=== PATIENT | female | born 1955 | race Caucasian/White ===

== ENCOUNTER → 2017-04-27 22:57 | Outpatient (CLI) | payer OTHER, SELFPAY | PROVIDERS: Visit Provider Family Medicine | DX: G47.33 Obstructive sleep apnea (adult) (pediatric) (principal) | CPT/HCPCS: 95811 ==

== ENCOUNTER 2017-07-18 05:31 | Emergency (ER) | payer OTHER, SELFPAY ==
[2017-07-18 05:34] VITALS: BP 179/99; PULSE 92; RESP 18; TEMP 36.6; O2SAT 98; BMI 36.3
--- NOTE | 2017-07-18 05:42 | CT_ITS ---
STUDY: CT ABDOMEN AND PELVIS WITHOUT CONTRAST REASON FOR EXAM: Female, 62 years old. Groin pain and back pain RADIATION DOSAGE (If Supplied By Facility): CTDIvol = ( 16.50 ) mGy, DLP = ( 816.86 ) mGycm TECHNIQUE: Transaxial images were obtained from the dome of the diaphragm to the symphysis pubis without oral contrast, and without intravenous contrast. Sagittal and coronal images were reconstructed. Individualized dose optimization techniques were used for this CT. COMPARISON: None. FINDINGS: The visualized lung bases are unremarkable. The visualized portions of the heart are within normal limits. Normal liver. Normal gallbladder and extrahepatic biliary system. Normal spleen. Normal pancreas. Normal bilateral adrenal glands. There is a cyst in the RIGHT kidney measuring up to 4.6 cm in diameter. There are NO kidney stones. There is NO hydronephrosis. Normal visualized stomach. Normal small intestine. There is diverticulosis of the sigmoid and LEFT colon. There is NO diverticulitis, colitis, obstruction or mass. The appendix is visualized and appears normal. Normal abdominal aorta. Normal inferior vena cava. Normal retroperitoneum. Normal urinary bladder. Uterus and ovaries are unremarkable. There is NO ascites or free air, abscess or adenopathy. There is an umbilical hernia containing fat only. Normal osseous structures. CT/Abdomen/Pelvis without Cont IMPRESSION: There is a cyst in the RIGHT kidney measuring up to 4.6 cm in diameter. There are NO kidney stones. There is NO hydronephrosis. There is diverticulosis of the sigmoid and LEFT colon. There is NO diverticulitis, colitis, obstruction or mass. The appendix is visualized and appears normal. Uterus and ovaries are unremarkable. There is NO ascites or free air, abscess or adenopathy. There is an umbilical hernia containing fat only. Electronically Signed: Jesus Miramontes MD at 6:55 EDT , Service support ,
--- NOTE | 2017-07-18 05:45 | ED.DCSUM_ITS ---
- ER Visit Summary Date of Service: 07/18/17 Chief Complaint: Right groin pain History of Present Illness: The patient is a 62 F waxing waning right groin pain since yesterday morning. Pain more intense this morning. Currently 7 8 out of 10. No relief with Advil taken at 4 AM. Nausea secondary to pain. No vomiting. Normal BM this morning. No urinary symptoms. States pain does radiate to her back region. No history of kidney stones. No fevers. No abdominal surgery history. Physical Examination: General: Alert and oriented ?3, mild distress HEENT: Normocephalic, atraumatic. Moist mucosa membranes Neck: supple, nontender. Cardiovascular: Regular rate and rhythm, no murmurs Respiratory: Normal breath sounds, symmetric, no distress Abdomen: Soft, nondistended, mild tenderness right pelvic with no guarding or rebound. No hernia. Back: No CVA tenderness. Extremities: Nontender, no edema, pulses intact ?4 Neuro: no focal neurological deficits. Test Results: Blood cell count 6.1. Hemoglobin 13.9. BMP normal. UA with [address] abdomen pelvis notes a 4.6 cm right renal cyst. Normal appendix. No obstructive uropathy Emergency Department Course and Treatment: Patient right groin pain rating to the back. Renal stone protocol initiated. Labs stable. Urine with small amount of blood. Give morphine Zofran fluids with pain control. CT notes right 4.6 cm renal cyst with no obstructive uropathy. There is a normal appendix, there is no uterine pathology. Discussed with patient is likely the cause of her symptoms with the size of it. Pain currently controlled. To be written for pain and nausea medicines. Increase her fibers. She will follow- up with her PCP reevaluation further treatment as needed for the cyst. Treatment Plan: [] Disposition: Discharge Impression: 1. Abdominal pain 2. 4.6 cm right renal cysts This note was generated with [employer] dictation software. It may contain incorrect words, spelling, and punctuation that were not noted in review of the chart prior to signing ED Disposition - Plan for ED Patient: Disposition: Home or Assisted Living Chief Complaint: Other, Pain/Inj Diagnosis: Renal cyst, right, Abdominal pain Prescriptions: Hydrocodone Bitart/Apap 5-325 [[place] 5MG-325MG] 1 tablet PO Q6H PRN PRN 3 Days # 10 tablet PRN Reason: Pain Ondansetron [Zofran Odt] 8 mg PO Q8H PRN PRN #10 tab PRN Reason: Nausea Referrals: Jose Thayer MD [Primary Care Provider] - 2 Days Additional Instructions: 4.6 cm right renal cyst. No obstructive uropathy. No kidney stones. Follow- up with your doctor for reevaluation.
[2017-07-18] MEDS: Ondansetron 4 MG/2 ML Vial IV (05:53)
[2017-07-18] MEDS: Morphine 4 MG/ML Syringe IV (05:54)
[2017-07-18] MEDS: 0.9% Normal Saline 1,000 ML 250 ML IV (05:54)
[2017-07-18 06:07] LABS: Absolute Lymphocyte Count 1.57 X10^3/ul (0.83-4.51); Absolute Neutrophil Count 3.8 X10^3/uL (2.0-7.7); Basophil# 0.06 X10^3/uL; Eosinophil# 0.14 X10^3/uL; Eosinophils% 2.3 % (0-5); Hematocrit 42.2 % (37-47); Hemoglobin 13.9 g/dl (12.0-15.0); Lymphocyte # 1.57 X10^3/ul (4.0); Lymphocyte % 25.9 % (19-41); Mean Corp Hgb Conc 32.9 g/gl (32-36); Mean Corpuscular Hgb 29.2 pg (27.0-32.0); Mean Corpuscular Volume 88.7 fL (81-99); Mean Platelet Vol. 10.7 fl (6.2-12.0); Monocyte# 0.45 X10^3/uL; Monocyte% 7.4 % (0-10); Neutrophil # 3.81 X10^3/uL (2.7-7.7); Neutrophil % 62.9 % (47-70); Platelet Count 203 K/mm3 (150-450); RBC Distribution Width CV 13.7 % (11.6-14.6); RBC Distribution Width SD 44.5 fl (35.1-43.9); Red Blood Count 4.76 M/mm3 (4.2-5.4); White Blood Count 6.1 K/mm3 (4.4-11.0)
[2017-07-18 06:08] LABS: POSITIVE COUNT NO; POSITIVE DIFFERENTIAL NO; POSITIVE MORPHOLOGY NO
[2017-07-18 06:10] LABS: Anion Gap 7 (5-15); BUN 18 mg/dL (7-18); BUN/Creat Ratio 20.5 RATIO (10-20); Calcium,Total 8.3 mg/dL (8.5-10.1); Chloride 110 mmol/L (98-107); Creatinine, Serum 0.88 mg/dL (0.55-1.02); EST Glomerular Filtration Rate 69 mL/min (>60); Est Glom Filt Rate - Afr Amer 83 mL/min (>60); Estimated Creatinine Clearance 60.46 ml/min; Glucose 91 mg/dL (74-106); Potassium 3.7 mmol/L (3.5-5.1); Sodium Level 143 mmol/L (136-145)
[2017-07-18 06:30] VITALS: BP 164/86; PULSE 77; RESP 16; O2SAT 95
[2017-07-18 06:59] LABS: Bacteria 0 SEEN /hpf (None Seen); White Blood Cells 0 SEEN /hpf (0-5)
[2017-07-18 07:03] LABS: Color, Urine Yellow (Yellow); Glucose, Dipstick Normal (Normal); Ketone-Dipstick Negative (Negative); Leukocyte Esterase-Dipstick Negative /ul (Negative); Nitrite-Dipstick Negative (Negative); Occult Blood-Urine 10 /ul (Negative); Protein-Dipstick 15 mg/dl (Negative); Specific Gravity, Urine 1.015 (1.002-1.030); Urine Bilirubin Dipstick Negative (Negative); Urine Clarity Clear (Clear); Urine Urobilinogen Normal (Normal)
[2017-07-18 07:08] LABS: Mucous, Urine 1+ /hpf (<or=2+); Red Blood Cells-Urine 0-5 SEEN /hpf (0-5); Squamous Epithelial Cells - UA 0-5 SEEN /hpf (5-10)
== END 2017-07-18 07:52 | disposition home or self-care (01) ==
PROVIDERS: Emergency Provider Emergency Medicine
DX: N20.0 Calculus of kidney (principal); R10.31 Right lower quadrant pain
CPT/HCPCS: 74176; 80048; 81001; 85025; 96361; 96374; 96375; 99282; J7030; A4216; J2405

== ENCOUNTER → 2017-07-26 07:18 | Outpatient (CLI) | payer OTHER, SELFPAY ==
--- NOTE | 2017-07-26 07:20 | CT_ITS ---
STUDY: CT ABDOMEN AND PELVIS WITH CONTRAST REASON FOR EXAM: Female, 62 years old. Microhematuria. Right renal cyst. Right groin pain. RADIATION DOSAGE (If Supplied By Facility): CTDIvol = ( 19.65 ) mGy, DLP = ( 1958.03 ) mGycm TECHNIQUE: Transaxial images were obtained from the dome of the diaphragm to the symphysis pubis without oral contrast. 100CC ml of Isovue 300 contrast was administered. Sagittal and coronal images were reconstructed. Individualized dose optimization techniques were used for this CT. COMPARISON: Comparison is made with prior study dated July 18, 2017. FINDINGS: The visualized lung bases are unremarkable. The visualized portions of the heart are within normal limits. There is decreased attenuation of the liver consistent with steatosis. Normal gallbladder and extrahepatic biliary system. Normal spleen. Normal pancreas. Normal bilateral adrenal glands. There is a 4.6 cm x 5.9 cm cyst in the upper posterior medial aspect of the right kidney. Normal left kidney. Normal visualized stomach. Normal small intestine. Diverticulosis of the transverse colon and sigmoid colon. The appendix is visualized and appears normal. Normal abdominal aorta. Normal inferior vena cava. Normal retroperitoneum. Normal urinary bladder. There is a small umbilical hernia containing fat. There are diffuse degenerative changes of the visualized lumbar spine. Straightening of the normal lumbar lordosis. CT/Abdomen/Pelvis WITH Contrast IMPRESSION: 4.6 cm x 5.9 cm cyst in the upper posterior medial aspect of the right kidney. Sigmoid diverticulosis. Diverticulosis of the transverse colon. Electronically Signed: Matthew Iniguez MD at 15:05 EDT Tel [phone], Service support ,
== END ==
PROVIDERS: Visit Provider Nurse Practitioner Adult Health
DX: N28.1 Cyst of kidney, acquired (principal); K57.30 Diverticulosis of large intestine without perforation or abscess without bleeding
CPT/HCPCS: 74177; Q9967

== ENCOUNTER 2018-04-07 10:08 | Emergency (ER) | payer MEDICARE, OTHER, SELFPAY ==
[2018-04-07 10:09] VITALS: BP 158/94; PULSE 112; RESP 20; TEMP 37.7; O2SAT 93; BMI 35.3
--- NOTE | 2018-04-07 10:36 | EKG12_ITS ---
Test Reason : SOB Blood Pressure : / mmHG Vent. Rate : 096 BPM Atrial Rate : 096 BPM P-R Int : 168 ms QRS Dur : 088 ms QT Int : 354 ms P-R-T Axes : 042 -18 050 degrees QTc Int : 447 ms Normal sinus rhythm Normal ECG Confirmed by MARTY BLAND, MARIFER ([id number]), fashion editor CHERIE HADLEY ([id number]) on 04/12/2018 8:23:12 AM Referred By: IVAN Confirmed By:MARIFER FERGUSON MD
--- NOTE | 2018-04-07 10:36 | RAD_ITS ---
STUDY: X-RAY CHEST REASON FOR EXAM: Female, 63 years old. Cough. TECHNIQUE: 2 frontal PA views of the chest. COMPARISON: None. FINDINGS: The lungs are clear and expanded. There is no demonstrated pleural abnormality. Normal size heart. Normal mediastinum and alfredo. Normal visualized pulmonary arteries. Normal visualized aortic arch and descending thoracic aorta. Normal visualized thoracic spine. Normal visualized ribs, clavicles, and shoulders. There is no demonstrated abnormality of the visualized soft tissue structures of the upper abdomen. RAD/Chest PA and Lateral IMPRESSION: Normal x-ray examination of the chest. Electronically Signed: Haja Aldana, at 12:14 EST Tel , Service support ,
--- NOTE | 2018-04-07 10:41 | NURSING ---
NO OLD EKGS
[2018-04-07 10:43] VITALS: O2SAT 89
[2018-04-07] MEDS: Ipratropium/Albuterol Sulfate 3 ML AMPUL.NEB INHALATION (10:45)
[2018-04-07 11:00] VITALS: PULSE 101; RESP 18
[2018-04-07] MEDS: 0.9% Normal Saline 1,000 ML 1000 ML IV (11:04)
[2018-04-07] MEDS: Ketorolac 30 MG/ML Syringe IV (11:05)
[2018-04-07 11:29] LABS: Absolute Lymphocyte Count 1.93 X10^3/ul (0.83-4.51); Absolute Neutrophil Count 8.5 X10^3/uL (2.0-7.7); Basophil# 0.03 X10^3/uL; Basophil% 0.3 % (0-1); Eosinophil# 0.05 X10^3/uL; Eosinophils% 0.4 % (0-5); Hematocrit 38.6 % (37-47); Hemoglobin 12.5 g/dl (12.0-15.0); Lymphocyte # 1.93 X10^3/ul (4.0); Mean Corp Hgb Conc 32.4 g/gl (32-36); Mean Corpuscular Hgb 29.2 pg (27.0-32.0); Mean Corpuscular Volume 90.2 fL (81-99); Mean Platelet Vol. 10.5 fl (6.2-12.0); Monocyte# 0.76 X10^3/uL; Monocyte% 6.7 % (0-10); Neutrophil # 8.51 X10^3/uL (2.7-7.7); POSITIVE COUNT NO; POSITIVE DIFFERENTIAL NO; POSITIVE MORPHOLOGY NO; Platelet Count 184 K/mm3 (150-450); RBC Distribution Width CV 14.1 % (11.6-14.6); RBC Distribution Width SD 46.1 fl (35.1-43.9); Red Blood Count 4.28 M/mm3 (4.2-5.4); White Blood Count 11.4 K/mm3 (4.4-11.0)
[2018-04-07 11:39] LABS: Anion Gap 7 (5-15); BUN 10 mg/dL (7-18); BUN/Creat Ratio 10.6 RATIO (10-20); Calcium,Total 8.6 mg/dL (8.5-10.1); Chloride 106 mmol/L (98-107); Creatinine, Serum 0.94 mg/dL (0.55-1.02); EST Glomerular Filtration Rate 63 mL/min (>60); Est Glom Filt Rate - Afr Amer 77 mL/min (>60); Estimated Creatinine Clearance 55.86 ml/min; Glucose 92 mg/dL (74-106); Potassium 3.7 mmol/L (3.5-5.1); Sodium Level 139 mmol/L (136-145)
[2018-04-07 11:42] VITALS: BP 163/88; PULSE 98; RESP 21; O2SAT 94
--- NOTE | 2018-04-07 12:51 | ED.VISSUMM ---
- ER Visit Summary Date of Service: 04/07/18 Chief Complaint: Cough History of Present Illness: The patient is a 63 F who was initially placed on amoxicillin for strep throat March 22-. She went to her PCP on 2 separate occasions for continued cough and chest congestion. She went back to the [facility] clinic where they diagnosed her with pneumonia on auscultation with no x-ray and gave her a Z-Ken. Patient started this on the . She presents today stating the cough is continuing and she started developing chills last evening. She is bringing up green to yellow colored sputum. Past history significant for reflux disease. She has not a smoker. Physical Examination: Blood pressure is 150/94, temperature 99.9, heart rate 112, respiratory rate 20, pulse ox 93% on room air. Head neck examination reveals slightly dry mucous membranes. Heart is slightly tachycardic and regular. Lungs sounds are with mild rales at the left base. Abdomen is soft nontender. Lower extremity examination was no calf tenderness or edema. Test Results: EKG is sinus at 96 with no sign of ischemia. CBC was a white count 11.4 with 75% neutrophils. Chemistry studies normal. Influenza swab negative. Two-view chest x-ray is unremarkable with no infiltrate. Emergency Department Course and Treatment: Patient was given IV fluids along with a DuoNeb treatment and IV Toradol. She will be given Tessalon Perles to control cough. She has an albuterol inhaler to use at home. Treatment Plan: [] Disposition: Discharge Impression: Bronchitis This note was generated with [employer] dictation software. It may contain incorrect words, spelling, and punctuation that were not noted in review of the chart prior to signing ED Disposition - Plan for ED Patient: Chief Complaint: Shortness of Breath Referrals: Jose Saldivar MD [Primary Care Provider] -
--- NOTE | 2018-04-07 12:54 | ED.DCSUM_ITS ---
- ER Visit Summary Date of Service: 04/07/18 Chief Complaint: Cough History of Present Illness: The patient is a 63 F who was initially placed on amoxicillin for strep throat March 22-. She went to her PCP on 2 separate occasions for continued cough and chest congestion. She went back to the [facility] clinic where they diagnosed her with pneumonia on auscultation with no x- ray and gave her a Z-Ken. Patient started this on the . She presents today stating the cough is continuing and she started developing chills last evening. She is bringing up green to yellow colored sputum. Past history significant for reflux disease. She has not a smoker. Physical Examination: Blood pressure is 150/94, temperature 99.9, heart rate 112, respiratory rate 20, pulse ox 93% on room air. Head neck examination reveals slightly dry mucous membranes. Heart is slightly tachycardic and regular. Lungs sounds are with mild rales at the left base. Abdomen is soft nontender. Lower extremity examination was no calf tenderness or edema. Test Results: EKG is sinus at 96 with no sign of ischemia. CBC was a white count 11.4 with 75% neutrophils. Chemistry studies normal. Influenza swab negative. Two-view chest x-ray is unremarkable with no infiltrate. Emergency Department Course and Treatment: Patient was given IV fluids along with a DuoNeb treatment and IV Toradol. She will be given Tessalon Perles to control cough. She has an albuterol inhaler to use at home. Treatment Plan: [] Disposition: Discharge Impression: Bronchitis This note was generated with [employer] dictation software. It may contain incorrect words, spelling, and punctuation that were not noted in review of the chart prior to signing ED Disposition - Plan for ED Patient: Chief Complaint: Shortness of Breath Referrals: Jose Saldivar MD [Primary Care Provider] -
--- NOTE | 2018-04-07 12:54 | ED.DEP ---
ED Disposition - Plan for ED Patient: Disposition: Home or Assisted Living Chief Complaint: Shortness of Breath Instructions: ED Upper Resp Infec No Abx Tx Prescriptions: Benzonatate [Tessalon Perle] 200 mg PO TID PRN PRN #20 capsule PRN Reason: Cough Referrals: Jose Saldivar MD [Primary Care Provider] - 1 Week
[2018-04-07 12:55] VITALS: BP 144/77; PULSE 89; RESP 18; O2SAT 90
[2018-04-07 13:07] VITALS: BP 133/84; BP 134/88; PULSE 81; PULSE 88; RESP 17; RESP 20; TEMP 37.7; O2SAT 93
== END 2018-04-07 13:11 | disposition home or self-care (01) ==
PROVIDERS: Emergency Provider Emergency Medicine; Family Provider Family Medicine; PCP Family Medicine
DX: J40 Bronchitis, not specified as acute or chronic (principal); K21.9 Gastro-esophageal reflux disease without esophagitis; Z79.82 Long term (current) use of aspirin
CPT/HCPCS: 71046; 80048; 85025; 87040; 87804; 93005; 94640; 96361; 96374; 99284; J7030; A4216

== ENCOUNTER → 2019-04-23 14:50 | Outpatient (CLI) | payer MEDICARE, BC, SELFPAY ==
--- NOTE | 2019-04-23 14:59 | CT_ITS ---
STUDY: CT ABDOMEN AND PELVIS WITH CONTRAST REASON FOR EXAM: Female, 64 years old. GROSS HEMATURIA, KNOWN CYST ON RT KIDNEY RADIATION DOSAGE (If Supplied By Facility): CTDIvol = ( 15.57 ) mGy, DLP = ( 1018.25 ) mGycm TECHNIQUE: Transaxial images were obtained from the dome of the diaphragm to the symphysis pubis without oral contrast. IV 100mL Isovue-300 was administered. Sagittal and coronal images were reconstructed. Individualized dose optimization techniques were used for this CT. COMPARISON: Comparison is made with prior study dated July 26, 2017. FINDINGS: The visualized lung bases are unremarkable. The visualized portions of the heart are within normal limits. There is decreased attenuation of the liver consistent with steatosis. Normal gallbladder and extrahepatic biliary system. Normal spleen. Normal pancreas. Normal bilateral adrenal glands. Stable 4.4 cm x 6.6 cm cyst in the upper posterior medial aspect of the right kidney Normal left kidney. There is a small hiatal hernia. Normal small intestine. There are multiple colonic diverticula consistent with diverticulosis. The appendix is visualized and appears normal. Normal abdominal aorta. Normal inferior vena cava. Normal retroperitoneum. Normal urinary bladder. There is a small umbilical hernia containing fat. There are degenerative changes of the visualized lumbar spine. CT/Abdomen/Pelvis W IV Cont ONLY IMPRESSION: Fatty infiltration of the liver. Stable right renal cyst. Diverticulosis of the colon. Electronically Signed: Matthew Iniguez, at 15:49 EST , Service support ,
== END ==
PROVIDERS: PCP Family Medicine; Referring Provider Urology; Visit Provider Urology
DX: R31.0 Gross hematuria (principal)
CPT/HCPCS: 74177; Q9967

== ENCOUNTER → 2019-04-29 | Outpatient (CLI) | payer MEDICARE, BC, SELFPAY ==
--- NOTE | 2019-04-29 | CYSPIN_PTH ---
PATIENT: DEVANG BOWENS LOC: [facility] U#:[id number] AGE/SX: 64/F ROOM: RE04/29/[address]: Dr. Juan Hahn MD : [id number] BED: DIS: 04/29/2019 SPEC #: [id number] RECD: 04/29/19 17:37 STATUS: EMIR REKarlene #: [id number] ADELINE: 04/29/19 00:[address]: Juan Hahn DEPT: CYTOLOGY RECD BY: Tony Valerio ENTERED: 04/30/19 11:03 SP TYPE: CYSPIN FL OTHR DR: Dr. Jose Saldivar MD Tissues: Urine Procedures: Pap Stain (control) Special Stain Group II Cytospin Fluid HEADER OPERATION: Not noted PRE-OP DIAGNOSIS: Gross hematuria TISSUE SUBMITTED: Urine for cytology DIAGNOSIS CYTOLOGY Urine for cytology (cytospin): Negative for malignant cells. See comment. AM:bere 05/01/19 COMMENT The specimen primarily contains squamous epithelial cells. Clinical correlation is suggested. CYTOLOGY STUDY Slides are reviewed. CYTOLOGY GROSS Received is 5 ml of cloudy yellow fluid labeled with the patient's name and and designated per the requisition as urine. Submitted for cytology preparation. / bere 04/30/19 TC:5 CPT: 92145
[2019-04-29 17:38] LABS: Cytology, Body Fluid / CSF SEE PATHOLOGY REPORT
== END | disposition home or self-care (01) ==
LOC: LABSPEC 16:59
PROVIDERS: PCP Family Medicine; Referring Provider Urology; Visit Provider Urology
DX: R31.0 Gross hematuria (principal)
CPT/HCPCS: 88108; 88313

== ENCOUNTER 2020-10-10 21:37 | Emergency (ER) | payer MEDICARE, BC, SELFPAY ==
[2020-10-10 21:38] VITALS: BP 139/92; PULSE 79; RESP 15; TEMP 36.8; O2SAT 100; BMI 34.6
--- NOTE | 2020-10-10 22:11 | EX.ED.DYSGE1 ---
HPI History of Present Illness Chief Complaint: General Illness Informant: patient Onset/Context/Timing Onset: Weeks (1) Context: Gradual Onset Timing: Continuous Quality: Pressure Location: Head Worsened by: Nothing Relieved by: Nothing Narrative Narrative: Patient presents with Covid exposure that occurred 1 week ago. States her granddaughter tested positive for COVID-19 recently. Patient states they were visiting her 1 week ago. Patient states her started having a cough and sore throat today. Patient currently denies any symptoms. Patient denies any loss of taste or smell. Patient states that she and her were both vaccinated for COVID-19. Patient does admit to a mild headache that is generalized. Patient states she thinks this is from stress. PFSH PFS Medical History Degenerative disk disease GERD (gastroesophageal reflux disease) Non-smoker Home Medications cholecalciferol (vitamin D3) [Vitamin D3] 2,000 unit PO DAILY 04/07/18 [History Last Taken Unknown] multivitamin [One Daily Multivitamin] 1 ea PO DAILY 04/07/18 [History Last Taken Unknown] omeprazole magnesium [Prilosec Otc] 20 mg PO PRN PRN 04/07/18 [History Last Taken Unknown] Allergy/AdvReac Type Severity Reaction Status Date / Time naproxen [From Naprosyn] AdvReac Rash Verified 10/10/20 21:44 no surgical history Social History Smoking Status: Never smoker ROS ROS ED Constitutional Constitutional ED: Denies chills or fever(s) Eyes Eyes: Denies blurry vision or change in vision ENT ENT ED: Denies rhinorrhea or sore throat Cardiovascular Cardiovascular: Denies chest pain or palpitations Respiratory/Chest Respiratory/Chest: Denies cough or dyspnea Gastrointestinal Gastrointestinal: Denies nausea or vomiting Genitourinary Genitourinary ED: Denies dysuria or hematuria Musculoskeletal Musculoskeletal: Denies back pain or neck pain Integumentary Denies abscess or rash Neurologic Neurologic: Reports headache(s); Denies weakness Allergic/Immunologic Allergic/Immunologic ED: Denies mouth swelling or urticaria EXAM Physical Exam Const Vital Signs: 10/10/20 21:38 10/10/20 22:23 Temperature 98.2 F Temperature Source Temporal Pulse Rate 79 Respiratory Rate 15 Respiratory Effort Normal Respiratory Depth Normal Respiratory Pattern Normal Blood Pressure 139/92 H Blood Pressure Mean 107 Pulse Ox 100 Oxygen Delivery Method Room Air Room Air Positive well nourished and well developed General Appearance ED: well developed HEENT Reports moist mucous membranes Neck supple and no JVD Resp normal respiratory effort and clear to auscultation bilaterally Cardio regular rate, regular rhythm and no murmurs GI normal to inspection, nondistended, normoactive bowel sounds and non-tender Palpation: soft Extremity normal to inspection Neuro oriented x3, CN's II-XII intact bilaterally and no sensory deficits noted Sensorium / Orientation: alert Motor Exam: strength 5/5 throughout Psych mental status grossly normal MDM MDM MDM Narrative Medical decision making narrative: COVID-19 rapid antigen was obtained and was negative. Patient was advised of her findings. Patient was instructed to follow-up with her primary care physician in 5 to 7 days. Patient understood and was agreeable with the plan. All questions were answered. Discharge Plan Triage Chief Complaint: General Illness ED Provider: Ancelmo Knox Dx/Rx/DC Orders Clinical Impression: Exposure to confirmed case of COVID-19 Instructions: Coronavirus Disease 2019 (COVID-19): Overview Prescriptions: No Action multivitamin [One Daily Multivitamin] 1 EACH tablet 1 ea PO DAILY RF: 0 omeprazole magnesium [Prilosec OTC] 20 MG tablet,delayed release (DR/EC) 20 mg PO PRN PRN (Reason: GERD) RF: 0 cholecalciferol (vitamin D3) [Vitamin D3] 2,000 UNIT capsule 2,000 unit PO DAILY RF: 0 Primary Care Provider: Jose Saldivar Referrals: Jose Saldivar MD [Primary Care Provider] - 5-7 Days Disposition Disposition: Home, Self Care
== END 2020-10-10 23:29 | disposition home or self-care (01) ==
PROVIDERS: Emergency Provider Emergency Medicine; PCP Family Medicine
DX: Z20.822 Contact with and (suspected) exposure to COVID-19 (principal); K21.9 Gastro-esophageal reflux disease without esophagitis; Z79.899 Other long term (current) drug therapy
CPT/HCPCS: 87426; 99282

== ENCOUNTER → 2021-12-27 | Outpatient (CLI) | payer MEDICARE, BC, SELFPAY ==
--- NOTE | 2021-12-27 07:19 | CT_ITS ---
ACR Level 3 findings have been noted. An addendum which confirms receipt of the report will follow. EXAM: CT MAXILLOFACIAL SINUSES WITHOUT INTRAVENOUS CONTRAST CLINICAL INDICATION: SINUSITIS TECHNIQUE: Helically acquired images were obtained of the maxillofacial sinuses without intravenous contrast. This CT exam was performed using one or more of the following dose reduction techniques: automated exposure control, adjustment of the mA and/or kV according to patient size, and/or use of iterative reconstruction technique. This report was created using [employer] report generation technology. RADIATION DOSE: CTDIvol = 33.06 mGy, DLP = 755.34 mGy-cm. COMPARISON: None. FINDINGS: MAXILLARY SINUSES: Slight mucosal thickening in the sinuses. Tiny mucous retention cyst in the right maxillary sinus. No intrasinus fluid. Large lucency encasing the right maxillary second central incisor tooth root, measuring roughly 1.4 cm x 1.2 cm, with a thin intact margin of bone between this and the superior bone and hard palate but large cortical bone defect along the anterior right maxillary alveolar ridge, bone defect of at least 1 cm best seen on sagittal images. Also periapical lucency around the adjacent right lateral maxillary tooth root. Ostiomeatal complexes are normally formed. SPHENOID SINUSES: Clear. FRONTAL SINUSES: Clear. ETHMOID AIR CELLS: Clear. NASAL CAVITY/SEPTUM: Nasal septum is midline. Nasal turbinates are unremarkable. BONES/JOINTS: See above. ORBITS: Unremarkable. DENTAL: See above. CT/Sinus/Facial Bone IMPRESSION: 1. 2 adjacent periapical dental lucencies involving teeth #12 and 13 in the right maxilla. Including a very large defect with large defect in the anterior cortical bone involving the second incisor tooth root, tooth #12. Probably adjacent soft tissue swelling and soft tissue developing abscess. There is a bulging contour of the low attenuation in the large dentigerous defect, bulging into the adjacent soft tissue, extending roughly 6 mm distal to the expected cortical margin on sagittal images. Probably early soft tissue extension of an abscess. 3. No evidence of sinusitis. Electronically Signed: Naomy Sutherland MD at 8:14 EDT ,
== END | disposition home or self-care (01) ==
LOC: CT 07:17
PROVIDERS: PCP Family Medicine; Referring Provider Otolaryngology Otolaryngology/Facial Plastic Surgery; Visit Provider Otolaryngology Otolaryngology/Facial Plastic Surgery
DX: J32.9 Chronic sinusitis, unspecified (principal)
CPT/HCPCS: 70486

== ENCOUNTER 2023-06-30 23:07 | Emergency (ER) | payer MEDICARE, BC, SELFPAY ==
[2023-06-30 23:09] VITALS: BP 181/94; PULSE 84; RESP 16; TEMP 36.2; O2SAT 100; BMI 35.2
[2023-06-30 23:11] VITALS: BP 165/82; PULSE 99; RESP 16; TEMP 36.7; O2SAT 96
--- NOTE | 2023-06-30 23:20 | EX.ED.DYSGE1 ---
HPI History of Present Illness Chief Complaint: Nausea/Vomiting Informant: patient and spouse/S.O. Narrative Narrative: Presents by private vehicle here with significant other. Chills myalgias 24 hours ago. Last Motrin 5 PM this evening. Denies urinary symptoms. Denies cough. Her sister had similar symptoms she exposed to 2 days ago she is unsure if she is tested for anything. Her sister feels better. Patient [address] Denies any nausea currently. History of hyperlipidemia and GERD. PFSH PFSH Medical History Degenerative disk disease GERD (gastroesophageal reflux disease) Non-smoker Home Medications cholecalciferol (vitamin D3) 50 mcg (2,000 unit) capsule (Vitamin D3) 2,000 unit PO DAILY 04/07/18 [History Last Taken Unknown] multivitamin (One Daily Multivitamin tablet) 1 ea PO DAILY 04/07/18 [History Last Taken Unknown] omeprazole magnesium 20 mg tablet,delayed release (Prilosec OTC) 20 mg PO PRN PRN GERD 04/07/18 [History Last Taken Unknown] cefdinir 300 mg capsule 300 mg PO Q12H #14 caps 07/01/23 [Rx Last Taken Unknown] ondansetron 4 mg disintegrating tablet 4 mg PO Q8H PRN PRN Nausea #10 tabs 07/01/23 [Rx Last Taken Unknown] Allergy/AdvReac Type Severity Reaction Status Date / Time naproxen [From Naprosyn] AdvReac Rash Verified 06/30/23 23:11 Social History Smoking Status: Never smoker EXAM Physical Exam Const Vital Signs: 06/30/23 23:09 06/30/23 23:11 06/30/23 23:38 Temperature 97.2 F L 98.1 F 102.3 F H Temperature Source Temporal Temporal Oral Pulse Rate 84 99 Respiratory Rate 16 16 Blood Pressure 181/94 H 165/82 H Blood Pressure Mean 123 109 Pulse Ox 100 96 Oxygen Delivery Method Room Air Room Air 07/01/23 00:11 07/01/23 00:40 07/01/23 01:00 Temperature 102.3 F H 100.9 F H 100.8 F H Temperature Source Oral Oral Oral Pulse Rate 88 98 Respiratory Rate 16 16 Blood Pressure 139/64 H 146/71 H Blood Pressure Mean 89 96 Pulse Ox 98 98 Oxygen Delivery Method Room Air Room Air 07/01/23 01:59 07/01/23 00:16 07/01/23 00:30 Temperature 99.3 F H Temperature Source Pulse Rate 99 Respiratory Rate 18 Blood Pressure 147/71 H 151/70 H Blood Pressure Mean 96 92 Pulse Ox 98 95 94 Oxygen Delivery Method 07/01/23 00:45 07/01/23 01:00 Temperature Temperature Source Pulse Rate Respiratory Rate Blood Pressure 140/68 H 146/71 H Blood Pressure Mean 88 92 Pulse Ox 94 93 Oxygen Delivery Method Positive well nourished and well developed General Appearance ED: well developed and NAD HEENT HEENT Narrative: Mild dry mucosal membranes. normocephalic and atraumatic Eyes PERRL, EOMs intact bilaterally and conjunctivae normal General Eye ED: Yes normal appearance of both eyes Neck no lymphadenopathy and supple General: Negative for tenderness Chest Wall Chest: Negative for tenderness Resp normal respiratory effort and normal air movement Effort and Inspection: symmetric chest movement; Negative for respiratory distress Cardio regular rate, regular rhythm and no murmurs Peripheral Pulses: pulses 2+ throughout GI normal to inspection, nondistended, normoactive bowel sounds and non-tender Palpation: Negative for guarding or rebound tenderness present Back/Spine no CVA tenderness and no thoracic nor lumbar tenderness Extremity normal to inspection General Extremety ED: Negative for edema or tenderness General Extremity: Negative for edema Neuro oriented x3 and no sensory deficits noted Sensorium / Orientation: awake and alert Skin no rashes or lesions noted and no wounds MDM MDM MDM Narrative Medical decision making narrative: Interventions / MDM: Differential diagnosis: Complicated UTI, fever, viral syndrome Diagnosis considered but do not suspect: No clinical pneumonia My EKG interpretation: N/A Imaging independently reviewed and interpreted by myself: N/A External documents reviewed: N/A Test considered but not ordered:N/A ED course: Patient presenting chills and myalgia. Denies cough or urinary symptoms. Nontoxic. Elevated blood pressure on arrival. No headache or chest pain. Basic labs ordered fluids for slight dry mucosal membranes. Will check COVID flu and RSV. 2350: Developed temp of 102.3 in the ED. Swabs are pending. Tylenol ordered. White count returned normal at 9.6. Will add urinalysis. 0055: COVID, influenza, RSV negative. Urine resulted returned positive for infection with nitrites leukocytes and greater than 100 WBCs. Urine culture sent. She is given IV Rocephin in the ED. Normal creatinine potassium 3.4 oral replacement. She is nontoxic. This time with fevers treated for complicated UTI. Clinically is not septic. 0200: Antibiotics then, clinically feels better. Discussed complicated UTI with her fever. No flank pain. Blood pressure improved without intervention. She will continue Motrin and Tylenol as needed. Discussed take and finish antibiotic. Zofran also sent with her to use as needed. Discussed return precautions. All questions were answered. Re-evaluation: stable Disposition discussed with patient/family/significant other: Patient and significant other Case discussed with consulting clinician: N/A This note was generated with [employer] dictation software. It may contain incorrect words, spelling, and punctuation that were not noted in checking the note before signing. Lab Data Attestation: I reviewed the patient's lab results. Labs: Laboratory Results - last 24 hr 06/30/23 07/01/23 23:35 00:30 WBC 9.6 RBC 4.48 Hgb 12.8 Hct 40.0 MCV 89.3 MCH 28.6 MCHC 32.0 RDW Std Deviation 43.9 RDW Coeff of Con 13.4 Plt Count 164 MPV 11.2 Immature Gran % (Auto) 0.700 Neut % (Auto) 86.4 H Lymph % (Auto) 9.3 L Bledsoe % (Auto) 2.4 Eos % (Auto) 0.7 Baso % (Auto) 0.5 Absolute Neuts (auto) 8.3 H Absolute Lymphs (auto) 0.89 Nucleated RBC % 0 Sodium 140 Potassium 3.4 L Chloride 106 Carbon Dioxide 27.0 Anion Gap 7 BUN 16 Creatinine 0.96 Estim Creat Clear Calc 62.55 Est GFR (MDRD) Af Amer 74 Est GFR (MDRD) Non-Af 61 BUN/Creatinine Ratio 16.7 Glucose 94 Calcium 8.7 Urine Color Yellow Urine Clarity Cloudy Urine pH 6.0 Ur Specific Bud 1.015 Urine Protein 30 H Urine Glucose (UA) Normal Urine Ketones Negative Urine Occult Blood 150 H Urine Nitrite Positive H Urine Bilirubin Negative Urine Urobilinogen Normal Ur Leukocyte Esterase 500 H Urine RBC 0 SEEN Urine WBC >100 SEEN Ur Squamous Epith Cells 0 SEEN Urine Bacteria 3+ Urine Mucus 0 SEEN Discharge Plan Triage Chief Complaint: Nausea/Vomiting ED Provider: Daren Mcknight Dx/Rx/DC Orders Clinical Impression: Fever, Complicated urinary tract infection, Nausea & vomiting, Hypokalemia Instructions: Urinary Tract Infections in Women, ED FUO Adult Prescriptions: New ondansetron [ondansetron] 4 mg tablet,disintegrating 4 mg PO Q8H PRN PRN (Reason: Nausea) Qty: 10 0RF cefdinir 300 mg capsule 300 mg PO Q12H Qty: 14 0RF No Action multivitamin [One Daily Multivitamin] 1 EACH tablet 1 ea PO DAILY omeprazole magnesium [Prilosec OTC] 20 MG tablet,delayed release (DR/EC) 20 mg PO PRN PRN (Reason: GERD) cholecalciferol (vitamin D3) [Vitamin D3] 2,000 UNIT capsule 2,000 unit PO DAILY Primary Care Provider: Jose Saldivar Referrals: Jose Saldivar MD [Primary Care Provider] - 1 Week Activity Restrictions/Additional Instructions: COVID, flu, RSV negative. Urine with infection. Normal white count. Normal kidney function. Potassium 3.4. Urine culture pending. Status post IV Rocephin in the ED. Take antibiotic as prescribed. Follow-up with your doctor. Continue Motrin or Tylenol as needed fever and muscle aches. If your symptoms worsen, return to the ED for reevaluation. Disposition Disposition: Home, Self Care Discharge Date/Time: 07/01/23 02:15
[2023-06-30] MEDS: 0.9% Normal Saline (1000mL) 1,000 ML 1000 ML IV (23:34)
[2023-06-30 23:38] VITALS: TEMP 39.1
[2023-06-30 23:44] LABS: Absolute Lymphocyte Count 0.89 X10^3/uL (0.83-4.51); Absolute Neutrophil Count 8.3 X10^3/uL (2.0-7.7); Basophil# 0.05 X10^3/uL; Basophil% 0.5 % (0-1); Eosinophil# 0.07 X10^3/uL; Eosinophils% 0.7 % (0-5); Hemoglobin 12.8 g/dL (12.0-15.0); Lymphocyte # 0.89 X10^3/ul (0.83-4.51); Lymphocyte % 9.3 % (19-41); Mean Corpuscular Hgb 28.6 pg (27.0-32.0); Mean Corpuscular Volume 89.3 fL (81-99); Mean Platelet Vol. 11.2 fl (6.2-12.0); Monocyte# 0.23 X10^3/uL; Monocyte% 2.4 % (0-10); NRBC Flagged by Analyzer 0 % (0-5); Neutrophil # 8.31 X10^3/uL (2.7-7.7); Neutrophil % 86.4 % (47-70); Platelet Count 164 K/mm3 (150-450); RBC Distribution Width CV 13.4 % (11.6-14.6); RBC Distribution Width SD 43.9 fl (35.1-43.9); Red Blood Count 4.48 M/mm3 (4.2-5.4); White Blood Count 9.6 K/mm3 (4.4-11.0)
[2023-06-30 23:58] LABS: Anion Gap 7 (5-15); BUN 16 mg/dL (7-18); BUN/Creat Ratio 16.7 RATIO (10-20); Calcium,Total 8.7 mg/dL (8.5-10.1); Chloride 106 mmol/L (98-107); Creatinine, Serum 0.96 mg/dL (0.55-1.02); EST Glomerular Filtration Rate 61 mL/min (>60); Est Glom Filt Rate - Afr Amer 74 mL/min (>60); Estimated Creatinine Clearance 62.55 ml/min; Glucose 94 mg/dL (74-106); Potassium 3.4 mmol/L (3.5-5.1); Sodium Level 140 mmol/L (136-145)
[2023-07-01] VITALS (7 sets, daily range): BP systolic 139–151; BP diastolic 64–71; PULSE 88–99; RESP 16–18; TEMP 37.4–39.1; O2SAT 93–98
[2023-07-01] MEDS: Acetaminophen 500 MG Tablet 1000 MG PO (00:01)
[2023-07-01 00:34] LABS: Color, Urine Yellow (Yellow); Glucose, Dipstick Normal (Normal); Ketone-Dipstick Negative (Negative); Leukocyte Esterase-Dipstick 500 /ul (Negative); Mucous, Urine 0 SEEN /hpf (<or=2+); Nitrite-Dipstick Positive (Negative); Occult Blood-Urine 150 /ul (Negative); Protein-Dipstick 30 mg/dl (Negative); Red Blood Cells-Urine 0 SEEN /hpf (0-5); Specific Gravity, Urine 1.015 (1.002-1.030); Squamous Epithelial Cells - UA 0 SEEN /hpf (5-10); Urine Bilirubin Dipstick Negative (Negative); Urine Clarity Cloudy (Clear); Urine Urobilinogen Normal (Normal)
[2023-07-01 00:44] LABS: Bacteria 3+ /hpf (None Seen); White Blood Cells >100 SEEN /hpf (0-5)
[2023-07-01] MEDS: Ceftriaxone 1 GM/50 ML BAG IV (01:38)
[2023-07-01] MEDS: Potassium Chloride Oral Tablet 20 MEQ PO (01:42)
== END 2023-07-01 02:15 | disposition home or self-care (01) ==
PROVIDERS: Emergency Provider Emergency Medicine; PCP Family Medicine; Visit Provider Emergency Medicine
DX: R50.9 Fever, unspecified (principal); N39.0 Urinary tract infection, site not specified; R11.2 Nausea with vomiting, unspecified; E87.6 Hypokalemia
CPT/HCPCS: 80048; 81001; 85025; 87086; 87088; 87186; 87631; 96365; 99284; J7030; A4216

== ENCOUNTER 2024-05-27 12:00 | Outpatient (RCR) | payer MEDICARE, BC, SELFPAY ==
--- NOTE | 2024-04-11 12:00 | HP.PTEVAL_ITS ---
Patient's Visit Information Visit Information Visit Information: DEVANG BOWENS is a 69 year old F referred to Physical Therapy by Dr. Rober Collins MD with a diagnosis of R TKA 04/09/24. Date of Evaluation: 04/11/24 Physical Therapist: Ancelmo Rascon, DPT, OCS, CSCS Visit Plan Frequency: 3x /Week Duration: 4-6 Weeks Plan: 3x/week for 4-6 weeks for IE: chair scoot knee flexion, HS, QS x10 3x/day, attempt SLR, AP throughout day. reviewed gait with walker, use ice and management of condition. Treat with patellar mobs, knee flexion ext ROM, HS stretch quad stretch to HEP, progression of knee and hip strength to HEP, gait training and stairs progression, ice as needed. Subjective Subjective: R TKA 04/09/24. Pain is up t0 6/10 at times but 4/10 and medication is doing its job. Sleep was OK once she gts in bed but climbing in is challenging. Uss CPAP and has compression garments and ice machine. 8 hours last night. picks up leg. Walker to geet around allt he time. Hands to get out of chair, recliner but scoot is challenging. Nupur with riki, one story, one step is no problem. Dresing is OK but need shelp with R foot in pants, help with stockings. Bathroom I with lift. Not eemployed. 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 Monthly meal at [employer]. No regular ex lately. Pain R knee: Pain Intensity (Out of 10): 1 Pain Intensity Range: 0 and 6 Objective Objective: R knee wrapped adn dressed properly. Incision is mostly dry and helaed well, no signs of exceessive redness heat or swelling. Patella R stiff vs L and moderate swelling expected. R kne eAROM -2-70, PROM to 73 limited by pain. L knee 0-110. strength R knee ext 5# and flexion 10# girth 22 inch at patella and 25 6 inch sp. TUG 28 seconds SLR not able today. Walking with walkr I needing cues for heel to toe adn knee flexion but does so when cued. Chair trasnfers I with UE. bed trasnfer Min A helping with L leg even after trained in towel and opposite leg help. Balance/Special Test Scores WOMAC Total Score: 46 WOMAC Percentatge: 52.0900 Goals Goal 1:: ST: sleep without waking 8 hours Goal Time Frame: 2-4 Weeks Goal 2:: I appropriate HEP to limit future problems Goal Time Frame: 2-4 Weeks Goal 3:: AROM R knee 0-115 R knee to help with funciton Goal Time Frame: 4-6 Weeks Goal 4:: Bed trasnfer I Goal Time Frame: 2-4 Weeks Goal 5:: Dress I without assist Goal Time Frame: 2-4 Weeks Goal 6:: walk without AD community without gait deviations and one step with R I. Goal Time Frame: 4-6 Weeks Rehabilitation Potential Physical Therapy Diagnosis: R knee stiffness adn pain limiting funciton after surgery. Rehabilitation Potential: Good Anticipated Interventions Patient/Client Instruction: Educate patient on: Condition and Risk Factors For the Purpose of:: To decrease pain, To increase ROM, To improve nutrient delivery to tissue, To improve muscle performance and motor function, To increase tolerance to activity/condition/position and To improve gait and locomotor functions Therapeutic Exercise to Include: Strength training, Postural training, Flexibilty training, Gait and locomotor training, Passive ROM and Active ROM For the Purpose of:: To decrease pain, To increase ROM, To improve nutrient delivery to tissue, To improve muscle performance and motor function, To increase tolerance to activity/condition/position and To improve gait and locomotor functions Manual Therapy Techniques to Include: Scar massage, Mobilization, Passive ROM and Soft tissue mobilization For the Purpose of:: To decrease pain, To increase ROM, To improve nutrient delivery to tissue, To improve muscle performance and motor function, To increase tolerance to activity/condition/position, To improve ability of physical actions for home/community/work/leisure and To improve gait and locomotor functions Cryotherapy (ice pack, ice massage): Yes For the Purpose of:: To decrease pain and To decrease swelling/inflammation Text: Thank you for the opportunity to evaluate your patient. For Medicare and Medicare HMO plans, please review the plan of care and approve it. It will need to be FAXED BACK to us at [phone] for Medicare purposes. For Medicare only, by signing this I certify the plan of care. Please let me know if there are questions or concerns regarding this plan of care. Physician Signature: Date:
--- NOTE | 2024-07-18 15:31 | HP.PT.NRP ---
Patient Information Patient Information: DEVANG BOWENS was seen in my office for initial evaluation on 04/11/24. The following Plan of Care was established for this patient: POC Established Initial Frequency: 3x /Week Initial Duration: 4-6 Weeks Anticipated Interventions Patient/Client Instruction: Educate patient on: Condition and Risk Factors For the Purpose of:: To decrease pain, To increase ROM, To improve nutrient delivery to tissue, To improve muscle performance and motor function, To increase tolerance to activity/condition/position and To improve gait and locomotor functions Therapeutic Exercise to Include: Strength training, Postural training, Flexibilty training, Gait and locomotor training, Passive ROM and Active ROM For the Purpose of:: To decrease pain, To increase ROM, To improve nutrient delivery to tissue, To improve muscle performance and motor function, To increase tolerance to activity/condition/position and To improve gait and locomotor functions Manual Therapy Techniques to Include: Scar massage, Mobilization, Passive ROM and Soft tissue mobilization For the Purpose of:: To decrease pain, To increase ROM, To improve nutrient delivery to tissue, To improve muscle performance and motor function, To increase tolerance to activity/condition/position, To improve ability of physical actions for home/community/work/leisure and To improve gait and locomotor functions Cryotherapy (ice pack, ice massage): Yes For the Purpose of:: To decrease pain and To decrease swelling/inflammation Last Seen Last Seen: This patient was last seen in our office 05/27/24. Pertinent comments regarding their Physical therapy will appear below: Pt seen 16 visits of POC and was progressing. Took a few weeks off to see doctor but never scheduled or returned to finish therapy. At this point, it has been over 6 weeks and I will discontinue from my care. At this point I will be discontinuing this patient from physical therapy. I would be happy to see this patient again in the future if found appropriate by the physician. Thank you! Ancelmo Rascon, DPT, OCS, CSCS Balance/Gait/Functional tests Balance/Special Test Scores WOMAC Total Score: 31 WOMAC Percentage: 67.7100
== END 2024-05-27 19:00 | disposition home or self-care (01) ==
LOC: PT 12:00
PROVIDERS: PCP Family Medicine; Referring Provider Orthopaedic Surgery; Visit Provider Orthopaedic Surgery
DX: Z96.651 Presence of right artificial knee joint (principal)
CPT/HCPCS: 97016; 97110; 97161; 97530

== ENCOUNTER 2024-06-21 15:35 | Emergency (ER) | payer MEDICARE, BC, SELFPAY ==
[2024-06-21 15:36] VITALS: BP 169/87; PULSE 93; RESP 16; TEMP 36.7; O2SAT 99; BMI 36.7
--- NOTE | 2024-06-21 15:58 | CT_ITS ---
PROCEDURE: CTA CHEST W/WO CONTRAST 06/21/2024 REASON FOR EXAM: LLQ DISCOMFORT WITH BREATHING, ELEVATED D-DIMER, S TECHNIQUE: CTA axial imaging of the chest with intravenous contrast. Coronal and Sagittal reconstruction series were provided. 3D, 3D post processing, 3D reconstructions, Maximum intensity projection (MIPs) Volume rendering and Shaded surface rendering was provided. PATIENT PREPARATION: Per protocol CONTRAST: Omnipaque 350 VOLUME: 100 mL Gauge IV One or more dose reduction techniques were used (e.g., Automated exposure control, adjustment of the mA and/or kV according to patient size, use of iterative reconstruction technique). COMPARISON: None FINDINGS: Hardware: None Lymph nodes: No suspicious adenopathy. Heart: Mild biatrial enlargement. No pericardial effusion. No significant coronary artery calcifications. Thoracic Aorta: No thoracic aortic aneurysm or dissection. Pulmonary Vessels: No large central pulmonary emboli are identified. Contrast timing is suboptimal for evaluation of more distal branches. Lungs and Airways: Central airways are patent without endobronchial lesions. Upper lobe predominant mosaic attenuation, likely secondary to </small-vessel disease. No suspicious pulmonary nodules. No focal consolidation. No pleural effusion. Upper Abdomen: Right renal cysts. Bones: Degenerative changes of the thoracic spine. 9 mm left thyroid lobe nodule. CT/CTA Chest W/WO Contrast IMPRESSION: No evidence of acute pulmonary embolism. Mosaic attenuation, likely secondary to small vessel/small airways disease. [facility]
--- NOTE | 2024-06-21 16:30 | EDS_ITS ---
HPI History of Present Illness Chief Complaint: Abn Labs Detail of Chief Complaint: Sent for elevated D-dimer. Informant: patient and spouse/S.O. Onset/Context/Timing Onset: - (Not applicable) Context: - (Fullness/discomfort left upper quadrant) Timing: Intermittent Quality: Mild shortness of breath Location: Left upper quadrant/left lower lung field Current Severity: Mild Maximum Severity: Moderate Worsened by: Nothing Relieved by: Nothing Associated Symptoms Associated Symptoms: No history of VTE. No leg pain or discoloration. Right lower extremity sw Narrative Narrative: Patient is a 69-year-old woman. She had knee surgery end of March. She had hernia repair by Dr. Rea 1 week ago. She was seen by nurse practitioner at [facility]. She had a D-dimer that was elevated even after correction for age. Level was 1316. Upper end of normal is 710. She complains of some discomfort in the left lower lung field/left upper quadrant. This started after the hernia surgery. She has had chronic swelling of her right lower extremity since the knee surgery end of March. She denies fever, chills night sweats. She denies chest pressure, tightness or heaviness. She denies skin rash or lesions. She denies trauma. Prior similar symptoms: No Recent Illness/Hospitalization: Yes [facility] Medical History Degenerative disk disease Non-smoker GERD (gastroesophageal reflux disease) Home Medications ?Medication ?Instructions ?Recorded ?Last Taken ?Type cholecalciferol (vitamin D3) 50 2,000 unit PO DAILY Unknown History mcg (2,000 unit) capsule (Vitamin D3) multivitamin (One Daily 1 ea PO DAILY 04/07/18 Unkno wn History Multivitamin tablet) omeprazole magnesium 20 mg 20 mg PO PRN PRN GERD 04/07 Unknown History tablet,delayed release (Prilosec OTC) atorvastatin 20 mg tablet 20 mg PO QDAY 02/22/24 Unkno wn History Allergy/AdvReac Type Severity Reaction Status Date / Time No Known Allergies Allergy Verified 06/21/24 15:37 Family History Father Heart disease Surgical History Status post left partial knee replacement Social History household members: spouse housing: house current occupational status: retired current occupation: Retired bookeeper pets and animals: No Smoking Status: Never smoker alcohol intake: current alcohol intake frequency: holidays/special occasions only substance use type: does not use what type of physical activity do you participate in: none seatbelt use: always do you feel safe at home: Yes ROS ROS ED Constitutional Constitutional ED: Denies chills, fever(s), subjective or sweats Eyes Eyes: Denies blurry vision or change in vision ENT ENT ED: Denies ear pain, rhinorrhea or sore throat Cardiovascular Cardiovascular: Denies chest pain, orthopnea, palpitations, paroxysmal nocturnal dyspnea or racing heartbeat Respiratory/Chest Respiratory/Chest: Reports dyspnea and dyspnea on exertion; Denies cough, orthopnea or paroxysmal nocturnal dyspnea Gastrointestinal Gastrointestinal: Reports abdominal pain; Denies constipation, diarrhea, melena, nausea or vomiting Genitourinary Genitourinary ED: Denies dysuria, hematuria or urinary frequency Musculoskeletal Musculoskeletal: Denies arthralgias or myalgias Integumentary Denies rash Neurologic Neurologic: Denies paresthesias or weakness Hematologic/Lymphatic Hematologic/Lymphatic: Reports systems reviewed and no addt'l complaints, except as documented EXAM Physical Exam Const Vital Signs: 06/21/24 15:36 06/21/24 15:36 06/21/24 16:24 Temperature 98.1 F Temperature Source Oral Pulse Rate 93 Respiratory Rate 16 Respiratory Effort Normal Non-Labored Normal Non-Labored Respiratory Depth Normal Respiratory Pattern Normal Normal Blood Pressure 169/87 H Blood Pressure Mean 114 Pulse Ox 99 Oxygen Delivery Method Room Air Room Air 06/21/24 16:36 06/21/24 17:00 Temperature Temperature Source Pulse Rate 88 88 Respiratory Rate 14 19 H Respiratory Effort Respiratory Depth Respiratory Pattern Blood Pressure 149/78 H 143/77 H Blood Pressure Mean 101 99 Pulse Ox 98 97 Oxygen Delivery Method Room Air Room Air Positive well nourished and well developed Constitutional Narrative: BMI is 36.8. Vital signs noted. Blood pressure slightly elevated. She is not tachycardic, tachypneic or hypoxic. General Appearance ED: well developed and NAD; Negative for cyanotic or diaphoretic HEENT Reports moist mucous membranes HEENT Narrative: Head is atraumatic normocephalic. Ears normal. Nares patent. Eyes PERRL and EOMs intact bilaterally General Eye ED: Negative for pale conjunctiva or scleral icterus Neck no lymphadenopathy, supple and no JVD Chest Wall inspection of chest normal and palpation of chest normal Resp normal respiratory effort and clear to auscultation bilaterally Cardio regular rate, regular rhythm, S1 normal heart sound, S2 normal heart sound and no murmurs GI non-tender, non-distended and no masses; Negative for hepatosplenomegaly GI Narrative: Incision superior to the umbilicus is healing without evidence infection. Auscultation: normoactive bowel sounds Palpation: soft Back/Spine no CVA tenderness Extremity Extremity Narrative: The right lower extremity is swollen compared to the left. There is no discoloration or leg vein distention. There is no painalong the distribution deep venous system nor are there any palpable cords. Neuro CN's II-XII intact bilaterally Sensorium / Orientation: alert Psych mental status grossly normal Skin Skin Narrative: Umbilical incision is healing without evidence infection. MDM MDM MDM Narrative Medical decision making narrative: Patient is at risk for VTE and has an elevated D-dimer and spite of correction for age. Will obtain CTA of the chest after obtaining BMP since she has not had recent blood work to assess her renal function. Her blood pressure is elevated. This could be elevated for multiple reasons. History & Record Review Additional record(s) reviewed:: Prior outpatient record (Note authored by nurse practitioner Aleida at [facility] was reviewed through the patient's [facility] MyChart portal.) and Prior labs Lab Data Labs: Laboratory Results - last 24 hr 06/21/24 16:15 Sodium 141 Potassium 3.7 Chloride 107 Carbon Dioxide 21.4 Anion Gap 13 BUN 17 Creatinine 0.90 Estim Creat Clear Calc 67.23 Est GFR (MDRD) Non-Af 68 BUN/Creatinine Ratio 18.8 Glucose 104 H Calcium 9.0 Radiography Diagnostic Testing: Clinical Impression(s) from Imaging Studies Chest CTA 06/21/24 15:58 IMPRESSION: No evidence of acute pulmonary embolism. Mosaic attenuation, likely secondary to small vessel/small airways disease. Reading [facility] was reviewed by me. There is no obvious pulm embolus. Patient is known to have a mosaic attenuation likely due to small vessel small airway disease. She has no infectious symptoms. The radiology report was reviewed. She was informed. Treatment and Re-Evaluation :: Patient and were informed of the CAT scan results. She was told she does not have a blood clot. Does not have evidence of pneumonia. Discharge Plan Triage Chief Complaint: Abn Labs Other Complaint: Shortness of Breath ED Provider: Blu Baeza Dx/Rx/DC Orders Clinical Impression: Dyspnea, Obstructive sleep apnea, Elevated d-dimer, Elevated blood-pressure reading without diagnosis of hypertension, Adult BMI 36.0-36.9 kg/sq m Instructions: ED Dyspnea, ED Hypertension, To Be Confirmed Prescriptions: No Action atorvastatin 20 mg tablet 20 mg PO QDAY multivitamin [One Daily Multivitamin] 1 EACH tablet 1 ea PO DAILY omeprazole magnesium [Prilosec OTC] 20 MG tablet,delayed release (DR/EC) 20 mg PO PRN PRN (Reason: GERD) cholecalciferol (vitamin D3) [Vitamin D3] 2,000 UNIT capsule 2,000 unit PO DAILY Primary Care Provider: Jose Saldivar Referrals: Jose Saldivar MD [Primary Care Provider] - Keep Louis appointment Print Language: Welsh Disposition Disposition: Home, Self Care
[2024-06-21 16:36] VITALS: BP 149/78; PULSE 88; RESP 14; O2SAT 98
[2024-06-21 17:00] VITALS: BP 143/77; PULSE 88; RESP 19; O2SAT 97
[2024-06-21 17:08] LABS: Anion Gap 13 (5-15); BUN 17 mg/dL (4-19); BUN/Creat Ratio 18.8 RATIO (10-20); Carbon Dioxide 21.4 mmol/L (21.0-32.0); Chloride 107 mmol/L (98-108); EST Glomerular Filtration Rate 68 (>60); Estimated Creatinine Clearance 67.23 ml/min (50-250); Glucose 104 mg/dL (70-99); Potassium 3.7 mmol/L (3.3-5.1); Sodium Level 141 mmol/L (133-145)
[2024-06-21 17:59] VITALS: BP 143/77; PULSE 88; RESP 19; TEMP 36.7; O2SAT 97
[2024-06-21 18:00] VITALS: BP 140/89; PULSE 77; RESP 16; O2SAT 99
[2024-06-21 18:06] VITALS: BP 140/89; PULSE 77; RESP 16; TEMP 35.9; O2SAT 99
== END 2024-06-21 17:59 | disposition home or self-care (01) ==
PROVIDERS: Emergency Provider Emergency Medicine; PCP Family Medicine; Visit Provider Emergency Medicine
DX: R06.00 Dyspnea, unspecified (principal); G47.33 Obstructive sleep apnea (adult) (pediatric); R03.0 Elevated blood-pressure reading, without diagnosis of hypertension; R79.89 Other specified abnormal findings of blood chemistry
CPT/HCPCS: 71275; 80048; 99285; Q9967; A4216

== ENCOUNTER → 2024-09-03 | Outpatient (CLI) | payer MEDICARE, BC, SELFPAY ==
--- OUTSIDE RECORDS SUMMARY | 2024-09-03 06:37 | XMS RPT_ITS | CCD ---
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 Name Role Phone Mili Saldivar MD Primary Care Provider Mili Saldivar MD Primary Care Provider Podlogar [employer] DEPARTMENT MANAGER.Yudith UGARTE Unavailable Henry King PA-C Unavailable Unavailable Henry King PA-C Unavailable Unavailable Dennis Magaña MD, Rober Unavailable Unavailab dipika [facility], Provider Attending Unavailable Mlii Saldivar Referring Unavailab Mili Cleary Primary Care Unavailab Fabiana Nolasco Attending Unavailable Dennis Magaña Rober V Referring UnavailMili Best Primary Care Unavailab Henry Reynolds PA-C Unavailable Unavailable Dennis Magaña Rober V Attending UnavailMili Best Referring Unavailab Mili Cleary Primary Care Unavailab dipika Collins Jr Rober V Attending Unavaildanny Collins Jr Rober V Referring UnavailMili Best Primary Care Unavailab Jamil Castañeda Attending Unavailable Dennis Magaña Rober V Referring UnavailMili Best Primary Care Unavailab dipika Collins Jr, MD, Rober Unavailable Unavailab dipika Collins Jr, MD, Rober Unavailable Unavailab dipika Collins Jr, MD, Rober Unavailable Unavailab dipika Collins Jr, MD, Rober Unavailable Unavailab dipika Collins Jr, MD, Rober Unavailable Unavailab dipika Collins Jr, MD, Rober Unavailable Unavailab dipika Collins Jr, MD, Rober Unavailable Unavailab dipika Collins Jr, MD, Rober Unavailable Unavailab dipika Collins Jr, MD, Rboer Unavailable Unavailab dipika Collins Jr, MD, Rober Unavailable Unavailab dipika Collins Jr, MD, Rober Unavailable Unavailab dipika Collins Jr, MD, Rober Unavailable Unavailab dipika Collins Jr, MD, Rober Unavailable Unavailab dipika Collins Jr, MD, Rober Unavailable Unavailab Henry Reynolds Attending Unavailable Dennis Jr, Rober V Referring UnavailMili Best Primary Care Unavailab le Dennis Jr, Rober V Attending Unavailabl mary Collins Jr, Rober V Referring Unavailabl Mili Meyers Primary Care Unavailab le Dennis Jr, Rober V Attending Unavaildanny e Dennis Magaña, Rober V Referring UnavailMili Best Primary Care Unavailab le Dennis Jr, Rober V Attending UnavailMili Best Primary Care Unavailab Henry Reynolds Attending Unavailable Mili Saldivar Primary Care Unavailab le Dennis Jr, Rober V Attending Unavailabl mary Collins Jr, Rober V Referring UnavailMili Best Primary Care Unavailab le Dennis Jr, Rober V Attending Unavaildanny Collins Jr, Rober V Referring UnavailMili Best Primary Care Unavailab Aaron Smith Attending Unavailabl e Dennis Magaña, Rober V Attending UnavailMili Best Referring Unavailab Mili Cleary Primary Care Unavailab Henry Reynolds Attending Unavailable Mili Saldivar Referring Unavailab Mili Cleary Primary Care Unavailab le Dennis Jr, Rober V Attending UnavailMili Best Referring Unavailab Mili Cleary Primary Care Unavailab le Dennis Jr, Rober V Attending UnavailMili Best Referring Unavailab Mili Cleary Primary Care Unavailab dipika Abbott [employer] DEPARTMENT MANAGER.Ruth UGARTE Unavailable HAJA DHALIWAL Attending Unavailable HAJA DHALIWAL Admitting Unavailable MILI SALDIVAR Primary Care Unavailab dipika Abbott [employer] DEPARTMENT MANAGER.Ruth UGARTE Unavailable Yariel BLAND, Dr. Garcia Primary Care Provider Yariel BLAND, Dr. Garcia Referring Provider Kiera Leon Attending Provider Dennis BLAND, Dr. Richter Attending Provider Dennis BLAND, Dr. Richter Referring Provider [phone] Aryan BLAND, Dr. Hurt Emergency Provider [phone] MILI SALDIVAR Primary Care Unavailab le MADHURIHAJA Attending Unavailable MILI SALDIVAR Primary Care Unavailab ALISON Lozano Attending Unavailable MILI SALDIVAR Primary Care Unavailab le MILI SALDIVAR Referring Unavailab le MILI SALDIVAR Primary Care Unavailab le YARIEL, MILI Lopez Primary Care Unavailab le HAJA DHALIWAL Referring Unavailable MARICHUY DELUNA Attending Unavailable MILI SALDIVAR Primary Care Unavailab MARICHUY Bundy Referring Unavailable MILI SALDIVAR Primary Care Unavailab le MILI SALDIVAR Primary Care Unavailab le MILI SALDIVAR Attending Unavailab NAVI Block Attending Unavailable MILI SALDIVAR Primary Care Unavailab le MILI SALDIVAR Referring Unavailab le YARIEL, MILI Lopez Primary Care Unavailab le YARIEL, MILI B Referring Unavailab le YARIEL, MILI B Primary Care Unavailab le MILI SALDIVAR Attending Unavailab le MILI SALDIVAR Primary Care Unavailab le MILI SALDIVAR B Referring Unavailab le SARAHLEY, EDINER B Primary Care Unavailab YUDITH Britt Attending Unavailable MILI SALDIVAR Primary Care Unavailab le MILI SALDIVAR Attending Unavailab le MILI SALDIVAR Primary Care Unavailab le MILI SALDIVAR Referring Unavailab le YARIEL, MILI oLpez Primary Care Unavailab le JULIANA ZELAYA Attending Unavailable SELF Referring Unavailable Yariel BLAND, Dr. Garcia Primary Care Provider Aryan BLAND, Dr. Hurt Attending Provider [phone] Scar DANIEL.Ruth UGARTE Unavailable Dr. Jose Saldivar MD Referring Provider Jemima Ledesma Attending Provider Rober Collins Referring Unavailable Rober Collins Attending Unavailable Jose Saldivar Primary Care Unavailable Baeza, Blu Attending Unavailable Jose Saldivar Primary Care Unavailable Jose Saldivar Primary Care Unavailable Jemima Aguiar Referring Unavailable Jemima Aguiar Attending Unavailable Kiera Quiroz Attending Unavailable Jose Saldivar Referring Unavailable Jose Saldivar Primary Care Unavailable Jose Saldivar Primary Care Unavailable Jemima Aguiar Attending Unavailable Jose aSldivar Referring Unavailable Allergies Allergy Classification Reported Allergen(s) Allergy Type Date of Onset Reaction(s) Facility (20 sources) Indomethacin; Translations: [INDOMETHACIN SODIUM] Drug Allergy 5 [facility] (20 sources) Naproxen; Translations: [NAPROXEN] Drug Allergy 6 [facility] Work Phone: (16 sources) Naproxen; Translations: [NAPROXEN SODIUM] Drug Allergy 5 [facility] Nap[facility]en Drug Allergy 4 [facility] Repository Medications Current Medications Medication Drug Class(es) Dates Sig (Normalized) Sig (Original) acetaminophen 500 mg oral tablet (20 sources) Start: 04-07-2024 take 1 tablet by mouth every eight hours as needed acetaminophen (TYLENOL) 500 mg tablet Take 500 mg by mouth every 8 hours as needed. 04/07/2024 Active Start: 04-07-2024 Acetaminophen Extra Strength 500 mg tablet 2 tablets q 8 hrs orally for 7 days - Active Take as needed after 7 days Comment on above: Take as needed after 7 days amoxicillin 875 mg / clavulanate 125 mg oral tablet (2 sources) Penicillin-class Antibacterial Start: 5 End: 5 take 1 tablet by mouth twice daily amoxicillin-clavul anate potassium (AUGMENTIN) 875-125 mg per tablet Take 1 tablet by mouth two times a day for 7 days. 14 tablet 03/14/2024 03/21/2024 Active Start: 03-03-2022 End: 03-10-2022 take 1 tablet by mouth twice daily amoxicillin-clavulanic acid (AUGMENTIN) 875-125 mg per tablet Indications: Sinus pressure Take 1 tablet by mouth twice daily for 7 days. 14 tablet 0 03/03/2022 03/10/2022 Active Comment on above: Take 1 tablet by jocelyn twice daily for 7 days. atorvastatin 20 mg oral tablet (20 sources) HMG-CoA Reductase Inhibitor Start: End: take 1 tablet by mouth once daily Atorvastatin 20 mg tablet Active 20 mg PO daily February 22, 2024 1:00am Start: 12-29-2022 End: 03-29-2023 take 1 tablet by mouth once daily at bedtime for hyperlipidemia atorvastatin (LIPITOR) 20 mg tablet Indications: Other hyperlipidemia Take 1 tablet by mouth daily at bedtime. For cholesterol. 30 tablet 2 12/29/2022 03/29/2023 Active Comment on above: Take 1 tablet by jocelyn daily at bedtime. For cholesterol. betamethasone 0.5 mg/ml / clotrimazole 10 mg/ml topical cream (1 source) Azole Antifungal, Corticosteroid Start: 05-07-19 End: 05-15-19 clotrimazole-betam ethasone (LOTRISONE) cream Apply 1 application to affected area two times a day for 7 days. 15 g 05/07/2024 05/14/2024 Active cephalexin 500 mg oral capsule (16 sources) Cephalosporin Antibacterial Start: 04-07-19 take 1 capsule by mouth every eight hours cephalexin 500 mg capsule Take one capsule by mouth every eight hours - Active Take 1 every 8 hours for 3 doses Comment on above: Take 1 every 8 hours for 3 doses cholecalciferol 0.05 mg oral capsule (20 sources) Vitamin D Start: 04-03-19 take 1 tablet by mouth once daily in the morning Vitamin D3 50 mcg (2,000 unit) capsule TAKE ONE TABLET BY MOUTH EVERYDAY IN THE AM - Active Start: 08-04-2020 End: 12-20-2021 take 1 tablet by mouth once daily cholecalciferol (VITAMIN D3) 50 mcg (2,000 unit) tablet Indications: Vitamin D insufficiency Take 1 tablet by mouth once daily. 30 tablet 5 12/20/2021 Active Start: 04-07-2018 take 1 capsule by [facility] once daily Cholecalciferol (Vitamin D3) (Vitamin D3) 2,000 UNIT capsule Active 2000 U PO DAILY April 07, 2018 1:00am Comment on above: Take 1 tablet by [facility] once daily. ciprofloxacin 500 mg oral tablet (2 sources) Quinolone Antimicrobial Start: End: take 1 tablet by mouth twice daily ciprofloxacin HCl (CIPRO) 500 mg tablet Take 1 tablet by mouth two times a day for 7 days. 14 tablet 0 07/11/2023 07/18/2023 Active Flonase Allergy Relief (UD) BUCCAL (16 sources) Start: Flonase Allergy Relief (UD) BUCCAL as needed - Active fluticasone propionate 0.05 mg/actuat metered dose nasal spray (20 sources) Corticosteroid Start: End: take 2 spray(s) by mouth once daily fluticasone (FLONASE) 50 mcg/actuation nasal spray Use 2 Sprays in each nostril once daily. Rinse mouth after use. 1 Each 5 12/25/2023 Active Comment on above: Use 2 Sprays in each nostril once daily. Rinse mouth after use. hydrocortisone 25 mg/ml topical cream (5 sources) Corticosteroid Start: End: hydrocortisone 2.5 % cream Indications: Lump on neck Apply 1 application to affected area two times a day for 14 days. Location: left anterior neck 28 g 12/25/2023 01/08/2024 Active meloxicam 15 mg oral tablet (4 sources) Nonsteroidal Anti-inflammatory Drug Start: End: take 1 tablet by mouth once daily at mealtime meloxicam (MOBIC) 15 mg tablet Indications: Chronic neck pain , Strain of neck muscle, initial encounter Take 1 tablet by mouth once daily. With food. 30 tablet 02/09/2024 03/10/2024 Active Multivitamin (One Daily Multivitamin) 1 EACH tablet (4 sources) Start: 019 take 1 tablet by mouth once daily Multivitamin (One Daily Multivitamin) 1 EACH tablet Active 1 NMA PO DAILY April 07, 2018 1:00am Start: 04-07-2018 [facility] Multivitamin (One Daily Multivitamin) 1 EACH tablet Active 1 EACH PO DAILY April 07, 2018 1:00am MULTIVITAMIN ORAL (20 sources) MULTIVITAMIN ORA L Take by mouth once daily. Active MULTIVITAMIN ORA L Take by mouth. Active MULTIVITAMIN ORA L Take by mouth. 0 Active Comment on above: Take by mouth. Multivitamin preparation (16 sources) Start: 04-03-19 take 1 tablet by mouth once daily in the morning MULTIVITAMIN (UD) BUCCAL TAKE ONE TABLET BY MOUTH EVERYDAY IN THE AM - Active omeprazole 20 mg delayed release oral capsule (20 sources) Proton Pump Inhibitor Start: 06-05-19 End: 12-20-19 take 1 capsule by mouth once daily omeprazole (PRILOSEC) 20 mg capsule Indications: Gastroesophageal reflux disease, unspecified whether esophagitis present Take 1 capsule by mouth once daily. 90 capsule 1 06/23/2023 Active Start: 12-30-2020 End: 06-04-2021 take 1 capsule by mouth once daily omeprazole (PRILOSEC) 40 mg capsule Take 1 capsule by mouth once daily. 30 capsule 2 12/30/2020 06/04/2021 Discontinued Start: 04-07-2018 Omeprazole Mag nesium (Prilosec Otc) 20 MG tablet,delayed release (DR/EC) Active 20 mg PO NEEDED as needed for GERD April 07, 2018 1:00am Comment on above: Take 1 capsule by mo [facility] once daily. ondansetron 4 mg oral tablet (20 sources) Serotonin-3 Receptor Antagonist Start: 04-07-2024 ondansetron HCl 4 mg tablet 1T every 8 hours prn for nausea/vomiting - Active Start: 07-01-2023 End: 02-22-2024 take 1 tablet by mouth every eight hours as needed for nausea Ondansetron 4 mg tablet,disintegrating Discontinued 4 mg PO EVERY 8 HOURS NEEDED as needed for Nausea July 01, 2023 12:00am February 22, 2024 2:39pm predniSONE 20 mg oral tablet (1 source) Start: 03-03-2022 End: 03-08-2022 take 2 tablets by mouth once daily predniSONE (DELTASONE) 20 mg tablet Take 2 tablets by mouth once daily for 5 days. 10 tablet 0 03/03/2022 03/08/2022 Active Comment on above: Take 2 tablets by mo [facility] once daily for 5 days. Completed/Discontinued Medications Medication Drug Class(es) Dates Sig (Normalized) Sig (Original) aspirin 81 mg delayed release oral tablet (19 sources) Platelet Aggregation Inhibitor, Nonsteroidal Anti-inflammatory Drug Start: 03-31-2016 End: 05-30-2024 take 1 tablet by mouth twice daily aspirin, enteric coated (ASPIRIN, ENTERIC COATED) 81 mg EC tablet Take 81 mg by mouth two times a day. 03/31/2016 05/30/2024 Discontinued Start: 03-31-2016 End: 06-04-2021 take 1 tablet by mouth once daily aspirin, enteric coated (ASPIRIN, ENTERIC COATED) 81 mg EC tablet Take 1 tablet by mouth once daily. 0 03/31/2016 06/04/2021 Discontinued Comment on above: Take 1 tablet by [facility] once daily. Start day after surg navid for DVT cefdinir 300 mg oral capsule (5 sources) Cephalosporin Antibacterial Start: End: take 1 capsule by mouth every twelve hours Cefdinir 300 mg capsule Discontinued 300 mg PO Q12H July 01, 2023 12:00am February 22, 2024 2:39pm End: 07-08-2023 take 1 capsule by mouth twice daily cefdinir (OMNICEF) 300 mg capsule Take 300 mg by mouth two times a day. 0 07/08/2023 celecoxib 200 mg oral capsule (20 sources) Nonsteroidal Anti-inflammatory Drug Start: 04-07-2024 End: 06-21-2024 take 1 capsule by mouth once daily celecoxib (CELEBREX) 200 mg capsule Take 200 mg by mouth once daily. 04/07/2024 06/21/2024 Discontinued (Course of therapy completed) Comment on above: If Prior Auth required do not fill CPAP (20 sources) Start: 01-04-2024 End: 12-25-2023 CPAP Indications: RUDY (obstructive sleep apnea) Change bilevel setting to 16/12 cmH2O. Please fit with dreamwear under the nose FFM (current masks with significant leaks). Please provide us with download after 4 weeks of use at this pressure setting. Lifetime supply. 1 Each 01/04/2024 12/25/2023 Discontinued Start: 12-25-2023 CPAP Indicatio ns: RUDY (obstructive sleep apnea) Change bilevel setting to 16/12 cmH2O. Please fit with dreamwear under the nose FFM (current masks with significant leaks). Please provide us with download after 4 weeks of use at this pressure setting. Lifetime supply. 1 Each 12/25/2023 Active Start: 12-25-2023 End: 12-25-2023 CPAP Indications: RUDY (obstr uctive sleep apnea) Change bilevel setting to 16/12 cmH2O. Please fit with dreamwear under the nose FFM (current masks with significant leaks). Please provide us with download after 4 weeks of use at this pressure setting. Lifetime supply. 1 Each 12/25/2023 12/25/2023 Discontinued Start: 02-17-2020 End: 12-25-2023 CPAP Indications: RUDY (obstr uctive sleep apnea) Change bilevel setting to 16/12 cmH2O. Please fit with dreamwear under the nose FFM (current masks with significant leaks). Please provide us with download after 4 weeks of use at this pressure setting. Lifetime supply. 1 Device 02/17/2020 12/25/2023 Discontinued Start: 02-17-2020 CPAP Indicatio ns: RUDY (obstructive sleep apnea) Change bilevel setting to 16/12 cmH2O. Please fit with dreamwear under the nose FFM (current masks with significant leaks). Please provide us with download after 4 weeks of use at this pressure setting. Lifetime supply. 1 Device 02/17/2020 Active Comment on above: Change bilevel setti ng to 16/12 cmH2O. Please fit with dreamwear under the nose FFM (current masks with significant leaks). Please provide us with download after 4 weeks of use at this pressure setting. Lifetime supply. cyclobenzaprine hydrochloride 10 mg oral tablet (8 sources) Muscle Relaxant Start: 02-09-20 End: 05-31-19 25 take 1 tablet by mouth twice daily as needed for pain cyclobenzaprine (FLEXERIL) 10 mg tablet Indications: Chronic neck pain , Strain of neck muscle, initial encounter Take 1 tablet by mouth two times a day as needed for muscle spasm or pain. 60 tablet 02/09/2024 05/30/2024 Discontinued EPINEPHrine 0.01 mg/ml / lidocaine hydrochloride 10 mg/ml injectable solution (2 sources) Antiarrhythmic, alpha-Adrenergic Agonist, beta-Adrenergic Agonist, Catecholamine, Amide Local Anesthetic Start: 01-02-20 End: 01-02-20 lidocaine 1%-EPINEPHrine 1:100,000 3 mL injection Start: 01-02-2024 End: 01-02-2024 3 mL, AMB PROCEDURES ONLY, O NCE, 1 dose, On Mon01/02/24 at 1430, Inject into affected area(s) for biopsy or surgical site anesthesia, up to 3 mL. oxyCODONE hydrochloride 5 mg oral tablet (18 sources) Opioid Agonist Start: 04-07-2024 End: 05-30-2024 oxyCODONE IR (ROXICODONE) 5 mg immediate release tablet Take by mouth every 6 hours as needed. 04/07/2024 05/30/2024 Discontinued Comment on above: 7 Day Supply - Pt re fuses Narcan traMADol hydrochloride 50 mg oral tablet (18 sources) Opioid Agonist Start: 04-07-2024 End: 05-30-2024 take 1 tablet by mouth every six hours as needed traMADol (ULTRAM) 50 mg tablet Take 50 mg by mouth every 6 hours as needed. 04/07/2024 05/30/2024 Discontinued Comment on above: 7 Day Supply - Pt re fuses Narcan Problems Active Problems Problem Classification Problem Date Documented Date Episodic/Chronic Abdominal hernia (3 sources) Umbilical hernia; Translations: [Umbilical hernia without obstruction or gangrene] Onset: 05-27-2024 05-27-2024 Episodic Abdominal pain (4 sources) Abdominal pain; Translations: [Unspecified abdominal pain] 07-19-2017 Episodic Disorders of lipid metabolism (20 sources) Hyperlipidemia; Translations: [Other hyperlipidemia] Onset: 09-08-2009 Chronic Esophageal disorders (20 sources) Gastroesophageal reflux disease; Translations: [Gastro-esophageal reflux disease without esophagitis] Onset: 03-01-2017 Chronic Fever of unknown origin (4 sources) Fever; Translations: [Fever, unspecified] 07-01-2023 Episodic Fluid and electrolyte disorders (5 sources) Hypokalemia; Translations: [Hypokalemia] 07-01-2023 Episodic Genitourinary symptoms and ill-defined conditions (20 sources) Urinary incontinence; Translations: [Unspecified urinary incontinence] Onset: 03-31-2016 03-31-2016 Chronic Immunizations and screening for infectious disease (8 sources) Needs influenza immunization; Translations: [Encounter for immunization] Onset: 12-25-2023 Episodic Nausea and vomiting (4 sources) Nausea and vomiting; Translations: [Nausea with vomiting, unspecified] 07-01-2023 Episodic Neoplasms of unspecified nature or uncertain behavior (1 source) Neoplastic disease; Translations: [Neoplasm of unspecified behavior of bone, soft tissue, and skin] 01-02-2024 Episodic Nonspecific chest pain (1 source) Chest pain; Translations: [Chest pain, unspecified] 06-24-2024 Episodic Nutritional deficiencies (20 sources) Vitamin D deficiency; Translations: [Vitamin D deficiency, unspecified] Onset: 04-22-2010 Resolved: 03-01-2017 Chronic Other circulatory disease (3 sources) Elevated blood-pressure reading without diagnosis of hypertension; Translations: [Elevated blood-pressure reading, without diagnosis of hypertension] 06-21-2024 Episodic Other connective tissue disease (20 sources) Presence of right artificial knee joint Onset: 04-05-2024 Chronic Other connective tissue disease (10 sources) History of right total knee replacement; Translations: [Presence of right artificial knee joint] Onset: 06-04-2024 06-04-2024 Chronic Other connective tissue disease (10 sources) History of arthroplasty of left knee; Translations: [Presence of left artificial knee joint] Onset: 06-04-2024 06-04-2024 Chronic Other connective tissue disease (4 sources) Swelling of right lower limb; Translations: [Other specified soft tissue disorders] 06-24-2024 Episodic Other connective tissue disease (1 source) Other specified soft tissue disorders; Translations: [Right leg swelling] Onset: 06-24-2024 Episodic Other diseases of kidney and ureters (4 sources) Cyst of kidney; Translations: [Cyst of kidney, acquired] 07-19-2017 Episodic Other lower respiratory disease (1 source) Chest pain on breathing; Translations: [Chest pain on breathing] 06-21-2024 Episodic Other lower respiratory disease (3 sources) Dyspnea; Translations: [Dyspnea, unspecified] 06-21-2024 Episodic Other lower respiratory disease (1 source) Chest pain on breathing; Translations: [Chest pain on respiration] Onset: 06-21-2024 Episodic Other lower respiratory disease (2 sources) Cough; Translations: [Cough] 08-28-2024 Episodic Other nervous system disorders (1 source) Other chronic pain; Translations: [Chronic neck pain] Onset: 02-26-2024 Chronic Other non-epithelial cancer of skin (10 sources) Basal cell carcinoma of skin; Translations: [Basal cell carcinoma of skin, unspecified] Onset: 06-04-2024 06-04-2024 Episodic Other nutritional; endocrine; and metabolic disorders (20 sources) Obesity; Translations: [Obesity, unspecified] Onset: 02-17-2020 Chronic Other nutritional; endocrine; and metabolic disorders (2 sources) Obese class II; Translations: [Obesity, unspecified] Chronic Other nutritional; endocrine; and metabolic disorders (20 sources) Obesity, unspecified Chronic Other nutritional; endocrine; and metabolic disorders (3 sources) Body mass index 30+ - obesity; Translations: [Body mass index (BMI) 36.0-36.9, adult] 06-21-2024 Chronic Other nutritional; endocrine; and metabolic disorders (1 source) Body mass index (BMI) 37.0-37.9, adult; Translations: [Class 2 obesity with body mass index (BMI) of 37.0 to 37.9 in adult, unspecified obesity type, unspecified whether serious comorbidity present] Onset: 12-25-2023 Chronic Other screening for suspected conditions (not mental disorders or infectious disease) (19 sources) Patient encounter status; Translations: [Encounter for screening mammogram for malignant neoplasm of breast] Onset: 02-05-2024 Episodic Other skin disorders (1 source) Mass of neck; Translations: [Localized swelling, mass and lump, neck] 12-26-2023 Episodic Other upper respiratory disease (20 sources) Allergic rhinitis; Translations: [Allergic rhinitis, unspecified] Onset: 03-31-2016 03-31-2016 Chronic Other upper respiratory disease (1 source) Seasonal allergic rhinitis; Translations: [Other seasonal allergic rhinitis] 06-23-2023 Chronic Other upper respiratory disease (1 source) Nasal sinus problem; Translations: [Other specified disorders of nose and nasal sinuses] Episodic Other upper respiratory infections (1 source) Chronic sinusitis, unspecified; Translations: [Unspecified sinusitis (chronic)] 03-14-2024 Chronic Other upper respiratory infections (1 source) Viral upper respiratory tract infection; Translations: [Acute upper respiratory infection, unspecified] 01-29-2023 Episodic Otitis media and related conditions (2 sources) Dysfunction of left eustachian tube; Translations: [Other specified disorders of Eustachian tube, left ear] Episodic Residual codes; unclassified (20 sources) Obstructive sleep apnea syndrome; Translations: [Obstructive sleep apnea (adult) (pediatric)] Chronic Comment on above: AHI of 55.8 Residual codes; unclassified (20 sources) Obstructive sleep apnea (adult) (pediatric); Translations: [RUDY (obstructive sleep apnea)] Onset: 08-16-2017 Chronic Spondylosis; intervertebral disc disorders; other back problems (20 sources) Degeneration of lumbar intervertebral disc; Translations: [Other intervertebral disc degeneration, lumbar region] Onset: 12-26-2019 12-26-2019 Chronic Unclassified (1 source) Patient encounter status 05-07-2024 Unclassified (1 source) Class 2 obesity with body mass index (BMI) of 37.0 to 37.9 in adult, unspecified obesity type, unspecified whether serious comorbidity present; Translations: [Class 2 obesity with body mass index (BMI) of 37.0 to 37.9 in adult, unspecified obesity type, unspecified whether serious comorbidity present] Onset: 12-25-2023 Unclassified (2 sources) Cough, unspecified; Translations: [Cough, unspecified] Onset: 08-28-2024 Urinary tract infections (5 sources) Urinary tract infectious disease; Translations: [Urinary tract infection, site not specified] 07-01-2023 Episodic Past or Other Problems Problem Classification Problem Date Documented Da te Episodic/Chronic Conditions associated with dizziness or vertigo (20 sources) Benign paroxysmal positional vertigo; Translations: [Benign paroxysmal vertigo, unspecified ear] Onset: 10-28-2005 Resolved: 11-21-2008 11-21-2008 Episodic Lymphadenitis (20 sources) Anterior cervical lymphadenopathy; Translations: [Localized enlarged lymph nodes] Onset: 09-08-2009 Resolved: 08-28-2013 08-28-2013 Episodic Osteoarthritis (20 sources) Localized, primary osteoarthritis; Translations: [Unilateral primary osteoarthritis, unspecified knee] Onset: 04-28-2009 Resolved: 03-31-2016 03-31-2016 Chronic Other bone disease and musculoskeletal deformities (20 sources) Osteopenia; Translations: [Other specified disorders of bone density and structure, unspecified site] Onset: 03-31-2016 03-31-2016 Episodic Other connective tissue disease (20 sources) Plantar fasciitis; Translations: [Plantar fascial fibromatosis] Onset: 12-03-2012 Resolved: 08-28-2013 08-28-2013 Episodic Other skin disorders (20 sources) Epidermoid cyst of skin of face; Translations: [Epidermal cyst] Onset: 12-03-2012 Resolved: 03-31-2016 03-31-2016 Episodic Other skin disorders (1 source) Localized swelling, mass and lump, neck; Translations: [Lump on neck] Onset: 12-25-2023 Episodic Residual codes; unclassified (20 sources) Other specified health status; Translations: [Other specified conditions influencing health status] Onset: 02-17-2020 Resolved: 05-07-2024 Episodic Residual codes; unclassified (20 sources) FH: premature coronary heart disease; Translations: [Family history of ischemic heart disease and other diseases of the circulatory system] Onset: 12-03-2012 12-03-2012 Episodic Residual codes; unclassified (20 sources) Edema; Translations: [Edema, unspecified] Onset: 12-03-2012 Resolved: 03-24-2015 03-24-2015 Episodic Spondylosis; intervertebral disc disorders; other back problems (19 sources) Chronic neck pain; Translations: [Cervicalgia] Onset: 02-26-2024 02-09-2024 Episodic Sprains and strains (18 sources) Strain of neck muscle; Translations: [Strain of muscle, fascia and tendon at neck level, initial encounter] Onset: 02-26-2024 02-09-2024 Episodic Results Test Name Value Interpretation Reference Range Facility Pulmonary Visit Reporton Pulmonary Visit Report [facility] [place] [address] [place] [address] OFFICE VISIT Date of Service: 08/28/24 MR#: [id number] Acct: [id number] Name: JAIMEE COOPER Rep #: [id number] : 1955 Provider: Jemima Aguiar NP Age/Sex: 69/F [place] [facility] [place] Status: Signed Assessment and Plan Assessment and Plan (1) Obstructive sleep apnea: Status: Chronic Comment: AHI of 55.8 Plan: Although her obstructive sleep apnea with use of BiPAP at 16/ 12 cm is controlling her apnea, the patient is struggling with exhaling against the pressure. I have recommended decreasing her BiPAP to 16/10cm. Repeat compliance download on follow up to ensure apnea continues to be controlled despite decrease in EPAP. (2) Cough: Status: Acute Qualifiers: Cough type: chronic Qualified Code(s): R05.3 - Chronic cough Plan: NIOX is not elevated today which suggests that cough is likely not related to asthma but the patient does have a family history of asthma. The CTA showed mosaic pattern which could suggest small airway disease. She has never undergone a PFT to evaluate her lung functioning so this is recommended at this time. She may need to consider increasing her regimen for control of acid reflux as this may be contributing to cough as well. Further recommendations a forthcoming, pending PFT. (3) Obesity: Status: Chronic Qualifiers: Body mass index: BMI 37.0-37.9 Obesity classification: adult class 2 (BMI 35 - 39.9) Obesity type: due to excess calories Serious obesity comorbidity presence: with serious comorbidity Qualified Code(s): E66.812 - Obesity, class 2; E66.01 - Morbid (severe) obesity due to excess calories; Z68.37 - Body mass index [BMI] 37.0-37.9, adult Plan: Prudent diet and daily exercise is warranted for weight loss. Orders: Orders NIOX Today R05.9 - Cough, unspecified PFT Complete - DLCO, Spirometry b/a bronchodilators, lung volumes 09/03/24 R05.9 - Cough, unspecified Plan Thyroid nodule needs follow up with PCP. Please fax CTA report to PCP. Plan Details Follow Up: 6 Weeks (LMR) HPI HPI Comments Details: This patient presents to the office to follow-up for obstructive sleep apnea. She is ambulatory and currently on room air. She has not recently been seen in the ED or urgent care for any respiratory illness. She has not required any antibiotics or prednisone for any breathing problems. The patient is using BiPAP without significant air leak, oral dryness, snore. She finds it hard to exhale against the pressure. Sleep is refreshing. The patient is reporting good compliance. She has not required a nap. Nocturia seldom occurs. Daytime hypersomnia is improved. She felt less awakenings since using pap device. She uses a nasal style mask. She has adjusted her humidity. She is currently retired. 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 Daughter with asthma. She is a lifetime non-smoker. The patient under went CTA in June due to concerns for PE. No PE was identified at that time but a mosaic pattern was seen on imaging. Incidental finding on imaging showed a thyroid nodule measuring 9mm. She denies any difficulty with shortness of breath. She denies sputum production or hemoptysis. She also denies any wheezing, chest tightness, chest pain or palpitations. She has not had any fever, chills or body aches. She does report dry coughing. She was not taking her prilosec daily but is taking it now which has helped with her cough but the cough is still present. She is using fluticasone nasal spray at bedtime. She does have postnasal drainage and throat clear. She has been on a temporary inhaler for bronchitis the winter of 2018. The inhaler was helpful at that time. She has a history of COVID. She has no environmental triggers for her cough. She is not on medications that can produce cough for side effect. The cough has been present for many months. Polysomnogram from March 30, 2017 shows an AHI of 55.8 events per hour, elevated to 74.3 events per hour in the REM stage of sleep and highest in the supine position at 112.9 events per hour. Titration study completed on April 27, 2017 indicates that the patient is best treated with BiPAP 20/14 cm of water. (BMI 36.8) Documentation reviewed with patient today includes: Compliance download from August 26, 2024 which shows BiPAP at 16 over 12 cm, 97% compliant with therapy, using the device 7 hours and 51 minutes nightly average. Minimal air leak is identified. AHI is 0.5. Intake Vital Signs 02/22/24 08:01 08/28/24 07:38 Height 5 ft 5 in 5 ft 5 in Weight: 222 lb BMI 36.9 BP 141/81 H Blood Pressure Location Rt brachial Position Sitting Respiration 16 Pulse 78 Pulse Source NIBP Temp 97.4 F L Temperature Source Temporal Artery Puls (more content not included)... Normal [facility] CNOVon 07-23-2024 CNOV Office Visit (FAMPWS ) JAIMEE COOPER ([id number]) 1955 F Date Time Provider Department 07/23/24 9:00 AM YUDITH BARRAZA During your visit today, we recorded the following information about you: Pulse Respiration Blood pressure Weight 69/minute 18/minute 142/78 102.8 kg Yudith Barraza APRN.PATTERN REPAIR PERSON 07/23/2024 9:28 AM Signed 07/22/2024 Patient presents with: Follow Up SUBJECTIVE: This is a 69 year old that is here today for Above Complaints. RUDY: using CPAP nightly. Follows with sleep medicine at [facility]. Sleeps well and find it to be beneficial Heartburn: taking Omeprazole as prescribed without side effects. Works well to control symptoms HYPERLIPIDEMIA: Patient is taking medications: Yes. Patient is watching diet: sometimes . Patient denies myalgias: Yes. Patient denies gi upset: Yes PAST MEDICAL HISTORY Diagnosis Date Arthritis Diverticulosis of colon (without mention of hemorrhage) Dysplasia of cervix, unspecified GERD (gastroesophageal reflux disease) Kidney cysts 2018 fluid filled Obesity (BMI 35.0-39.9 without comorbidity) RUDY (obstructive sleep apnea) severe Osteoarthritis of lumbar spine Osteoarthritis, knee s/p partial knee replacement on left Seasonal allergies spring and fall Vitamin D insufficiency ALLERGIES Patient has no known allergies. MEDICATIONS Current Outpatient Medications Medication Sig acetaminophen (TYLENOL) 500 mg tablet Take 500 mg by mouth every 8 hours as needed. CPAP Change bilevel setting to 16/12 cmH2O. Please fit with dreamwear under the nose FFM (current masks with significant leaks). Please provide us with download after 4 weeks of use at this pressure setting. Lifetime supply. fluticasone (FLONASE) 50 mcg/actuation nasal spray Use 2 Sprays in each nostril once daily. Rinse mouth after use. atorvastatin (LIPITOR) 20 mg tablet Take 1 tablet by mouth daily at bedtime. For cholesterol. omeprazole (PRILOSEC) 20 mg capsule Take 1 capsule by mouth once daily. cholecalciferol (VITAMIN D3) 50 mcg (2,000 unit) tablet Take 1 tablet by mouth once daily. MULTIVITAMIN ORAL Take by mouth once daily. No current facility-administered medications for this visit. Medications and allergies reviewed by this provider. SOCIAL HISTORY Social History Tobacco Use Smoking status: Never Smokeless tobacco: Never Vaping Use Vaping status: Never Used Substance Use Topics Alcohol use: Yes Comment: occasional- monthly Drug use: No REVIEW OF SYSTEMS All other reviewed and negative other than HPI. OBJECTIVE: BP 142/78 Pulse 69 Resp 18 Wt 102.8 kg (226 lb 9.6 oz) SpO2 98% BMI 37.71 kg/m? . Vital signs reviewed by this provider. APPEARANCE Well appearing, alert, in no acute distress, well-hydrated, well nourished. EYES conjunctiva and sclera normal. HEART RRR with normal S1 and S2, no murmurs, no gallops, no JVD appreciated LUNG clear to auscultation. No wheezes, rhonchi or rales EXTREMITIES Extremities normal, No deformities, No skin discoloration, and No edema SKIN Skin color, texture, turgor normal, no suspicious rashes or lesions to exposed skin Latest Ref [facility] 12/25/2023 WBC 3.70 - 11.00 k/uL 7.59 RBC 3.90 - 5.20 m/uL 4.85 Hemoglobin 11.5 - 15.5 g/dL 14.2 Hematocrit 36.0 - 46.0 % 44.8 MCV 80.0 - 100.0 fL 92.4 MCH 26.0 - 34.0 pg 29.3 MCHC 30.5 - 36.0 g/dL 31.7 RDW-CV 11.5 - 15.0 % 14.3 Platelet Count 150 - 400 k/uL 206 MPV 9.0 - 12.7 fL 11.9 Neut% % 59.9 Abs Neut (ANC) 1.45 - 7.50 k/uL 4.55 Lymph% % 26.4 Abs Lymph 1.00 - 4.00 k/uL 2.00 Cooke% % 8.6 Abs Cooke <0.87 k/uL 0.65 Eosin% % 3.0 Abs Eosin <0.46 k/uL 0.23 Baso% % 1.2 Abs Baso <0.11 k/uL 0.09 Immature Gran % % 0.9 IMMATURE GRANS (ABS) <0.10 k/uL 0.07 NRBC /100 WBC 0.0 Absolute nRBC <0.01 k/uL <0.01 DTYPE Auto Protein, Total 6.3 - 8.0 g/dL 8.1 (H) Albumin 3.9 - 4.9 g/dL 4.3 Calcium 8.5 - 10.2 mg/dL 9.6 Bilirubin, Total 0.2 - 1.3 mg/dL 0.5 Alkaline Phosphatase 34 - 123 U/L 104 AST 13 - 35 U/L 20 ALT 7 - 38 U/L 20 Glucose 74 - 99 mg/dL 88 BUN 7 - 21 mg/dL 16 Creatinine 0.58 - 0.96 mg/dL 0.81 Sodium 136 - 144 mmol/L 141 Potassium 3.7 - 5.1 mmol/L 4.2 Chloride 98 - 107 mmol/L 104 CO2 22 - 30 mmol/L 24 Anion Gap 8 - 15 mmol/L 13 eGFR >=60 mL/min/1.73m? 78 Total Cholesterol, Nonfasting <200 mg/dL 166 Triglycerides, Nonfasting <150 mg/dL 115 HDL Cholesterol, Nonfasting >39 mg/dL 62 LDL Cholesterol Calculated, Nonfasting <100 mg/dL 81 Non HDL Cholesterol, Nonfasting <130 mg/dL 104 VLDL Cholesterol, Nonfasting <30 mg/dL 23 Total Chol/HDL Ratio, Nonfasting <5.10 mg/dL 2.68 LDL/HDL Ratio, Nonfasting <2.54 mg/dL 1.31 RSV Vaccine(1 - Risk 60-74 years 1-dose series) Never done DTaP,Tdap,Td Vaccine(2 - Td or Tdap) due on 11/21/2018 Advance Directive Discussion due on 03/13/2024 Depression Screening due on 06/11 (more content not included)... Normal [facility] CNOVon 06-24-2024 CNOV Office Visit (FAMPWS ) JAIMEE COOPER ([id number]) 1955 F Date Time Provider Department 06/24/24 9:40 AM MILI SALDIVAR During your visit today, we recorded the following information about you: Pulse Respiration Blood pressure Weight 78/minute 16/minute 120/76 100.6 kg Mili Saldivar MD 06/24/2024 12:23 PM Signed Chief Complaint Patient presents with: Follow Up: 6 month- hasn't been taking atorvastatin due to surgeries ER F/U: Was sent to ER 06/21/24 by surgeon MIHIR Jaimee Cooper is a 69 year old female who presents here today for Above Complaints. Patient sent to ER 3 days ago for elevated D dimer by general surgery. Had umbilical hernia repair on 06/12 and had knee surgery back in March. C/o pain in left lower lung in the ER. Workup with CTA chest negative for PE. Noted mosaic attenuation 2/2 small vessel/airway disease. Discharged home without change in regimen. Today, she states that the pain in her left lower chest/upper abdomen has resolved. She does have swelling around her right knee and upper calf which has been stable since she had surgery in March. Denies pain in her right calf, erythema, chest pain, SOB, palpitations, hemoptysis. Past medical history, appointments, medications, allergies reviewed. Previous Medical History PAST MEDICAL HISTORY Diagnosis Date Arthritis Diverticulosis of colon (without mention of hemorrhage) Dysplasia of cervix, unspecified GERD (gastroesophageal reflux disease) Kidney cysts 2018 fluid filled Obesity (BMI 35.0-39.9 without comorbidity) RUDY (obstructive sleep apnea) severe Osteoarthritis of lumbar spine Osteoarthritis, knee s/p partial knee replacement on left Seasonal allergies spring and fall Vitamin D insufficiency Previous Surgical History PAST SURGICAL HISTORY Procedure Laterality Date CAUTERY CERVIX CRYOCAUTERY INITIAL/REPEAT 06/16/1994 COLONOSCOPY FLX DX W/COLLJ SPEC WHEN PFRMD 05/31/2010 Colonoscopy COLONOSCOPY FLX DX W/COLLJ SPEC WHEN PFRMD 12/22/2020 ESOPHAGOGASTRODUODENO SCOPY TRANSORAL DIAGNOSTIC 12/22/2020 REPAIR EPIGASTRIC HERNIA,REDUC 06/12/2024 SKIN BIOPSY HX TONSILLECTOMY HX TONSILLECTOMY PRIMARY/SECONDARY TOTAL KNEE REPLACEMENT Left partial left done last Apr 2014 TOTAL KNEE REPLACEMENT Right 03/2024 Family History FAMILY HISTORY Problem Relation Age of Onset Osteoporosis Mother Arthritis, HTN, Macular Degeneration other (hip fracture) Mother X 2 Heart Father ASHD, [place] No Known Problems Sister Lung Cancer Brother No Known Problems Brother Breast Cancer Maternal Grandmother Malig Hyperthermia No Family History Patient Allergies ALLERGIES No Known Allergies Current Medications Current Outpatient Medications on File Prior to Visit Medication Sig CPAP Change bilevel setting to 16/12 cmH2O. Please fit with dreamwear under the nose FFM (current masks with significant leaks). Please provide us with download after 4 weeks of use at this pressure setting. Lifetime supply. fluticasone (FLONASE) 50 mcg/actuation nasal spray Use 2 Sprays in each nostril once daily. Rinse mouth after use. cholecalciferol (VITAMIN D3) 50 mcg (2,000 unit) tablet Take 1 tablet by mouth once daily. MULTIVITAMIN ORAL Take by mouth once daily. acetaminophen (TYLENOL) 500 mg tablet Take 500 mg by mouth every 8 hours as needed. atorvastatin (LIPITOR) 20 mg tablet Take 1 tablet by mouth daily at bedtime. For cholesterol. omeprazole (PRILOSEC) 20 mg capsule Take 1 capsule by mouth once daily. No current facility-administered medications on file prior to visit. Social History Social History Tobacco Use Smoking status: Never Smokeless tobacco: Never Vaping Use Vaping status: Never Used Substance Use Topics Alcohol use: Yes Comment: occasional- monthly Drug use: No Review of Symptoms REVIEW OF SYSTEMS GENERAL: No weight loss, malaise or fevers RESPIRATORY: Negative for cough, hemoptysis, wheezing, COPD, dyspnea or shortness of breath CARDIOVASCULAR: See HPI GI: No nausea, vomiting, or diarrhea SKIN: Negative for lesions, rash, and itching EXAM: BP 120/76 Pulse 78 Resp 16 Wt 100.6 kg (221 lb 12.8 oz) SpO2 96% BMI 36.91 kg/m? General Appearance: Well appearing, alert, in no acute distress, well-hydrated, well nourished.. Skin: Skin color, texture, turgor normal, no suspicious rashes or lesions. Lungs: Lungs clear to auscultation. No wheezing, rhonchi, rales.. Heart: RRR without murmur, gallop, or rubs. No ectopy. Abdomen: Normal abdominal exam, Abdomen soft, non-tender. Bowel sounds normal. No masses, organomegaly. Extremities: right leg 2 cm compared to left. No edema. Negative hohmans. No erythema. . Health Maintenance List RSV Vaccine(1 - Risk 60-74 years 1-dose series) Never done DTaP,Tdap,Td Vaccine(2 - Td or Tdap) du (more content not included)... Normal [facility] DVT LOWER RTon 06-24-2024 US DVT LOWER RT * * *Final Report* * * DATE OF EXAM: Jun 24 2024 11:40AM [facility] 1007 - US DVT LOWER RT / PROCEDURE REASON: multiple diagnoses * * * * Physician Interpretation * * * * EXAMINATION: RIGHT LOWER EXTREMITY DEEP VENOUS ULTRASOUND WITH DOPPLER IMAGING CLINICAL HISTORY: Positive d-dimer TECHNIQUE: Grayscale with compression maneuvers, color Doppler and spectral Doppler imaging of the right proximal deep veins was performed. Grayscale with compression maneuvers of the peroneal and posterior tibial veins was performed. The right great and small saphenous veins were evaluated at their insertion to the deep system. The contralateral common femoral vein was imaged for comparison. Images were obtained and stored in a permanent archive. MQ: [email or web address]_1 COMPARISON: None RESULT: RIGHT LOWER EXTREMITY PROXIMAL DEEP VEINS Distal External Iliac, Common Femoral and proximal Profunda Veins: Compression: Normal Doppler: Normal, spontaneous respirophasic flow. Normal response to augmentation. Femoral vein: Compression: Normal Doppler: Normal, spontaneous flow. Normal response to augmentation. Popliteal vein: Compression: Normal Doppler: Normal, spontaneous flow. Normal response to augmentation. CALF DEEP VEINS Peroneal veins: Normal compression. Posterior tibial veins: Normal compression. Gastrocnemius and Soleal veins: Not imaged. SUPERFICIAL VEINS Great saphenous: Patent and compressible at insertion into common femoral vein; not otherwise assessed. Small Saphenous: Patent and compressible in the proximal calf, not otherwise assessed. LEFT LOWER EXTREMITY (FOR COMPARISON) Common Femoral Vein: Compression: Normal Doppler: Normal, spontaneous respirophasic flow. Normal response to augmentation. IMPRESSION: Negative study for proximal DVT in the right lower extremity. Negative study for calf DVT in the right lower extremity. Negative study for superficial thrombophlebitis in the imaged segments of the right lower extremity. Ar Manager: [facility] Transcribe Date/Time: Jun 24 2024 11:45A Dictated by : SARKIS MONTENEGRO MD This examination was interpreted and the report reviewed and electronically signed by: SARKIS MONTENEGRO MD on Jun 24 2024 11:49AM EST [id number] Normal [facility] IMPRESSION: Negative study for proximal DVT in the right lower extremity. Negative study for calf DVT in the right lower extremity. Negative study for superficial thrombophlebitis in the imaged segments of the right lower extremity. Ar Manager: [facility] Transcribe Date/Time: Jun 24 2024 11:45A Dictated by : SARKIS MONTENEGRO MD This examination was interpreted and the report reviewed and electronically signed by: SARKIS MONTENEGRO MD on Jun 24 2024 11:49AM EST DIVISION OF RADIOLOGY * * *Final Report* * * DATE OF EXAM: Jun 24 2024 11:40AM [facility] 1007 - US DVT LOWER RT / PROCEDURE REASON: multiple diagnoses * * * * Physician Interpretation * * * * EXAMINATION: RIGHT LOWER EXTREMITY DEEP VENOUS ULTRASOUND WITH DOPPLER IMAGING CLINICAL HISTORY: Positive d-dimer TECHNIQUE: Grayscale with compression maneuvers, color Doppler and spectral Doppler imaging of the right proximal deep veins was performed. Grayscale with compression maneuvers of the peroneal and posterior tibial veins was performed. The right great and small saphenous veins were evaluated at their insertion to the deep system. The contralateral common femoral vein was imaged for comparison. Images were obtained and stored in a permanent archive. MQ: [email or web address]_1 COMPARISON: None RESULT: RIGHT LOWER EXTREMITY PROXIMAL DEEP VEINS Distal External Iliac, Common Femoral and proximal Profunda Veins: Compression: Normal Doppler: Normal, spontaneous respirophasic flow. Normal response to augmentation. Femoral vein: Compression: Normal Doppler: Normal, spontaneous flow. Normal response to augmentation. Popliteal vein: Compression: Normal Doppler: Normal, spontaneous flow. Normal response to augmentation. CALF DEEP VEINS Peroneal veins: Normal compression. Posterior tibial veins: Normal compression. Gastrocnemius and Soleal veins: Not imaged. SUPERFICIAL VEINS Great saphenous: Patent and compressible at insertion into common femoral vein; not otherwise assessed. Small Saphenous: Patent and compressible in the proximal calf, not otherwise assessed. LEFT LOWER EXTREMITY (FOR COMPARISON) Common Femoral Vein: Compression: Normal Doppler: Normal, spontaneous respirophasic flow. Normal response to augmentation. DIVISION OF RADIOLOGY Provider, Ailyn Vila - 06/24/2024 * * *Final Report* * * DATE OF EXAM: Jun 24 2024 11:40AM [facility] 1007 - US DVT LOWER RT / PROCEDURE REASON: multiple diagnoses * * * * Physician Interpretation * * * * EXAMINATION: RIGHT LOWER EXTREMITY DEEP VENOUS ULTRASOUND WITH DOPPLER IMAGING CLINICAL HISTORY: Positive d-dimer TECHNIQUE: Grayscale with compression maneuvers, color Doppler and spectral Doppler imaging of the right proximal deep veins was performed. Grayscale with compression maneuvers of the peroneal and posterior tibial veins was performed. The right great and small saphenous veins were evaluated at their insertion to the deep system. The contralateral common femoral vein was imaged for comparison. Images were obtained and stored in a permanent archive. MQ: USLER_1 COMPARISON: None RESULT: RIGHT LOWER EXTREMITY PROXIMAL DEEP VEINS Distal External Iliac, Common Femoral and proximal Profunda Veins: Compression: Normal Doppler: Normal, spontaneous respirophasic flow. Normal response to augmentation. Femoral vein: Compression: Normal Doppler: Normal, spontaneous flow. Normal response to augmentation. Popliteal vein: Compression: Normal Doppler: Normal, spontaneous flow. Normal response to augmentation. CALF DEEP VEINS Peroneal veins: Normal compression. Posterior tibial veins: Normal compression. Gastrocnemius and Soleal veins: Not imaged. SUPERFICIAL VEINS Great saphenous: Patent and compressible at insertion into common femoral vein; not otherwise assessed. Small Saphenous: Patent and compressible in the proximal calf, not otherwise assessed. LEFT LOWER EXTREMITY (FOR COMPARISON) Common Femoral Vein: Compression: Normal Doppler: Normal, spontaneous respirophasic flow. Normal response to augmentation. IMPRESSION IMPRESSION: Negative study for proximal DVT in the right lower extremity. Negative study for calf DVT in the right lower extremity. Negative study for superficial thrombophlebitis in the imaged segments of the right lower extremity. Ar Manager: [facility] Transcribe Date/Time: Jun 24 2024 11:45A Dictated by : SARKIS MONTENEGRO MD This examination was interpreted and the report reviewed and electronically signed by: SARKIS MONTENEGRO MD on Jun 24 2024 11:49AM EST [facility] Radiology Study observation (narrative) Carolin ferrell [facility] US Lower extremity vein - ri ghtOrdered By: [facility] Provider on 06-24-2024 [facility] Anion gap in Serum or Plasma Ordered By: Blu Baeza on 06-21-2024 Anion gap [Moles/Vol] 13 mmol/L - [facility] BUN/creatinine ratioOrdered By: Blu Baeza on 06-21-2024 Urea nitrogen/Creatinine [Mass ratio] 18.8 mg/mg - [facility] Basic Metabolic Profile (BMP )on 06-21-2024 BUN/CRE 18.8 RATIO Normal - [facility] Comment on above: Performed By: #### L 500.2500 #### [facility] Laboratory [address] [place], [address] Calcium [Mass/Vol] 9.0 mg/dL Normal 7.6-11.0 [facility] Comment on above: Performed By: #### L 500.2500 #### [facility] Laboratory [address] [place], [address] Chloride [Moles/Vol] 107 mmol/L Normal 98-108 [facility] Comment on above: Performed By: #### L 500.2500 #### [facility] Laboratory [address] [place], [address] CO2 [Moles/Vol] 21.4 mmol/L Normal 21.0-32.0 [facility] Comment on above: Performed By: #### L 500.2500 #### [facility] Laboratory [address] [place], [address] Creatinine [Mass/Vol] 0.90 mg/dL Normal 0.70-1.20 [facility] Comment on above: Performed By: #### L 500.2500 #### [facility] Laboratory [address] [place], [address] ECRCL 67.23 ml/min Normal 50-250 [facility] Comment on above: Performed By: #### L 500.2500 #### [facility] Laboratory [address] [place], [address] GAP 13 Normal 5-15 [facility] Comment on above: Performed By: #### L 500.2500 #### [facility] Laboratory [address] [place], [address] GFR/1.73 sq M.predicted among non-blacks MDRD (S/P/Bld) [Vol rate/Area] 68 mL/min/{1.73_m2} Normal >60 [facility] Comment on above: Result Comment: mL/m in/1.73m2 CKD-EPI Creatinine Equation (2020) Performed By: #### L 500.2500 #### [facility] Laboratory [address] [place], [address] Glucose [Mass/Vol] 104 mg/dL High 70-99 [facility] Comment on above: Performed By: #### L 500.2500 #### [facility] Laboratory [address] [place], [address] Potassium [Moles/Vol] 3.7 mmol/L Normal 3.3-5.1 [facility] Comment on above: Performed By: #### L 500.2500 #### [facility] Laboratory [address] [place], [address] Sodium [Moles/Vol] 141 mmol/L Normal 133-145 [facility] Comment on above: Performed By: #### L 500.2500 #### [facility] Laboratory [address] [place], [address] Urea nitrogen [Mass/Vol] 17 mg/dL Normal 4-19 [facility] Comment on above: Performed By: #### L 500.2500 #### [facility] Laboratory [address] [place], [address] CNOVon 04-11-2025 CNOV Office Visit (GENSWS ) JAIMEE COOPER ([id number]) 1955 F Date Time Provider Department 06/21/24 8:30 AM MARICHUY DELUNA GENSWS During your visit today, we recorded the following information about you: Temperature 98.1 degrees Marichuy Deluna APRN.PATTERN REPAIR PERSON 06/21/2024 9:30 AM Signed SUBJECTIVE: Jaimee Cooper presents for follow up of her umbilical hernia repair WITH mesh. On 06/12/2024 she underwent a hernia repair, tolerated the procedure well and was discharged home. Patient complaints: pain -midline above umbilicus and slightly to the left lower rib cage only with inspiration -had left knee replacement 9 weeks ago: denies any lower leg pain, redness, swelling or edema -she denies SOB, CP, dizziness, fever, chills, syncope or extreme fatigue She denies drainage, redness around wound, difficulty voiding, and constipation. OBJECTIVE: Temp 36.7 ?C (98.1 ?F) (Temporal) General Appearance: Well developed, No acute distress Respiratory: Lungs clear bilaterally. Respirations equal and unlabored Abdomen: Abdomen soft, non-distended. Incision: no drainage, no erythema, no swelling, mild ecchymosis, and no tenderness Extremities: no redness, increased swelling or edema of bilateral lower extremities Participation of a fellow, resident, medical student, or advanced practice provider student in performing the sensitive examination was discussed with the patient or authorized corporate sales representative. The patient or authorized corporate sales representative has agreed to proceed with the sensitive examination. IMPRESSION: Post op course: Normal PLAN: Post-op patient instructions were reviewed with the patient. I have explained to Ms. Cooper that she may return to normal activity with the following restrictions: No heavy lifting, pushing, or pulling greater than 20 lbs for 6 weeks post-operatively. I have encouraged her to contact me at any time with any questions or concerns that may arise. Since Jaimee had two surgeries within 9 weeks and she is complaining of pain near the left rib cage with inspiration I ordered a D.Dimer to r/o blood clot. If lab is positive with order a CTA. Pt aware and agreeable. Follow up: JONNY Deluna APRN.PATTERN REPAIR PERSON Allergies As of Date: 06/21/2024 (No Known Allergies) Date Reviewed: 06/21/2024 Reviewed by: Verónica Jones LPN - Fully Assessed Reason for Visit: Follow Up [171] Primary Visit Diagnosis:Chest pain on respiration [R07.1] Order(s):D-DIMER [SQDDMER] Order #: [id number] FUTURE Prescriptions as of 06/21/2024 - acetaminophen (TYLENOL) 500 mg tablet Take 500 mg by mouth every 8 hours as needed. - CPAP Change bilevel setting to 16/12 cmH2O. Please fit with dreamwear under the nose FFM (current masks with significant leaks). Please provide us with download after 4 weeks of use at this pressure setting. Lifetime supply. - fluticasone (FLONASE) 50 mcg/actuation nasal spray Use 2 Sprays in each nostril once daily. Rinse mouth after use. - atorvastatin (LIPITOR) 20 mg tablet Take 1 tablet by mouth daily at bedtime. For cholesterol. - omeprazole (PRILOSEC) 20 mg capsule Take 1 capsule by mouth once daily. - cholecalciferol (VITAMIN D3) 50 mcg (2,000 unit) tablet Take 1 tablet by mouth once daily. - MULTIVITAMIN ORAL Take by mouth once daily. Problem List As Of Date 06/21/2024 Noted Resolved Benign Paroxysmal Positional Vertigo [H81.10] 10/28/2005 11/21/2008 Primary localized osteoarthrosis, lower leg [M1*04/28/2009 03/31/2016 Hyperlipidemia [E78.5] 09/08/2009 Anterior cervical lymphadenopathy [R59.0] 09/08/2009 08/28/2013 Vitamin D deficiency [E55.9] 04/22/2010 03/01/2017 OA (osteoarthritis) of knee [M17.9] 05/03/2010 03/31/2016 Family history of early CAD [Z82.49] 12/03/2012 Plantar fasciitis [M72.2] 12/03/2012 08/28/2013 Epidermal cyst of face [L72.0] 12/03/2012 03/31/2016 Edema [R60.9] 12/03/2012 03/24/2015 Incontinence of urine in female [R32] 03/31/2016 Osteopenia [M85.80] 03/31/2016 Allergic rhinitis [J30.9] 03/31/2016 GERD (gastroesophageal reflux disease) [K21.9] Vitamin D insufficiency [E55.9] 03/01/2017 RUDY (obstructive sleep apnea) [G47.33] Lumbar degenerative disc disease [M51.369] 12/26/2019 Class 2 obesity with body mass index (BMI) of 3*02/17/2020 Difficulty with CPAP use [Z78.9] 02/17/2020 05/07/2024 Chronic neck pain [M54.2, G89.29] 02/26/2024 Cervical strain [S16.1XXA] 02/26/2024 History of total knee arthroplasty, right [Z96.*06/04/2024 History of arthroplasty of left knee [Z96.652] 06/04/2024 BCC (basal cell carcinoma of skin) [C44.91] 06/04/2024 Medications Discontinued During This Encounter Prescriptions - celecoxib (CELEBREX) 200 mg capsule (Discontinued) Take 200 mg by mouth once daily. Encounter Status:Closed by MARICHUY DELUNA on 06/21/24 [facility] CTA Chest W/WO Contraston CTA Chest W/WO Contrast [facility] Imaging Services [address] [place] [id number] CTA Chest W/WO Contrast MR#: [id number] Acct: [id number] Name: JAIMEE COOPER LOVELY Rep #: [id number] : 1955 F 69 From: William jurado MD PCP: Dr. Jose Saldivar MD Status: [facility] ER Study: CTA Chest W/WO Contrast Date of Exam: 06/21/24 Exam# [id number] Ordering Dr: Blu Baeza MD PROCEDURE: CTA CHEST W/WO CONTRAST 06/21/2024 REASON FOR EXAM: LLQ DISCOMFORT WITH BREATHING, ELEVATED D-DIMER, S TECHNIQUE: CTA axial imaging of the chest with intravenous contrast. Coronal and Sagittal reconstruction series were provided. 3D, 3D post processing, 3D reconstructions, Maximum intensity projection (MIPs) Volume rendering and Shaded surface rendering was provided. PATIENT PREPARATION: Per protocol CONTRAST: Omnipaque 350 VOLUME: 100 mL Gauge IV One or more dose reduction techniques were used (e.g., Automated exposure control, adjustment of the mA and/or kV according to patient size, use of iterative reconstruction technique). COMPARISON: None FINDINGS: Hardware: None Lymph nodes: No suspicious adenopathy. Heart: Mild biatrial enlargement. No pericardial effusion. No significant coronary artery calcifications. Thoracic Aorta: No thoracic aortic aneurysm or dissection. Pulmonary Vessels: No large central pulmonary emboli are identified. Contrast timing is suboptimal for evaluation of more distal branches. Lungs and Airways: Central airways are patent without endobronchial lesions. Upper lobe predominant mosaic attenuation, likely secondary to pleural effusion. Upper Abdomen: Right renal cysts. Bones: Degenerative changes of the thoracic spine. 9 mm left thyroid lobe nodule. CT/CTA Chest W/WO Contrast IMPRESSION: No evidence of acute pulmonary embolism. Mosaic attenuation, likely secondary to small vessel/small airways disease. Reading Location: [facility] CC: Dr. Jose Saldivar MD; Dr. lBu Baeza MD Ar Manager: Signed Normal [facility] Carbon dioxide, total [Moles /volume] in Central venous bloodOrdered By: Blu Baeza on 06-21-2024 CO2 [Moles/Vol] 21.4 mmol/L 21.0-32.0 [facility] Chloride assayOrdered By: Ana Baeza on 06-21-2024 Chloride [Moles/Vol] 107 mmol/L 98-108 [facility] D dimer FEU PPP-mCncon 06-21 Fibrin D-dimer FEU (PPP) [Mass/Vol] 1370 ng/mL FEU High <500 [facility] Comment on above: Order Comment: Speci men Type: BLOOD SPECIMENOrdering Facility: [facility] Address: [address] [place] [address] [place] [address] Result Comment: [place] en Plasma Aliquot Performed By: #### 4 8065-7 ####[facility] LABCLIA [id number] [address] [id number] [address] Emergency Department Summary on 06-21-2024 Emergency Department Summary [facility] Medical Records Department [address] [place] [address] Emergency Department Summary 06/21/24 MR#: [id number] Acct: [id number] Name: JAIMEE COOPER Rep #: [id number] : 1955 69 From: Blu Baeza MD PCP: Dr. Jose Saldivar MD Status:REG ER Location: ED HPI History of Present Illness Chief Complaint: Abn Labs Detail of Chief Complaint: Sent for elevated D-dimer. Informant: patient and spouse/S.O. Onset/Context/Timing Onset: - (Not applicable) Context: - (Fullness/discomfort left upper quadrant) Timing: Intermittent Quality: Mild shortness of breath Location: Left upper quadrant/left lower lung field Current Severity: Mild Maximum Severity: Moderate Worsened by: Nothing Relieved by: Nothing Associated Symptoms Associated Symptoms: No history of VTE. No leg pain or discoloration. Right lower extremity sw Narrative Narrative: Patient is a 69-year-old woman. She had knee surgery end of March. She had hernia repair by Dr. Dhaliwal 1 week ago. She was seen by nurse practitioner at [facility]. She had a D-dimer that was elevated even after correction for age. Level was 1316. Upper end of normal is 710. She complains of some discomfort in the left lower lung field/left upper quadrant. This started after the hernia surgery. She has had chronic swelling of her right lower extremity since the knee surgery end of March. She denies fever, chills night sweats. She denies chest pressure, tightness or heaviness. She denies skin rash or lesions. She denies trauma. Prior similar symptoms: No Recent Illness/Hospitalizati on: Yes PFSH PFS Medical History Degenerative disk disease Non-smoker GERD (gastroesophageal reflux disease) Home Medications ???Medication ???Instructions ???Recorded ???Last Taken ???Type cholecalciferol (vitamin D3) 50 2,000 unit PO DAILY 04/07/18 Unkno wn History mcg (2,000 unit) capsule (Vitamin D3) multivitamin (One Daily 1 ea PO DAILY 04/07/18 Unknown His tory Multivitamin tablet) omeprazole magnesium 20 mg 20 mg PO PRN PRN GERD 04/07/18 Unk nown History tablet,delayed release (Prilosec OTC) atorvastatin 20 mg tablet 20 mg PO QDAY 02/22/24 Unknown His tory Allergy/AdvReac Type Severity Reaction Status Date / Time No Known Allergies Allergy Verified 06/21/24 15:37 Family History Father Heart disease Surgical History Status post left partial knee replacement Social History household members: spouse housing: house current occupational status: retired current occupation: Retired bookeeper pets and animals: No Smoking Status: Never smoker alcohol intake: current alcohol intake frequency: holidays/special occasions only substance use type: does not use what type of physical activity do you participate in: none seatbelt use: always do you feel safe at home: Yes ROS ROS ED Constitutional Constitutional ED: Denies chills, fever(s), subjective or sweats Eyes Eyes: Denies blurry vision or change in vision ENT ENT ED: Denies ear pain, rhinorrhea or sore throat Cardiovascular Cardiovascular: Denies chest pain, orthopnea, palpitations, paroxysmal nocturnal dyspnea or racing heartbeat Respiratory/Chest Respiratory/Chest: Reports dyspnea and dyspnea on exertion; Denies cough, orthopnea or paroxysmal nocturnal dyspnea Gastrointestinal Gastrointestinal: Reports abdominal pain; Denies constipation, diarrhea, melena, nausea or vomiting Genitourinary Genitourinary ED: Denies dysuria, hematuria or urinary frequency Musculoskeletal Musculoskeletal: Denies arthralgias or myalgias Integumentary Denies rash Neurologic Neurologic: Denies paresthesias or weakness Hematologic/Lymphatic Hematologic/Lymphatic : Reports systems reviewed and no addt'l complaints, except as documented EXAM Physical Exam Const Vital Signs: 06/21/24 15:36 06/21/24 15:36 06/21/24 16:24 Temperature 98.1 F Temperature Source Oral Pulse Rate 93 Respiratory Rate 16 Respiratory Effort Normal Non-Labored Normal Non-Labored Respiratory Depth Normal Respiratory Pattern Normal Normal Blood Pressure 169/87 H Blood Pressure Mean 114 Pulse Ox 99 Oxygen Delivery Method Room Air Room Air 06/21/24 16:36 06/21/24 17:00 Temperature Temperature Source Pulse Rate 88 88 Respiratory Rate 14 19 H Respiratory Effort Respiratory Depth Respiratory Pattern Blood Pressure 149/78 H 143/77 H Blood Pressure Mean 101 99 Pulse Ox 98 97 Oxygen Delivery Method Room Air Room Air Positive well nourishe (more content not included)... Normal [facility] Estimation of creatinine chapis aranceOrdered By: Blu Baeza on 06-21-2024 Estimated Creatinine Clearance Calc 67.23 ml/min 50-250 [facility] Fibrin D-dimer FEU (PPP) [Ma ss/Vol]on 06-21-2024 D DIMER AGE-RELATED CUTOFF 710 ng/mL FEU Normal [facility] Comment on above: Order Comment: Speci men Type: BLOOD SPECIMENOrdering Facility: [facility] Address: [address] [place] [address] Performed By: #### 4 8065-7 ####[facility] LABCLIA [id number] [place] [address] [place] [facility] [id number] [place] [address] [place] GFR/1.73 sq M.predicted everardo g non-blacks MDRD (S/P/Bld) [Vol rate/Area]Ordered By: Blu Baeza on 06-21-2024 Estimated GFR (MDRD) Non-Af Amer 68 >60 [facility] Comment on above: mL/min/1.73m2 CKD-EP I Creatinine Equation (2020) Glomerular filtration rate ( GFR) estimation/1.73 sq m using serum, plasma, or whole bOrdered By: Blu Grosso on 06-21-2024 GFR/1.73 sq M.predicted among non-blacks MDRD (S/P/Bld) [Vol rate/Area] 68 mL/min/{1.73_m2} >60 [facility] Comment on above: mL/min/1.73m2 CKD-EP I Creatinine Equation (2020) Potassium (Unsp spec) [Mass/ Vol]Ordered By: [facility] on 06-21-2024 Potassium [Moles/Vol] 3.7 mmol/L 3.3-5.1 [facility] Potassium measurement (mass/ volume)Ordered By: [facility] on 06-21-2024 Potassium (Unsp spec) [Mass/Vol] 3.7 mmol/L 3.3-5.1 [facility] Serum creatinine measurement (mass/volume)Ordered By: [facility] on 06-21-2024 Creatinine [Mass/Vol] 0.90 mg/dL 0.70-1.20 [facility] Serum glucose measurement (m ass/volume)Ordered By: [facility] on 06-21-2024 Glucose [Mass/Vol] 104 mg/dL High 70-99 [facility] Serum or plasma calcium valerio urement (mass/volume)Ordered By: [facility] on 06-21-2024 Calcium [Mass/Vol] 9.0 mg/dL 7.6-11.0 [facility] Serum or plasma urea nitroge n measurement (mass/volume)Ordered By: [facility] on 06-21-2024 Urea nitrogen [Mass/Vol] 17 mg/dL 4-19 [facility] S[facility]Or[facility] Sodium [Moles/Vol] 141 mmol/L 133-145 [facility] ANES POSTPROC EVALon 025 ANES POSTPROC EVAL HNO ID: [id number] Author: VJ CARDENAS MD Service: ? Author Type: Anesthesiologist Type: Anesthesia Postprocedure Evaluation Filed: 06/12/2024 11:48 Note Text: POST ANESTHESIA EVALUATION NOTE : 1955 Procedure Summary Date: 06/12/24 Room / Location: [facility] OR / [facility] OR Anesthesia Start: 733 Anesthesia Stop: 840 Procedure: REPAIR HERNIA UMBILICAL REDUCIBLE LESS THAN 3cm (Abdomen) Diagnosis: Umbilical hernia without obstruction and without gangrene (Umbilical hernia without obstruction and without gangrene [K42.9]) Surgeons: Haja Dhaliwal MD Responsible Provider: Vj Cardenas MD Anesthesia Type: general ASA Status: 3 Anesthesia Type: general Airway Type: ETT Last Vitals Vitals Value Taken Time BP 152/75 06/12/24927 Temp 36.4 ?C (97.5 ?F) 06/12/24842 Pulse 70 06/12/24927 Resp 18 06/12/24927 SpO2 94 % 06/12/24927 Post Anesthesia Patient Status Patient Evaluation: bedside. Anticipated Disposition: phase 2 then home. Neurological Status: aware and responsive. Pulmonary Status: breathing comfortably on room air Airway Control: returned to baseline unsupported. Cardiovascular Status: stable. Pain Management: clinically adequate Postoperative Hydration: acceptable. Intraoperative Events: no significant anesthesia events Post Operative Nausea/Vomiting Status: no significant post operative nausea or vomiting Recommendation: continue current plan of care. Anesthesia Observations No Documentation SIGNATURE: Vj Cardenas MD PATIENT NAME: Jaimee Cooper DATE: June 12, 2024 TIME: 11:47 AM CSN: [id number] [facility] ANES PRE-OPon 06-12-2024 ANES PRE-OP HNO ID: [id number] Author: VJ CARDENAS MD Service: ? Author Type: Anesthesiologist Type: Anesthesia Preprocedure Evaluation Filed: 06/12/2024 07:20 Note Text: ANESTHESIOLOGY DAY OF SURGERY NOTE : 1955 Procedure Information Date/Time: 06/12/24729 Procedure: REPAIR HERNIA UMBILICAL REDUCIBLE LESS THAN 3cm (Abdomen) Location: [facility] OR / [facility] OR Surgeons: Haja Dhaliwal MD Estimated body mass index is 36.94 kg/m? as calculated from the following: Height as of this encounter: 165.1 cm (5' 5). Weight as of this encounter: 100.7 kg (222 lb). Most recent hematocrit and potassium results: Hematocrit 44.8 12/25/2023 Potassium 4.2 12/25/2023 Relevant Problems ANESTHESIA (+) RUDY (obstructive sleep apnea) GI (+) GERD (gastroesophageal reflux disease) PULMONARY (+) RUDY (obstructive sleep apnea) I - PHYSICAL EVALUATION AIRWAY Patient intubated: No. Tracheostomy tube not present Mallampati: II. TM distance: >3 FB. Neck ROM: full ROM without neurological symptoms. Mouth opening: adequate. Short neck: no. Thick neck: no DENTAL Dental findings: teeth intact. II - ANESTHESIA PLAN ASA Score: 3 The patient is not a current smoker. NPO Status: adequate Beta Leticia Monitoring Plan Monitoring plan: standard ASA. Post Procedure Analgesic Plan Postoperative analgesic plan: multimodal analgesia. Informed Consent Anesthetic risks, benefits, alternatives, personnel and consent discussed: yes. Patient / Responsible Alliance Party agrees to proceed: yes Patient / Surrogate agrees to blood products: Yes DNR status not reviewed with patient and/or family prior to surgery. Significant changes in the patient condition since the History and Physical, not otherwise documented in primary service progress note: no. Potential Anesthesia issues that may suggest increased risk of complications or contraindication to planned procedure: none. Vitals Value Taken Time BP 192/86 06/12/24628 Pulse 73 06/12/24628 Resp 15 06/12/24628 Temp 36.2 ?C (97.2 ?F) 06/12/24628 SpO2 98 % 06/12/24628 Facility-Administered Medications as of 06/12/2024 Medication Dose Route Frequency lidocaine (PF) 10 mg/mL (1 %) 1-2 mg injection (XYLOCAINE) 0.1-0.2 mL INTRADERMAL PRN lactated ringers iv infusion 5-30 mL/hr INTRAVENOUS CONTINUOUS NaCl 0.9% iv flush bag 20 mL INTRAVENOUS PRN ceFAZolin iv piggyback 2 g in D5W (iso-osmotic) 100 mL (ANCEF) 2 g INTRAVENOUS Pre-Op Once [COMPLETED] acetaminophen 1,000 mg tab(s) (TYLENOL) 1,000 mg ORAL Pre-Op Once [COMPLETED] promethazine 12.5 mg tab(s) (PHENERGAN) 12.5 mg ORAL Pre-Op Once lactated ringers iv infusion 30 mL/hr INTRAVENOUS CONTINUOUS [COMPLETED] famotidine 20 mg injection (PEPCID) 20 mg INTRAVENOUS ONCE [COMPLETED] metoclopramide HCl 10 mg injection (REGLAN) 10 mg INTRAVENOUS ONCE Outpatient Medications as of 06/12/2024 Medication Sig CPAP Change bilevel setting to 16/12 cmH2O. Please fit with dreamwear under the nose FFM (current masks with significant leaks). Please provide us with download after 4 weeks of use at this pressure setting. Lifetime supply. celecoxib (CELEBREX) 200 mg capsule Take 200 mg by mouth once daily. acetaminophen (TYLENOL) 500 mg tablet Take 500 mg by mouth every 8 hours as needed. fluticasone (FLONASE) 50 mcg/actuation nasal spray Use 2 Sprays in each nostril once daily. Rinse mouth after use. omeprazole (PRILOSEC) 20 mg capsule Take 1 capsule by mouth once daily. cholecalciferol (VITAMIN D3) 50 mcg (2,000 unit) tablet Take 1 tablet by mouth once daily. MULTIVITAMIN ORAL Take by mouth. I have interviewed and examined the patient. I have reviewed the medical record and/or the pre-anesthesia evaluation, pertinent labs, and test results. This contains updated information obtained within 48 hours of Surgery/Procedure. SIGNATURE: Vj Cardenas MD PATIENT NAME: Jaimee Cooper DATE: June 12, 2024 TIME: 7:19 AM CSN: [id number] Normal [facility] HISTORY PHYSICALon HISTORY PHYSICAL HNO ID: [id number] Author: HAJA DHALIWAL MD Service: General Surgery Author Type: Physician Type: H&P Filed: 06/12/2024 07:03 Note Text: HISTORY AND PHYSICAL Jaimee Cooper 1955 REFERRING PHYSICIAN: Mili Saldivar MD CHIEF COMPLAINT: Consult (hERNIA) HPI: Jaimee is a 69 year old female with a complaint of a bulge and discomfort in her umbilical region. The patient notes discomfort in this area with lifting. The symptoms have increased, over the past few months. The patient notes no symptoms of bowel obstruction and denies nausea or vomiting. The patient was seen by her primary care physician who felt the patient has a hernia. Jaimee was referred for evaluation and treatment. The patient is being seen by me today at the request of Dr. Mili Saldivar MD for my opinion and advice regarding Umbilical hernia without obstruction and without gangrene (primary encounter diagnosis). PAST MEDICAL HISTORY PAST MEDICAL HISTORY Diagnosis Date Arthritis Diverticulosis of colon (without mention of hemorrhage) Dysplasia of cervix, unspecified GERD (gastroesophageal reflux disease) Kidney cysts 2017 fluid filled Obesity (BMI 35.0-39.9 without comorbidity) RUDY (obstructive sleep apnea) severe Osteoarthritis of lumbar spine Osteoarthritis, knee s/p partial knee replacement on left Seasonal allergies spring and fall Vitamin D insufficiency PAST SURGICAL HISTORY PAST SURGICAL HISTORY Procedure Laterality Date CAUTERY CERVIX CRYOCAUTERY INITIAL/REPEAT 06/16/1994 COLONOSCOPY FLX DX W/COLLJ SPEC WHEN PFRMD 05/31/2010 Colonoscopy COLONOSCOPY FLX DX W/COLLJ SPEC WHEN PFRMD 12/22/2020 ESOPHAGOGASTRODUODENO SCOPY TRANSORAL DIAGNOSTIC 12/22/2020 SKIN BIOPSY HX TONSILLECTOMY HX TONSILLECTOMY PRIMARY/SECONDARY TOTAL KNEE REPLACEMENT Left partial left done last Apr 2014 TOTAL KNEE REPLACEMENT Right 03/2024 CURRENT MEDICATIONS No current facility-administered medications for this visit. No current outpatient medications on file. Facility-Administered Medications Ordered in Other Visits Medication Dose Route Frequency lidocaine (PF) 10 mg/mL (1 %) 1-2 mg injection (XYLOCAINE) 0.1-0.2 mL INTRADERMAL PRN lactated ringers iv infusion 5-30 mL/hr INTRAVENOUS CONTINUOUS NaCl 0.9% iv flush bag 20 mL INTRAVENOUS PRN ceFAZolin iv piggyback 2 g in D5W (iso-osmotic) 100 mL (ANCEF) 2 g INTRAVENOUS Pre-Op Once lactated ringers iv infusion 30 mL/hr INTRAVENOUS CONTINUOUS ALLERGIES: Patient has no known allergies. PERSONAL HISTORY: SOCIAL HISTORY Social History Tobacco Use Smoking status: Never Smokeless tobacco: Never Vaping Use Vaping status: Never Used Substance Use Topics Alcohol use: Yes Comment: occasional- monthly Drug use: No FAMILY HISTORY: FAMILY HISTORY FAMILY HISTORY Problem Relation Age of Onset Osteoporosis Mother Arthritis, HTN, Macular Degeneration other (hip fracture) Mother X 2 Heart Father ASHD, [place] No Known Problems Sister Lung Cancer Brother No Known Problems Brother Breast Cancer Maternal Grandmother Malig Hyperthermia No Family History REVIEW OF SYMPTOMS: The review of systems data was entered by the nurse and reviewed by me There are no exam notes on file for this visit. PHYSICAL EXAMINATION: General: The patient is 69 year old female, well nourished, well hydrated in no acute distress. The patient is oriented to time, place, and person. VITALS: Blood pressure 139/84, pulse 98, temperature 37.2 ?C (98.9 ?F), temperature source Temporal, weight 101.6 kg (224 lb). Body mass index is 37.28 kg/m?. HEENT: Normal cephalic, ataumatic, pupils are equally round, sclera are anicteric, mucous membranes are moist, oropharynx is clear. Neck has no masses, asymmetry or lymphadenopathy. Thyroid is unremarkable. Respiratory: Clear to auscultation and percussion. Normal respiratory excursion and pattern. Cardiac: Examination is regular rate and rhythm. Abdominal exam: Soft, nontender, with no palpable masses. No hepatosplenomegaly. A moderate reducible umbilical hernia, no right or left inguinal hernias are noted Rectal exam: exam deferred Extremities: no clubbing, cyanosis or edema. No adenopathy. Other: LABORATORY VALUES: As Noted RADIOLOGIC STUDIES: As Noted Assessment IMPRESSION: umbilical hernia PLAN: My plan is to perform a umbilical hernia repair with mesh. The planned surgical procedure was discussed extensively with the patient. The risks, benefits, anticipated outcomes and possible complications were mentioned. Jaimee aldrichands that all hernia repair surgery has a chance of recurrence and/or chronic post operative pain. My staff has also explained the procedure in understandable terms and the patient was given the option to take printed material concerning the planned procedure. The patient had the opportunity to ask questions concerning the planned procedure. The p (more content not included)... [facility] OPERATIVE NOon 06-12-2024 OPERATIVE NO HNO ID: [id number] Author: HAJA DHALIWAL MD Service: General Surgery Author Type: Physician Type: Operative Report Filed: 06/12/2024 08:37 Note Text: OPERATIVE/PROCEDURE REPORT LOG ID: [id number] SURGERY/PROCEDURE DATE: 06/12/2024 INCISION/PROCEDURE START TIME: 7:53 AM INCISION CLOSE/PROCEDURE END TIME: 8:27 AM SURGEON(S)/PROCEDURAL IST(S) AND ACLS NURSE(S): Surgeons and Role: * Haja Dhaliwal MD - Primary Physician Electronics Installer: Wendy Camarena PA-C SURGERY/PROCEDURE(S): Umbilical hernia repair with mesh (3 cm to 10 cm) ANESTHESIA: General SURGERY/PROCEDURE DETAILS: Patient was brought the operating room. Placed in supine position. Under excellent general anesthetic abdomen was sterilely prepped and draped in the usual fashion. Local was injected supraumbilically curvilinear incision was made dissection was carried down hernia was taken off of the umbilicus placed back into its preperitoneal space. I dissected at the fascia and then created a preperitoneal window. I had excellent hemostasis I injected local into the fascia. I fashioned an 8.6 cm Paratex mesh into the wound it laid completely flat. It was circumferentially tacked to the fascia with 0 Nurolon's. About the umbilicus back down to the fascia. Subcu was brought together with 3-0 Vicryl. Deep dermals with 3-0 Vicryl then a running 4-0 Monocryl. Dermabond was applied sterile dressings were applied and the patient tolerated the procedure well. Wendy Camarena PA-C was my food and beverage assistant. She assisted with retraction, visualization and performed skin closure. No additional surgeons or qualified residents were available. PRE-OP/PRE-PROCEDURE DIAGNOSIS: Umbilical hernia 3 cm to 10 cm POST-OP/POST-PROCEDUR E DIAGNOSIS: Same as Preop ESTIMATED BLOOD LOSS: < 20 mls SPECIMENS: None IMPLANTABLE DEVICES: Implant Name Type Inv. Item Serial No. Hand Meat Salter Lot No. LRB No. Used Action MESH PARIETEX 8.6CM SMALL COLLAGEN SURGICAL PATCH SELF CENTER COMPOSITE - [id number] Mesh MESH PARIETEX 8.6CM SMALL COLLAGEN SURGICAL PATCH SELF CENTER COMPOSITE [employer] [id number] N/A 1 Implanted DRAINS: None COMPLICATIONS: None CLOSURE TECHNIQUE: Primary PARTICIPATION IN SURGERY/PROCEDURE: I/primary surgeon/proceduralist performed the procedure with assistance. SIGNATURE: Haja Dhaliwal III, MD PATIENT NAME: Jaimee Cooper DATE: June 12, 2024 TIME: 8:34 AM [facility] HISTORY PHYSICALon HISTORY PHYSICAL HNO ID: [id number] Author: DG FAJARDO APRN.SHANEL Service: ? 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 History of total knee arthroplasty, right Assessment: hx History of arthroplasty of left knee Assessment: hx partial BCC (basal cell carcinoma of skin) Assessment: s/p excision ANESTHESIA FINDINGS: Intubation History: No history of difficult intubation Significant Anesthesia Considerations: none Airway History: No history of difficult airway Ward Activity Status Index: METS: Climb a flight of stairs or walk up a hill (5.50 METs) DASI Score: 5.5 Patient denies any chest pain or undue shortness of breath with the above physical activity. Clinical Frailty Scale: 3. Well, with treated comorbid disease STOP-Bang Score: Snores loudly Has been observed to stop breathing or choking/gasping during sleep BMI greater than 35 kg/m2 Patient over 50 years old Has a large neck Denies feeling tired, fatigued, or sleepy during the daytime Denies having high blood pressure Non-male patient STOP-Bang Score: 5 [id number] Score: Age: 65-74 Sex: female CHF history: No Hypertension history: No Stroke/TIA/thromboemb olism history: No Vascular disease history: No Diabetes history: No [id number] Score: 2 ARISCAT Score: Age: 51-80 Preoperative SpO2: >=96% Respiratory infection in the last month: No Preoperative anemia: No Surgical incision: upper abdominal Duration of surgery: <2 hrs Emergency procedure: No ARISCAT Score: 18 I - PHYSICAL EVALUATION AIRWAY Patient intubated: No. Tracheostomy tube not present Mallampati: III. TM distance: >3 FB. Neck ROM: full ROM without neurological symptoms. Mouth opening: adequate. Short neck: no. Thick neck: yes Fajardo present: no Lip Bite Test: I Microretrognathia/González ronagthia/Recessed Chin: No DENTAL Dental findings: teeth intact. Additional comments: +crowns/back. II - ANESTHESIA PLAN Anesthetic Plan: other Beta Leticia Monitoring Plan Post Procedure Analgesic Plan Prepared for Surgery: optimally prepared for surgery. CONSULTS: Patient does not require consults for optimization at this time Planned Anesthetic: other anesthesia choice The Following Tests/Procedures Have Been Initiated: No orders of the defined types were placed in this encounter. REASON FOR VISIT: Jaimee Cooper is a 69 year old female who is scheduled for Procedure(s): REPAIR HERNIA UMBILICAL REDUCIBLE LESS THAN 3cm (N/A) at the request of Dr. Haja Dhaliwal for consultation. My final recommendation will be communicated back to the requesting physician by way of shared medical record or letter. Subjective The patient has the following: COVID-19 Immunization Status Upcoming Covid-19 Vaccine () Postponed until 12/24/2024 12/25/2023 Postponed until 12/24/2024 by Mili Saldivar MD (Declined at this time) 12/22/2022 Postponed until 12/23/2023 by Mili Saldivar MD (Declined at this time) 12/20/2021 Postponed until 12/20/2022 by Mili Saldivar MD (Declined at this time) Only the first 3 history entries have been loaded, but more history exists. CHIEF COMPLAINT: Pre-op exam HPI: Jaimee Cooper is a 69 year old seen for PAC due to scheduled above surgery because of an umbilical hernia. REVIEW OF SYSTEMS: General: No weight loss, malaise or fevers. Neurological: No history of TIA's, stroke, HALFTONE OPERATOR tumor, impaired sensorium, hemiplegia, paraplegia or quadraplegia. No neurological symptoms or problems. Respiratory: Positive for: obstructive sleep apnea and CPAP/BiPAP compliant. Negative for: asthma, COPD, current cough, dyspnea, pneumonia within 6 weeks, tobacco use and URI < 2 weeks. Cardiovascular: Positive for: hyperlipidemia Negative for: abdominal aortic aneurysm, AICD/PPM, angina, anticoagulation therapy, arrhythmia, atrial fibrillation, CAD, chest pain, CHF, congenital heart defect, DVT/PE, hypertension, recent [place], murmur/valvular heart disease, PTCA, PVD, open heart surgery and valve surgery. GI: See HPI. Positiv (more content not included)... Normal [facility] CNOVon 05-27-2024 CNOV Office Visit (GENSWS ) JAIMEE COOPER ([id number]) 1955 F Date Time Provider Department 05/27/24 2:30 PM HAJA DHALIWAL During your visit today, we recorded the following information about you: Temperature Pulse Blood pressure Weight 98.9 degrees 98/minute 139/84 101.6 kg Haja Dhaliwal MD 06/12/2024 7:02 AM Signed HISTORY AND PHYSICAL Jaimee Bardales Gogo 1955 REFERRING PHYSICIAN: Mili Saldivar MD CHIEF COMPLAINT: Consult (hERNIA) HPI: Jaimee is a 69 year old female with a complaint of a bulge and discomfort in her umbilical region. The patient notes discomfort in this area with lifting. The symptoms have increased, over the past few months. The patient notes no symptoms of bowel obstruction and denies nausea or vomiting. The patient was seen by her primary care physician who felt the patient has a hernia. Jaimee was referred for evaluation and treatment. The patient is being seen by me today at the request of Dr. Mili Saldivar MD for my opinion and advice regarding Umbilical hernia without obstruction and without gangrene (primary encounter diagnosis). PAST MEDICAL HISTORY Diagnosis Date Arthritis Diverticulosis of colon (without mention of hemorrhage) Dysplasia of cervix, unspecified GERD (gastroesophageal reflux disease) Kidney cysts 2018 fluid filled Obesity (BMI 35.0-39.9 without comorbidity) RUDY (obstructive sleep apnea) severe Osteoarthritis of lumbar spine Osteoarthritis, knee s/p partial knee replacement on left Seasonal allergies spring and fall Vitamin D insufficiency PAST SURGICAL HISTORY Procedure Laterality Date CAUTERY CERVIX CRYOCAUTERY INITIAL/REPEAT 06/16/1994 COLONOSCOPY FLX DX W/COLLJ SPEC WHEN PFRMD 05/31/2010 Colonoscopy COLONOSCOPY FLX DX W/COLLJ SPEC WHEN PFRMD 12/22/2020 ESOPHAGOGASTRODUODENO SCOPY TRANSORAL DIAGNOSTIC 12/22/2020 SKIN BIOPSY HX TONSILLECTOMY HX TONSILLECTOMY PRIMARY/SECONDARY TOTAL KNEE REPLACEMENT Left partial left done last Apr 2014 TOTAL KNEE REPLACEMENT Right 03/2024 No current facility-administered medications for this visit. No current outpatient medications on file. Facility-Administered Medications Ordered in Other Visits Medication Dose Route Frequency lidocaine (PF) 10 mg/mL (1 %) 1-2 mg injection (XYLOCAINE) 0.1-0.2 mL INTRADERMAL PRN lactated ringers iv infusion 5-30 mL/hr INTRAVENOUS CONTINUOUS NaCl 0.9% iv flush bag 20 mL INTRAVENOUS PRN ceFAZolin iv piggyback 2 g in D5W (iso-osmotic) 100 mL (ANCEF) 2 g INTRAVENOUS Pre-Op Once lactated ringers iv infusion 30 mL/hr INTRAVENOUS CONTINUOUS ALLERGIES: Patient has no known allergies. PERSONAL HISTORY: Social History Tobacco Use Smoking status: Never Smokeless tobacco: Never Vaping Use Vaping status: Never Used Substance Use Topics Alcohol use: Yes Comment: occasional- monthly Drug use: No FAMILY HISTORY: FAMILY HISTORY Problem Relation Age of Onset Osteoporosis Mother Arthritis, HTN, Macular Degeneration other (hip fracture) Mother X 2 Heart Father RIDOTTJorge Luis, [place] No Known Problems Sister Lung Cancer Brother No Known Problems Brother Breast Cancer Maternal Grandmother Malig Hyperthermia No Family History REVIEW OF SYMPTOMS: The review of systems data was entered by the nurse and reviewed by me There are no exam notes on file for this visit. PHYSICAL EXAMINATION: General: The patient is 69 year old female, well nourished, well hydrated in no acute distress. The patient is oriented to time, place, and person. VITALS: Blood pressure 139/84, pulse 98, temperature 37.2 ?C (98.9 ?F), temperature source Temporal, weight 101.6 kg (224 lb). Body mass index is 37.28 kg/m?. HEENT: Normal cephalic, ataumatic, pupils are equally round, sclera are anicteric, mucous membranes are moist, oropharynx is clear. Neck has no masses, asymmetry or lymphadenopathy. Thyroid is unremarkable. Respiratory: Clear to auscultation and percussion. Normal respiratory excursion and pattern. Cardiac: Examination is regular rate and rhythm. Abdominal exam: Soft, nontender, with no palpable masses. No hepatosplenomegaly. A moderate reducible umbilical hernia, no right or left inguinal hernias are noted Rectal exam: exam deferred Extremities: no clubbing, cyanosis or edema. No adenopathy. Other: LABORATORY VALUES: As Noted RADIOLOGIC STUDIES: As Noted Assessment IMPRESSION: umbilical hernia PLAN: My plan is to perform a umbilical hernia repair with mesh. The planned surgical procedure was discussed extensively with the patient. The risks, benefits, anticipated outcomes and possible complications were mentioned. Jaimee aldrichands that all hernia repair surgery has a chance of recurrence and/or chronic post operative pain. My staff has also explained the procedure in understandable terms and the maykel (more content not included)... Normal [facility] CNPNon 05-27-2024 CNPN Telephone ([place]) JAIMEE COOPER ([id number]) 1955 F Date Time Provider Department 05/27/24 HAJA DHALIWAL BeamingS During your visit today, we recorded the following information about you: Didier Hadley 05/27/2024 4:45 PM Signed 06-11-2024 Hernia Patel Allergies As of Date: 05/27/2024 (No Known Allergies) Date Reviewed: 05/27/2024 Reviewed by: Iesha Rosenbaum RN - Fully Assessed Reason for Visit: 06-11-2024 Hernia Patel [Other] Prescriptions as of 06/28/2024 - acetaminophen (TYLENOL) 500 mg tablet Take 500 mg by mouth every 8 hours as needed. - CPAP Change bilevel setting to 16/12 cmH2O. Please fit with dreamwear under the nose FFM (current masks with significant leaks). Please provide us with download after 4 weeks of use at this pressure setting. Lifetime supply. - fluticasone (FLONASE) 50 mcg/actuation nasal spray Use 2 Sprays in each nostril once daily. Rinse mouth after use. - atorvastatin (LIPITOR) 20 mg tablet Take 1 tablet by mouth daily at bedtime. For cholesterol. - omeprazole (PRILOSEC) 20 mg capsule Take 1 capsule by mouth once daily. - cholecalciferol (VITAMIN D3) 50 mcg (2,000 unit) tablet Take 1 tablet by mouth once daily. - MULTIVITAMIN ORAL Take by mouth once daily. Problem List As Of Date 05/27/2024 Noted Resolved Benign Paroxysmal Positional Vertigo [H81.10] 10/28/2005 11/21/2008 Primary localized osteoarthrosis, lower leg [M1*04/28/2009 03/31/2016 Hyperlipidemia [E78.5] 09/08/2009 Anterior cervical lymphadenopathy [R59.0] 09/08/2009 08/28/2013 Vitamin D deficiency [E55.9] 04/22/2010 03/01/2017 OA (osteoarthritis) of knee [M17.9] 05/03/2010 03/31/2016 Family history of early CAD [Z82.49] 12/03/2012 Plantar fasciitis [M72.2] 12/03/2012 08/28/2013 Epidermal cyst of face [L72.0] 12/03/2012 03/31/2016 Edema [R60.9] 12/03/2012 03/24/2015 Incontinence of urine in female [R32] 03/31/2016 Osteopenia [M85.80] 03/31/2016 Allergic rhinitis [J30.9] 03/31/2016 GERD (gastroesophageal reflux disease) [K21.9] Vitamin D insufficiency [E55.9] 03/01/2017 RUDY (obstructive sleep apnea) [G47.33] Lumbar degenerative disc disease [M51.369] 12/26/2019 Class 2 obesity with body mass index (BMI) of 3*02/17/2020 Difficulty with CPAP use [Z78.9] 02/17/2020 05/07/2024 Chronic neck pain [M54.2, G89.29] 02/26/2024 Cervical strain [S16.1XXA] 02/26/2024 Encounter Status:Closed by DIDIER HADLEY on 06/28/24 [facility] Asha 05-07-2024 CNOV Office Visit (OBGYWM ) JAIMEE COOPER ([id number]) 1955 F Date Time Provider Department 05/07/24 7:30 AM JULIANA ZELAYA OBGYWM During your visit today, we recorded the following information about you: Blood pressure Weight Height 126/78 100.2 kg 1.651 m Juliana Zelaya APRN.PATTERN REPAIR PERSON 05/07/2024 8:03 AM Signed Jaimee is a 69 year old who presents for an annual gynecologic exam with complaints, vulvar irritation. Postmenopausal: Yes since age early 50s HRT use: No. Sexually active: sometimes HPV vaccine: No Last pap smear: 09/2020 normal HPV: negative History of abnormal pap: Yes Colposcopy: Yes: 2011 Leep: No. Cone biopsy: Yes: cryo 2011 Last mammogram: 2023 normal History of abnormal mammogram: Yes OB History Gravida2 Para2 Term0 Preterm0 AB0 Living2 SAB0 IAB0 Ectopic0 Multiple0 Live Births0 Induction Coordination Power Engineer History LMP: Postmenopausal Age at Menarche: Age at First : Age at Menopause: Induction Coordination Power Engineer History Comments: Sexual Activity: Yes; Male Contraception: No contraception data on record PAST MEDICAL HISTORY Diagnosis Date Arthritis Diverticulosis of colon (without mention of hemorrhage) Dysplasia of cervix, unspecified GERD (gastroesophageal reflux disease) Kidney cysts 2017 fluid filled Obesity (BMI 35.0-39.9 without comorbidity) RUDY (obstructive sleep apnea) severe Osteoarthritis of lumbar spine Osteoarthritis, knee s/p partial knee replacement on left Seasonal allergies spring and fall Vitamin D insufficiency PAST SURGICAL HISTORY Procedure Laterality Date CAUTERY CERVIX CRYOCAUTERY INITIAL/REPEAT 06/16/1994 COLONOSCOPY FLX DX W/COLLJ SPEC WHEN PFRMD 05/31/2010 Colonoscopy COLONOSCOPY FLX DX W/COLLJ SPEC WHEN PFRMD 12/22/2020 ESOPHAGOGASTRODUODENO SCOPY TRANSORAL DIAGNOSTIC 12/22/2020 JOINT REPLACEMENT HX SKIN BIOPSY HX TONSILLECTOMY HX TONSILLECTOMY PRIMARY/SECONDARY TOTAL KNEE REPLACEMENT Left partial left done last Apr 2014 TOTAL KNEE REPLACEMENT Right 03/2024 FAMILY HISTORY Problem Relation Age of Onset Osteoporosis Mother Arthritis, HTN, Macular Degeneration other (hip fracture) Mother X 2 Heart Father ASHD, [place] No Known Problems Sister Lung Cancer Brother No Known Problems Brother Breast Cancer Maternal Grandmother SOCIAL HISTORY Social History Tobacco Use Smoking status: Never Smokeless tobacco: Never Vaping Use Vaping status: Never Used Substance Use Topics Alcohol use: Yes Comment: occasional- monthly Drug use: No REVIEW OF SYSTEMS Abdomen: No abdominal pain, nausea, vomiting, diarrhea, or constipation. No bloating, early satiety, indigestion, or increased flatulence. Bladder: No dysuria, gross hematuria, urinary frequency, urinary urgency, + incontinence Breast: No breast lumps, nipple d/c, overlying skin changes, redness or skin retraction Allergies and current medication updated:Yes SENSITIVE EXAM: The sensitive examination was discussed with the Patient or Patient's Authorized Well Service Pump Equipment Operator. As applicable, any other physician, advance practice provider, medical student, or other health professional student that will be observing or involved in the sensitive examination for educational or training purposes was discussed with the Patient or Authorized Well Service Pump Equipment Operator. The Patient or Authorized Well Service Pump Equipment Operator has agreed to proceed with the sensitive examination. (Sensitive examination includes inspection and/or palpation of the breasts, pelvis, prostate and anorectal regions). EXAM: BP 126/78 Ht 5' 5 (1.65m) Wt 221 lb (100.2kg) BMI 36.78 kg/(m2). GENERAL: pleasant, female in no apparent distress HEENT: Normocephalic, atraumatic, mucus membranes moist, and no lesions DERMATOLOGY: Normal, without lesions, non-icteric, and non-hirsute BREAST: soft, non-tender, symmetric, no dominant mass, normal nipple-areolar complex, no lymphadenopathy, and no nipple discharge CHEST: Normal inspiratory effort ABDOMEN: soft, non-tender, and no masses PELVIC: external genitalia normal, normal Bartholin's glands, urethra, [place]'s glands, no vulvar lesions, no cervical lesions, physiologic discharge present, normal appearing perineal body and perianal region BIMANUAL: uterus normal size, shape and consistency, no adnexal masses, and non-tender RECTOVAGINAL: deferred. NEURO: alert and oriented x3,exam grossly non-focal EXTREMITIES: normal ASSESSMENT/PLAN: 1) Health maintenance: Pap/HPV up to date. Mammogram ordered Mammogram up to date Nutrition, exercise and routine health maintenance exams reviewed. Calcium/Vitamin D supplementation information provided. Colon cancer screening: up to date with screening 2) Follow up one year or sooner as needed Juliana Zelaya APRN.PATTERN REPAIR PERSON Referring Provider: SELF [[id number]] Allergies As of Date: 05/07/2024 Noted Allergy Reaction INDOCIN (INDOMETHAC (more content not included)... Normal [facility] Inital Evaluation (1) - PTon 04-11-2024 Inital Evaluation (1) - PT [facility] [address] [place] [address] / REHABILITATION SERVICES INITIAL EVALUATION MR#: [id number] Acct: [id number] Name: JAIMEE COOPER Rep #: [id number] : 1955 69 From: Ancelmo Rascon DPT, OCS, CSCS Referring Dr.: Dr. Rober Collins MD Status: REG RCR Insurance: MEDICARE PART A B ANTH Patient's Visit Information Visit Information Visit Information: JAIMEE COOPER is a 69 year old F referred to Physical Therapy by Dr. Rober Collins MD with a diagnosis of R TKA 04/09/24. Date of Evaluation: 04/11/24 Physical Therapist: Ancelmo Rascon DPT, OCS, CSCS Visit Plan Frequency: 3x /Week Duration: 4-6 Weeks Plan: 3x/week for 4-6 weeks for IE: chair scoot knee flexion, HS, QS x10 3x/day, attempt SLR, AP throughout day. reviewed gait with walker, use ice and management of condition. Treat with patellar mobs, knee flexion ext ROM, HS stretch quad stretch to HEP, progression of knee and hip strength to HEP, gait training and stairs progression, ice as needed. Subjective Subjective: R TKA 04/09/24. Pain is up t0 6/10 at times but 4/10 and medication is doing its job. Sleep was OK once she gts in bed but climbing in is challenging. Uss CPAP and has compression garments and ice machine. 8 hours last night. picks up leg. Walker to geet around allt he time. Hands to get out of chair, recliner but scoot is challenging. Nupur with riki, one story, one step is no problem. Dresing is OK but need shelp with R foot in pants, help with stockings. Bathroom I with lift. Not eemployed. 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 Monthly meal at [employer]. No regular ex lately. Pain R knee: Pain Intensity (Out of 10): 1 Pain Intensity Range: 0 and 6 Objective Objective: R knee wrapped adn dressed properly. Incision is mostly dry and helaed well, no signs of exceessive redness heat or swelling. Patella R stiff vs L and moderate swelling expected. R kne eAROM -2-70, PROM to 73 limited by pain. L knee 0-110. strength R knee ext 5# and flexion 10# girth 22 inch at patella and 25 6 inch sp. TUG 28 seconds SLR not able today. Walking with walkr I needing cues for heel to toe adn knee flexion but does so when cued. Chair trasnfers I with UE. bed trasnfer Min A helping with L leg even after trained in towel and opposite leg help. Balance/Special Test Scores WOMAC Total Score: 46 WOMAC Percentatge: 52.0900 Goals Goal 1:: ST: sleep without waking 8 hours Goal Time Frame: 2-4 Weeks Goal 2:: I appropriate HEP to limit future problems Goal Time Frame: 2-4 Weeks Goal 3:: AROM R knee 0-115 R knee to help with funciton Goal Time Frame: 4-6 Weeks Goal 4:: Bed trasnfer I Goal Time Frame: 2-4 Weeks Goal 5:: Dress I without assist Goal Time Frame: 2-4 Weeks Goal 6:: walk without AD community without gait deviations and one step with R I. Goal Time Frame: 4-6 Weeks Rehabilitation Potential Physical Therapy Diagnosis: R knee stiffness adn pain limiting funciton after surgery. Rehabilitation Potential: Good Anticipated Interventions Patient/Client Instruction: Educate patient on: Condition and Risk Factors For the Purpose of:: To decrease pain, To increase ROM, To improve nutrient delivery to tissue, To improve muscle performance and motor function, To increase tolerance to activity/condition/po sition and To improve gait and locomotor functions Therapeutic Exercise to Include: Strength training, Postural training, Flexibilty training, Gait and locomotor training, Passive ROM and Active ROM For the Purpose of:: To decrease pain, To increase ROM, To improve nutrient delivery to tissue, To improve muscle performance and motor function, To increase tolerance to activity/condition/po sition and To improve gait and locomotor functions Manual Therapy Techniques to Include: Scar massage, Mobilization, Passive ROM and Soft tissue mobilization For the Purpose of:: To decrease pain, To increase ROM, To improve nutrient delivery to tissue, To improve muscle performance and motor function, To increase tolerance to activity/condition/po sition, To improve ability of physical actions for home/community/work/l eisure and To improve gait and locomotor functions Cryotherapy (ice pack, ice massage): Yes For the Purpose of:: To decrease pain and To decrease swelling/inflammation Text: Thank you for the opportunity to evaluate your patient. For Medicare and Medicare HMO plans, please review the plan of care and approve it. It will need to be FAXED BACK to us at [phone] for Medicare purposes. For Medicare only, by signing this I certify the plan of care. Please let me know if there are questions or concerns regarding this plan of care. Physician Signature: (more content not included)... Normal [facility] Basic metabolic 2000 panelOr dered By: Fabiana Hayes on 04-04-2024 Anion gap [Moles/Vol] 9 mmol/L 6-18 [facility] Comment on above: Performed By: #### 2 4321-2 #### [facility] [address] [place] [address] Calcium [Mass/Vol] 9.0 mg/dL 8.9-10.3 [facility] Comment on above: Performed By: #### 2 4321-2 #### [facility] [address] [place] [address] Chloride [Moles/Vol] 106 mmol/L 98-107 [facility] Comment on above: Performed By: #### 2 4321-2 #### [facility] [address] [place] [address] CO2 [Moles/Vol] 27 mmol/L 22-32 [facility] Comment on above: Performed By: #### 2 4321-2 #### [facility] [address] [place] [address] Creatinine [Mass/Vol] 0.78 mg/dL 0.60-1.30 [facility] Comment on above: Performed By: #### 2 4321-2 #### [facility] [address] [place] [address] GFR/1.73 sq M.predicted among non-blacks MDRD (S/P/Bld) [Vol rate/Area] 81 mL/min/{1.73_m2} >=60 [facility] Comment on above: Result Comment: Calc ulation based on the?Chronic Kidney Disease Epidemiology Collaboration (CKD-EPI) equation refit?without adjustment for race. Performed By: #### 2 4321-2 #### [facility] [address] [place] [address] Calculation based on the?Chronic Kidney Disease Epidemiology Collaboration (CKD-EPI) equation refit?without adjustment for race. Glucose [Mass/Vol] 84 mg/dL 70-99 [facility] Comment on above: Performed By: #### 2 4321-2 #### [facility] [address] [place] [address] Potassium [Moles/Vol] 4.7 mmol/L 3.6-5.1 [facility] Comment on above: Performed By: #### 2 4321-2 #### [facility] [address] [place] [address] Sodium [Moles/Vol] 142 mmol/L 136-145 [facility] Comment on above: Performed By: #### 2 4321-2 #### [facility] [address] [place] [address] Urea nitrogen [Mass/Vol] 16 mg/dL 8-20 [facility] Comment on above: Performed By: #### 2 4321-2 #### [facility] [address] [place] [address] Urea nitrogen/Creatinine [Mass ratio] 20.5 mg/mg High 12.0-20.0 [facility] Comment on above: Performed By: #### 2 4321-2 #### [facility] [address] [place] [address]279 CBC W Differential panel, me thod unspecified (Bld)Ordered By: Fabiana Hayes on 04-04-2024 Basophils (Bld) [#/Vol] 0.07 10*3/uL 0.00-0.20 [facility] Comment on above: Performed By: #### 6 9742-5 #### [facility] [address] [place] [address] Basophils/100 WBC (Bld) 1.1 % 0.0-2.0 [facility] [place] Comment on above: Performed By: #### 6 9742-5 #### [facility] [address] [place] [address] Eosinophils/100 WBC (Bld) 2.4 % 0.0-7.0 [facility] Comment on above: Performed By: #### 6 9742-5 #### [facility] [address] [place] [address] Erythrocyte distribution width (RBC) [Ratio] 13.9 % 11.0-14.8 [facility] Comment on above: Performed By: #### 6 9742-5 #### [facility] [address] [place] [address] Hematocrit (Bld) [Volume fraction] 40.7 % 34.3-47.9 [facility] Comment on above: Performed By: #### 6 9742-5 #### [facility] [address] [place] [address] Hemoglobin (Bld) [Mass/Vol] 13.4 g/dL 12.0-16.0 [facility] Comment on above: Performed By: #### 6 9742-5 #### [facility] [address] [place] [address] Immature granulocytes (Bld) [#/Vol] 0.05 10*3/uL 0.00-0.10 [facility] Comment on above: Performed By: #### 6 9742-5 #### [facility] [address] [place] [address] Immature granulocytes/100 WBC (Bld) 0.8 % 0.0-1.2 [facility] Comment on above: Performed By: #### 6 9742-5 #### [facility] [address] [place] [address] Lymphocytes/100 WBC (Bld) 22.6 % 17.9-49.6 [facility] Comment on above: Performed By: #### 6 9742-5 #### [facility] [address] [place] [address]9785 MCHC (RBC) [Mass/Vol] 32.9 g/dL 30.8-35.3 [facility] [place] Comment on above: Performed By: #### 6 9742-5 #### [facility] [address] [place] [address] MCV (RBC) [Entitic vol] 89.1 fL 80.0-97.0 [facility] [place] Comment on above: Performed By: #### 6 9742-5 #### [facility] [address] [place] [address]85 Monocytes/100 WBC (Bld) 9.5 % 0.0-12.0 [facility] Comment on above: Performed By: #### 6 9742-5 #### [facility] [address] [place] [address] 92780 Neutrophils/100 WBC (Bld) 63.6 % 38.1-75.5 [facility] Comment on above: Performed By: #### 6 9742-5 #### [facility] [address] [place] [address]92 Platelet mean volume (Bld) [Entitic vol] 12.4 fL High 6.2-12.1 [facility] [place] Comment on above: Performed By: #### 6 9742-5 #### [facility] [address] [place] [address] Platelets (Bld) [#/Vol] 201 10*3/uL 142-424 [facility] Comment on above: Performed By: #### 6 9742-5 #### [facility] [address] [place] [address]606 RBC (Bld) [#/Vol] 4.57 10*6/uL 3.74-5.34 [facility] Comment on above: Performed By: #### 6 9742-5 #### [facility] [address] [place] [address]2421 WBC (Bld) [#/Vol] 6.6 10*3/uL 4.6-10.2 [facility] [place] Comment on above: Performed By: #### 6 9742-5 #### [facility] [address] [place] [address] 40400 CBC W Diff pnl,unspecified Bld 29.3 pcg 27.0-34.0 [facility] [place] CBC W Diff pnl,unspecified Bld 4.22 K/mcL 1.80-7.70 [facility] [place] CBC W Diff pnl,unspecified Bld 1.50 K/mcL 1.00-4.80 [facility] [place] CBC W Diff pnl,unspecified Bld 0.63 K/mcL 0.00-0.90 [facility] [place] CBC W Diff pnl,unspecified Bld 0.16 K/mcL 0.00-0.70 [facility] [place] CBC W Differential panel, me thod unspecified (Bld)on 04-04-2024 Eosinophils (Bld) [#/Vol] 0.16 10*3/uL Normal 0.00-0.70 [facility] Comment on above: Performed By: #### 6 9742-5 #### [facility] [address] [place] [address] Lymphocytes (Bld) [#/Vol] 1.50 10*3/uL Normal 1.00-4.80 [facility] Comment on above: Performed By: #### 6 9742-5 #### [facility] [address] [place] [address]907 MCH 29.3 pcg Normal 27.0-34.0 [facility] Comment on above: Performed By: #### 6 9742-5 #### [facility] [address] [place] [address] 91024 Monocytes (Bld) [#/Vol] 0.63 10*3/uL Normal 0.00-0.90 [facility] Comment on above: Performed By: #### 6 9742-5 #### [facility] [address] [place] [address] 45228 Neutrophils Absolute 4.22 K/mcL Normal 1.80-7.70 [facility] Comment on above: Performed By: #### 6 9742-5 #### [facility] [address] [place] [address] CNOVon 03-14-2024 CNOV Office Visit (UCWSTR ) JAIMEE COOPER ([id number]) 1955 F Date Time Provider Department 03/14/24 4:15 PM [facility] During your visit today, we recorded the following information about you: Temperature Pulse Respiration Blood pressure 99.1 degrees 88/minute 21/minute 130/90 Weight 103.9 kg Alia Urbina APRN.PATTERN REPAIR PERSON 03/14/2024 4:23 PM Signed This note was created using NoteWriter. Subjective Jaimee Cooper is a 68 year old female. 68 year old female with PMH hyperlipidemia, RUDY, GERD presents for illness Acute onset 4 days ago +head congestion +sinus pressure +sinus pain +nasal congestion +dental pain +ear pain + cough +chest congestion +chills Denies N/V/D Denies CP Denies dyspnea Has been using Nyquil and Dayquil Advil Cold and Sinus The history is provided by the patient. No advanced clinical specialist was used. URI She complains of chest tightness, cough and wheezing. There is no difficulty breathing, frequent throat clearing, hemoptysis, hoarse voice, shortness of breath or sputum production. This is a new problem. The current episode started in the past 7 days. The problem occurs constantly. The problem has been gradually worsening. The cough is non-productive. Associated symptoms include appetite change, ear congestion, ear pain, headaches, malaise/fatigue, myalgias, nasal congestion, rhinorrhea and sneezing. Pertinent negatives include no chest pain, dyspnea on exertion, fever, heartburn, orthopnea, PND, sore throat, sweats, trouble swallowing or weight loss. Her symptoms are aggravated by nothing. Her symptoms are alleviated by nothing. She reports no improvement on treatment. There are no known risk factors for lung disease. There is no history of asthma, bronchiectasis, bronchitis, COPD, emphysema or pneumonia. PAST MEDICAL HISTORY Diagnosis Date Arthritis Diverticulosis of colon (without mention of hemorrhage) Dysplasia of cervix, unspecified GERD (gastroesophageal reflux disease) Kidney cysts 2017 fluid filled Obesity (BMI 35.0-39.9 without comorbidity) RUDY (obstructive sleep apnea) severe Osteoarthritis of lumbar spine Osteoarthritis, knee s/p partial knee replacement on left Seasonal allergies spring and fall Vitamin D insufficiency PAST SURGICAL HISTORY Procedure Laterality Date CAUTERY CERVIX CRYOCAUTERY INITIAL/REPEAT 06/16/1994 COLONOSCOPY FLX DX W/COLLJ SPEC WHEN PFRMD 05/31/2010 Colonoscopy COLONOSCOPY FLX DX W/COLLJ SPEC WHEN PFRMD 12/22/2020 ESOPHAGOGASTRODUODENO SCOPY TRANSORAL DIAGNOSTIC 12/22/2020 JOINT REPLACEMENT HX SKIN BIOPSY HX TONSILLECTOMY HX TONSILLECTOMY PRIMARY/SECONDARY TOTAL KNEE REPLACEMENT partial left done last Apr 2014 ALLERGIES Indocin [Indomethacin Sodium] and Naproxen MEDICATIONS cyclobenzaprine (FLEXERIL) 10 mg tablet Take 1 tablet by mouth two times a day as needed for muscle spasm or pain. CPAP Change bilevel setting to 16/12 cmH2O. Please fit with dreamwear under the nose FFM (current masks with significant leaks). Please provide us with download after 4 weeks of use at this pressure setting. Lifetime supply. fluticasone (FLONASE) 50 mcg/actuation nasal spray Use 2 Sprays in each nostril once daily. Rinse mouth after use. atorvastatin (LIPITOR) 20 mg tablet Take 1 tablet by mouth daily at bedtime. For cholesterol. omeprazole (PRILOSEC) 20 mg capsule Take 1 capsule by mouth once daily. cholecalciferol (VITAMIN D3) 50 mcg (2,000 unit) tablet Take 1 tablet by mouth once daily. MULTIVITAMIN ORAL Take by mouth. amoxicillin-clavulana te potassium (AUGMENTIN) 875-125 mg per tablet Take 1 tablet by mouth two times a day for 7 days. FAMILY HISTORY Problem Relation Age of Onset Osteoporosis Mother Arthritis, HTN, Macular Degeneration other (hip fracture) Mother X 2 Heart Father ASHD, [place] Lung Cancer Brother Breast Cancer Maternal Grandmother Social History Tobacco Use Smoking status: Never Smokeless tobacco: Never Vaping Use Vaping status: Never Used Substance Use Topics Alcohol use: Yes Comment: occasional- monthly Drug use: No Review of Systems Constitutional: Positive for appetite change and malaise/fatigue. Negative for fever and weight loss. HENT: Positive for congestion, ear pain, rhinorrhea and sneezing. Negative for hoarse voice, sore throat and trouble swallowing. Respiratory: Positive for cough and wheezing. Negative for hemoptysis, sputum production and shortness of breath. Cardiovascular: Negative for chest pain, dyspnea on exertion and PND. Gastrointestinal: Negative for abdominal pain, diarrhea, heartburn, nausea and vomiting. Musculoskeletal: Positive for myalgias. Skin: Negative for color change, pallor, rash and wound. Allergic/Immunologic: Negative for environmental allergies, food allergies and immunocompromised state. (more content not included)... Normal [facility] [id number] 02-26-2024 [id number] HNO ID: [id number] Author: NAVI KRISHNA PT Service: ? Author Type: Physical Therapist Type: [id number] Filed: 02/26/2024 13:57 Note Text: [facility] Physical Therapy Plan of Care Certification Patient Name: Jaimee Cooper : 1955 [facility] #: [id number] Date: 02/26/2024 To: Mili Saldivar,* From Therapist: Navi Krishna PT RE: Patient Certification/ Recertification Your review, approval and electronic signature are required in order to comply with Payor: MEDICARE / Plan: MEDICARE A AND B / Product Type: Medicare / Moven. The identified Physical Therapy PLAN OF CARE for the patient is as follows: M54.2, G89.29 Chronic neck pain (primary encounter diagnosis) S16.1XXA Strain of neck muscle, initial encounter PLAN OF CARE: Assessment: Jaimee Cooper presents with chief complaint of neck pain that interferes with bending, heavy exertion, physical activities, working, sleeping . The patient presents with impairments in ADL's, overall function, posture, range of motion, strength, and symptom management. PROMIS? (Patient-Reported Outcomes Measurement Information System) scores were reviewed and identified as a rehabilitation concern. Prognosis for therapy is Excellent due to: current objective clinical presentation, good overall health status, positive past response to therapy, within-session changes, good support system/ coping skills . The patient will benefit from skilled therapy services to meet the goals established for this plan of care as noted below. Goals for Episode of Care: established 02/26/24 Independent in a Home Exercise Program. Patient will decrease pain rating by 2 points to meet minimal clinical important difference for numeric pain rating scale. Restore pain free cervical ROM to WNL to allow for decreased pain. Maintain proper sitting posture throughout the session to allow for decreased pain. Time Frame for Goals and Treatment : 04/08/24 Planned Interventions, Frequency, and Duration: Current Frequency: 1 visit Duration: 1 visit Total Number of Visits Planned: 1 Planned Treatment Interventions: Therapeutic exercise (31837), Neuromuscular re-education (82523), Manual therapy (30987), Therapeutic activities (34401), Self-shelter management (80891), Patient/Family/Caregi enriqueta Education, Body Mechanics Training PLAN FOR NEXT VISIT: OR vs DC Patient demonstrates good understanding of plan of care and treatment. The above goals and plan of care were discussed and agreed upon by patient/family. For further details regarding this patient refer to the Physical Therapy electronically documented visit dated 02/26/2024. Provider Attestation I have reviewed the treatment plan for Jaimee Cooper, CC# [id number] for the period of 02/26/24 -- 04/08/24, established on 02/26/2024. Signature certifies the need for therapy services. Normal [facility] CNTHERAPYon 02-26-2024 CNTHERAPY OT/PT/Speech Visit (PTWS) JAIMEE COOPER ([id number]) 1955 F Date Time Provider Department 02/26/24 9:00 AM NAVI KRISHNA PTZACARIAS Date Time Provider Department Center 02/26/2024 9:00 AM [id number], SEAN PTWS Mariluz Howard Reason for Visit: PT Eval [747] Primary Visit Diagnosis:Chronic neck pain [M54.2, G89.29] Other Visit Diagnosis:Strain of neck muscle, initial encounter [S16.1XXA] Allergies As of Date: 02/26/2024 Noted Allergy Reaction INDOCIN (INDOMETHACIN SODIUM) 02/16/2005 2 - Rash NAPROXEN 06/03/2005 2 - Rash Date Reviewed: 02/09/2024 Reviewed by: Kristina Wade LPN - Fully Assessed Prescriptions as of 02/26/2024 - meloxicam (MOBIC) 15 mg tablet Take 1 tablet by mouth once daily. With food. - cyclobenzaprine (FLEXERIL) 10 mg tablet Take 1 tablet by mouth two times a day as needed for muscle spasm or pain. - CPAP Change bilevel setting to 16/12 cmH2O. Please fit with dreamwear under the nose FFM (current masks with significant leaks). Please provide us with download after 4 weeks of use at this pressure setting. Lifetime supply. - fluticasone (FLONASE) 50 mcg/actuation nasal spray Use 2 Sprays in each nostril once daily. Rinse mouth after use. - atorvastatin (LIPITOR) 20 mg tablet Take 1 tablet by mouth daily at bedtime. For cholesterol. - omeprazole (PRILOSEC) 20 mg capsule Take 1 capsule by mouth once daily. - cholecalciferol (VITAMIN D3) 50 mcg (2,000 unit) tablet Take 1 tablet by mouth once daily. - MULTIVITAMIN ORAL Take by mouth. Supervisor Riveting: Therapy (PT/OT/Speech/Resp) ID: [id number] 02/26/2024 9:32 AM Author: NAVI KRISHNA Signed by NAVI KRISHNA PT on 02/26/2024 at 9:32 AM Document text: Program_ID:[id number] Access Code: [email or web address] URL: [email or web address] Date: 02-26-2024 Prepared By: Navi Krishna Program Notes Exercises - Seated Neck Sidebending Stretch - 3 x daily - 7 x weekly - 1 sets - 3 reps - Gentle Levator Scapulae Stretch - 3 x daily - 7 x weekly - 1 sets - 3 reps - Standing Scapular Retraction with External Rotation - 1 x daily - 7 x weekly - 3 sets - 10 reps - Seated Chin Tuck with Neck Elongation - 3 x daily - 7 x weekly - 1 sets - 10 reps ----- Normal [facility] THERAPY NTon 02-26-2024 THERAPY NT HNO ID: [id number] Author: NAVI KRISHNA PT Service: ? Author Type: Physical Therapist Type: Therapy (PT/OT/Speech/Resp) Filed: 02/26/2024 09:32 Note Text: Program_ID:[id number] Access Code: [email or web address] URL: [email or web address] Date: 02-26-2024 Prepared By: Navi Krishna Program Notes Exercises - Seated Neck Sidebending Stretch - 3 x daily - 7 x weekly - 1 sets - 3 reps - Gentle Levator Scapulae Stretch - 3 x daily - 7 x weekly - 1 sets - 3 reps - Standing Scapular Retraction with External Rotation - 1 x daily - 7 x weekly - 3 sets - 10 reps - Seated Chin Tuck with Neck Elongation - 3 x daily - 7 x weekly - 1 sets - 10 reps Normal [facility] Pulmonary Visit Reporton Pulmonary Visit Report [facility] of [address] [place] [address] OFFICE VISIT Date of Service: 02/22/24 MR#: [id number] Acct: [id number] Name: JAIMEE COOPER Rep #: [id number] : 1955 Provider: DAVID Quiroz Age/Sex: 68/F [place] [facility] [place] Status: Signed Assessment and Plan Assessment and Plan (1) Obstructive sleep apnea: Status: Chronic Comment: AHI of 55.8 Plan: The patient has been on PAP therapy since 2018, she was not educated on the disease process. Lengthy discussion about the pathophysiology of obstructive sleep apnea. We discussed the risks of untreated sleep apnea as well as the benefits. She is using and benefiting from Pap therapy. Follow-up the office in 6 months. If she is stable at 6 months we will likely follow annually. No indication for titration study at this time. (2) Obesity: Status: Chronic Qualifiers: Obesity type: due to excess calories Obesity classification: adult class 2 (BMI 35 - 39.9) Serious obesity comorbidity presence: with serious comorbidity Body mass index: BMI 37.0-37.9 Qualified Code(s): E66.812 - Obesity, class 2; E66.01 - Morbid (severe) obesity due to excess calories; Z68.37 - Body mass index [BMI] 37.0-37.9, adult Plan: We discussed relationship which would obesity and obstructive sleep apnea. Encourage weight loss. Medications: Discontinued ondansetron Discontinued Reason: Order Completed 4 mg PO Q8H PRN PRN 10 tabs 0RF Nausea cefdinir Discontinued Reason: Pt no longer taking 300 mg PO Q12H 14 caps 0RF HPI HPI Comments Details: This patient presents to the office today to establish care for her previously diagnosed obstructive sleep apnea. She is ambulatory and currently on room air. She has not recently been seen in the ED or urgent care for any respiratory illness. She has not required any antibiotics or prednisone for any breathing problems. The patient cannot recall who initially ordered her sleep test. She does admit that the sleep test was awful as she had to share a bathroom with an old man and he was up several times that night. She does not recall the test results, does not remember having any education on obstructive sleep apnea and her particular test results. She has been compliant with PAP therapy ever since 2018. She wears her machine nightly. She does not believe she snores through the device. She wakes up feeling rested refreshed. She is not requiring naps and does not nod off to sleep unintentionally. She is not having nocturia, however she does admit that prior to being set up with PAP therapy it was a problem. She is not having difficulty with morning headaches. She does occasionally experience dry mouth. The patient reports that she was recently set up with a new machine due to the age of her old machine and this is what prompted her to seek a professional to follow-up with on her sleep apnea. She is currently retired. 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 She has never seen a merchandising manager. She has never been a smoker. She has never been prescribed an inhaler. As medical family history significant for: Mother lived to the age of 93, did have osteoporosis and was on some type of heart medication. Father did have heart disease. She has an older brother and twin sister. That brother of lung cancer in the past 2 years. That sister has good health. She has a younger brother who has had recent back surgery, both knees done and bilateral shoulder repair. The patient has a son who has good health and a daughter who has asthma and reflux. She denies any difficulty with shortness of breath. She denies any cough, sputum production or hemoptysis. She also denies any wheezing, chest tightness, chest pain or palpitations. She has not had any fever, chills or body aches. Current sleep symptoms? some snoring, feels rested, no napping, no nodding off. no nocturia. some dry mouth. no headaches Compliance report for the past 30 days shows 97% compliance and average use of 7 hours and 5 minutes per night. Current setting is BiPAP 16/12 cmH2O with residual AHI of 2.6 events per hour. Leaks do not appear to be problematic. Test results personally reviewed with the patient: Polysomnogram from March 30, 2017 shows an AHI of 55.8 events per hour, elevated to 74.3 events per hour in the REM stage of sleep and highest in the supine position at 112.9 events per hour. Titration study completed on April 27, 2017 indicates that the patient is best treated with BiPAP 20/14 cm of water. (BMI 36.8) Intake Vital Signs 06/30/23 23:09 02/22/24 08:01 Height 5 ft 5 in 5 ft 5 in Weight: 228 lb BMI 37.9 BP 137/88 H Blood Pressure Location Lt brachial Position Sitting Respiration 16 Puls (more content not included)... [facility] (FAMPWS) JAIMEE COOPER ([id number]) 1955 F Date Time Provider Department 02/12/24 MILI SALDIVAR During your visit today, we recorded the following information about you: Nubia Chandler LPN 02/12/2024 1:22 PM Signed ----- Message from Mili Saldivar MD sent at 02/12/2024 12:55 PM EST ----- Neck xray shows moderate arthritis without fracture or dislocation. Continue treatment as discussed in office. Nubia Chandler LPN 02/12/2024 1:24 PM Signed Phoned patient went over results, notes from Dr Saldivar with understanding. Allergies As of Date: 02/12/2024 Noted Allergy Reaction INDOCIN (INDOMETHACIN SODIUM) 02/16/2005 2 - Rash NAPROXEN 06/03/2005 2 - Rash Date Reviewed: 02/09/2024 Reviewed by: Kristina Wade LPN - Fully Assessed Reason for Visit: Results [95] Prescriptions as of 02/12/2024 - meloxicam (MOBIC) 15 mg tablet Take 1 tablet by mouth once daily. With food. - cyclobenzaprine (FLEXERIL) 10 mg tablet Take 1 tablet by mouth two times a day as needed for muscle spasm or pain. - CPAP Change bilevel setting to 16/12 cmH2O. Please fit with dreamwear under the nose FFM (current masks with significant leaks). Please provide us with download after 4 weeks of use at this pressure setting. Lifetime supply. - fluticasone (FLONASE) 50 mcg/actuation nasal spray Use 2 Sprays in each nostril once daily. Rinse mouth after use. - atorvastatin (LIPITOR) 20 mg tablet Take 1 tablet by mouth daily at bedtime. For cholesterol. - omeprazole (PRILOSEC) 20 mg capsule Take 1 capsule by mouth once daily. - cholecalciferol (VITAMIN D3) 50 mcg (2,000 unit) tablet Take 1 tablet by mouth once daily. - MULTIVITAMIN ORAL Take by mouth. Problem List As Of Date 02/12/2024 Noted Resolved Benign Paroxysmal Positional Vertigo [H81.10] 10/28/2005 11/21/2008 Primary localized osteoarthrosis, lower leg [M1*04/28/2009 03/31/2016 Hyperlipidemia [E78.5] 09/08/2009 Anterior cervical lymphadenopathy [R59.0] 09/08/2009 08/28/2013 Vitamin D deficiency [E55.9] 04/22/2010 03/01/2017 OA (osteoarthritis) of knee [M17.9] 05/03/2010 03/31/2016 Family history of early CAD [Z82.49] 12/03/2012 Plantar fasciitis [M72.2] 12/03/2012 08/28/2013 Epidermal cyst of face [L72.0] 12/03/2012 03/31/2016 Edema [R60.9] 12/03/2012 03/24/2015 Incontinence of urine in female [R32] 03/31/2016 Osteopenia [M85.80] 03/31/2016 Allergic rhinitis [J30.9] 03/31/2016 GERD (gastroesophageal reflux disease) [K21.9] Vitamin D insufficiency [E55.9] 03/01/2017 RUDY (obstructive sleep apnea) [G47.33] Lumbar degenerative disc disease [M51.369] 12/26/2019 Class 2 obesity with body mass index (BMI) of 3*02/17/2020 Difficulty with CPAP use [Z78.9] 02/17/2020 Encounter Status:Closed by NUBIA CHANDLER on 02/12/24 Normal [facility] XR Cervical spine AP and Lat eral and obliqueon 02-12-2024 IMPRESSION: DEGENERATIVE CHANGES DESCRIBED Ar Manager: LUIZ Transcribe Date/Time: Feb 12 2024 12:41P Dictated by : APOLNIAR LUZ MD This examination was interpreted and the report reviewed and electronically signed by: APOLINAR LUZ MD on Feb 12 2024 12:42PM [facility] DIVISION OF RADIOLOGY * * *Final Report* * * DATE OF EXAM: Feb 09 2024 10:21AM WOX [id number] - XR CERVICAL 4V AP/LAT/OBL / PROCEDURE REASON: multiple diagnoses * * * * Physician Interpretation * * * * Examination: XR CERVICAL 4V AP/LAT/OBL History: Chronic neck pain Chronic neck pain Strain of neck muscle, initial encounter Technique: XR CERVICAL 4V AP/LAT/OBL Comparison: None RESULT: Straightening of the normal lordosis. Normal alignment. Moderate disc space narrowing and anterior osteophytosis from C3 to C7. No fracture or prevertebral swelling. Multilevel moderate foraminal encroachment from osteophytosis. DIVISION OF RADIOLOGY Provider, Ailyn Vila - 02/12/2024 * * *Final Report* * * DATE OF EXAM: Feb 09 2024 10:21AM WOX [id number] - XR CERVICAL 4V AP/LAT/OBL / PROCEDURE REASON: multiple diagnoses * * * * Physician Interpretation * * * * Examination: XR CERVICAL 4V AP/LAT/OBL History: Chronic neck pain Chronic neck pain Strain of neck muscle, initial encounter Technique: XR CERVICAL 4V AP/LAT/OBL Comparison: None RESULT: Straightening of the normal lordosis. Normal alignment. Moderate disc space narrowing and anterior osteophytosis from C3 to C7. No fracture or prevertebral swelling. Multilevel moderate foraminal encroachment from osteophytosis. IMPRESSION IMPRESSION: DEGENERATIVE CHANGES DESCRIBED Ar Manager: LUIZ Transcribe Date/Time: Feb 12 2024 12:41P Dictated by : APOLINAR LUZ MD This examination was interpreted and the report reviewed and electronically signed by: APOLINAR LUZ MD on Feb 12 2024 12:42PM [facility] XR Cervical spine AP and Lat eral and obliqueOrdered By: [facility] Provider on 02-12-2024 [facility] CNOVon 02-09-2024 CNOV Office Visit (FAMPWS ) JAIMEE COOPER ([id number]) 1955 F Date Time Provider Department 02/09/24 9:40 AM MILI SALDIVAR FAMPWS During your visit today, we recorded the following information about you: Pulse Respiration Blood pressure 76/minute 16/minute 132/76 Mili Saldivar MD 02/14/2024 2:53 PM Signed Chief Complaint Patient presents with: neck pain: X 6 weeks HPI Jaimee Cooper is a 68 year old female who presents here today for Above Complaints. Patient complaining of left sided neck pain starting about 2 months ago without fall or injury. Pain described as constant aching/sharp, currently 7/10, without radiation. Exacerbated with turning her head. Treating with Advil and tylenol along with ice/heat with some relief. Has had 2 massages without relief. Admits to possible swelling. Denies fever/chills, erythema, bruising, nausea, vomiting, severe headache. Past medical history, appointments, medications, allergies reviewed. Previous Medical History PAST MEDICAL HISTORY Diagnosis Date Arthritis Diverticulosis of colon (without mention of hemorrhage) Dysplasia of cervix, unspecified GERD (gastroesophageal reflux disease) Kidney cysts 2017 fluid filled Obesity (BMI 35.0-39.9 without comorbidity) RUDY (obstructive sleep apnea) severe Osteoarthritis of lumbar spine Osteoarthritis, knee s/p partial knee replacement on left Seasonal allergies spring and fall Vitamin D insufficiency Previous Surgical History PAST SURGICAL HISTORY Procedure Laterality Date CAUTERY CERVIX CRYOCAUTERY INITIAL/REPEAT 06/16/1994 COLONOSCOPY FLX DX W/COLLJ SPEC WHEN PFRMD 05/31/2010 Colonoscopy COLONOSCOPY FLX DX W/COLLJ SPEC WHEN PFRMD 12/22/2020 ESOPHAGOGASTRODUODENO SCOPY TRANSORAL DIAGNOSTIC 12/22/2020 JOINT REPLACEMENT HX SKIN BIOPSY HX TONSILLECTOMY HX TONSILLECTOMY PRIMARY/SECONDARY TOTAL KNEE REPLACEMENT partial left done last Apr 2014 Family History FAMILY HISTORY Problem Relation Age of Onset Osteoporosis Mother Arthritis, HTN, Macular Degeneration other (hip fracture) Mother X 2 Heart Father [place] Lung Cancer Brother Breast Cancer Maternal Grandmother Patient Allergies ALLERGIES Allergen Reactions Indocin [Indomethac* Rash Naproxen Rash Current Medications Current Outpatient Medications on File Prior to Visit Medication Sig CPAP Change bilevel setting to 16/12 cmH2O. Please fit with dreamwear under the nose FFM (current masks with significant leaks). Please provide us with download after 4 weeks of use at this pressure setting. Lifetime supply. fluticasone (FLONASE) 50 mcg/actuation nasal spray Use 2 Sprays in each nostril once daily. Rinse mouth after use. atorvastatin (LIPITOR) 20 mg tablet Take 1 tablet by mouth daily at bedtime. For cholesterol. cholecalciferol (VITAMIN D3) 50 mcg (2,000 unit) tablet Take 1 tablet by mouth once daily. MULTIVITAMIN ORAL Take by mouth. omeprazole (PRILOSEC) 20 mg capsule Take 1 capsule by mouth once daily. No current facility-administered medications on file prior to visit. Social History Social History Tobacco Use Smoking status: Never Smokeless tobacco: Never Vaping Use Vaping status: Never Used Substance Use Topics Alcohol use: Yes Comment: occasional- monthly Drug use: No Review of Symptoms REVIEW OF SYSTEMS See HPI EXAM: BP 132/76 Pulse 76 Resp 16 SpO2 99% General Appearance: Well appearing, alert, in no acute distress, well-hydrated, well nourished.. Skin: Skin color, texture, turgor normal, no suspicious rashes or lesions. Musculoskeletal: TTP over left cervical paraspinal muscles out spinous process TTP. Normal ROM with pain on rotation. Neurologic: Negative findings: speech normal, mental status intact, cranial nerves 2-12 intact, muscle tone normal, muscle strength normal, sensation to light touch and pinprick normal, reflexes normal and symmetric. Health Maintenance List DTaP,Tdap,Td Vaccine(2 - Td or Tdap) due on 06/22/2024 Shingrix Vaccine(1 of 2) due on 12/24/2024 Covid-19 Vaccine(2023- season) due on 12/24/2024 Depression Screening due on 06/22/2024 Anxiety Screening due on 06/22/2024 Mammogram Screening due on 02/04/2025 Diabetes Screening due on 12/24/2026 RSV Vaccine(1 - 1-dose 75+ series) due on 2028 Lipid Screening due on 12/24/2028 Colorectal Cancer Screening due on 12/22/2030 Bone Density Screening Completed Influenza Vaccine Completed Advance Directive Discussion Completed Hepatitis C Screening Completed Pneumococcal Vaccine: 65+ Completed ASSESSMENT/PLAN: 1. Chronic neck pain - ICD9: 723.1, 338.29, ICD10: M54.2, G89.29 (primary diagnosis) Suspect cervical strain with muscle spasm. Will treat with rest, ice/heat, home exercises, NSAID and flexeril. If not improving, f/u in 2-3 weeks with P (more content not included)... Normal [facility] XR CERVICAL 4V AP/LAT/OBLon 02-09-2024 XR CERVICAL 4V AP/LAT/OBL * * *Final Report* * * DATE OF EXAM: Feb 09 2024 10:21AM WOX [id number] - XR CERVICAL 4V AP/LAT/OBL / PROCEDURE REASON: multiple diagnoses * * * * Physician Interpretation * * * * Examination: XR CERVICAL 4V AP/LAT/OBL History: Chronic neck pain Chronic neck pain Strain of neck muscle, initial encounter Technique: XR CERVICAL 4V AP/LAT/OBL Comparison: None RESULT: Straightening of the normal lordosis. Normal alignment. Moderate disc space narrowing and anterior osteophytosis from C3 to C7. No fracture or prevertebral swelling. Multilevel moderate foraminal encroachment from osteophytosis. IMPRESSION: DEGENERATIVE CHANGES DESCRIBED Ar Manager: LUIZ Transcribe Date/Time: Feb 12 2024 12:41P Dictated by : APOLINAR LUZ MD This examination was interpreted and the report reviewed and electronically signed by: APOLINAR LUZ MD on Feb 12 2024 12:42PM EST [id number] Normal [facility] XR Cervical spine AP and Lat eral and obliqueon 02-09-2024 Radiology Study observation (narrative) [facility] 02-07-2024 CNPN Telephone (FAMPWS) JAIMEE COOPER ([id number]) 1955 F Date Time Provider Department 02/07/24 MILI SALDIVAR During your visit today, we recorded the following information about you: Kristina Wade LPN 02/07/2024 7:34 AM Signed ----- Message from Mili Saldivar MD sent at 02/07/2024 7:07 AM EST ----- Screening mammogram is negative. Recommend recheck in 1 year. Kristina Wade LPN 02/07/2024 1:28 PM Signed Attempted contacting patient phone rang several times and then the line went silent. Attempt later call back. Kristina Wade LPN Allergies As of Date: 02/07/2024 Noted Allergy Reaction INDOCIN (INDOMETHACIN SODIUM) 02/16/2005 2 - Rash NAPROXEN 06/03/2005 2 - Rash Date Reviewed: 01/02/2024 Reviewed by: Alysha Chase LPN - Fully Assessed Reason for Visit: Results [95] Prescriptions as of 04/02/2024 - cyclobenzaprine (FLEXERIL) 10 mg tablet Take 1 tablet by mouth two times a day as needed for muscle spasm or pain. - CPAP Change bilevel setting to 16/12 cmH2O. Please fit with dreamwear under the nose FFM (current masks with significant leaks). Please provide us with download after 4 weeks of use at this pressure setting. Lifetime supply. - fluticasone (FLONASE) 50 mcg/actuation nasal spray Use 2 Sprays in each nostril once daily. Rinse mouth after use. - atorvastatin (LIPITOR) 20 mg tablet Take 1 tablet by mouth daily at bedtime. For cholesterol. - omeprazole (PRILOSEC) 20 mg capsule Take 1 capsule by mouth once daily. - cholecalciferol (VITAMIN D3) 50 mcg (2,000 unit) tablet Take 1 tablet by mouth once daily. - MULTIVITAMIN ORAL Take by mouth. Problem List As Of Date 02/07/2024 Noted Resolved Benign Paroxysmal Positional Vertigo [H81.10] 10/28/2005 11/21/2008 Primary localized osteoarthrosis, lower leg [M1*04/28/2009 03/31/2016 Hyperlipidemia [E78.5] 09/08/2009 Anterior cervical lymphadenopathy [R59.0] 09/08/2009 08/28/2013 Vitamin D deficiency [E55.9] 04/22/2010 03/01/2017 OA (osteoarthritis) of knee [M17.9] 05/03/2010 03/31/2016 Family history of early CAD [Z82.49] 12/03/2012 Plantar fasciitis [M72.2] 12/03/2012 08/28/2013 Epidermal cyst of face [L72.0] 12/03/2012 03/31/2016 Edema [R60.9] 12/03/2012 03/24/2015 Incontinence of urine in female [R32] 03/31/2016 Osteopenia [M85.80] 03/31/2016 Allergic rhinitis [J30.9] 03/31/2016 GERD (gastroesophageal reflux disease) [K21.9] Vitamin D insufficiency [E55.9] 03/01/2017 RUDY (obstructive sleep apnea) [G47.33] Lumbar degenerative disc disease [M51.369] 12/26/2019 Class 2 obesity with body mass index (BMI) of 3*02/17/2020 Difficulty with CPAP use [Z78.9] 02/17/2020 Encounter Status:Closed by KRISTINA WADE on 04/02/24 Normal [facility] SCREENINGon 02-05-2024 [facility] SCREENING * * *Final Report* * * DATE OF EXAM: Feb 05 2024 10:16AM EMILI [id number] - [facility] SCREENING / PROCEDURE REASON: Encounter for screening mammogram for breast cancer * * * * Physician Interpretation * * * * RESULT: [place] [address] #[id number] - [facility] SCREENING HISTORY: Patient is 68 years old and is seen for screening and is asymptomatic in both breasts. Patient states no personal history of breast cancer. Patient states no personal history of other cancers. COMPARISON STUDIES: The present examination has been compared to prior imaging studies dated 12/28/2020 (mammogram), 01/13/2022 (mammogram), 02/07/2022 (ultrasound), 02/07/2022 (mammogram) and 01/16/2023 (mammogram). MAMMOGRAM TECHNIQUE: The study was acquired using full field digital technology and interpreted from soft copy. Computer-aided detection was utilized by the radiologist in the interpretation of this examination. MAMMOGRAM FINDINGS: There are scattered areas of fibroglandular density. No suspicious masses, calcifications or other abnormalities are seen in either breast. There are no significant changes from the prior study. IMPRESSION: There are no suspicious mammographic findings in either breast. Routine screening mammogram is recommended. Annual mammogram will be due in 1 year. BI-RADS Category 1: Negative RISK: Based on the Tyrer-Cuzick (TC) risk assessment model, this patient has a 6.2% lifetime risk of developing breast cancer, meaning they are at average risk for developing breast cancer. However, this is only an estimate based on available history provided on the patient's questionnaire. We encourage all patients to talk with their providers about these results, further recommendations for managing breast health, and appropriate supplemental screening options if the patient has dense breast tissue. Interpreting Radiologist: Aracely Mckeon M.D. Electronically signed on: 02/06/2024 Ar Manager: SOLIS Transcribe Date/Time: Feb 05 2024 10:06A Dictated by: ARACELY MCKEON MD This examination was interpreted and the report reviewed and electronically signed by: ARACELY MCKEON MD on Feb 06 2024 4:22PM EST [id number] N Normal [facility] 01-08-2024 CNPN Telephone (DERMTW) JAIMEE COOPER ([id number]) 1955 F Date Time Provider Department 01/08/24 ALISON ROSARIO DERMTW During your visit today, we recorded the following information about you: Alison Rosario MD 01/08/2024 8:47 AM Signed FINAL DIAGNOSIS A. Skin, left neck, shave biopsy: - Reactive lymphoid hyperplasia, see comment. JOHNATHON/CAROLE/bs 01/03/2024 Diagnosis Comment A. Histologic sections shows a vascular stratum corneum overlying an essentially unremarkable epidermis. Within the dermis, there is a dense perivascular, periadnexal, and interstitial lymphohistiocytic infiltrate. In order to further characterize the infiltrate, immunohistochemical stains were performed at the [facility] on block A1 with appropriate controls. CD3 and CD20 stains show balanced numbers of T cells and B cells. CD5 and BCL2 expression is restricted to T cells. CD10 and CD21 staining show no germinal centers. Cyclin D1 staining is not significantly elevated. A BCL6 stain is largely negative. A PU.1 stain shows numerous histiocytes. A Ki67 stain shows a normal proliferative index. Overall, these features are those of reactive lymphoid hyperplasia. Clinical correlation is recommended. Her immune system created this reaction though it is unclear to what (could have been a bug bite or other exposure). No additional treatment is needed and it should clear with removal. If she gets more she should let us know. MD Keily Sage Elizabeth, LPN 01/08/2024 5:32 PM Signed Gave PT results. Allergies As of Date: 01/08/2024 Noted Allergy Reaction INDOCIN (INDOMETHACIN SODIUM) 02/16/2005 2 - Rash NAPROXEN 06/03/2005 2 - Rash Date Reviewed: 01/02/2024 Reviewed by: Alysha Chase LPN - Fully Assessed Reason for Visit: Results [95] Prescriptions as of 01/08/2024 - CPAP Change bilevel setting to 16/12 cmH2O. Please fit with dreamwear under the nose FFM (current masks with significant leaks). Please provide us with download after 4 weeks of use at this pressure setting. Lifetime supply. - fluticasone (FLONASE) 50 mcg/actuation nasal spray Use 2 Sprays in each nostril once daily. Rinse mouth after use. - hydrocortisone 2.5 % cream Apply 1 application to affected area two times a day for 14 days. Location: left anterior neck - atorvastatin (LIPITOR) 20 mg tablet Take 1 tablet by mouth daily at bedtime. For cholesterol. - omeprazole (PRILOSEC) 20 mg capsule Take 1 capsule by mouth once daily. - cholecalciferol (VITAMIN D3) 50 mcg (2,000 unit) tablet Take 1 tablet by mouth once daily. - MULTIVITAMIN ORAL Take by mouth. Problem List As Of Date 01/08/2024 Noted Resolved Benign Paroxysmal Positional Vertigo [H81.10] 10/28/2005 11/21/2008 Primary localized osteoarthrosis, lower leg [M1*04/28/2009 03/31/2016 Hyperlipidemia [E78.5] 09/08/2009 Anterior cervical lymphadenopathy [R59.0] 09/08/2009 08/28/2013 Vitamin D deficiency [E55.9] 04/22/2010 03/01/2017 OA (osteoarthritis) of knee [M17.9] 05/03/2010 03/31/2016 Family history of early CAD [Z82.49] 12/03/2012 Plantar fasciitis [M72.2] 12/03/2012 08/28/2013 Epidermal cyst of face [L72.0] 12/03/2012 03/31/2016 Edema [R60.9] 12/03/2012 03/24/2015 Incontinence of urine in female [R32] 03/31/2016 Osteopenia [M85.80] 03/31/2016 Allergic rhinitis [J30.9] 03/31/2016 GERD (gastroesophageal reflux disease) [K21.9] Vitamin D insufficiency [E55.9] 03/01/2017 RUDY (obstructive sleep apnea) [G47.33] Lumbar degenerative disc disease [M51.369] 12/26/2019 Class 2 obesity with body mass index (BMI) of 3*02/17/2020 Difficulty with CPAP use [Z78.9] 02/17/2020 Encounter Status:Closed by ALYSHA CHASE on 01/08/24 [facility] ([id number]) 1955 F Date Time Provider Department 01/03/24 [facility] During your visit today, we recorded the following information about you: Jacob Tinoco, PATRICIA 01/03/2024 11:57 AM Signed Patient reports Marjorie Daniels never received the CPAP order. Asking pcp office to fax CPAP order to [facility] . Kristina Wade LPN 01/03/2024 3:39 PM Signed Contacted [facility] as all information they requested was forwarded 12/26/23 after order was sent on 12/25/23. Spoke with Ruth who advised patient has the unit with ordered setting and set from script that was sent. Inquired if patient was requesting something else? She reviewed and found patient is c/o unit starts making a loud whining noise after running for about 5 minutes and needs new unit. [facility] needs 12/25/23 OV note addended to reflect the loud whining of unit and that the unit is 5 years old. The order needs to list same settings and order new Bi-Pap with order needs to still be dated 12/25/23. Contacted patient and updated her on above. REJI Gonzales Christopher B, MD 01/04/2024 12:11 PM Signed Note addended. New order printed. Please fax. Kristina Wade LPN 01/04/2024 3:34 PM Signed Forwarded addended OV note and revised order to Jessenia. Kristina Wade LPN Allergies As of Date: 01/03/2024 Noted Allergy Reaction INDOCIN (INDOMETHACIN SODIUM) 02/16/2005 2 - Rash NAPROXEN 06/03/2005 2 - Rash Date Reviewed: 01/02/2024 Reviewed by: Alysha Chase LPN - Fully Assessed Reason for Visit: CPAP DME [Other] Visit Diagnosis:RUDY (obstructive sleep apnea) [G47.33] Order(s):CPAPChange bilevel setting to 16/12 cmH2O. Please fit with dreamwear under the nose FFM (current masks with significant leaks). Please provide us with download after 4 weeks of use at this pressure setting. Lifetime supply.Disp: 1 EachRfl: 0 Prescriptions as of 01/04/2024 - CPAP Change bilevel setting to 16/12 cmH2O. Please fit with dreamwear under the nose FFM (current masks with significant leaks). Please provide us with download after 4 weeks of use at this pressure setting. Lifetime supply. - fluticasone (FLONASE) 50 mcg/actuation nasal spray Use 2 Sprays in each nostril once daily. Rinse mouth after use. - hydrocortisone 2.5 % cream Apply 1 application to affected area two times a day for 14 days. Location: left anterior neck - atorvastatin (LIPITOR) 20 mg tablet Take 1 tablet by mouth daily at bedtime. For cholesterol. - omeprazole (PRILOSEC) 20 mg capsule Take 1 capsule by mouth once daily. - cholecalciferol (VITAMIN D3) 50 mcg (2,000 unit) tablet Take 1 tablet by mouth once daily. - MULTIVITAMIN ORAL Take by mouth. Problem List As Of Date 01/03/2024 Noted Resolved Benign Paroxysmal Positional Vertigo [H81.10] 10/28/2005 11/21/2008 Primary localized osteoarthrosis, lower leg [M1*04/28/2009 03/31/2016 Hyperlipidemia [E78.5] 09/08/2009 Anterior cervical lymphadenopathy [R59.0] 09/08/2009 08/28/2013 Vitamin D deficiency [E55.9] 04/22/2010 03/01/2017 OA (osteoarthritis) of knee [M17.9] 05/03/2010 03/31/2016 Family history of early CAD [Z82.49] 12/03/2012 Plantar fasciitis [M72.2] 12/03/2012 08/28/2013 Epidermal cyst of face [L72.0] 12/03/2012 03/31/2016 Edema [R60.9] 12/03/2012 03/24/2015 Incontinence of urine in female [R32] 03/31/2016 Osteopenia [M85.80] 03/31/2016 Allergic rhinitis [J30.9] 03/31/2016 GERD (gastroesophageal reflux disease) [K21.9] Vitamin D insufficiency [E55.9] 03/01/2017 RUDY (obstructive sleep apnea) [G47.33] Lumbar degenerative disc disease [M51.369] 12/26/2019 Class 2 obesity with body mass index (BMI) of 3*02/17/2020 Difficulty with CPAP use [Z78.9] 02/17/2020 Prescriptions ordered this encounter Disp Refills Start End CPAP 1 Ea* 0 01/04/2024 12/25/2023 Class: Print RX Sig: Change bilevel setting to 16/12 cmH2O. Please fit with dreamwear under the nose FFM (current masks with significant leaks). Please provide us with download after 4 weeks of use at this pressure setting. Lifetime supply. CPAP 1 Ea* 0 12/25/2023 Class: Print RX Sig: Change bilevel setting to 16/12 cmH2O. Please fit with dreamwear under the nose FFM (current masks with significant leaks). Please provide us with download after 4 weeks of use at this pressure setting. Lifetime supply. Medications Discontinued During This Encounter Prescriptions - CPAP (Discontinued) Change bilevel setting to 16/12 cmH2O. Please fit with dreamwear under the nose FFM (current masks with significant leaks). Please provide us with download after 4 weeks of use at this pressure setting. Lifetime supply. - CPAP (Discontinued) Change bilevel setting to 16/12 cmH2O. Please fit with dreamwear under the nose FFM (current masks with significant leaks). Please provi (more content not included)... Normal [facility] CNOVon 01-02-2024 CNOV Office Visit (DERMTW ) GOGOJAIMEE A ([id number]) 1955 F Date Time Provider Department 01/02/24 2:20 PM ALISON ROSARIO DERMTW During your visit today, we recorded the following information about you: Alison Rosario MD 01/02/2024 5:09 PM Signed NEW PATIENT PUNEET in Dermatology: Visit date not found Jaimee Bardales Cooper is a 68 year old female who presents today for Patient presents with: LESION, SKIN Current Treatment: Hydrocortisone 2.5% Past Treatment: As above History of nonmelanoma skin cancer: AK's History of Melanoma: no History of ATN: no Family history of skin cancer: Mom, sister and daughter Dermatology History: Specialty Problems None Allergies: Indocin [Indomethacin Sodium] and Naproxen Past Medical History: PAST MEDICAL HISTORY Diagnosis Date Arthritis Diverticulosis of colon (without mention of hemorrhage) Dysplasia of cervix, unspecified GERD (gastroesophageal reflux disease) Kidney cysts 2018 fluid filled Obesity (BMI 35.0-39.9 without comorbidity) RUDY (obstructive sleep apnea) severe Osteoarthritis of lumbar spine Osteoarthritis, knee s/p partial knee replacement on left Seasonal allergies spring and fall Vitamin D insufficiency MEDS: Current Outpatient Medications on File Prior to Visit Medication Sig fluticasone (FLONASE) 50 mcg/actuation nasal spray Use 2 Sprays in each nostril once daily. Rinse mouth after use. hydrocortisone 2.5 % cream Apply 1 application to affected area two times a day for 14 days. Location: left anterior neck CPAP Change bilevel setting to 16/12 cmH2O. Please fit with dreamwear under the nose FFM (current masks with significant leaks). Please provide us with download after 4 weeks of use at this pressure setting. Lifetime supply. atorvastatin (LIPITOR) 20 mg tablet Take 1 tablet by mouth daily at bedtime. For cholesterol. omeprazole (PRILOSEC) 20 mg capsule Take 1 capsule by mouth once daily. cholecalciferol (VITAMIN D3) 50 mcg (2,000 unit) tablet Take 1 tablet by mouth once daily. MULTIVITAMIN ORAL Take by mouth. No current facility-administered medications on file prior to visit. Review of systems Has trouble healing No Bleeds excessively No Has tendency to form hypertropic scars and keloids No Develops contact dermatitis to bandages and tapes No Develops contact dermatitis to antibiotic ointments No Enlarged lymph nodes No Is immunosuppressed No Has difficulty with systemic antibiotics No Has prosthetic joint replacement Yes: partial left knee replacement Has pacemaker / defibrillator No Takes aspirin / anticoagulant daily No Has valve disorders No Other problems elsewhere on skin No Alysha Chase LPN The above was entered by the nursing staff. I have reviewed the documentation and I concur. Alison Rosario MD HPI: Chief Complaint Bump to neck Location Neck Duration 6 weeks Timing constant Severity moderate Quality Raised are to neck, not draining. Itchy at times Modifying Factors: PT states her PCP gave her hydrocortisone cream but it was not effective at reliving the itching. No history of trauma or insect bite Physical Exam - Area(s) Examined: No images are attached to the encounter. The pt is alert and oriented, in NAD. Skin examination of Neck was significant for: Items identified on Diagram above 1 cm oval firm dome shaped erythematous pruritic papule left submental area Assessment / Plan: (D49.2) Neoplasm of unspecified behavior of bone, soft tissue, and skin (primary encounter diagnosis) Comment: urticated with anesthesia - may be mastocytoma, less likely lymphoma. Options, risks and benefits reviewed. Plan: SURGICAL PATHOLOGY Shave of lesion to establish and confirm diagnosis: Photo taken: Yes Risks, benefits, alternatives and personnel required for shave biopsy reviewed with patient. Patient and provider agree as to site(s) to be biopsied. Patient verbalizes understanding and wishes to proceed. Site(s) prepped with alcohol and anesthetized with 1% lidocaine with epinephrine. Shave of lesion(s) performed to the level of the dermis. 1 specimen(s) from see below sent for pathology to r/o see below. Hyfrecator used and bandaging applied. Written and verbal wound care instructions provided to patient, understanding verbalized. OK to call with results. EBL: scant SURGICAL PATHOLOGY Ordered at: 01/02/24 1433 Source of specimen(s): Skin, Shave Biopsy Left neck Clinical History: R/O Inflammatory nodule UNIVERSAL PROTOCOL / SAFETY CHECKLIST Procedure to be Performed: Shave biopsy Sign In: A Moment of CARE was completed. Personnel directly involved with the procedure wore the appropriate PPE (Personal Protective Equipment). Patient/Surrogate Stated/Verified: PATIENT VERIFIED(optional for EMERGENT procedures): Patient name, Date of Bi (more content not included)... Normal [facility] SURGICAL PATHOLOGYon 024 CASE REPORT Normal [facility] Comment on above: Order Comment: Speci men Type: TISSUE SPECIMEN Ordering Facility: [facility] Address: [address] [place] [address] Result Comment: Surg [facility] Pathology Report Case: [id number] Authorizing Provider: Alison Rosario MD Collected: 01/02/2024 02:33 PM Ordering Location: Dermatology Received: 01/02/2024 05:07 PM Pathologist: Cliff Victor MD Specimen: Skin, Shave Biopsy, Left neck Performed By: #### S #### [facility] CLIA [id number] [address] [place] [address] [place] CLINICAL HISTORY R/O Inflammatory nodule Normal [facility] Comment on above: Order Comment: Speci men Type: TISSUE SPECIMEN Ordering Facility: [facility] Address: [address] [place] [address] Performed By: #### S #### [facility] CLIA [id number] [address] [place] [address] DIAGNOSIS COMMENT Normal [facility] Comment on above: Order Comment: Speci men Type: TISSUE SPECIMEN Ordering Facility: [facility] Address: [address] [place] [address] Result Comment: A. H istologic sections shows a vascular stratum corneum overlying an essentially unremarkable epidermis. Within the dermis, there is a dense perivascular, periadnexal, and interstitial lymphohistiocytic infiltrate. In order to further characterize the infiltrate, immunohistochemical stains were performed at the [facility] on block A1 with appropriate controls. CD3 and CD20 stains show balanced numbers of T cells and B cells. CD5 and BCL2 expression is restricted to T cells. CD10 and CD21 staining show no germinal centers. Cyclin D1 staining is not significantly elevated. A BCL6 stain is largely negative. A PU.1 stain shows numerous histiocytes. A Ki67 stain shows a normal proliferative index. Overall, these features are those of reactive lymphoid hyperplasia. Clinical correlation is recommended. Laboratory Developed Test (LDT) Disclaimer: Performance characteristics of immunohistochemical, immunofluorescent and chromogenic in-situ hybridization tests have been determined by the performing laboratory within [facility]???[facility] Laboratory Medicine Department ([facility], [facility], [facility], [facility], [facility], [facility], or [facility]) in a manner consistent with CLIA requirements. One or more of these tests have not been cleared or approved by the FDA. [facility] is regulated under CLIA as qualified to perform high-complexity testing. These tests are used for clinical purposes. They should not be regarded as investigational or for research. Positive and negative controls stain appropriately. Performed By: #### S #### [facility] CLIA [id number] [address] [place] [address] FINAL DIAGNOSIS Normal [facility] Comment on above: Order Comment: Loli griffith Type: TISSUE SPECIMEN Ordering Facility: [facility] Address: [address] [place] [address] Result Comment: A. S kin, left neck, shave biopsy: - Reactive lymphoid hyperplasia, see comment. JOHNATHON/CAROLE/bs 01/03/2024 Performed By: #### S #### [facility] CLIA [id number] [address] [place] [address] [place] FINAL PERFORMING LAB Normal [facility] Comment on above: Order Comment: Speci men Type: TISSUE SPECIMEN Ordering Facility: [facility] Address: [address] [place] [address] Result Comment: Diag nostic interpretation performed at [facility], [address] [place] [address] CLIA# [id number] Wire Wheeler: Mendez Alan M.D. Performed By: #### S #### [facility] CLIA [id number] [address] [place] [address] [place] GROSS DESCRIPTION Normal [facility] Comment on above: Order Comment: Speci men Type: TISSUE SPECIMEN Ordering Facility: [facility] Address: [address] [place] [address] Result Comment: A. S kin, Shave Biopsy Received in formalin is a 1.1 x 0.9 x 0.3 cm shave of skin. On the skin surface there is a 1.0 cm obrien, elevated area. The specimen is bisected. Totally submitted in one cassette. DB January 02, 2024 11:57 PM [place] [address] Performed By: #### S #### [facility] CLIA [id number] [address] [place] [address] [place] CNPKristyn 12-26-2023 SHANELN Telephone (FAMPWS) JAIMEE COOPER ([id number]) 1955 F Date Time Provider Department 12/26/23 MILI SALDIVAR During your visit today, we recorded the following information about you: Kristina Wade LPN 12/26/2023 1:03 PM Signed ----- Message from Mili Saldivar MD sent at 12/26/2023 7:05 AM EDT ----- Normal labs. No change to regimen. Kristina Wade LPN 12/26/2023 1:04 PM Signed Phoned patient and updated her with results. She voiced understanding. Kristina Wade LPN Allergies As of Date: 12/26/2023 Noted Allergy Reaction INDOCIN (INDOMETHACIN SODIUM) 02/16/2005 2 - Rash NAPROXEN 06/03/2005 2 - Rash Date Reviewed: 12/25/2023 Reviewed by: Kristina Wade LPN - Fully Assessed Reason for Visit: Results [95] Prescriptions as of 12/26/2023 - fluticasone (FLONASE) 50 mcg/actuation nasal spray Use 2 Sprays in each nostril once daily. Rinse mouth after use. - hydrocortisone 2.5 % cream Apply 1 application to affected area two times a day for 14 days. Location: left anterior neck - CPAP Change bilevel setting to 16/12 cmH2O. Please fit with dreamwear under the nose FFM (current masks with significant leaks). Please provide us with download after 4 weeks of use at this pressure setting. Lifetime supply. - atorvastatin (LIPITOR) 20 mg tablet Take 1 tablet by mouth daily at bedtime. For cholesterol. - omeprazole (PRILOSEC) 20 mg capsule Take 1 capsule by mouth once daily. - cholecalciferol (VITAMIN D3) 50 mcg (2,000 unit) tablet Take 1 tablet by mouth once daily. - MULTIVITAMIN ORAL Take by mouth. Problem List As Of Date 12/26/2023 Noted Resolved Benign Paroxysmal Positional Vertigo [H81.10] 10/28/2005 11/21/2008 Primary localized osteoarthrosis, lower leg [M1*04/28/2009 03/31/2016 Hyperlipidemia [E78.5] 09/08/2009 Anterior cervical lymphadenopathy [R59.0] 09/08/2009 08/28/2013 Vitamin D deficiency [E55.9] 04/22/2010 03/01/2017 OA (osteoarthritis) of knee [M17.9] 05/03/2010 03/31/2016 Family history of early CAD [Z82.49] 12/03/2012 Plantar fasciitis [M72.2] 12/03/2012 08/28/2013 Epidermal cyst of face [L72.0] 12/03/2012 03/31/2016 Edema [R60.9] 12/03/2012 03/24/2015 Incontinence of urine in female [R32] 03/31/2016 Osteopenia [M85.80] 03/31/2016 Allergic rhinitis [J30.9] 03/31/2016 GERD (gastroesophageal reflux disease) [K21.9] Vitamin D insufficiency [E55.9] 03/01/2017 RUDY (obstructive sleep apnea) [G47.33] Lumbar degenerative disc disease [M51.369] 12/26/2019 Class 2 obesity with body mass index (BMI) of 3*02/17/2020 Difficulty with CPAP use [Z78.9] 02/17/2020 Encounter Status:Closed by KRISTINA WADE on 12/26/23 Normal [facility] CBC W Auto Differential pane l (Bld)on 12-25-2023 Basophils (Bld) [#/Vol] 0.09 10*3/uL [facility] Basophils/100 WBC (Bld) 1.2 % C [facility] Differential cell count method Nom (Bld) Auto [facility] Eosinophils (Bld) [#/Vol] 0.23 10*3/uL [facility] Eosinophils/100 WBC (Bld) 3.0 % [facility] Erythrocyte distribution width (RBC) [Ratio] 14.3 % 11.5 - 15.0 % [facility] Hematocrit (d) [Volume fraction] 44.8 % 36.0 - 46.0 % [facility] Hemoglobin (Bld) [Mass/Vol] 14.2 g/dL 11.5 - 15.5 g/dL [facility] Immature granulocytes (Bld) [#/Vol] 0.07 10*3/uL [facility] Immature granulocytes/100 WBC (Bld) 0.9 % [facility] Lymphocytes (Bld) [#/Vol] 2.00 10*3/uL [facility] Lymphocytes/100 WBC (Bld) 26.4 % [facility] MCH (RBC) [Entitic mass] 29.3 pg 26.0 - 34.0 pg [facility] MCHC (RBC) [Mass/Vol] 31.7 g/dL 30.5 - 36.0 g/dL [facility] MCV (RBC) [Entitic vol] 92.4 fL 80.0 - 100.0 fL [facility] Monocytes (Bld) [#/Vol] 0.65 10*3/uL [facility] Monocytes/100 WBC (Bld) 8.6 % C [facility] Neutrophils (Bld) [#/Vol] 4.55 10*3/uL [facility] Neutrophils/100 WBC (Bld) 59.9 % [facility] Nucleated RBC (Bld) [#/Vol] [facility] Nucleated RBC/100 WBC (Bld) [Ratio] 0.0 % /100 WBC [facility] Platelet mean volume (Bld) [Entitic vol] 11.9 fL 9.0 - 12.7 fL [facility] Platelets (Bld) [#/Vol] 206 10*3/uL [facility] RBC (Bld) [#/Vol] 4.85 10*6/uL 3.90 - 5.2 0 m/uL [facility] WBC (Bld) [#/Vol] 7.59 10*3/uL [facility] Basophils (Bld) [#/Vol] 0.09 10*3/uL Normal <0.11 [facility] Comment on above: Order Comment: Speci men Type: BLOOD SPECIMEN Ordering Facility: [facility] Address: [address] [place] [address] Performed By: #### 5 7021-8 #### [facility] CLIA [id number] [address] [place] [address] [place] Basophils/100 WBC (Bld) 1.2 % Normal [facility] Comment on above: Order Comment: Speci men Type: BLOOD SPECIMEN Ordering Facility: [facility] Address: [address] [place] [address] Performed By: #### 5 7021-8 #### [facility] CLIA [id number] [address] [place] [address] [place] Differential cell count method Nom (Bld) Auto Normal [facility] Comment on above: Order Comment: Speci men Type: BLOOD SPECIMEN Ordering Facility: [facility] Address: [address] [place] [address] Performed By: #### 5 7021-8 #### [facility] CLIA [id number] [address] [place] [address] [place] Eosinophils (Bld) [#/Vol] 0.23 10*3/uL Normal <0.46 [facility] Comment on above: Order Comment: Speci men Type: BLOOD SPECIMEN Ordering Facility: [facility] Address: [address] [place] [address] Performed By: #### 5 7021-8 #### [facility] CLIA [id number] [address] [place] [address] [place] Eosinophils/100 WBC (Bld) 3.0 % Normal [facility] Comment on above: Order Comment: Speci men Type: BLOOD SPECIMEN Ordering Facility: [facility] Address: [address] [place] [address] Performed By: #### 5 7021-8 #### [facility] CLIA [id number] [address] [place] [address] [place] Erythrocyte distribution width (RBC) [Ratio] 14.3 % Normal 11.5-15.0 [facility] Comment on above: Order Comment: Speci men Type: BLOOD SPECIMEN Ordering Facility: [facility] Address: [address] [place] [address] Performed By: #### 5 7021-8 #### [facility] CLIA [id number] [address] [place] [address] [place] Hematocrit (Bld) [Volume fraction] 44.8 % Normal 36.0-46.0 [facility] Comment on above: Order Comment: Speci men Type: BLOOD SPECIMEN Ordering Facility: [facility] Address: [address] [place] [address] Performed By: #### 5 7021-8 #### [facility] CLIA [id number] [address] [place] [address] [place] Hemoglobin (Bld) [Mass/Vol] 14.2 g/dL Normal 11.5-15.5 [facility] Comment on above: Order Comment: Speci men Type: BLOOD SPECIMEN Ordering Facility: [facility] Address: [address] [place] [address] Performed By: #### 5 7021-8 #### [facility] CLIA [id number] [address] [place] [address] [place] Immature granulocytes (Bld) [#/Vol] 0.07 10*3/uL Normal <0.10 [facility] Comment on above: Order Comment: Speci men Type: BLOOD SPECIMEN Ordering Facility: [facility] Address: [address] [place] [address] Performed By: #### 5 7021-8 #### [facility] CLIA [id number] [address] [place] [address] [place] Immature granulocytes/100 WBC (Bld) 0.9 % Normal [facility] Comment on above: Order Comment: Speci men Type: BLOOD SPECIMEN Ordering Facility: [facility] Address: [address] [place] [address] Performed By: #### 5 7021-8 #### [facility] CLIA [id number] [address] [place] [address] [place] Lymphocytes (Bld) [#/Vol] 2.00 10*3/uL Normal 1.00-4.00 [facility] Comment on above: Order Comment: Speci men Type: BLOOD SPECIMEN Ordering Facility: [facility] Address: [address] [place] [address] Performed By: #### 5 7021-8 #### [facility] CLIA [id number] [address] [place] [address] [place] Lymphocytes/100 WBC (Bld) 26.4 % Normal [facility] Comment on above: Order Comment: Speci men Type: BLOOD SPECIMEN Ordering Facility: [facility] Address: [address] [place] [address] Performed By: #### 5 7021-8 #### [facility] CLIA [id number] [address] [place] [address] [place] MCH (RBC) [Entitic mass] 29.3 pg Normal 26.0-34.0 [facility] Comment on above: Order Comment: Speci men Type: BLOOD SPECIMEN Ordering Facility: [facility] Address: [address] [place] [address] Performed By: #### 5 7021-8 #### [facility] CLIA [id number] [address] [place] [address] [place] MCHC (RBC) [Mass/Vol] 31.7 g/dL Normal 30.5-36.0 [facility] Comment on above: Order Comment: Speci men Type: BLOOD SPECIMEN Ordering Facility: [facility] Address: [address] [place] [address] Performed By: #### 5 7021-8 #### [facility] CLIA [id number] [address] [place] [address] [place] MCV (RBC) [Entitic vol] 92.4 fL Normal 80.0-100.0 [facility] Comment on above: Order Comment: Speci men Type: BLOOD SPECIMEN Ordering Facility: [facility] Address: [address] [place] [address] Performed By: #### 5 7021-8 #### [facility] CLIA [id number] [address] [id number] [address] [place] Monocytes (Bld) [#/Vol] 0.65 10*3/uL Normal <0.87 [facility] Comment on above: Order Comment: Speci men Type: BLOOD SPECIMEN Ordering Facility: [facility] Address: [address] [place] [address] Performed By: #### 5 7021-8 #### [facility] CLIA [id number] [address] [place] [address] [place] Monocytes/100 WBC (Bld) 8.6 % Normal [facility] Comment on above: Order Comment: Speci men Type: BLOOD SPECIMEN [facility] [facility] Address: [address] [place] [address] Performed By: #### 5 7021-8 #### [facility] CLIA [id number] [address] [place] [address] [place] Neutrophils (Bld) [#/Vol] 4.55 10*3/uL Normal 1.45-7.50 [facility] Comment on above: Order Comment: Speci men Type: BLOOD SPECIMEN [facility] Address: [address] [place] [address] Performed By: #### 5 7021-8 #### [facility] CLIA [id number] [address] [place] [address] [place] Neutrophils/100 WBC (Bld) 59.9 % Normal [facility] Comment on above: Order Comment: Speci men Type: BLOOD SPECIMEN [facility]ing Facility: [facility] Address: [address] [place] [address] Performed By: #### 5 7021-8 #### [facility] CLIA [id number] [address] [place] [address] [place] Nucleated RBC (Bld) [#/Vol] 10*3/uL Normal <0.01 [facility] Comment on above: Order Comment: Speci men Type: BLOOD SPECIMEN [facility]ing Facility: [facility] Address: [address] [place] [address] Performed By: #### 5 7021-8 #### [facility] CLIA [id number] [address] [place] [address] [place] Nucleated RBC/100 WBC (Bld) [Ratio] 0.0 /100 WBC Normal [facility] Comment on above: Order Comment: Speci men Type: BLOOD SPECIMEN [facility]ing [facility]: [facility] Address: [address] [place] [address] Performed By: #### 5 7021-8 #### [facility] CLIA [id number] [address] [place] [address] [place] Platelet mean volume (Bld) [Entitic vol] 11.9 fL Normal 9.0-12.7 [facility] Comment on above: Order Comment: Speci men Type: BLOOD SPECIMEN [facility] Address: [address] [place] [address] Performed By: #### 5 7021-8 #### [facility] CLIA [id number] [address] [place] [address] [place] Platelets (Bld) [#/Vol] 206 10*3/uL Normal 150-400 [facility] Comment on above: Order Comment: Speci men Type: BLOOD SPECIMEN [facility] Address: [address] [place] [address] Performed By: #### 5 7021-8 #### [facility] CLIA [id number] [address] [place] [address] [place] RBC (Bld) [#/Vol] 4.85 10*6/uL Normal 3.90-5.20 [facility] Comment on above: Order Comment: Speci men Type: BLOOD SPECIMEN [facility] Address: [address] [place] [address] Performed By: #### 5 7021-8 #### [facility] CLIA [id number] [address] [place], [place] [address] [place] [address] [place] WBC (Bld) [#/Vol] 7.59 10*3/uL Normal 3.70-11.00 [facility] Comment on above: Order Comment: Speci men Type: BLOOD SPECIMEN [facility] Address: [address] [place] [address] Performed By: #### 5 7021-8 #### [facility] CLIA [id number] [address] [place], [place] [id number] [place] CNOVon 12-25-2023 CNOV Office Visit (FAMPWS ) COOPERJAIMEE ARAUJO ([id number]) 1955 F Date Time Provider Department 12/25/23 10:20 AM MILI SLADIVAR During your visit today, we recorded the following information about you: Pulse Respiration Blood pressure Weight 72/minute 16/minute 122/70 101.1 kg Mili Saldivar MD 01/04/2024 12:10 PM Addendum Chief Complaint Patient presents with: Follow Up: 6 month- Order for CPAP to DME [facility] Derm Problem: Area under chin HPI Jaimee Cooper is a 68 year old female who presents here today for Above Complaints. Patient would like lump on left anterior neck checked today. Started about 4 weeks ago. Admits to itching without pain or burning. No change in size. Not treating with anything regularly OTC. Denies fever/chills, drainage, similar lesions on other parts of her body. RUDY: Patient states that she has been compliant with her CPAP/Bipap in the last 5-6 months since she got her new mask and switched to [facility]. Using nasal pillows. Using for 7-8 hours per night. States that she does feel more rested with use. Does not snore with use. Machine is 5 years old and makes whining noise at night. GERD: Heartburn well controlled on PPI. If she skips 3 days, symptoms return. Compliant with statin on a daily basis without side effects. Needs refill on flonase for environmental allergies. Worse with mowing and dust. Past medical history, appointments, medications, allergies reviewed. Previous Medical History PAST MEDICAL HISTORY Diagnosis Date Arthritis Diverticulosis of colon (without mention of hemorrhage) Dysplasia of cervix, unspecified GERD (gastroesophageal reflux disease) Kidney cysts 2017 fluid filled Obesity (BMI 35.0-39.9 without comorbidity) RDUY (obstructive sleep apnea) severe Osteoarthritis of lumbar spine Osteoarthritis, knee s/p partial knee replacement on left Seasonal allergies spring and fall Vitamin D insufficiency Previous Surgical History PAST SURGICAL HISTORY Procedure Laterality Date CAUTERY CERVIX CRYOCAUTERY INITIAL/REPEAT 06/16/1994 COLONOSCOPY FLX DX W/COLLJ SPEC WHEN PFRMD 05/31/2010 Colonoscopy COLONOSCOPY FLX DX W/COLLJ SPEC WHEN PFRMD 12/22/2020 ESOPHAGOGASTRODUODENO SCOPY TRANSORAL DIAGNOSTIC 12/22/2020 JOINT REPLACEMENT HX SKIN BIOPSY HX TONSILLECTOMY HX TONSILLECTOMY PRIMARY/SECONDARY TOTAL KNEE REPLACEMENT partial left done last Apr 2014 Family History FAMILY HISTORY Problem Relation Age of Onset Osteoporosis Mother Arthritis, HTN, Macular Degeneration other (hip fracture) Mother X 2 Heart Father ASHD, [place] Lung Cancer Brother Breast Cancer Maternal Grandmother Patient Allergies ALLERGIES Allergen Reactions Indocin [Indomethac* Rash Naproxen Rash Current Medications Current Outpatient Medications on File Prior to Visit Medication Sig atorvastatin (LIPITOR) 20 mg tablet Take 1 tablet by mouth daily at bedtime. For cholesterol. fluticasone (FLONASE) 50 mcg/actuation nasal spray Use 2 Sprays in each nostril once daily. Rinse mouth after use. cholecalciferol (VITAMIN D3) 50 mcg (2,000 unit) tablet Take 1 tablet by mouth once daily. CPAP Change bilevel setting to 16/12 cmH2O. Please fit with dreamwear under the nose FFM (current masks with significant leaks). Please provide us with download after 4 weeks of use at this pressure setting. Lifetime supply. MULTIVITAMIN ORAL Take by mouth. omeprazole (PRILOSEC) 20 mg capsule Take 1 capsule by mouth once daily. No current facility-administered medications on file prior to visit. Social History Social History Tobacco Use Smoking status: Never Smokeless tobacco: Never Vaping Use Vaping status: Never Used Substance Use Topics Alcohol use: Yes Comment: occasional- monthly Drug use: No Review of Symptoms REVIEW OF SYSTEMS GENERAL: No weight loss, malaise or fevers RESPIRATORY: Negative for cough, hemoptysis, wheezing, COPD, dyspnea or shortness of breath CARDIOVASCULAR: Negative for chest pain, leg swelling, hypertension, CHF or palpitations GI: No nausea, vomiting, or diarrhea SKIN: See HPI EXAM: BP 122/70 Pulse 72 Resp 16 Wt 101.1 kg (222 lb 12.8 oz) SpO2 99% BMI 37.08 kg/m? General Appearance: Well appearing, alert, in no acute distress, well-hydrated, well nourished.. Skin: 0.9 x 0.7 cm raised red lump on left anterior neck. Superficial without abscess or cellulitis. Non tender. No fluctuance or . Lungs: Lungs clear to auscultation. No wheezing, rhonchi, rales.. Heart: RRR without murmur, gallop, or rubs. No ectopy. Abdomen: Normal abdominal exam, Abdomen soft, non-tender. Bowel sounds normal. No masses, organomegaly. Extremities: No deformities, edema, skin discoloration, clubbing or cyanosis. Good capillary refill. . Health Maintenance List Shingrix Vaccine( (more content not included)... Normal [facility] Comprehensive metabolic 2000 panelon 12-25-2023 Albumin [Mass/Vol] 4.3 g/dL 3.9 - 4.9 g/dL [facility] ALP [Catalytic activity/Vol] 104 U/L 34 - 123 U/L [facility] ALT [Catalytic activity/Vol] 20 U/L 7 - 38 U/L [facility] Anion gap [Moles/Vol] 13 mmol/L 8 - 15 mmol/L [facility] AST [Catalytic activity/Vol] 20 U/L 13 - 35 U/L [facility] Bilirubin [Mass/Vol] 0.5 mg/dL 0.2 - 1 .3 mg/dL [facility] Calcium [Mass/Vol] 9.6 mg/dL 8.5 - 10. 2 mg/dL [facility] Chloride [Moles/Vol] 104 mmol/L 98 - 10 7 mmol/L [facility] CO2 [Moles/Vol] 24 mmol/L 22 - 30 mmol/L [facility] Creatinine [Mass/Vol] 0.81 mg/dL 0.58 - 0.96 mg/dL [facility] GFR/1.73 sq M.predicted among non-blacks MDRD (S/P/Bld) [Vol rate/Area] 78 mL/min/{1.73_m2} - PINF [facility] Comment on above: Estimated Glomerular Filtration Rate (eGFR) is calculated using the 2020 CKD-EPI creatinine equation. This equation utilizes serum creatinine, sex, and age as parameters. The creatinine assay has traceable calibration to isotope dilution-mass spectrometry. Refer to KDIGO guidelines for clinical interpretation. In patients with unstable renal function, e.g. those with acute kidney injury, the eGFR may not accurately reflect actual GFR. Glucose [Mass/Vol] 88 mg/dL 74 - 99 mg/dL [facility] Comment on above: The [place] Diabete s Association (ADA) provides guidance for cutoff values for fasting glucose and random glucose. The ADA defines fasting as no caloric intake for at least 8 hours. Fasting plasma glucose results between 100 to 125 mg/dL indicate increased risk for diabetes (prediabetes). Fasting plasma glucose results greater than or equal to 126 mg/dL meet the criteria for diagnosis of diabetes. In the absence of unequivocal hyperglycemia, results should be confirmed by repeat testing. In a patient with classic symptoms of hyperglycemia or hyperglycemic crisis, random plasma glucose results greater than or equal to 200 mg/dL meet the criteria for diagnosis of diabetes. Reference: Standards of Medical Care in Diabetes 2016, [place] Diabetes Association. Diabetes Care. 2016.39(Suppl 1). Interpretation and review of laboratory results Abnormal [facility] Potassium [Moles/Vol] 4.2 mmol/L 3.7 - 5.1 mmol/L [facility] Protein [Mass/Vol] 8.1 g/dL High 6.3 - 8.0 g/dL [facility] Sodium [Moles/Vol] 141 mmol/L 136 - 144 mmol/L [facility] Urea nitrogen [Mass/Vol] 16 mg/dL 7 - 21 mg/dL [facility] Albumin [Mass/Vol] 4.3 g/dL Normal 3.9-4.9 [facility] Comment on above: Order Comment: Speci men Type: BLOOD SPECIMENOrdering Facility: [facility] Address: [address] [place], [place] [id number] Performed By: #### 2 4323-8, LIPNF ####[facility] [id number] [place] [address] [place] ALP [Catalytic activity/Vol] 104 U/L Normal 34-123 [facility] Comment on above: Order Comment: Speci men Type: BLOOD SPECIMENOrdering Facility: [facility] Address: [address] [place] [address] Performed By: #### 2 4323-8, LIPNF ####[facility] [id number] [place] [address] [place] ALT [Catalytic activity/Vol] 20 U/L Normal 7-38 [facility] Comment on above: Order Comment: Speci men Type: BLOOD SPECIMENOrdering Facility: [facility] Address: [address] [place] [address] Performed By: #### 2 4323-8, LIPNF ####[facility] [id number] [place] [address] [place] Anion gap [Moles/Vol] 13 mmol/L Normal 8-15 [facility] Comment on above: Order Comment: Speci men Type: BLOOD SPECIMENOrdering Facility: [facility] Address: [address] [place] [address] Performed By: #### 2 4323-8, LIPNF ####[facility] [id number] [place] [id number] [place] AST [Catalytic activity/Vol] 20 U/L Normal 13-35 [facility] Comment on above: Order Comment: Speci men Type: BLOOD SPECIMENOrdering Facility: [facility] Address: [address] [place] [address] Performed By: #### 2 4323-8, LIPNF ####[facility] [id number] [place] [address] [place] Bilirubin [Mass/Vol] 0.5 mg/dL Normal 0.2-1.3 [facility] Comment on above: Order Comment: Speci men Type: BLOOD SPECIMENOrdering Facility: [facility] Address: [address] [place] [address] Performed By: #### 2 4323-8, LIPNF ####[facility] [id number] [place] [address] [place] Calcium [Mass/Vol] 9.6 mg/dL Normal 8.5-10.2 [facility] Comment on above: Order Comment: Speci men Type: BLOOD SPECIMENOrdering Facility: [facility] Address: [address] [place] [address] Performed By: #### 2 4323-8, LIPNF ####[facility] [id number] [place] [address] [place] Chloride [Moles/Vol] 104 mmol/L Normal 98-107 [facility] Comment on above: Order Comment: Speci men Type: BLOOD SPECIMENOrdering Facility: [facility] Address: [address] [place] [address] Performed By: #### 2 4323-8, LIPNF ####[facility] [id number] [place] [address] [place] CO2 [Moles/Vol] 24 mmol/L Normal 22-30 [facility] Comment on above: Order Comment: Speci men Type: BLOOD SPECIMENOrdering Facility: [facility] Address: [address] [place] [address] Performed By: #### 2 4323-8, LIPNF ####[facility] [id number] [place] [address] [place] Creatinine [Mass/Vol] 0.81 mg/dL Normal 0.58-0.96 [facility] Comment on above: Order Comment: Speci men Type: BLOOD SPECIMENOrdering Facility: [facility] Address: [address] [place] [address] Performed By: #### 2 4323-8, LIPNF ####[facility] [id number] [place] [address] [place] Creatinine and Glomerular filtration rate.predicted panel (S/P/Bld) 78 mL/min/1.73m??? Normal >=60 [facility] Comment on above: Order Comment: Loli griffith Type: BLOOD SPECIMENOrdering Facility: [facility] Address: [address] [place] [address] Result Comment: Jo mated Glomerular Filtration Rate (eGFR) is calculated using the 2020 CKD-EPI creatinine equation. This equation utilizes serum creatinine, sex, and age as parameters. The creatinine assay has traceable calibration to isotope dilution-mass spectrometry. Refer to KDIGO guidelines for clinical interpretation. In patients with unstable renal function, e.g. those with acute kidney injury, the eGFR may not accurately reflect actual GFR. Performed By: #### 2 4323-8, LIPNF ####[facility] [id number] [place] [address] [place] Glucose [Mass/Vol] 88 mg/dL Normal 74-99 [facility] Comment on above: Order Comment: Loli griffith Type: BLOOD SPECIMENOrdering Facility: [facility] Address: [address] [place] [address] Result Comment: The [place] Diabetes Association (ADA) provides guidance for cutoff values for fasting glucose and random glucose. The ADA defines fasting as no caloric intake for at least 8 hours. Fasting plasma glucose results between 100 to 125 mg/dL indicate increased risk for diabetes (prediabetes). Fasting plasma glucose results greater than or equal to 126 mg/dL meet the criteria for diagnosis of diabetes. In the absence of unequivocal hyperglycemia, results should be confirmed by repeat testing. In a patient with classic symptoms of hyperglycemia or hyperglycemic crisis, random plasma glucose results greater than or equal to 200 mg/dL meet the criteria for diagnosis of diabetes. Reference: Standards of Medical Care in Diabetes 2016, [place] Diabetes Association. Diabetes Care. 2016.39(Suppl 1). Performed By: #### 2 4323-8, LIPNF ####[facility] [id number] [place] [address] [place] Potassium [Moles/Vol] 4.2 mmol/L Normal 3.7-5.1 [facility] Comment on above: Order Comment: Speci men Type: BLOOD SPECIMENOrdering Facility: [facility] Address: [address] [place] [address] Performed By: #### 2 4323-8, LIPNF ####[facility] [id number] [place] [address] [place] Protein [Mass/Vol] 8.1 g/dL High 6.3-8.0 [facility] Comment on above: Order Comment: Speci men Type: BLOOD SPECIMENOrdering Facility: [facility] Address: [address] [place] [address] Performed By: #### 2 4323-8, LIPNF ####[facility] [id number] [place] [address] [place] Sodium [Moles/Vol] 141 mmol/L Normal 136-144 [facility] Comment on above: Order Comment: Speci men Type: BLOOD SPECIMENOrdering Facility: [facility] Address: [address] [place] [address] Performed By: #### 2 4323-8, LIPNF ####[facility] [id number] [place] [address] [place] Urea nitrogen [Mass/Vol] 16 mg/dL Normal 7-21 [facility] Comment on above: Order Comment: Speci men Type: BLOOD SPECIMENOrdering Facility: [facility] Address: [address] [place] [address] Performed By: #### 2 4323-8, LIPNF ####[facility] [id number] [address] [address] [place] LIPID PANEL, NONFASTINGon Cholesterol [Mass/Vol] 166 mg/dL NINF - 200 mg/dL [facility] Comment on above: <200 mg/dL, Desirabl e 200-239 mg/dL, Borderline high >239 mg/dL, High HDL Cholesterol, Nonfasting 62 mg/dL 39 - PINF mg/dL [facility] Comment on above: 40-59 mg/dL, Accepta ble >59 mg/dL, High: Negative risk factor for coronary heart disease <40 mg/dL, Low: Positive risk factor for coronary heart disease Interpretation and review of laboratory results Normal [facility] LDL Cholesterol, Nonfasting 81 mg/dL NINF - 100 mg/dL [facility] Comment on above: <100 mg/dL, Optimal 100-129 mg/dL, Near optimal/above optimal 130-159 mg/dL, Borderline high 160-189 mg/dL, High >189 mg/dL, Very high Secondary prevention optimal LDL Cholesterol levels are recommended to be < 70 mg/dL LDL/HDL Ratio, Nonfasting 1.31 mg/dL NINF - 2.54 mg/dL [facility] Comment on above: Reference: 1. National Cholesterol Education Program ATP III Guideline At-A-Glance Quick Desk Reference: National Heart, Lung, and Blood [place]. National Institutes of Health. 2001: NIH Publication No. 01-3305. 2. An International Atherosclerosis Society position paper: global recommendations for the management of dyslipidemia: executive summary, Atherosclerosis. 2014: 232(2):410-413. Non HDL Cholesterol, Nonfasting 104 mg/dL NINF - 130 mg/dL [facility] Comment on above: <130 mg/dL, Optimal 130-159 mg/dL, Near optimal/above optimal 160-189 mg/dL, Borderline high 190-219 mg/dL, High >219 mg/dL, Very high Secondary prevention optimal non HDL Cholesterol levels are recommended to be <100 mg/dL Total Chol/HDL Ratio, Nonfasting 2.68 mg/dL NINF - 5.10 mg/dL [facility] Triglycerides, Nonfasting 115 mg/dL NINF - 150 mg/dL [facility] Comment on above: <150 mg/dL, Normal 150-199 mg/dL, Borderline high 200-499 mg/dL, High >499 mg/dL, Very high VLDL Cholesterol, Nonfasting 23 mg/dL NINF - 30 mg/dL [facility] Cholesterol [Mass/Vol] 166 mg/dL Normal <200 [facility] Comment on above: Order Comment: Speci men Type: BLOOD SPECIMENOrdering Facility: [facility] Address: [address] [place] [address] Result Comment: <200 mg/dL, Desirable 200-239 mg/dL, Borderline high >239 mg/dL, High Performed By: #### 2 4323-8, LIPNF ####[facility] [id number] [place] [address] [place] HDL CHOLESTEROL, NF 62 mg/dL Normal >39 [facility] Comment on above: Order Comment: Speci men Type: BLOOD SPECIMENOrdering Facility: [facility] Address: [address] [place] [address] Result Comment: 40-5 9 mg/dL, Acceptable >59 mg/dL, High: Negative risk factor for coronary heart disease <40 mg/dL, Low: Positive risk factor for coronary heart disease Performed By: #### 2 4323-8, LIPNF ####[facility] [id number] [place] [address] [place] LDL CHOLESTEROL, NF 81 mg/dL Normal <100 [facility] Comment on above: Order Comment: Speci men Type: BLOOD SPECIMENOrdering Facility: [facility] Address: [address] [place] [address] Result Comment: <100 mg/dL, Optimal 100-129 mg/dL, Near optimal/above optimal 130-159 mg/dL, Borderline high 160-189 mg/dL, High >189 mg/dL, Very high Secondary prevention optimal LDL Cholesterol levels are recommended to be < 70 mg/dL Performed By: #### 2 4323-8, LIPNF ####[facility] [id number] [place] [address] [place] LDL/HDL RATIO, NF 1.31 mg/dL Normal <2.[address] [facility] Comment on above: Order Comment: Speci men Type: BLOOD SPECIMENOrdering Facility: [facility] Address: [address] [place] [address] Result Comment: Susy moore: 1. National Cholesterol Education Program ATP III Guideline At-A-Glance Quick Desk Reference: National Heart, Lung, and Blood [place]. National Institutes of Health. 2001: NIH Publication No. 01-3305. 2. An International Atherosclerosis Society position paper: global recommendations for the management of dyslipidemia: executive summary, Atherosclerosis. 2014: 232(2):410-413. Performed By: #### 2 4323-8, LIPNF ####[facility] [id number] [place] [address] [place] NON HDL CHOL, NF 104 mg/dL Normal <130 [facility] Comment on above: Order Comment: Speci men Type: BLOOD SPECIMENOrdering Facility: [facility] Address: [address] [place] [address] Result Comment: <130 mg/dL, Optimal 130-159 mg/dL, Near optimal/above optimal 160-189 mg/dL, Borderline high 190-219 mg/dL, High >219 mg/dL, Very high Secondary prevention optimal non HDL Cholesterol levels are recommended to be <100 mg/dL Performed By: #### 2 4323-8, LIPNF ####[facility] [id number] [place] [address] [place] T CHOL/HDL RATIO NF 2.68 mg/dL Normal <5.10 [facility] Comment on above: Order Comment: Speci men Type: BLOOD SPECIMENOrdering Facility: [facility] Address: [address] [place] [address] Performed By: #### 2 4323-8, LIPNF ####[facility] [id number] [place] [address] [place] TRIGLYCERIDES, NF 115 mg/dL Normal <[address] [facility] Comment on above: Order Comment: Speci men Type: BLOOD SPECIMENOrdering Facility: [facility] Address: [address] [place] [address] Result Comment: <150 mg/dL, Normal 150-199 mg/dL, Borderline high 200-499 mg/dL, High >499 mg/dL, Very high Performed By: #### 2 4323-8, LIPNF ####[facility] [id number] [place] [address] [place] VLDL CHOLESTEROL, NF 23 mg/dL Normal <30 [facility] Comment on above: Order Comment: Speci men Type: BLOOD SPECIMENOrdering Facility: [facility] Address: [address] [place] [address] Performed By: #### 2 4323-8, LIPNF ####[facility] [facility] LABCLIA [id number] [address] [place] No Panel Informationon 12-24 [facility] JAIMEE COOPER ([id number]) 1955 F Date Time Provider Department 11/02/23 MILI SALDIVAR [facility] During your visit today, we recorded the following information about you: Alize Jordan RN 11/02/2023 8:44 AM Signed Patient states current CPAP is not working correctly and she has been in contact with [facility]. They have given her a loaner CPAP machine but need script to provide new machine to her. Current script on file and demographic page faxed to [facility] and pt aware. Patient requesting Pulmonary referral to see provider Kiera Quiroz at [facility]. Please call patient with update on this request, . PATRICIA Dangelo Christopher B, MD 11/02/2023 10:56 AM Signed Referral placed as requested. Let me know if she needs anything else. Alize Jordan RN 11/02/2023 3:27 PM Signed Patient notified that Pulmonary referral was faxed as requested. PATRICIA Dangelo Lori, LPN 11/14/2023 12:49 PM Signed [facility] requesting ouep-zx-swhz OV note regarding patient's equipment is over 5 years old and broken and needs to continue therapy. Contacted patient and advised she needed appointment for this. She stated she has appointment with Pulmonary in January and will try to see if they will handle this for her vs scheduling with PCP. [facility] Kristina Wade LPN Allergies As of Date: 11/02/2023 Noted Allergy Reaction INDOCIN (INDOMETHACIN SODIUM) 02/16/2005 2 - Rash NAPROXEN 06/03/2005 2 - Rash Date Reviewed: 07/07/2023 Reviewed by: Kristian Wade LPN - Fully Assessed Reason for Visit: Referral Request [Other] Fax Request [Other] Appointment [[id number]] Cmt: [facility] requesting hort-jq-esol OV note regarding patient's equipment is over 5 years old and broken and needs to continue therapy. Contacted patient and advised she needed appointment for this. She stated she has appointment with Pulmonary in January and will try to see if they will handle this for her vs scheduling with PCP. Primary Visit Diagnosis:RUDY (obstructive sleep apnea) [G47.33] Order(s):CONSULT TO PULM/CRITICAL CARE [[id number]] Order #: [id number]: 1 FUTURE Prescriptions as of 11/14/2023 - atorvastatin (LIPITOR) 20 mg tablet Take 1 tablet by mouth daily at bedtime. For cholesterol. - omeprazole (PRILOSEC) 20 mg capsule Take 1 capsule by mouth once daily. - fluticasone (FLONASE) 50 mcg/actuation nasal spray Use 2 Sprays in each nostril once daily. Rinse mouth after use. - cholecalciferol (VITAMIN D3) 50 mcg (2,000 unit) tablet Take 1 tablet by mouth once daily. - CPAP Change bilevel setting to 16/12 cmH2O. Please fit with dreamwear under the nose FFM (current masks with significant leaks). Please provide us with download after 4 weeks of use at this pressure setting. Lifetime supply. - MULTIVITAMIN ORAL Take by mouth. Problem List As Of Date 11/02/2023 Noted Resolved Benign Paroxysmal Positional Vertigo [H81.10] 10/28/2005 11/21/2008 Primary localized osteoarthrosis, lower leg [M1*04/28/2009 03/31/2016 Hyperlipidemia [E78.5] 09/08/2009 Anterior cervical lymphadenopathy [R59.0] 09/08/2009 08/28/2013 Vitamin D deficiency [E55.9] 04/22/2010 03/01/2017 OA (osteoarthritis) of knee [M17.9] 05/03/2010 03/31/2016 Family history of early CAD [Z82.49] 12/03/2012 Plantar fasciitis [M72.2] 12/03/2012 08/28/2013 Epidermal cyst of face [L72.0] 12/03/2012 03/31/2016 Edema [R60.9] 12/03/2012 03/24/2015 Incontinence of urine in female [R32] 03/31/2016 Osteopenia [M85.80] 03/31/2016 Allergic rhinitis [J30.9] 03/31/2016 GERD (gastroesophageal reflux disease) [K21.9] Vitamin D insufficiency [E55.9] 03/01/2017 RUDY (obstructive sleep apnea) [G47.33] Lumbar degenerative disc disease [M51.36] 12/26/2019 Class 2 obesity with body mass index (BMI) of 3*02/17/2020 Difficulty with CPAP use [Z78.9] 02/17/2020 Encounter Status:Closed by ALIZE JORDAN on 11/02/23 Normal [place] metabolic 2000 panelon 07-11-2023 Albumin [Mass/Vol] 3.8 g/dL Low 3.9 - 4.9 g/dL [facility] ALP [Catalytic activity/Vol] 104 U/L 34 - 123 U/L [facility] ALT [Catalytic activity/Vol] 31 U/L 7 - 38 U/L [facility] Anion gap [Moles/Vol] 10 mmol/L 9 - 18 mmol/L [facility] AST [Catalytic activity/Vol] 22 U/L 13 - 35 U/L [facility] Bilirubin [Mass/Vol] 0.3 mg/dL 0.2 - 1 .3 mg/dL [facility] Calcium [Mass/Vol] 9.6 mg/dL 8.5 - 10. 2 mg/dL [facility] Chloride [Moles/Vol] 104 mmol/L 97 - 10 5 mmol/L [facility] CO2 [Moles/Vol] 27 mmol/L 22 - 30 mmol/L [facility] Creatinine [Mass/Vol] 0.95 mg/dL 0.58 - 0.96 mg/dL [facility] GFR/1.73 sq M.predicted among non-blacks MDRD (S/P/Bld) [Vol rate/Area] 65 mL/min/{1.73_m2} - PINF [facility] Comment on above: Estimated Glomerular Filtration Rate (eGFR) is calculated using the 2020 CKD-EPI creatinine equation. This equation utilizes serum creatinine, sex, and age as parameters. The creatinine assay has traceable calibration to isotope dilution-mass spectrometry. Refer to KDIGO guidelines for clinical interpretation. In patients with unstable renal function, e.g. those with acute kidney injury, the eGFR may not accurately reflect actual GFR. Glucose [Mass/Vol] 86 mg/dL 74 - 99 mg/dL [facility] Comment on above: The [place] Diabete s Association (ADA) provides guidance for cutoff values for fasting glucose and random glucose. The ADA defines fasting as no caloric intake for at least 8 hours. Fasting plasma glucose results between 100 to 125 mg/dL indicate increased risk for diabetes (prediabetes). Fasting plasma glucose results greater than or equal to 126 mg/dL meet the criteria for diagnosis of diabetes. In the absence of unequivocal hyperglycemia, results should be confirmed by repeat testing. In a patient with classic symptoms of hyperglycemia or hyperglycemic crisis, random plasma glucose results greater than or equal to 200 mg/dL meet the criteria for diagnosis of diabetes. Reference: Standards of Medical Care in Diabetes 2016, [place] Diabetes Association. Diabetes Care. 2016.39(Suppl 1). Interpretation and review of laboratory results Abnormal [facility] Potassium [Moles/Vol] 4.2 mmol/L 3.7 - 5.1 mmol/L [facility] Protein [Mass/Vol] 7.5 g/dL 6.3 - 8.0 g/dL [facility] Sodium [Moles/Vol] 141 mmol/L 136 - 144 mmol/L [facility] Urea nitrogen [Mass/Vol] 17 mg/dL 7 - 21 mg/dL [facility] Urinalysis complete panel (U )on 07-11-2023 Bacteria uL 1173.6 uL High Negative [facility] Bilirubin Ql (U) Negative Negative [facility] Clarity (Unsp spec) Cloudy Abnormal Clear [facility] Color (U) Yellow Yellow [facility] Epithelial cells LM.HPF (Urine sed) [#/Area] None Seen /HPF [facility] Glucose Test strip (U) [Mass/Vol] Negative Negative [facility] Hemoglobin Ql (U) 2+ Abnormal Negative [facility] Hyaline casts (Urine sed) [#/Area] 0 /[LPF] 0 /LPF [facility] Interpretation and review of laboratory results Abnormal [facility] Ketones Ql (U) Negative Negative [facility] Leukocyte esterase Test strip Ql (U) 2+ Abnormal Negative [facility] Nitrite Ql (U) Positive Abnormal Negative [facility] pH (U) 7.0 [pH] NINF - 8.5 [facility] Protein (U) [Mass/Vol] 3+ Abnormal Negative [facility] RBC LM.HPF (Urine sed) [#/Area] 11-20 /HPF Abnormal 0-2 /HPF [facility] Specific gravity (U) [Rel density] 1.015 1.005 - 1.030 [facility] Urobilinogen Ql (U) 0.2 EU/dL 0.2-1.0 EU/dL [facility] WBC LM.HPF (Urine sed) [#/Area] /[HPF] Abnormal 0-5 /HPF [facility] This test was developed and its performance characteristics determined by [facility]'s [facility] Pathology and Laboratory Medicine [place] ([facility]). It has not been cleared or approved by the FDA. [facility] is regulated under CLIA as qualified to perform high-complexity testing. This test is used for clinical purposes. It should not be regarded as investigational or for research. [facility] CBC W Auto Differential pane l (Bld)on 07-10-2023 Basophils (Bld) [#/Vol] 0.10 10*3/uL NINF [facility] Basophils/100 WBC (Bld) 0.8 % [facility] Differential cell count method Nom (Bld) Auto [facility] Eosinophils (Bld) [#/Vol] 0.15 10*3/uL [facility] Eosinophils/100 WBC (Bld) 1.2 % [facility] Erythrocyte distribution width (RBC) [Ratio] 13.4 % 11.5 - 15.0 % [facility] Hematocrit (Bld) [Volume fraction] 39.6 % 36.0 - 46.0 % [facility] Hemoglobin (Bld) [Mass/Vol] 12.9 g/dL 11.5 - 15.5 g/dL [facility] Immature granulocytes (Bld) [#/Vol] 0.15 10*3/uL High [facility] Immature granulocytes/100 WBC (Bld) 1.2 % [facility] Interpretation and review of laboratory results Abnormal [facility] Lymphocytes (Bld) [#/Vol] 2.01 10*3/uL [facility] Lymphocytes/100 WBC (Bld) 16.4 % [facility] MCH (RBC) [Entitic mass] 29.2 pg 26.0 - 34.0 pg [facility] MCHC (RBC) [Mass/Vol] 32.6 g/dL 30.5 - 36.0 g/dL [facility] MCV (RBC) [Entitic vol] 89.6 fL 80.0 - 100.0 fL [facility] Monocytes (Bld) [#/Vol] 0.85 10*3/uL [facility] Monocytes/100 WBC (Bld) 6.9 % C [facility] Neutrophils (Bld) [#/Vol] 9.02 10*3/uL High [facility] Neutrophils/100 WBC (Bld) 73.5 % [facility] Nucleated RBC (Bld) [#/Vol] [facility] Nucleated RBC/100 WBC (Bld) [Ratio] 0.0 % /100 WBC [facility] Platelet mean volume (Bld) [Entitic vol] 11.2 fL 9.0 - 12.7 fL [facility] Platelets (Bld) [#/Vol] 269 10*3/uL [facility] RBC (Bld) [#/Vol] 4.42 10*6/uL 3.90 - 5.2 0 m/uL [facility] WBC (Bld) [#/Vol] 12.28 10*3/uL High [facility] Basophil percentageOrdered B y: Daren Mcknight on 07-01-2023 Basophil percentage >100 SEEN /hpf 0-5 [facility] Bilirubin Test strip Ql (U)O rdered By: Daren Mcknight on 07-01-2023 Bilirubin Ql (U) Negative Negative [facility] Ketones Test strip Ql (U)Ord ered By: Daren Mcknight on 07-01-2023 Ketones Ql (U) Negative Negative [facility] Mucus LM Ql (Urine sed)Order ed By: Daren Mcknight on 07-01-2023 Mucus Ql (Urine sed) 0 SEEN /hpf [facility] Nitrite Test strip Ql (U)Ord ered By: Daren Mcknight on 07-01-2023 Nitrite Ql (U) Positive Negative [facility] No Panel InformationOrdered By: Daren Mcknight on 07-01-2023 Urine RBC 0 SEEN /hpf 0-5 [facility] Protein Test strip Ql (U)Ord ered By: Daren Mcknight on 07-01-2023 Protein Ql (U) 30 mg/dl Negative [facility] Squamous epithelial cells de tection in urine sediment by light microscopyOrdered By: Daren Mcknight on 07-01-2023 Epithelial cells.squamous LM Ql (Urine sed) 0 SEEN /hpf 5-10 [facility] Urine blood detectionOrdered By: Daren Mcknight on 07-01-2023 RBC Ql (U) 150 /ul Negative [facility] Urine clarityOrdered By: Thierno Mcknight on 07-01-2023 Clarity (U) Cloudy Clear [facility] Urine color determinationOrd ered By: Daren Mcknight on 07-01-2023 Color (U) Yellow Yellow [facility] Urine glucose detectionOrder ed By: Daren Mcknight on 07-01-2023 Glucose Ql (U) Normal mg/dl Normal [facility] Urine leukocyte esterase det ection by dipstickOrdered By: Daren Mcknight on 07-01-2023 Leukocyte esterase Test strip Ql (U) 500 /ul Negative [facility] Urine pHOrdered By: Daren Mcknight on 07-01-2023 pH (U) 6.0 [pH] 5.0 - 8.0 [facility] Urine sediment bacteria coun t by microscopy (number/high power field)Ordered By: Daren Mcknight on 07-01-2023 Bacteria LM.HPF (Urine sed) [#/Area] 3 /[HPF] None Seen [facility] Urine specific gravity measu rementOrdered By: Daren Mcknight on 07-01-2023 Specific gravity (U) [Rel density] 1.015 1.002-1.030 [facility] Urine urobilinogen measureme ntOrdered By: Daren Mcknight on 07-01-2023 Urobilinogen Ql (U) Normal mg/dl Normal [facility] Absolute lymphocyte countOrd ered By: Daren Mcknight on 06-30-2023 Lymphocytes Auto (Unsp spec) [#/Vol] 0.89 10*3/uL 0.83-4.51 [facility] Automated lymphocyte count a s percentage of total leukocytesOrdered By: Daren Mcknight on 06-30-2023 Lymphocytes/100 WBC Auto (Unsp spec) 9.3 % 19-41 [facility] Basophil percentageOrdered B y: Daren Mcknight on 06-30-2023 Basophils/100 WBC (Bld) 0.5 % 0-1 [facility] Chloride [Moles/Vol] 106 mmol/L 98-107 [facility] Eosinophils/100 WBC (Bld) 0.7 % 0-5 [facility] Glucose [Mass/Vol] 94 mg/dL 74-106 [facility] Hemoglobin (Bld) [Mass/Vol] 12.8 g/dL 12.0-15.0 [facility] Monocytes/100 WBC (Bld) 2.4 % 0-10 [facility] Neutrophils (Bld) [#/Vol] 8.3 10*3/uL 2.0-7.7 [facility] Neutrophils/100 WBC (Bld) 86.4 % 47-70 [facility] Potassium [Moles/Vol] 3.4 mmol/L 3.5-5.1 [facility] Sodium [Moles/Vol] 140 mmol/L 136-145 [facility] WBC (Bld) [#/Vol] 9.6 10*3/uL 4.4-11.0 [facility] Determination of erythrocyte mean corpuscular volume (MCV)Ordered By: Daren Mcknight on 06-30-2023 MCV (RBC) [Entitic vol] 89.3 fL 81-99 [facility] Erythrocyte distribution wid th ratioOrdered By: Daren Mcknight on 06-30-2023 Erythrocyte distribution width (RBC) [Ratio] 13.4 % 11.6-14.6 [facility] Erythrocyte distribution wid th standard deviationOrdered By: Daren Mcknight on 06-30-2023 Erythrocyte distribution width (RBC) [Entitic vol] 43.9 fL 35.1-43.9 [facility] Hematocrit Auto (Bld) [Volum e fraction]Ordered By: Daren Mcknight on 06-30-2023 Hematocrit (Bld) [Volume fraction] 40.0 % 37-47 [facility] Immature granulocytes/100 WB C Auto (Bld)Ordered By: Daren Mcknight on 06-30-2023 Immature granulocytes/100 WBC (Bld) 0.700 % 0.0-0.9 [facility] Comment on above: IG% - Immature Granu locytes (promyelocytes, myelocytes and metamyelocytes) > 1% indicates that a LEFT SHIFT is Present. Laboratory - Chemistry and C hemistry - challengeOrdered By: Daren Mcknight on 06-30-2023 CO2 [Moles/Vol] 27.0 mmol/L 21.0-32.0 [facility] Urea nitrogen/Creatinine [Mass ratio] 16.7 mg/mg 10-20 [facility] Laboratory - Hematology and Cell countsOrdered By: Daren Mcknight on 06-30-2023 MCH (RBC) [Entitic mass] 28.6 pg 27.0-32.0 [facility] MCHC (RBC) [Mass/Vol] 32.0 g/dL 32-36 [facility] Nucleated RBC/100 WBC (Bld) [Ratio] 0 % 0-5 [facility] Platelet mean volume (Bld) [Entitic vol] 11.2 fL 6.2-12.0 [facility] Platelets (Bld) [#/Vol] 164 10*3/uL 150-450 [facility] Laboratory - Microbiology an d Antimicrobial susceptibilityOrdered By: Daren Mcknight on 06-30-2023 SARS-CoV-2 (COVID-19) RNA NICOLAS+probe Ql (Unsp spec) [facility] No Panel InformationOrdered By: Daren Mcknight on 06-30-2023 Estimated Creatinine Clearance Calc 62.55 ml/min [facility] Estimated GFR (MDRD) Amer 74 mL/min >60 [facility] Comment on above: GFR Calc Estimated GFR (MDRD) Non-Af Amer 61 mL/min >60 [facility] Comment on above: Non- GFR Calc RBC Auto (Bld) [#/Vol]Ordere d By: Daren Mcknight on 06-30-2023 RBC (Bld) [#/Vol] 4.48 10*6/uL 4.2-5.4 [facility] Serum or plasma calcium valerio urement (mass/volume)Ordered By: Daren Mcknight on 06-30-2023 Calcium [Mass/Vol] 8.7 mg/dL 8.5-10.1 [facility] Serum or plasma creatinine m easurement (mass/volume)Ordered By: Daren Mcknight on 06-30-2023 Creatinine [Mass/Vol] 0.96 mg/dL 0.55-1.02 [facility] Comment on above: The validity of the calculated GFR & GFRAA in patients over 70 years has not been determined. Clinical correlation is essential. Serum or plasma urea nitroge n measurement (mass/volume)Ordered By: Daren Mcknight on 06-30-2023 Urea nitrogen [Mass/Vol] 16 mg/dL 7-18 [facility] Thin prep Papanicolaou smear with manual screeningOrdered By: Daren Mcknight on 06-30-2023 Thin prep Papanicolaou smear with manual screening 7 5-15 [facility] KEVIN SCREENINGon 01-16-2023 [facility] KEVIN DIAG W LYDIA LTon 022 [facility] US BREAST LTD LTon 2 [facility] KEVIN SCREENINGon 01-13-2022 [facility] Provider Note - ED v2on 12-2 Provider Note - ED v2 Provider Note - ED v2: Chart Review: ED NOTES ED NOTES: This note was generated with voice recognition software and may contain errors including spelling, grammar, syntax, and misrecognization of what was dictated Chief Complaint Sinus pressure and fatigue History of Present Illness Patient presents with complaints of acute onset facial pressure/pain accompanied by cloudy and discolored nasal mucus, sore throat, and cough for 10 days. Patient points to their maxillary sinuses as the source of their constant 6 out of 10 pressure. Only time has made their symptoms worse while nothing makes them better. Patient denies the use of any plhd-ehq-[id number] medications or home remedies prior to arrival for symptom management. Review of Systems 10 systems reviewed negative with exception of history of present illness listed above Physical Examination General: Alert and oriented, No acute distress. Eye: Pupils are equal, round and reactive to light. HENT: Normocephalic, maxillary sinus pressure with palpation Neck: Supple, Non-tender, No lymphadenopathy. Respiratory: Lungs are clear to auscultation, Respirations are non-labored, Breath sounds are equal, Symmetrical chest wall expansion. Cardiovascular: Normal rate, Regular rhythm. Integumentary: [place], warm, dry, and Intact. Neurologic: Alert, Oriented, Normal sensory, Normal motor function. Cognition and Speech: Oriented, Speech clear and coherent. Psychiatric: Cooperative, Appropriate mood & affect. Impression and Plan Course: Worsening Plan: Patient will be discharged home with oral antibiotics, instructed to use appropriate over the counter medications for symptom management, and is instructed to follow-up with their primary care provider in 3-5 days for any increase in severity of symptoms or any additional concerns. Patient agrees with plan of care, questions were encouraged and answered. Patient Instructions: Sinusitis HISTORY OF PRESENTING ILLNESS JAIMEE is a 63 year old Female and was seen by me at 07-Mar-2019 14:51. Triage Information: Most recent Vital Sign Value Date PAST MEDICAL HISTORY ATTESTATION: I have reviewed and confirmed nurse's/medic's notes for patient's medications, allergies, medical history, and surgical history ALLERGIES/INTOLERANCE S: No Known Allergies HEALTH HISTORY: No documented data. OUTPATIENT MEDICATIONS: Home Medications Review Status for Reconciliation: Complete Med Status: Patient Currently Takes Medications Drug Name: PriLOSEC 20 mg oral delayed release capsule Instructions: 1 cap(s) orally once a day Drug Name: Vitamin D2 50,000 intl units (1.25 mg) oral capsule Instructions: 1 cap(s) orally once a week Drug Name: Low Dose ASA 81 mg oral tablet Instructions: 1 tab(s) orally once a day Drug Name: amoxicillin 875 mg oral tablet Instructions: 1 tab(s) orally 2 times a day SIGNIFICANT EVENTS: No documented data. RESULTS/VITAL SIGNS VITAL SIGNS: T PRBP SpO2O2(LPM) %FiO2 Method 07-Mar-2019 14:59:[id number]/ 84 97 CLINICAL IMPRESSION Diagnosis/Annotation: ED Dx Name:Acute maxillary sinusitis Code:J01.00 Dispostion: discharged Type: home ATTESTATION CRITICAL CARE TIME Is this a critically ill patient: no Electronic Signatures: Saleem Cabrera ([employer] MANAGER-PATTERN REPAIR PERSON) (Signed 07-Mar-2019 15:23) Authored: Provider Note - ED v2 Last Updated: 07-Mar-2019 15:23 by Saleem Cabrera ([employer] MANAGER-PATTERN REPAIR PERSON) [facility] Vital Signs Date Time Vital Sign Value Performing Clinician Facility 08-28-2024 07:38-0400 Body mass index (BMI) [Ratio] 36.9 kg/m2 Dr. Jose Saldivar MD Work Phone: [phone] [place] [address] 08-28-2024 07:38-0400 Body temperature 97.4 [degF] Dr. Jose Saldivar MD Work Phone: [phone] [place] [address] 08-28-2024 07:38-0400 Body weight 100.[address] Jose Saldivar MD Work Phone: [phone] [place] [address] 08-28-2024 07:38-0400 Diastolic blood pressure 81 mm[Hg] Dr. Jose Saldivar MD Work Phone: [phone] [place] [address] 08-28-2024 07:38-0400 Heart rate 78 /min Dr. Jose Saldivar MD Work Phone: [phone] [place] [address] 08-28-2024 07:38-0400 Respiratory rate 16 /min Dr. Jose Saldivar MD Work Phone: [phone] [place] [address] 08-28-2024 07:38-0400 SaO2% (BldA) [Mass fraction] 97 % Dr. Jose Saldivar MD Work Phone: 1([phone] [place] [address] 08-28-2024 07:38-0400 Systolic blood pressure 141 mm[Hg] Dr. Jose Saldivar MD Work Phone: 9(278)[phone] [place] [address] 07-23-2024 09:00-0400 Body mass index (BMI) [Ratio] 37.71 kg/m2 Yudith Podlogar [employer]PART[employer] MANAGER.PATTERN REPAIR PERSON Work Phone: [facility] 07-23-2024 09:00-0400 Body weight 102.78 kg Yudith Podlogar [employer] DEPARTMENT MANAGER.PATTERN REPAIR PERSON Work Phone: [facility] 07-23-2024 09:00-0400 Diastolic blood pressure 78 mm[Hg] Yudith Podlogar [employer] DEPARTMENT MANAGER.PATTERN REPAIR PERSON Work Phone: [facility] 07-23-2024 09:00-0400 Heart rate 69 /min Yudith Podlogar [employer] DEPARTMENT MANAGER.PATTERN REPAIR PERSON Work Phone: [facility] 07-23-2024 09:00-0400 Respiratory rate 18 /min Yudith Podlogar [employer] DEPARTMENT MANAGER.PATTERN REPAIR PERSON Work Phone: [facility] 07-23-2024 09:00-0400 SaO2% (BldA) [Mass fraction] 98 % Yudith Podlogar [employer] DEPARTMENT MANAGER.PATTERN REPAIR PERSON Work Phone: [facility] 07-23-2024 09:00-0400 Systolic blood pressure 142 mm[Hg] Yudith Podlogar [employer] DEPARTMENT MANAGER.PATTERN REPAIR PERSON Work Phone: [facility] 06-24-2024 09:32-0400 Body mass index (BMI) [Ratio] 36.91 kg/m2 Mili Saldivar MD Work Phone: [facility] 06-24-2024 09:32-0400 Body weight 100.61 kg Mili Saldivar MD Work Phone: [facility] 06-24-2024 09:32-0400 Diastolic blood pressure 76 mm[Hg] Mili Saldivar MD Work Phone: [facility] 06-24-2024 09:32-0400 Heart rate 78 /min Mili Saldivar MD Work Phone: [facility] 06-24-2024 09:32-0400 Respiratory rate 16 /min Mili Saldivar MD Work Phone: [facility] 06-24-2024 09:32-0400 SaO2% (BldA) [Mass fraction] 96 % Mili Saldivar MD Work Phone: [facility] 06-24-2024 09:32-0400 Systolic blood pressure 120 mm[Hg] Mili Saldivar MD Work Phone: 6([phone] [place] [address] 06-21-2024 18:06-0400 Body temperature 96.7 [degF] Dr. Jose Saldivar MD Work Phone: 0(571)[phone] [place] [address] 06-21-2024 18:06-0400 Diastolic blood pressure 89 mm[Hg] Dr. Jose Saldivar MD Work Phone: 6(838)[phone] [place] [address] 06-21-2024 18:06-0400 Heart rate 77 /min Dr. Jose Saldivar MD Work Phone: 6(994)[phone] [place] [address] 06-21-2024 18:06-0400 Respiratory rate 16 /min Dr. Jose Saldivar MD Work Phone: 7(111)[phone] [place] [address] 06-21-2024 18:06-0400 SaO2% (BldA) [Mass fraction] 99 % Dr. Jose Saldivar MD Work Phone: 2(219)[phone] [place] [address] 06-21-2024 18:06-0400 Systolic blood pressure 140 mm[Hg] Dr. Jose Saldivar MD Work Phone: 2(521)[phone] [place] [address] 06-21-2024 17:59-0400 Body temperature 98.1 [degF] Dr. Jose Saldivar MD Work Phone: 3(444)[phone] [place] [address] 06-21-2024 17:59-0400 Diastolic blood pressure 77 mm[Hg] Dr. Jose Saldivar MD Work Phone: 3(647)[phone] [place] [address] 06-21-2024 17:59-0400 Heart rate 88 /min Dr. Jose Saldivar MD Work Phone: 1(822)[phone] [place] [address] 06-21-2024 17:59-0400 Respiratory rate 19 /min Dr. Jose Saldivar MD Work Phone: [facility] 06-21-2024 17:59-0400 SaO2% (BldA) [Mass fraction] 97 % Dr. Jose Saldivar MD Work Phone: [facility] 06-21-2024 17:59-0400 Systolic blood pressure 143 mm[Hg] Dr. Jose Saldivar MD Work Phone: [facility] 06-21-2024 15:36-0400 Body height 165.[address] Jose Saldivar MD Work Phone: [facility] 06-21-2024 15:36-0400 Body mass index (BMI) [Ratio] 36.7 kg/m2 Dr. Jose Saldivar MD Work Phone: [facility] 06-21-2024 15:36-0400 Body weight 100.[address] Jose Sadlivar MD Work Phone: [facility] 06-21-2024 08:27-0400 Body temperature 98.1 [degF] Marichuy Deluna APRN.CNP Work Phone: [facility] 05-30-2024 14:08-0400 Body height 165.1 cm Pac 1 Work Phone: [facility] 05-30-2024 14:08-0400 Body mass index (BMI) [Ratio] 36.94 kg/m2 Pac 1 Work Phone: [facility] 05-30-2024 14:08-0400 Body temperature 98.4 [degF] Pac 1 Work Phone: [facility] 05-30-2024 14:08-0400 Body weight 100.7 kg Pac 1 Work Phone: [facility] 05-30-2024 14:08-0400 Diastolic blood pressure 89 mm[Hg] Pac 1 Work Phone: [facility] 05-30-2024 14:08-0400 Heart rate 84 /min Pacc 1 Work Phone: [facility] 05-30-2024 14:08-0400 Respiratory rate 14 /min Pacc 1 Work Phone: [facility] 05-30-2024 14:08-0400 SaO2% (BldA) [Mass fraction] 99 % Pacc 1 Work Phone: [facility] 05-30-2024 14:08-0400 Systolic blood pressure 157 mm[Hg] Pacc 1 Work Phone: [facility] 05-27-2024 14:28-0400 Body mass index (BMI) [Ratio] 37.28 kg/m2 Haja Dhaliwal MD Work Phone: [facility] 05-27-2024 14:28-0400 Body temperature 98.91 [degF] Haja Dhailwal MD Work Phone: [facility] 05-27-2024 14:28-0400 Body weight 101.61 kg Haja Dhaliwal MD Work Phone: [facility] 05-27-2024 14:28-0400 Diastolic blood pressure 84 mm[Hg] Haja Dhaliwal MD Work Phone: [facility] 05-27-2024 14:28-0400 Heart rate 98 /min Haja Dhaliwal MD Work Phone: [facility] 05-27-2024 14:28-0400 Systolic blood pressure 139 mm[Hg] Haja Dhaliwal MD Work Phone: [facility] 05-07-2024 07:22-0500 Body height 165.1 cm Juliana Ye [employer] DEPARTMENT MANAGER.PATTERN REPAIR PERSON Work Phone: [facility] 05-07-2024 07:22-0500 Body mass index (BMI) [Ratio] 36.78 kg/m2 Juliana [place] [employer] DEPARTMENT MANAGER.PATTERN REPAIR PERSON Work Phone: [facility] 05-07-2024 07:22-0500 Body weight 100.25 kg Juliana [place] [employer] DEPARTMENT MANAGER.PATTERN REPAIR PERSON Work Phone: [facility] 05-07-2024 07:22-0500 Diastolic blood pressure 78 mm[Hg] Juliana [place] [employer] DEPARTMENT MANAGER.PATTERN REPAIR PERSON Work Phone: [facility] 05-07-2024 07:22-0500 Systolic blood pressure 126 mm[Hg] Juliana Ye [employer] DEPARTMENT MANAGER.PATTERN REPAIR PERSON Work Phone: [facility] 04-04-2024 09:14-0500 Body height 165.1 cm Rober Collins Jr, MD [facility] 04-04-2024 09:14-0500 Body mass index (BMI) [Ratio] 37.77 kg/m2 Rober Collins Jr, MD [facility] 04-04-2024 09:14-0500 Body temperature 98.1 [degF] Rober Collins Jr, MD [facility] 04-04-2024 09:14-0500 Body weight 102.97 kg Rober Collins Jr, MD [facility] 04-04-2024 09:14-0500 Diastolic blood pressure 84 mm[Hg] Rober Collins Jr, MD [facility] 04-04-2024 09:14-0500 Heart rate 77 /min Rober Collins Jr, MD [facility] 04-04-2024 09:14-0500 SaO2% (BldA) [Mass fraction] 97 % Rober Collins Jr, MD [facility] 04-04-2024 09:14-0500 Systolic blood pressure 118 mm[Hg] Rober Collins Jr, MD [facility] 03-14-2024 16:04-0500 Body mass index (BMI) [Ratio] 38.12 kg/m2 Alia Urbina [employer] DEPARTMENT MANAGER.PATTERN REPAIR PERSON Work Phone: [facility] 03-14-2024 16:04-0500 Body temperature 99.1 [degF] Alia Urbina [employer] DEPARTMENT MANAGER.PATTERN REPAIR PERSON Work Phone: [facility] 03-14-2024 16:04-0500 Body weight 103.9 kg Alia Urbina [employer] DEPARTMENT MANAGER.PATTERN REPAIR PERSON Work Phone: [facility] 03-14-2024 16:04-0500 Diastolic blood pressure 90 mm[Hg] Alia Urbina [employer] DEPARTMENT MANAGER.PATTERN REPAIR PERSON Work Phone: [facility] 03-14-2024 16:04-0500 Heart rate 88 /min Alia Urbina [employer] DEPARTMENT MANAGER.PATTERN REPAIR PERSON Work Phone: [facility] 03-14-2024 16:04-0500 Respiratory rate 21 /min Alia Urbina [employer] DEPARTMENT MANAGER.PATTERN REPAIR PERSON Work Phone: [facility] 03-14-2024 16:04-0500 SaO2% (BldA) [Mass fraction] 97 % Alia Urbina [employer] DEPARTMENT MANAGER.PATTERN REPAIR PERSON Work Phone: [facility] 03-14-2024 16:04-0500 Systolic blood pressure 130 mm[Hg] Alia Urbina [employer] DEPARTMENT MANAGER.PATTERN REPAIR PERSON Work Phone: [facility] 02-22-2024 08:01-0500 Body mass index (BMI) [Ratio] 37.9 kg/m2 Dr. Jose Saldivar MD Work Phone: [facility] 02-22-2024 08:01-0500 Body temperature 97.9 [degF] Dr. Jose Saldivar MD Work Phone: [facility] 02-22-2024 08:01-0500 Body weight 103.[address] Jose Saldivar MD Work Phone: [facility] 02-22-2024 08:01-0500 Diastolic blood pressure 88 mm[Hg] Dr. Jose Saldivar MD Work Phone: [facility] 02-22-2024 08:01-0500 Heart rate 87 /min Dr. Jose Saldivar MD Work Phone: [facility] 02-22-2024 08:01-0500 Respiratory rate 16 /min Dr. Jose Saldivar MD Work Phone: [facility] 02-22-2024 08:01-0500 SaO2% (BldA) [Mass fraction] 97 % Dr. Jose Saldivar MD Work Phone: [facility] 02-22-2024 08:01-0500 Systolic blood pressure 137 mm[Hg] Dr. Jose Saldivar MD Work Phone: [facility] 02-09-2024 09:37-0500 Diastolic blood pressure 76 mm[Hg] Mili Saldivar MD Work Phone: [facility] 02-09-2024 09:37-0500 Heart rate 76 /min Mili Saldivar MD Work Phone: [facility] 02-09-2024 09:37-0500 Respiratory rate 16 /min Mili Saldivar MD Work Phone: [facility] 02-09-2024 09:37-0500 SaO2% (BldA) [Mass fraction] 99 % Mili Saldivar MD Work Phone: [facility] 02-09-2024 09:37-0500 Systolic blood pressure 132 mm[Hg] Mili Saldivar MD Work Phone: [facility] 12-25-2023 10:17-0400 Body mass index (BMI) [Ratio] 37.08 kg/m2 Mili Saldivar MD Work Phone: [facility] 12-25-2023 10:17-0400 Body weight 101.06 kg Mili Saldivar MD Work Phone: [facility] 12-25-2023 10:17-0400 Diastolic blood pressure 70 mm[Hg] Mili Saldivar MD Work Phone: [facility] 12-25-2023 10:17-0400 Heart rate 72 /min Mili Saldivar MD Work Phone: [facility] 12-25-2023 10:17-0400 Respiratory rate 16 /min Mili Saldivar MD Work Phone: [facility] 12-25-2023 10:17-0400 SaO2% (BldA) [Mass fraction] 99 % Mili Saldivar MD Work Phone: [facility] 12-25-2023 10:17-0400 Systolic blood pressure 122 mm[Hg] Mili Saldivar MD Work Phone: [facility] 07-07-2023 08:31-0400 Body mass index (BMI) [Ratio] 35.45 kg/m2 Mili Saldivar MD Work Phone: [facility] 07-07-2023 08:31-0400 Body temperature 98.1 [degF] Mili Saldivar MD Work Phone: [facility] 07-07-2023 08:31-0400 Body weight 96.62 kg Mili Saldivar MD Work Phone: [facility] 07-07-2023 08:31-0400 Diastolic blood pressure 66 mm[Hg] Mili Saldivar MD Work Phone: [facility] 07-07-2023 08:31-0400 Heart rate 74 /min Mili Saldivar MD Work Phone: [facility] 07-07-2023 08:31-0400 Respiratory rate 16 /min Mili Saldivar MD Work Phone: [facility] 07-07-2023 08:31-0400 SaO2% (BldA) [Mass fraction] 97 % Mili Saldivar MD Work Phone: [facility] 07-07-2023 08:31-0400 Systolic blood pressure 120 mm[Hg] Mili Saldivar MD Work Phone: [facility] 07-01-2023 01:59-0400 Body temperature 99.3 [degF] [facility] 07-01-2023 01:59-0400 Diastolic blood pressure 71 mm[Hg] [facility] 07-01-2023 01:59-0400 Heart rate 99 /min [facility] 07-01-2023 01:59-0400 Respiratory rate 18 /min [facility] 07-01-2023 01:59-0400 SaO2% (BldA) [Mass fraction] 98 % [facility] 07-01-2023 01:59-0400 Systolic blood pressure 147 mm[Hg] [facility] 06-30-2023 23:09-0400 Body height 165.1 cm [facility] 06-30-2023 23:09-0400 Body mass index (BMI) [Ratio] 35.2 kg/m2 [facility] 06-30-2023 23:09-0400 Body weight 96.16 kg [facility] 06-23-2023 11:13-0400 Diastolic blood pressure 78 mm[Hg] Mili Saldivar MD Work Phone: [facility] 06-23-2023 11:13-0400 Systolic blood pressure 128 mm[Hg] Mili Saldivar MD Work Phone: [facility] 06-23-2023 10:27-0400 Body weight 96.71 kg Mili Saldivar MD Work Phone: [facility] 06-23-2023 10:27-0400 Heart rate 70 /min Mili Saldivar MD Work Phone: [facility] 06-23-2023 10:27-0400 Respiratory rate 16 /min Mili Saldivar MD Work Phone: [facility] 06-23-2023 10:27-0400 SaO2% (BldA) [Mass fraction] 97 % Mili Saldivar MD Work Phone: [facility] 04-12-2023 12:01-0500 Body height 165.1 cm Rober Collins Jr, MD [facility] 04-12-2023 12:01-0500 Body mass index (BMI) [Ratio] 35.77 kg/m2 Rober Collins Jr, MD [facility] 04-12-2023 12:01-0500 Body weight 97.52 kg Rober Collins Jr, MD [facility] 01-29-2023 13:45-0500 Body temperature 98.71 [degF] Ruth Abbott APRN.PATTERN REPAIR PERSON Work Phone: [facility] 01-29-2023 13:45-0500 Body weight 101.15 kg Ruth Abbott APRN.PATTERN REPAIR PERSON Work Phone: [facility] 01-29-2023 13:45-0500 Diastolic blood pressure 78 mm[Hg] Ruth Scar [employer] DEPARTMENT MANAGER.PATTERN REPAIR PERSON Work Phone: [facility] 01-29-2023 13:45-0500 Heart rate 79 /min Ruth Scar [employer] DEPARTMENT MANAGER.PATTERN REPAIR PERSON Work Phone: [facility] 01-29-2023 13:45-0500 Respiratory rate 16 /min Ruth Scar [employer] DEPARTMENT MANAGER.PATTERN REPAIR PERSON Work Phone: [facility] 01-29-2023 13:45-0500 SaO2% (BldA) [Mass fraction] 98 % Ruth Abbott [employer] DEPARTMENT MANAGER.PATTERN REPAIR PERSON Work Phone: [facility] 01-29-2023 13:45-0500 Systolic blood pressure 138 mm[Hg] Ruth Scar [employer] DEPARTMENT MANAGER.PATTERN REPAIR PERSON Work Phone: [facility] 12-22-2022 14:07-0400 Body weight 101.52 kg Mili Saldivar MD Work Phone: [facility] 12-22-2022 14:07-0400 Diastolic blood pressure 84 mm[Hg] Mili Saldivar MD Work Phone: [facility] 12-22-2022 14:07-0400 Heart rate 82 /min Mili Saldivar MD Work Phone: [facility] 12-22-2022 14:07-0400 Respiratory rate 16 /min Mili Saldivar MD Work Phone: [facility] 12-22-2022 14:07-0400 SaO2% (BldA) [Mass fraction] 95 % Mili Saldivar MD Work Phone: [facility] 12-22-2022 14:07-0400 Systolic blood pressure 134 mm[Hg] Mili Saldivar MD Work Phone: [facility] 06-21-2022 11:34-0400 Body weight 101.61 kg Mili Saldivar MD Work Phone: [facility] 06-21-2022 11:34-0400 Diastolic blood pressure 78 mm[Hg] Mili Saldivar MD Work Phone: [facility] 06-21-2022 11:34-0400 Heart rate 75 /min Mili Saldivar MD Work Phone: [facility] 06-21-2022 11:34-0400 Respiratory rate 16 /min Mili Saldivar MD Work Phone: [facility] 06-21-2022 11:34-0400 SaO2% (BldA) [Mass fraction] 96 % Mili Saldivar MD Work Phone: [facility] 06-21-2022 11:34-0400 Systolic blood pressure 116 mm[Hg] Mili Saldivar MD Work Phone: [facility] 03-03-2022 09:22-0500 Body temperature 98.1 [degF] Delon Ronald [employer] DEPARTMENT MANAGER.PATTERN REPAIR PERSON Work Phone: [facility] 03-03-2022 09:22-0500 Body weight 101.42 kg Delon Ronald [employer] DEPARTMENT MANAGER.PATTERN REPAIR PERSON Work Phone: [facility] 03-03-2022 09:22-0500 Diastolic blood pressure 82 mm[Hg] Delon Ronald [employer] DEPARTMENT MANAGER.PATTERN REPAIR PERSON Work Phone: [facility] 03-03-2022 09:22-0500 Heart rate 85 /min Delon Ronald [employer] DEPARTMENT MANAGER.PATTERN REPAIR PERSON Work Phone: [facility] 03-03-2022 09:22-0500 Respiratory rate 18 /min Delon Ronald [employer] DEPARTMENT MANAGER.PATTERN REPAIR PERSON Work Phone: [facility] 03-03-2022 09:22-0500 SaO2% (BldA) [Mass fraction] 97 % Delon Ronald [employer] DEPARTMENT MANAGER.PATTERN REPAIR PERSON Work Phone: [facility] 03-03-2022 09:22-0500 Systolic blood pressure 122 mm[Hg] Delon Ronald [employer] DEPARTMENT MANAGER.PATTERN REPAIR PERSON Work Phone: [facility] 12-20-2021 15:48-0400 Diastolic blood pressure 70 mm[Hg] Mili Saldivar MD Work Phone: [facility] 12-20-2021 15:48-0400 Systolic blood pressure 126 mm[Hg] Mili Saldivar MD Work Phone: [facility] 12-20-2021 15:04-0400 Body weight 101.7 kg Mili Saldivar MD Work Phone: [facility] 12-20-2021 15:04-0400 Heart rate 78 /min Mili Saldivar MD Work Phone: [facility] 12-20-2021 15:04-0400 Respiratory rate 16 /min Mili Saldivar MD Work Phone: [facility] 12-20-2021 15:04-0400 SaO2% (BldA) [Mass fraction] 99 % Mili Saldivar MD Work Phone: [facility] 06-04-2021 09:07-0400 Body weight 100.06 kg Mili Saldivar MD Work Phone: [facility] 06-04-2021 09:07-0400 Diastolic blood pressure 70 mm[Hg] Mili Saldivar MD Work Phone: [facility] 06-04-2021 09:07-0400 Heart rate 83 /min Mili Saldivar MD Work Phone: [facility] 06-04-2021 09:07-0400 Respiratory rate 16 /min Mili Saldivar MD Work Phone: [facility] 06-04-2021 09:07-0400 SaO2% (BldA) [Mass fraction] 98 % Mili Saldivar MD Work Phone: [facility] 06-04-2021 09:07-0400 Systolic blood pressure 128 mm[Hg] Mili Saldivar MD Work Phone: [facility] Encounters Encounter Date Encounter Type Care Provider Facility Start: 09-03-2024 ambulatory Jose Pantoja lity:[facility] Start: 08-28-2024 End: 08-28-2024 Patient encounter procedure [employer] MANAGER Jemima Aguiar -[facility] Work Phone: Start: 08-28-2024 End: 08-28-[address] Jose Saldivar MD Work Phone: [facility] Work Phone: Start: 07-23-2024 End: 07-23-2024 Patient encounter procedure Yudith Barraza APRN.PATTERN REPAIR PERSON Work Phone: [facility] [place] Comment on above: Other hyperlipidemia (Primary Dx); RUDY (obstructive sleep apnea); Gastroesophageal reflux disease, unspecified whether esophagitis present; Class 2 obesity with body mass index (BMI) of 37.0 to 37.9 in adult, unspecified obesity type, unspecified whether serious comorbidity present Start: 07-23-2024 End: 07-23-2024 ambulatory MILI SALDIVAR Facility:[facility] Start: 06-24-2024 End: 06-24-2024 Follow-up encounter Mili Saldivar MD Work Phone: [facility] [place] Start: 06-24-2024 End: 06-24-2024 ambulatory MILI SALDIVAR Facility:[facility] Start: 06-24-2024 End: 06-24-2024 Subsequent hospital visit by physician [facility] Work Phone: Radiology Comment on above: Positive D dimer [R7 9.89] Start: 06-24-2024 End: 06-24-2024 ambulatory MILI SALDIVAR Facility:[facility] Start: 06-24-2024 End: 06-24-2024 Patient encounter procedure Mili Saldivar MD Work Phone: [facility] [place] Comment on above: Positive D dimer (Pr imary Dx); Right leg swelling; Chest pain, unspecified type Start: 06-21-2024 End: 06-21-2024 Emergency department patient visit Dr. Jose Saldivar MD Work Phone: -Emergency Department Work Phone: Start: 06-21-2024 End: 08-21-2024 Follow-up encounter Marichuy Deluna MARÍA.PATTERN REPAIR PERSON Work Phone: General Surgery Start: 06-21-2024 End: 06-21-2024 ambulatory MARICHUY DELUNA Facility:[facility] Start: 06-21-2024 End: 06-21-2024 Patient encounter procedure Marichuy Deluna [employer] DEPARTMENT MANAGER.PATTERN REPAIR PERSON Work Phone: General Surgery Comment on above: Chest pain on respir ation (Primary Dx) Start: 06-12-2024 End: 06-12-2024 ambulatory HAJA DHALIWAL Facility:[facility] Start: 05-30-2024 End: 05-30-2024 Admission to establishment [facility] [place] [facility] Work Phone: Pre Anesthesia Start: 05-30-2024 End: 05-30-2024 Anesthesia consultation [facility] [place] [facility] Work Phone: Pre Anesthesia Comment on above: Pre-operative examin ation (Primary Dx); RUDY (obstructive sleep apnea); Other hyperlipidemia; Chronic neck pain; Gastroesophageal reflux disease, unspecified whether esophagitis present; Incontinence of urine in female; Degeneration of intervertebral disc of lumbar region, unspecified whether pain present; Osteopenia, unspecified location; History of total knee arthroplasty, right; History of arthroplasty of left knee; Basal cell carcinoma (BCC), unspecified site Start: 05-30-2024 End: 05-30-2024 Preprocedural examination done Pac [place] [facility] Work Phone: [facility] Start: 05-30-2024 End: 05-30-2024 ambulatory MILI SALDIVAR Facility:[facility] Start: 05-27-2024 End: 05-27-2024 Patient encounter procedure Haja Dhaliwal MD Work Phone: General Surgery Comment on above: Umbilical hernia wit hout obstruction and without gangrene (Primary Dx) Start: 05-27-2024 End: 06-28-2024 Telephone encounter Haja Dhaliwal MD Work Phone: General Surgery Comment on above: 06-11-2024 Hernia Me gray Start: 05-27-2024 End: 05-27-2024 ambulatory MILI SALDIVAR Facility:[facility] Start: 05-27-2024 End: 05-27-[address] Rober Collins MD -Physical Therapy Work Phone: Start: 05-27-[address] Darrick Collins MD -Physical Therapy Work Phone: Start: 05-21-2024 ambulatory Henry MONTOYAS [facility] Start: 05-07-2024 End: 05-07-2024 ambulatory MILI SALDIVAR Facility:[facility] Start: 05-07-2024 End: 05-07-2024 Patient encounter procedure Juliana Zelaya APRN.PATTERN REPAIR PERSON Work Phone: OB/Gynecology Comment on above: Encounter for gyneco logical examination (general) (routine) without abnormal findings (Primary Dx); Encounter for screening mammogram for breast cancer; Urinary incontinence, unspecified type Start: 05-07-2024 End: 05-07-2024 Patient encounter status Juliana Zelaya APRN.PATTERN REPAIR PERSON Work Phone: [facility] Start: 04-10-2024 End: 04-10-2024 Encounter identifier Rober Collins Jr Work Phone: [facility] Start: 04-09-2024 End: 04-09-2024 Encounter identifier Jamil C DiBartola Work Phone: [facility] Start: 04-09-2024 ambulatory Rober Tiago Collins Jr [facility] Start: 04-08-2024 End: 04-08-2024 Encounter identifier Rober V Dennis Jr Work Phone: [facility] Start: 04-08-2024 ambulatory Jamil C DiBartola [facility] Start: 04-07-2024 End: 04-07-2024 Encounter identifier Henry King Work Phone: [facility] [place] Start: 04-07-2024 ambulatory Henry MONTOYAS [facility] Start: 04-05-2024 End: 04-05-2024 Encounter identifier Roberwinston Arroyombardi Jr Work Phone: [facility] Start: 04-05-2024 ambulatory Rober MONTOYA S [facility] Start: 04-05-2024 Encounter for other preprocedural examination Henry GOETZ-C [facility] Start: 04-05-2024 Encounter for preprocedural cardiovascular examination Henry GOETZ-C [facility] Start: 04-04-2024 End: 04-04-2024 Encounter identifier Rober Collins Jr Work Phone: [facility] Start: 04-04-2024 End: 04-04-2024 Encounter for other preprocedural examination Fabiana Hayes Work Phone: [facility] Start: 04-04-2024 End: 04-04-2024 Encounter for preprocedural cardiovascular examination Fabiana Hayes Work Phone: [facility] Start: 04-04-2024 End: 04-04-2024 Office outpatient new 45 minutes Fabiana Hayes Work Phone: [facility] Start: 04-04-2024 ambulatory Fabianaarelis [facility] Start: 2024 End: 2024 Encounter identifier Provider [facility] Start: 2024 ambulatory Provider [facility] Start: 04-01-2024 End: 04-01-2024 Encounter identifier Rober Collins Jr Work Phone: [facility] Start: 04-01-2024 ambulatory Rober MONTOYA S [facility] Start: 04-01-2024 End: 04-01-2024 Encounter identifier Henry King Work Phone: [facility] Start: 04-01-2024 ambulatory Henry CRUZ [facility] Start: 03-29-2024 End: 03-29-2024 Encounter identifier Rober Collins Jr Work Phone: [facility] Start: 03-29-2024 ambulatory Rober Collins Jr [facility] Start: 03-25-2024 End: 03-25-2024 Encounter identifier Rober Collins Jr Work Phone: [facility] [place] Start: 03-25-2024 ambulatory Rober MONTOYA S [facility] Start: 03-20-2024 End: 03-22-2024 E-mail encounter from caregiver [facility] [place] Start: 03-20-2024 End: 03-22-2024 Follow-up encounter [facility] [place] Comment on above: BiPAP follow up Start: 03-14-2024 End: 03-14-2024 ambulatory MILI SALDIVAR Facility:[facility] Start: 03-14-2024 End: 03-14-2024 Patient encounter procedure Alia Urbina APRN.CNP Work Phone: [facility] Comment on above: Acute otitis media, bilateral (Primary Dx); Rhinosinusitis Start: 02-26-2024 End: 02-26-2024 ambulatory Navi Mcgraw [facility] Physical Therapy Comment on above: Chronic neck pain (P rimary Dx); Strain of neck muscle, initial encounter Start: 02-22-2024 End: 02-22-2024 Patient encounter procedure Kiera Quiroz SENIOR CATERING SALES MANAGER-[facility] Work Phone: Start: 02-22-2024 End: 02-22-2024 ambulatory Kiera Quiroz Facility[place] Start: 02-12-2024 End: 02-12-2024 Telephone encounter Mili Saldivar MD Work Phone: [facility] [place] Comment on above: Results Start: 02-09-2024 End: 02-09-2024 ambulatory MILI SALDIVAR Facility:[facility] Start: 02-09-2024 End: 02-09-2024 Subsequent hospital visit by physician Zechariah [facility] [place] Work Phone: Radiology Comment on above: Chronic neck pain [M 54.2, G89.29] Start: 02-09-2024 End: 02-09-2024 Patient encounter procedure Mili Saldivar MD Work Phone: [facility] [place] Comment on above: Chronic neck pain (P rimary Dx); Strain of neck muscle, initial encounter Start: 02-09-2024 End: 02-09-2024 ambulatory MILI SALDIVAR Facility:[facility] Start: 02-07-2024 End: 04-02-2024 Telephone encounter Mili Saldivar MD Work Phone: [facility] [place] Comment on above: Results Start: 02-05-2024 End: 02-05-2024 ambulatory MILI SALDIVAR Facility:[facility] Start: 02-05-2024 End: 02-05-2024 Subsequent hospital visit by physician Screen Mammo [facility] Comment on above: Encounter for screen ing mammogram for breast cancer [Z12.31] Start: 01-09-2024 End: 01-09-2024 ambulatory Mili Saldivar MD Work Phone: [facility] [place] Comment on above: Lump removal Start: 01-08-2024 End: 01-08-2024 Telephone encounter Alison Rosario MD Work Phone: Dermatology Comment on above: Results Start: 01-03-2024 End: 01-04-2024 Telephone encounter Mili Saldivar MD Work Phone: [facility] [place] Comment on above: CPAP DME Start: 01-02-2024 End: 01-02-2024 ambulatory MILI SALDIVAR Facility:[facility] Start: 01-02-2024 End: 01-02-2024 Patient encounter procedure Alison Rosario MD Work Phone: Dermatology Comment on above: Neoplasm of unspecif ied behavior of bone, soft tissue, and skin (Primary Dx) Start: 12-26-2023 End: 12-26-2023 Telephone encounter Mili Saldivar MD Work Phone: [facility] [place] Comment on above: Results Start: 12-25-2023 End: 12-25-2023 ambulatory MILI SALDIVAR Facility:[facility] Start: 12-25-2023 End: 12-25-2023 Patient encounter procedure Mili Saldivar MD Work Phone: [facility] Comment on above: Lump on neck (Primar y Dx); RUDY (obstructive sleep apnea); Other hyperlipidemia; Gastroesophageal reflux disease, unspecified whether esophagitis present; Class 2 obesity with body mass index (BMI) of 37.0 to 37.9 in adult, unspecified obesity type, unspecified whether serious comorbidity present; Encounter for screening mammogram for breast cancer; Encounter for immunization Start: 12-25-2023 End: 12-25-2023 ambulatory MILI SALDIVAR Facility:[facility] Start: 11-02-2023 End: 11-02-2023 Telephone encounter Mili Saldivar MD Work Phone: [facility] Comment on above: Referral Request; Fa x Request Start: 10-25-2023 Refill Mili Saldivar MD Work Phone: [facility] Comment on above: Refill Request Start: 10-04-2023 End: 10-04-2023 Encounter identifier Henry King Work Phone: [facility] Start: 07-13-2023 Telephone encounter Yudith forrester APRN.CNP Work Phone: [facility] Comment on above: Results Start: 07-11-2023 Telephone encounter Jose Saldivar MD Work Phone: [facility] Comment on above: Results Start: 07-07-2023 End: 07-07-2023 Patient encounter procedure Mili Saldivar MD Work Phone: [facility] Comment on above: Acute cystitis witho ut hematuria (Primary Dx); Hypokalemia Start: 07-04-2023 Telephone encounter Jose Saldivar MD Work Phone: [facility] Comment on above: Appointment (ER foll ow up ) Start: 06-30-2023 End: 07-01-2023 Emergency department patient visit [facility] Work Phone: Start: 06-23-2023 End: 06-23-2023 Patient encounter procedure Mili Saldivar MD Work Phone: [facility] [place] Comment on above: Hepatitis B core ant ibody positive (Primary Dx); Gastroesophageal reflux disease, unspecified whether esophagitis present; RUDY (obstructive sleep apnea); Difficulty with CPAP use; Class 2 obesity with body mass index (BMI) of 35.0 to 35.9 in adult, unspecified obesity type, unspecified whether serious comorbidity present; Other hyperlipidemia; Seasonal allergic rhinitis, unspecified trigger Start: 04-12-2023 End: 04-12-2023 Office outpatient new 45 minutes Henry Jacob King Work Phone: [facility] Start: 01-29-2023 End: 01-29-2023 Patient encounter procedure Ruth Abbott APRN.PATTERN REPAIR PERSON Work Phone: [facility] Comment on above: Viral URI (Primary D x) Start: 01-17-2023 Documentation procedure Mammog antonio Coordinator [facility] Start: 01-17-2023 Letter encounter Mammography Coordinator [facility] Department Start: 01-17-2023 Telephone encounter Jose Saldivar MD Work Phone: [facility] [place] Comment on above: Results Start: 01-16-2023 End: 01-16-2023 Subsequent hospital visit by physician Screen Mammo [facility] Comment on above: Screening mammogram, encounter for [Z12.31] Start: 12-29-2022 Telephone encounter Jose Saldivar MD Work Phone: [facility] [place] Comment on above: Results Start: 12-22-2022 End: 12-22-2022 Patient encounter procedure Mili Saldivar MD Work Phone: [facility] [place] Comment on above: RUDY (obstructive sle ep apnea) (Primary Dx); Difficulty with CPAP use; Gastroesophageal reflux disease, unspecified whether esophagitis present; Other hyperlipidemia; Allergic rhinitis, unspecified seasonality, unspecified trigger; Obesity, Class II, BMI 35-39.9; Screening mammogram, encounter for; Vitamin D insufficiency Start: 07-20-2022 ambulatory Alida andrea [employer] DEPARTMENT MANAGER.PATTERN REPAIR PERSON Work Phone: Neurology Comment on above: Reschedule/Cancellat ion Alida Starks Start: 07-20-2022 E-mail encounter andi hodges caregiver Alida Starks MARÍA.PATTERN REPAIR PERSON Work Phone: [facility] Start: 06-21-2022 End: 06-21-2022 Patient encounter procedure Mili Saldivar MD Work Phone: [facility] [place] Comment on above: RUDY (obstructive sle ep apnea) (Primary Dx); Difficulty with CPAP use; Gastroesophageal reflux disease, unspecified whether esophagitis present; Class 2 obesity with body mass index (BMI) of 36.0 to 36.9 in adult, unspecified obesity type, unspecified whether serious comorbidity present; Other hyperlipidemia; Allergic rhinitis, unspecified seasonality, unspecified trigger Start: 03-03-2022 End: 03-03-2022 Patient encounter procedure Delon Cardenas APRN.PATTERN REPAIR PERSON Work Phone: [facility] Comment on above: Sinus pressure (Prim lee ann Dx); ETD (Eustachian tube dysfunction), left Start: 02-07-2022 End: 02-07-2022 Subsequent hospital visit by physician Diagnostic Mammo [facility] Comment on above: Abnormal mammogram [ R92.8] Start: 02-07-2022 Telephone encounter Yudith forrester APRN.PATTERN REPAIR PERSON Work Phone: [facility] [place] Comment on above: Results Start: 01-14-2022 Documentation procedure Mammog antonio Coordinator [facility] Start: 01-14-2022 Letter encounter Mammography Coordinator [facility] Department Start: 01-14-2022 Telephone encounter Jose Saldivar MD Work Phone: [facility] [place] Comment on above: Results Mammogram Result Daisy l Back Start: 01-13-2022 End: 01-13-2022 Subsequent hospital visit by physician Screen Mammo [facility] Comment on above: Screening mammogram, encounter for [Z12.31] Start: 12-20-2021 End: 12-20-2021 Patient encounter procedure Mili Saldivar MD Work Phone: [facility] [place] Comment on above: RUDY (obstructive sle ep apnea) (Primary Dx); Gastroesophageal reflux disease, unspecified whether esophagitis present; Difficulty with CPAP use; Vitamin D insufficiency; Obesity, Class II, BMI 35-39.9; Screening mammogram, encounter for; Need for influenza vaccination Start: 06-04-2021 End: 06-04-2021 Patient encounter procedure Mili Saldivar MD Work Phone: [facility] [place] Comment on above: RUDY (obstructive sle ep apnea) (Primary Dx); Difficulty with CPAP use; Gastroesophageal reflux disease, unspecified whether esophagitis present; Class 2 obesity with body mass index (BMI) of 36.0 to 36.9 in adult, unspecified obesity type, unspecified whether serious comorbidity present; Other hyperlipidemia; Vitamin D insufficiency Procedures Date Procedure Procedure Detail Performing Clinician Start: 06-24-2024 Dup-scan xtr veins unilateral/limited study Mili Saldivar MD Work Phone: Start: 06-21-[address] Jose Saldivar MD Work Phone: Start: 06-21-2024 CT angiography of ch est with contrast Dr. Jose Saldivar MD Work Phone: Start: 04-10-2024 End: 04-10-2024 Collagen dressing >48 sq in Rober reeves Jr, MD Start: 04-09-2024 End: 04-09-2024 Arthrp kne condyle&platu medial&lat compartments Rober Collins Jr, MD Start: 04-09-2024 End: 04-09-2024 PA Arthroplasty, Total Knee Rober reeves Jr, MD Start: 04-04-2024 End: 04-04-2024 Cold Wrap with Compression Henry King PA-C Start: 04-04-2024 End: 04-04-2024 Collection venous blood venipuncture Henry King PA-C Start: 04-04-2024 End: 04-04-2024 Ecg routine ecg w/least 12 lds w/i&r Rober Collins Jr, MD Start: 04-04-2024 End: 04-04-2024 Intermittent Compression Device - SELF PAY Rober Dennis Jr MD Start: 04-04-2024 End: 04-04-2024 No Charge Henry King PA-C Start: 04-04-2024 End: 04-04-2024 Noninvasive ear/pulse oximetry single deter Rober Collins Jr, MD Start: 04-04-2024 End: 04-04-2024 Physical therapy evaluation low complex 20 mins Henry King PA-C Start: 04-04-2024 End: 04-04-2024 Therapeut actvity direct pt contact each 15 min Henry King PA-C Start: 12-25-2023 Lipid 1995 panel - S ulises or Plasma Mili Saldivar MD Work Phone: Start: 10-04-2023 End: 10-04-2023 Arthrocentesis aspir&/inj major jt/bursa w/us Henry King PA-C Start: 10-04-2023 End: 10-04-2023 Bupivicaine Injection 0.5 mg Henry King PA-C Start: 10-04-2023 End: 10-04-2023 Triamcinolone acet inj NOS Henry King PA-C Start: 06-30-2023 SARS-CoV-2, Influenz a & RSV (PCR) Start: 06-23-2023 Adult depression scr eening assessment Mili Saldivar MD Work Phone: Start: 06-22-2023 Lipid 1995 panel - S ulises or Plasma Mili Saldivar MD Work Phone: Start: 04-12-2023 End: 04-12-2023 Radiologic exam knee complete 4/more views Henry King PA-C Start: 01-16-2023 Screening mammograph y bi 2-view breast inc cad Mili Saldivar MD Work Phone: Start: 12-28-2022 Lipid 1995 panel - S ulises or Plasma Mili Saldivar MD Work Phone: Start: 02-07-2022 Us breast uni real t brett with image limited Mili Saldivar MD Work Phone: Start: 02-07-2022 KEVIN DIAG W LYDIA LEFT Ch ristopher B Bursley MD Work Phone: Start: 01-13-2022 End: 01-13-2022 Mammography Mili diego MD Work Phone: Start: 12-20-2021 INFLUENZA SEASONAL QUADRIVALENT HIGH DOSE AGE 65+ Mili Saldivar MD Work Phone: Start: 12-17-2021 Lipid 1996 panel - S ulises or Plasma Mili Saldivar MD Work Phone: Start: 06-04-2021 Adult depression scr eening assessment Mili Saldivar MD Work Phone: Start: 12-28-2020 Mammography Jose Saldivar MD Work Phone: Start: 12-22-2020 Colonoscopy Jose Saldivar MD Work Phone: Plan of Treatment Date Care Activity Detail Author Start: 12-22-2030 Colonoscopy COLONOSCOPY [facility] Start: 12-22-2030 COLORECTAL CANCER SCREENING COLORECTAL CANCER SCREENING [facility] Start: 12-22-2030 Screening for malign ant neoplasm of colon [facility] Start: 12-24-2028 Lipid panel Lipid Screening [facility] Start: 06-21-2028 Lipid panel Lipid Screening [facility] Start: 2028 RSV Vaccine (1 - 1-d ose 75+ series) RSV Vaccine (1 - 1-dose 75+ series) [facility] Start: 12-29-2027 Lipid 1996 panel - Serum or Plasma Lipid Screening [facility] Start: 04-04-2027 Diabetes Screening Diabetes Screenin g [facility] Start: 12-24-2026 Diabetes Screening Diabetes Screenin g [facility] Start: 12-17-2026 Lipid 1996 panel - Serum or Plasma Lipid Screening [facility] Start: 12-17-2026 LIPID SCREEN LIPID SCREEN [facility] Start: 07-09-2026 Diabetes Screening Diabetes Screenin g [facility] Start: 06-21-2026 Diabetes Screening Diabetes Screenin g [facility] Start: 12-28-2025 Diabetes Screening Diabetes Screenin g [facility] Start: 12-03-2025 LIPID SCREEN LIPID SCREEN [facility] Start: 05-09-2025 End: 05-09-2025 Patient encounter procedure 05/09/2025 1:30 PM EST Office Visit OB/Gynecology [address] [place] [address] Juliana Zelaya APRN.PATTERN REPAIR PERSON [address] [place] [address] Annual OB/Gynecology Comment on above: Annual Start: 02-05-2025 End: 02-05-2025 Patient encounter procedure 02/05/2025 9:30 AM EST Appointment Mammogram [address] [place] [address] Encounter for screening mammogram for breast cancer [Z12.31] Mammogram Comment on above: Encounter for screen ing mammogram for breast cancer [Z12.31] Start: 02-04-2025 Screening for malign ant neoplasm of breast Mammogram Screening [facility] Start: 01-24-2025 End: 01-24-2025 Patient encounter procedure 01/24/2025 9:20 AM EST Office Visit [facility] [address] [place] [address] Mili Saldivar MD [address] [place] [address] 6 month follow up [facility] Comment on above: 6 month follow up Start: 12-24-2024 Covid-19 Vaccine () Covid-19 Vaccine () [facility] Comment on above: Postponed from 11/11 (Declined at this time) Start: 12-24-2024 Shingrix Vaccine (1 of 2) Shingrix Vaccine (1 of 2) [facility] Comment on above: Postponed from 04/03 (Declined at this time) Start: 12-17-2024 DIABETES SCREEN DIABETES SCREEN [facility] Start: 12-17-2024 Diabetes Screening Diabetes Screenin g [facility] Start: 07-23-2024 End: 07-23-2024 Patient encounter procedure 07/23/2024 9:00 AM EDT Office Visit [facility] [address] [place] [address] PodlogarYudith APRN.PATTERN REPAIR PERSON [address] [address] routine follow up [facility] [place] Comment on above: routine follow up Start: 06-24-2024 End: 06-24-2024 Patient encounter procedure 06/24/2024 9:40 AM EDT Office Visit [facility] [place] [address] [place] [address] Mili Saldivar MD [address] [place] [address] 6 month follow up [facility] Comment on above: 6 month follow up Start: 06-22-2024 Anxiety Screening Anxiety Screening [facility] Start: 06-22-2024 Depression Screening Depression Scre ening [facility] Start: 06-22-2024 RSV Vaccine (1 - 1-d ose 60+ series) RSV Vaccine (1 - 1-dose 60+ series) [facility] Comment on above: Postponed from 04/03 (Declined at this time) Start: 06-22-2024 RSV Vaccine (1 - Ris k 60-74 years 1-dose series) RSV Vaccine (1 - Risk 60-74 years 1-dose series) [facility] Comment on above: Postponed from 04/03 (Declined at this time) Start: 06-22-2024 Urine microalbumin profile DTaP,Tdap,Td Vaccine (2 - Td or Tdap) [facility] Comment on above: Postponed from 11/21 (Declined at this time) Start: 06-21-2024 [facility] Start: 06-21-2024 End: 09-20-2024 Fibrin D-dimer FEU [Mass/volume] in Platelet poor plasma [facility] Work Phone: Comment on above: Expected: 06/21/2024 , Expires: 09/20/2024 Start: 06-12-2024 End: 06-12-2024 Admission to same day surgery center 06/12/2024 7:30 AM EDT - 06/12/2024 8:49 AM EDT Surgery [facility] [address] [place] [address] Haja Dhaliwal MD [address] [place] [address] REPAIR HERNIA UMBILICAL REDUCIBLE LESS THAN 3cm [facility] Comment on above: REPAIR HERNIA UMBILI DAISY REDUCIBLE LESS THAN 3cm Start: 06-12-2024 End: 06-12-2024 REPAIR HERNIA UMBILICAL REDUCIBLE LESS THAN 3cm ME OR Start: 06-12-2024 Subsequent hospital visit by physician 06/12/2024 7:30 AM EDT Hospital Encounter [facility] [address] [place] [address] Haja Dhaliwal MD [address] [place] [place], [place] [address] Umbilical hernia without obstruction and without gangrene [K42.9] [facility] Comment on above: Umbilical hernia wit hout obstruction and without gangrene [K42.9] Start: 05-22-2024 Jaimee Cooper [facility] Work Phone: Start: 05-21-2024 Jaimee Cooper [facility] Work Phone: Start: 04-09-2024 Zully Cooper (ncxl) : ZB , S/p LK UKA AV [facility] Work Phone: Start: 04-04-2024 End: 04-04-2024 [facility] Work Phone: Start: 04-04-2024 [facility] [place] Start: 03-13-2024 Advance Directive Discussion Advance Directive Discussion [facility] Start: 02-26-2024 End: 02-26-2024 ambulatory 02/26/2024 9:00 AM EST OT/PT/Speech Visit [place] [facility] Physical Therapy [address] [place], [place] [id number] Navi Krishna, PT Chronic neck pain [M54.2, G89.29]; Strain of neck muscle, initial encounter [S16.1XXA] [facility] Physical Therapy Comment on above: Chronic neck pain [M 54.2, G89.29]; Strain of neck muscle, initial encounter [S16.1XXA] Start: 01-17-2024 Mammography Mammogram Screening [facility] Start: 01-17-2024 Screening for malign ant neoplasm of breast Mammogram Screening [facility] Start: 12-25-2023 End: 12-25-2023 Patient encounter procedure 12/25/2023 10:20 AM EDT Office Visit [facility] [address] [facility], [place] [id number] Mili Saldivar MD [address] [place], [place] [id number] 6 month follow up [facility] Comment on above: 6 month follow up Start: 12-23-2023 Covid-19 Vaccine () Covid-19 Vaccine () [facility] Comment on above: Postponed from 11/11 (Declined at this time) Start: 12-23-2023 Shingrix Vaccine (1 of 2) Shingrix Vaccine (1 of 2) [facility] Comment on above: Postponed from 04/03 (Declined at this time) Start: 12-04-2023 DIABETES SCREEN DIABETES SCREEN [facility] Start: 11-12-2023 Influenza vaccination Influenza Vacc ine (#1) [facility] Start: 09-10-2023 Influenza vaccination Influenza Vacc ine (#1) [facility] Comment on above: Postponed from 11/11 (Declined at this time) Start: 07-07-2023 End: 07-07-2023 Patient encounter procedure 07/07/2023 8:40 AM EDT Office Visit [facility] [place] [address] [facility], [place] [id number] Mili Saldivar MD [address] [place], [place] [id number] [facility] ER f/u [facility] [place] Comment on above: [facility] ER f/u 06/29-UTI Start: 07-01-2023 Bacteria identified in Urine by Culture Urine Culture [facility] Start: 07-01-2023 [facility] Start: 07-01-2023 [facility] Start: 06-23-2023 End: 09-22-2023 Hepatitis B virus core IgM Ab [Presence] in Serum [facility] Work Phone: Comment on above: Expected: 06/23/2023 , Expires: 09/22/2023 Start: 06-23-2023 End: 09-22-2023 Hepatitis B virus surface Ab [Presence] in Serum [facility] Work Phone: Comment on above: Expected: 06/23/2023 , Expires: 09/22/2023 Start: 06-23-2023 End: 09-22-2023 Hepatitis B virus surface Ag [Presence] in Serum [facility] Work Phone: Comment on above: Expected: 06/23/2023 , Expires: 09/22/2023 Start: 03-31-2023 End: 06-30-2023 Comprehensive metabolic 2000 panel - Serum or Plasma COMP METABOLIC PANEL Lab Routine Other hyperlipidemia Expected: 03/31/2023, Expires: 06/30/2023 [facility] Work Phone: Comment on above: Expected: 03/31/2023 , Expires: 06/30/2023 Start: 03-31-2023 End: 06-30-2023 LIPID PANEL, NONFASTING LIPID PANEL, NONFASTING Lab Routine Other hyperlipidemia Expected: 03/31/2023, Expires: 06/30/2023 [facility] Work Phone: Comment on above: Expected: 03/31/2023 , Expires: 06/30/2023 Start: 01-29-2023 End: 02-12-2023 COVID & INFLUENZA A/B & RSV NAAT, ROUTINE [facility] Work Phone: Comment on above: Expected: 01/29/2023 , Expires: 02/12/2023 Start: 01-13-2023 [facility] Start: 12-22-2022 End: 02-21-2023 25-hydroxyvitamin D3 [Mass/volume] in Serum or Plasma VITAMIN D 25 HYDROXY Lab Routine Vitamin D insufficiency Expected: 12/22/2022, Expires: 02/21/2023 [facility] Work Phone: Comment on above: Expected: 12/22/2022 , Expires: 02/21/2023 Start: 12-22-2022 End: 02-21-2023 CBC W Auto Differential panel - Blood CBC + DIFF Lab Routine Other hyperlipidemia Expected: 12/22/2022, Expires: 02/21/2023 [facility] Work Phone: Comment on above: Expected: 12/22/2022 , Expires: 02/21/2023 Start: 12-22-2022 End: 02-21-2023 Comprehensive metabolic 2000 panel - Serum or Plasma COMP METABOLIC PANEL Lab Routine Other hyperlipidemia Expected: 12/22/2022, Expires: 02/21/2023 [facility] Work Phone: Comment on above: Expected: 12/22/2022 , Expires: 02/21/2023 Start: 12-22-2022 End: 02-21-2023 Lipid 1996 panel - Serum or Plasma LIPID PANEL BASIC Lab Routine Other hyperlipidemia Expected: 12/22/2022, Expires: 02/21/2023 [facility] Work Phone: Comment on above: Expected: 12/22/2022 , Expires: 02/21/2023 Start: 12-20-2022 COVID-19 VACCINE (4 - Booster for Moderna series) COVID-19 VACCINE (4 - Booster for Moderna series) [facility] Comment on above: Postponed from 03/18 (Declined at this time) Start: 12-20-2022 Urine microalbumin profile DTAP,TDAP,TD (2 - Td or Tdap) [facility] Comment on above: Postponed from 11/21 (Declined at this time) Start: 06-04-2022 Adult depression screening assessment DEPRESSION SCREENING [facility] Start: 03-13-2022 ADVANCE DIRECTIVE DISCUSSION ADVANCE DIRECTIVE DISCUSSION [facility] Start: 12-28-2021 Mammography MAMMOGRAM [facility] Start: 12-04-2021 Urine microalbumin profile DTAP,TDAP,TD (2 - Td or Tdap) [facility] Comment on above: Postponed from 11/21 (Declined at this time) Start: 11-04-2021 End: 01-04-2022 CBC panel - Blood by Automated count CBC Lab Routine Vitamin D insufficiency Other hyperlipidemia Expected: 11/04/2021, Expires: 01/04/2022 [facility] Work Phone: Comment on above: Expected: 11/04/2021 , Expires: 01/04/2022 Start: 11-04-2021 End: 01-04-2022 Comprehensive metabolic 2000 panel - Serum or Plasma COMP METABOLIC PANEL Lab Routine Vitamin D insufficiency Other hyperlipidemia Expected: 11/04/2021, Expires: 01/04/2022 [facility] Work Phone: Comment on above: Expected: 11/04/2021 , Expires: 01/04/2022 Start: 11-04-2021 End: 01-04-2022 LIPID PANEL, NONFASTING LIPID PANEL, NONFASTING Lab Routine Vitamin D insufficiency Other hyperlipidemia Expected: 11/04/2021, Expires: 01/04/2022 [facility] Work Phone: Comment on above: Expected: 11/04/2021 , Expires: 01/04/2022 Start: 11-04-2021 End: 01-04-2022 VITAMIN D 25 HYDROXY VITAMIN D 25 HYDROXY Lab Routine Vitamin D insufficiency Other hyperlipidemia Expected: 11/04/2021, Expires: 01/04/2022 [facility] Work Phone: Comment on above: Expected: 11/04/2021 , Expires: 01/04/2022 Start: 03-13-2021 ADVANCE DIRECTIVE DISCUSSION ADVANCE DIRECTIVE DISCUSSION [facility] Start: 03-13-2021 DEPRESSION ASSESSMENT DEPRESSION ASS ESSMENT [facility] Start: 11-21-2018 Urine microalbumin profile DTaP,Tdap,Td Vaccine (2 - Td or Tdap) [facility] Start: 2013 RSV Vaccine (1 - 1-d ose 60+ series) RSV Vaccine (1 - 1-dose 60+ series) [facility] Start: 2013 RSV Vaccine (1 - Ris k 60-74 years 1-dose series) RSV Vaccine (1 - Risk 60-74 years 1-dose series) [facility] Start: 2003 SHINGRIX VACCINE (1 of 2) SHINGRIX VACCINE (1 of 2) [facility] Start: 1998 COLOGUARD (FIT-DNA) COLOGUARD (FIT-D NA) [facility] Start: [address] COLONOGRAPHY [facility] Start: 1998 FECAL OCCULT BLOOD FECAL OCCULT BLOO D [facility] Start: 1998 Screening for malign ant neoplasm of colon [facility] Start: 1998 SIGMOIDOSCOPY SIGMOIDOSCOPY [facility] Bacteria identified in Urine by Culture [facility] End: 02-13-2023 Diagnostic mammography computer-aided detcj uni KEVIN DIAGNOSTIC LT Radiology Routine Abnormal mammogram 1 Occurrences starting 01/14/2022 until 02/13/2023 [facility] Work Phone: Comment on above: 1 Occurrences starti ng 01/14/2022 until 02/13/2023 End: 01-21-2024 KEVIN SCREENING KEVIN SCREENING Radiology Routine Screening mammogram, encounter for 1 Occurrences starting 12/22/2022 until 01/21/2024 [facility] Work Phone: Comment on above: 1 Occurrences starti ng 12/22/2022 until 01/21/2024 Measurement of respiratory function [facility] End: 01-23-2025 MG Breast Screening KEVIN SCREENING Radiology Routine Encounter for screening mammogram for breast cancer 1 Occurrences starting 12/25/2023 until 01/23/2025 [facility] Work Phone: Comment on above: 1 Occurrences starti ng 12/25/2023 until 01/23/2025 MG Breast Screening KEVIN SCREENIN G Radiology Routine Encounter for screening mammogram for breast cancer 02/05/2024 10:17 AM EST [facility] Work Phone: End: 06-06-2025 MG Breast Screening KEVIN SCREENING Radiology Routine Encounter for screening mammogram for breast cancer 1 Occurrences starting 05/07/2024 until 06/06/2025 [facility] Work Phone: Comment on above: 1 Occurrences starti ng 05/07/2024 until 06/06/2025 Patient Education [facility] Work Phone: Patient referral [facility] Work Phone: End: 01-19-2023 Screening mammography bi 2-view breast inc cad KEVIN SCREENING Radiology Routine Screening mammogram, encounter for 1 Occurrences starting 12/20/2021 until 01/19/2023 [facility] Work Phone: Comment on above: 1 Occurrences starti ng 12/20/2021 until 01/19/2023 SURGICAL PATHOLOGY SURGICAL PATH OLOGY Lab Routine Neoplasm of unspecified behavior of bone, soft tissue, and skin 01/02/2024 2:33 PM EDT [facility] Work Phone: End: 02-13-2023 Us breast uni real time with image limited US BREAST LTD LT Radiology Routine Abnormal mammogram 1 Occurrences starting 01/14/2022 until 02/13/2023 [facility] Work Phone: Comment on above: 1 Occurrences starti ng 01/14/2022 until 02/13/2023 XR Cervical spine AP and Lateral and oblique XR CERV OTHER 4V AP/LAT/OBL Radiology Routine Chronic neck pain Strain of neck muscle, initial encounter 02/09/2024 10:21 AM EST [facility] Work Phone: [facility] Immunizations Immunization Date Immunization Notes Care Provider [facility] 12-25-2023 influenza, high dose seasonal, preservative-free Mili Saldivar MD Work Phone: [facility] 02-16-2023 influenza, high dose seasonal, preservative-free Mili Saldivar MD Work Phone: [facility] 02-16-2023 influenza virus vaccine, unspecified formulation Mili Saldivar MD Work Phone: [facility] 12-20-2021 influenza, high-dose , quadrivalent vaccine (FLUZONE HIGH DOSE QUADRIVALENT) Mili Saldivar MD Work Phone: [facility] 12-20-2021 influenza virus vaccine, unspecified formulation Mili Saldivar MD Work Phone: [facility] 12-04-2020 influenza, high-dose , quadrivalent vaccine (FLUZONE HIGH DOSE QUADRIVALENT) Mili Saldivar MD Work Phone: [facility] 06-04-2020 COVID-19 vaccine, fu ll dose (MODERNA) Mili Saldivar MD Work Phone: [facility] 05-07-2020 COVID-19 vaccine, fu ll dose (MODERNA) Mili Saldivar MD Work Phone: [facility] 12-12-2019 influenza, high-dose , quadrivalent vaccine (FLUZONE HIGH DOSE QUADRIVALENT) Mili Saldivar MD Work Phone: [facility] 12-12-2019 pneumococcal polysaccharide vaccine, 23 valent Mili Saldivar MD Work Phone: [facility] 12-05-2018 influenza, high dose seasonal, preservative-free Mili Saldivar MD Work Phone: [facility] 09-06-2018 pneumococcal conjuga te vaccine, 13 valent Mili Saldivar MD Work Phone: [facility] 01-16-2018 influenza virus vaccine, unspecified formulation Mili Saldivar MD Work Phone: [facility] 01-15-2018 Influenza, injectabl e, Madin [place] Canine Kidney, preservative free, quadrivalent Mili Saldivar MD Work Phone: [facility] 03-01-2017 influenza, injectabl e, quadrivalent, contains preservative Mili Saldivar MD Work Phone: [facility] 02-03-2016 influenza, seasonal, injectable Mili Saldivar MD Work Phone: [facility] Work Phone: 01-20-2009 novel [id number], all formulations Mili Saldivar MD Work Phone: [facility] 11-21-2008 tetanus toxoid, redu trudy diphtheria toxoid, and acellular pertussis vaccine, adsorbed Mili Saldivar MD Work Phone: [facility] 01-12-2008 influenza virus vaccine, unspecified formulation Mili Saldivar MD Work Phone: [facility] Work Phone: Payers Date Payer Category Payer Self-pay [id number] 2018 [facility] ANTHEM ME DICARE SUPPLEMENT [id number] 2018 Unknown ANTHEM ANTHEM ME DICARE SUPPLEMENT [id number] 2018-Present [id number] [place] [address] Indemnity [id number] 2018 Unknown ANTHEM ANTHEM ME DICARE SUPPLEMENT [id number] 2018-Present [phone] [id number] [place], [place] [id number] Indemnity [id number] 2018 Unknown [id number] 2018 Medicare MEDICARE MEDICAR E A AND B [id number] 2018-Present [phone] [address] [address] [place] [address] Medicare [id number] 2018 Medicare [id number] 2018 Medicare [id number] 1955 Unknown [id number] [id number]. 2.1313 1953 Unknown [id number] 2.16.840.1.498141.3.579. 2.1313 1953 Unknown [id number] 2.16.840.1.952481.3.579. 2.131 1953 Unknown [id number] 2.16.840.1.603985.3.579. 2.1313 1953 Unknown [id number] 2.16.840.1.934277.3.579. 2.1313 1953 Unknown [id number] 2.16.840.1.269923.3.579. 2.131 1953 Unknown [id number] 2.16.840.1.579726.3.579. 2.131 1953 Unknown [id number] 2.16.840.1.715989.3.579. 2.1313 1953 Unknown [id number] 2.16.840.1.120568.3.579. 2.1313 1953 Unknown [id number] 2.16.840.1.510230.3.579. 2.1313 1953 Unknown [id number] 2.16.840.1.083517.3.579. 2.1314 1953 Unknown [id number] 2.16.840.1.041953.3.579. 2.1314 1953 Unknown [id number] 2.16.840.1.749686.3.579. 2.1314 1953 Unknown [id number] 2.16.840.1.833775.3.579. 2.1314 Unknown [id number] 2.16.840.1.567315.3.579. 2.462 Unknown [id number] 2.16.840.1.250033.3.579. 2.462 Unknown [id number] 2.16.840.1.948969.3.579. 2.462 Unknown [id number] 2.16.840.1.379923.3.579. 2.462 Unknown [id number] 2.16.840.1.155104.3.579. 2.462 Social History Date Type Detail Facility Start: 12-20-2021 End: 06-21-2024 Tobacco smoking status NHIS Never smoked tobacco [facility] Start: 06-04-2021 End: 06-21-2024 Alcohol intake Current drinker of alcohol (finding) [facility] Start: 06-04-2021 End: 12-22-2022 Alcohol intake [facility] Start: 12-04-2020 End: 06-21-2022 History SDOH Alcohol Frequency 2 [facility] Start: 12-02-2019 End: 06-21-2022 History SDOH Alcohol Std Drinks 1 [facility] Start: 03-01-2017 History SDOH Alcohol Comment occasional- monthly [facility] Start: 12-04-2020 End: 06-21-2022 History SDOH Social Connections Phone 5 [facility] Start: 12-04-2020 End: 06-21-2022 History SDOH Social Connections Orthodox 3 [facility] Start: 03-16-2019 Education 12 [facility] Start: 1955 Sex Assigned At Not on file [facility] Start: 05-25-2021 End: 01-19-2022 Exposure to SARS-CoV-2 (event) Not sure [facility] Start: 12-20-2021 Tobacco use and exposure Smokeless tobacco non-user [facility] Start: 06-21-2022 History SDOH Social Connections Get Together 4 [facility] Start: 06-21-2022 End: 12-22-2022 Social connection and isolation panel [facility] Do you belong to any clubs or organizations such as yarsani groups, unions, fraIvera Medical or athletic groups, or school groups? Yes [facility] Are you now , , , , never or living with a partner? [facility] How often to you hav e a drink containing alcohol? Monthly or less [facility] Average Number of Drinks Not on file [facility] How often do you hav e 6 or more drinks on 1 occasion? Never [facility] Do you feel stress - tense, restless, nervous, or anxious, or unable to sleep at night because your mind is troubled all the time - these days [OSQ] Only a little [facility] (I/We) worried hugh er (my/our) food would run out before (I/we) got money to buy more. Never true [facility] In the past 12 month s, was there a time when you were not able to pay the mortgage or rent on time? No [facility] How many standard drinks containing alcohol do you have on a typical day? 1 or 2 [facility] Do you feel stress - tense, restless, nervous, or anxious, or unable to sleep at night because your mind is troubled all the time - these days [OSQ] To some extent [facility] Start: 06-30-2023 End: 04-08-2024 Tobacco smoking status NHIS Unknown if ever smoked [facility] Start: 1955 Sex Assigned At Female [facility] Start: 04-12-2023 Alcohol intake Alcohol Use Details [facility] Start: 04-02-2019 Sexual Orientation Straight or heterosexual [facility] Start: 03-23-2023 Sexual Orientation Choose not to disclose [facility] Start: 04-12-2023 Tobacco use and exposure Non-Smoking Tobacco Use Details [facility] Start: 06-21-2024 Sex Female (finding) [facility] NEGATED: Highlighted rowStart: 10-04-2023 End: 04-04-2024 Tobacco smoking status NHIS Unknown if ever smoked [facility] NEGATED: Highlighted rowStart: 04-12-2023 Tobacco smoking status NHIS Never smoker [facility] NEGATED: Highlighted row Alcohol intake Alcohol Use Details [facility] Equipment Procedure Code Equipment Code Equipment Origin al Text Equipment Identifier Dates Mesh Parietex 8. 6cm Small Collagen Surgical Patch [facility] - [id number] Start: 06-12-2024 Functional Status Date Assessment Result Facility 06-20-2024 Total score [AUDIT-C] -1 025 6:05 PM EDT User, [email or web address] [facility] 06-20-2024 Functional status Patient declin ed 06/20/2024 6:05 PM EDT User, Chucky Patient declined [facility] 06-20-2024 How often to you hav e a drink containing alcohol? Monthly or less 06/20/2024 6:05 PM EDT User, Mychart Monthly or less [facility] 06-20-2024 How often do you hav e 6 or more drinks on 1 occasion? Never 06/20/2024 6:05 PM EDT User, Nickhart Never [facility] 09-29-2014 Are you deaf, or do you have serious difficulty hearing No 09/29/2014 11:09 AM Sherita Zaidi Cma No [facility] 09-29-2014 Are you blind, or do you have serious difficulty seeing, even when wearing glasses No 09/29/2014 11:09 AM Sherita Zaidi Cma No [facility] 09-29-2014 Do you have serious difficulty walking or climbing stairs No 09/29/2014 11:09 AM Sherita Zaidi Cma No [facility] 09-29-2014 Do you have difficul ty dressing or bathing No 09/29/2014 11:09 AM Sherita Zaidi Cma No [facility] 09-29-2014 Because of a physica l, mental, or emotional condition, do you have difficulty doing errands alone such as visiting a physician's office or shopping No 09/29/2014 11:09 AM EDT Alexandra Velasquez Sherita Marisa No [facility] Mental Status Date Assessment Result Facility 06-21-2024 Cognitive function Level Of Cons ciousness Awake;Alert;Appropriate;Fol lows Commands [facility] Work Phone: 09-29-2014 Because of a physica l, mental, or emotional condition, do you have serious difficulty concentrating, remembering, or making decisions No 09/29/2014 11:09 AM EDT Alexandra VelasquezPiaSherita L No [facility] Clinical Notes 12-03-2012 to 07-23-2024 PodlogarYudith APRN.PATTERN REPAIR PERSON - 07/23/2024 9:00 AM EDT Note Date & Type Note Facility 07-23-2024 History of Present illness Narrative 07/22/2024 Patient presents with: Follow Up SUBJECTIVE: This is a 69 year old that is here today for Above Complaints. RUDY: using CPAP nightly. Follows with sleep medicine at [facility]. Sleeps well and find it to be beneficial Heartburn: taking Omeprazole as prescribed without side effects. Works well to control symptoms HYPERLIPIDEMIA: Patient is taking medications: Yes. Patient is watching diet: sometimes . Patient denies myalgias: Yes. Patient denies gi upset: Yes PAST MEDICAL HISTORY Diagnosis Date Arthritis Diverticulosis of colon (without mention of hemorrhage) Dysplasia of cervix, unspecified GERD (gastroesophageal reflux disease) Kidney cysts 2018 fluid filled Obesity (BMI 35.0-39.9 without comorbidity) RUDY (obstructive sleep apnea) severe Osteoarthritis of lumbar spine Osteoarthritis, knee s/p partial knee replacement on left Seasonal allergies spring and fall Vitamin D insufficiency ALLERGIES Patient has no known allergies. MEDICATIONS Current Outpatient Medications Medication Sig acetaminophen (TYLENOL) 500 mg tablet Take 500 mg by mouth every 8 hours as needed. CPAP Change bilevel setting to 16/12 cmH2O. Please fit with dreamwear under the nose FFM (current masks with significant leaks). Please provide us with download after 4 weeks of use at this pressure setting. Lifetime supply. fluticasone (FLONASE) 50 mcg/actuation nasal spray Use 2 Sprays in each nostril once daily. Rinse mouth after use. atorvastatin (LIPITOR) 20 mg tablet Take 1 tablet by mouth daily at bedtime. For cholesterol. omeprazole (PRILOSEC) 20 mg capsule Take 1 capsule by mouth once daily. cholecalciferol (VITAMIN D3) 50 mcg (2,000 unit) tablet Take 1 tablet by mouth once daily. MULTIVITAMIN ORAL Take by mouth once daily. No current facility-administered medications for this visit. Medications and allergies reviewed by this provider. SOCIAL HISTORY Social History Tobacco Use Smoking status: Never Smokeless tobacco: Never Vaping Use Vaping status: Never Used Substance Use Topics Alcohol use: Yes Comment: occasional- monthly Drug use: No REVIEW OF SYSTEMS All other reviewed and negative other than HPI. OBJECTIVE: BP 142/78 Pulse 69 Resp 18 Wt 102.8 kg (226 lb 9.6 oz) SpO2 98% BMI 37.71 kg/m . Vital signs reviewed by this provider. APPEARANCE Well appearing, alert, in no acute distress, well-hydrated, well nourished. EYES conjunctiva and sclera normal. HEART RRR with normal S1 and S2, no murmurs, no gallops, no JVD appreciated LUNG clear to auscultation. No wheezes, rhonchi or rales EXTREMITIES Extremities normal, No deformities, No skin discoloration, and No edema SKIN Skin color, texture, turgor normal, no suspicious rashes or lesions to exposed skin Latest Ref [facility] 12/25/2023 WBC 3.70 - 11.00 k/uL 7.59 RBC 3.90 - 5.20 m/uL 4.85 Hemoglobin 11.5 - 15.5 g/dL 14.2 Hematocrit 36.0 - 46.0 % 44.8 MCV 80.0 - 100.0 fL 92.4 MCH 26.0 - 34.0 pg 29.3 MCHC 30.5 - 36.0 g/dL 31.7 RDW-CV 11.5 - 15.0 % 14.3 Platelet Count 150 - 400 k/uL 206 MPV 9.0 - 12.7 fL 11.9 Neut% % 59.9 Abs Neut (ANC) 1.45 - 7.50 k/uL 4.55 Lymph% % 26.4 Abs Lymph 1.00 - 4.00 k/uL 2.00 Cooke% % 8.6 Abs Cooke <0.87 k/uL 0.65 Eosin% % 3.0 Abs Eosin <0.46 k/uL 0.23 Baso% % 1.2 Abs Baso <0.11 k/uL 0.09 Immature Gran % % 0.9 IMMATURE GRANS (ABS) <0.10 k/uL 0.07 NRBC /100 WBC 0.0 Absolute nRBC <0.01 k/uL <0.01 DTYPE Auto Protein, Total 6.3 - 8.0 g/dL 8.1 (H) Albumin 3.9 - 4.9 g/dL 4.3 Calcium 8.5 - 10.2 mg/dL 9.6 Bilirubin, Total 0.2 - 1.3 mg/dL 0.5 Alkaline Phosphatase 34 - 123 U/L 104 AST 13 - 35 U/L 20 ALT 7 - 38 U/L 20 Glucose 74 - 99 mg/dL 88 BUN 7 - 21 mg/dL 16 Creatinine 0.58 - 0.96 mg/dL 0.81 Sodium 136 - 144 mmol/L 141 Potassium 3.7 - 5.1 mmol/L 4.2 Chloride 98 - 107 mmol/L 104 CO2 22 - 30 mmol/L 24 Anion Gap 8 - 15 mmol/L 13 eGFR >=60 mL/min/1.73m 78 Total Cholesterol, Nonfasting <200 mg/dL 166 Triglycerides, Nonfasting <150 mg/dL 115 HDL Cholesterol, Nonfasting >39 mg/dL 62 LDL Cholesterol Calculated, Nonfasting <100 mg/dL 81 Non HDL Cholesterol, Nonfasting <130 mg/dL 104 VLDL Cholesterol, Nonfasting <30 mg/dL 23 Total Chol/HDL Ratio, Nonfasting <5.10 mg/dL 2.68 LDL/HDL Ratio, Nonfasting <2.54 mg/dL 1.31 RSV Vaccine(1 - Risk 60-74 years 1-dose series) Never done DTaP,Tdap,Td Vaccine(2 - Td or Tdap) due on 11/21/2018 Advance Directive Discussion due on 03/13/2024 Depression Screening due on 06/22/2024 Anxiety Screening due on 06/22/2024 Shingrix Vaccine(1 of 2) due on 12/24/2024 Covid-19 Vaccine( season) due on 12/24/2024 Mammogram Screening due on 02/04/2025 Diabetes Screening due on 04/04/2027 Lipid Screening due on 12/24/2028 Colorectal Cancer Screening due on 12/22/2030 Bone Density Screening Completed Influenza Vaccine Completed Hepatitis C Screening Completed Pneumococcal Vaccine: 50+ Completed ASSESSMENT/PLAN: 1. Other hyperlipidemia - ICD9: 272.4, ICD10: E78.49 (primary diagnosis) - stable on current regime - continue current medication, diet and exercise 2. RUDY (obstructive sleep apnea) - ICD9: 327.23, ICD10: G47.33 - continue nighty use - follow-up with sleep medicine as recommended 3. Gastroesophageal reflux disease, unspecified whether esophagitis present - ICD9: 530.81, ICD10: K21.9 - stable on current regime - follow-up in 6 months sooner if needed 4. Class 2 obesity with body mass index (BMI) of 37.0 to 37.9 in adult, unspecified obesity type, unspecified whether serious comorbidity present - ICD9: 278.00, V85.37, ICD10: E66.812, Z68.37 Stable - Behavioral intervention - Lengthy discussion in office today regarding diet and exercise. Discussed use of small plate to eat meals from, drink 1 glass of water 10-15 minutes prior to eating meal, drink 8 glasses of water daily, eat fresh fruit and vegetable during meal first then lean protein such as grilled/baked chicken breast or fish, limit carbohydrate intake (less pasta, breads, rice and snack foods) as well as limiting sugars (desserts etc). Important to count / track your calories and exercise as well. Yudith Barraza APRN.CNP Prescription instructions reviewed with patient as applicable. Patient advised if symptoms do not improve or if symptoms worsen sooner, to contact their primary care physician. Potential red flag symptoms discussed with the patient. Reviewed appropriate action plan to take if red flag symptoms occur. Patient agreeable to treatment plan. Medical Decision Making: Problems: Moderate: 2+ stable chronic illnesses Risk: Moderate: Moderate risk from testing/treatment Medical Decision Making Level: 4 - Moderate documented in this encounter [facility] 07-23-2024 Note HNO ID: [id number] Author: YUDITH BARRAZA APRN.CNP Service: ? Author Type: Nurse Practitioner Type: Progress Notes Filed: 07/23/2024 09:28 Note Text: 07/22/2024 Patient presents with: Follow Up SUBJECTIVE: This is a 69 year old that is here today for Above Complaints. RUDY: using CPAP nightly. Follows with sleep medicine at [facility]. Sleeps well and find it to be beneficial Heartburn: taking Omeprazole as prescribed without side effects. Works well to control symptoms HYPERLIPIDEMIA: Patient is taking medications: Yes. Patient is watching diet: sometimes . Patient denies myalgias: Yes. Patient denies gi upset: Yes PAST MEDICAL HISTORY Diagnosis Date Arthritis Diverticulosis of colon (without mention of hemorrhage) Dysplasia of cervix, unspecified GERD (gastroesophageal reflux disease) Kidney cysts 2018 fluid filled Obesity (BMI 35.0-39.9 without comorbidity) RUDY (obstructive sleep apnea) severe Osteoarthritis of lumbar spine Osteoarthritis, knee s/p partial knee replacement on left Seasonal allergies spring and fall Vitamin D insufficiency ALLERGIES Patient has no known allergies. MEDICATIONS Current Outpatient Medications Medication Sig acetaminophen (TYLENOL) 500 mg tablet Take 500 mg by mouth every 8 hours as needed. CPAP Change bilevel setting to 16/12 cmH2O. Please fit with dreamwear under the nose FFM (current masks with significant leaks). Please provide us with download after 4 weeks of use at this pressure setting. Lifetime supply. fluticasone (FLONASE) 50 mcg/actuation nasal spray Use 2 Sprays in each nostril once daily. Rinse mouth after use. atorvastatin (LIPITOR) 20 mg tablet Take 1 tablet by mouth daily at bedtime. For cholesterol. omeprazole (PRILOSEC) 20 mg capsule Take 1 capsule by mouth once daily. cholecalciferol (VITAMIN D3) 50 mcg (2,000 unit) tablet Take 1 tablet by mouth once daily. MULTIVITAMIN ORAL Take by mouth once daily. No current facility-administered medications for this visit. Medications and allergies reviewed by this provider. SOCIAL HISTORY Social History Tobacco Use Smoking status: Never Smokeless tobacco: Never Vaping Use Vaping status: Never Used Substance Use Topics Alcohol use: Yes Comment: occasional- monthly Drug use: No REVIEW OF SYSTEMS All other reviewed and negative other than HPI. OBJECTIVE: BP 142/78 Pulse 69 Resp 18 Wt 102.8 kg (226 lb 9.6 oz) SpO2 98% BMI 37.71 kg/m? . Vital signs reviewed by this provider. APPEARANCE Well appearing, alert, in no acute distress, well-hydrated, well nourished. EYES conjunctiva and sclera normal. HEART RRR with normal S1 and S2, no murmurs, no gallops, no JVD appreciated LUNG clear to auscultation. No wheezes, rhonchi or rales EXTREMITIES Extremities normal, No deformities, No skin discoloration, and No edema SKIN Skin color, texture, turgor normal, no suspicious rashes or lesions to exposed skin Latest Ref [facility] 12/25/2023 WBC 3.70 - 11.00 k/uL 7.59 RBC 3.90 - 5.20 m/uL 4.85 Hemoglobin 11.5 - 15.5 g/dL 14.2 Hematocrit 36.0 - 46.0 % 44.8 MCV 80.0 - 100.0 fL 92.4 MCH 26.0 - 34.0 pg 29.3 MCHC 30.5 - 36.0 g/dL 31.7 RDW-CV 11.5 - 15.0 % 14.3 Platelet Count 150 - 400 k/uL 206 MPV 9.0 - 12.7 fL 11.9 Neut% % 59.9 Abs Neut (ANC) 1.45 - 7.50 k/uL 4.55 Lymph% % 26.4 Abs Lymph 1.00 - 4.00 k/uL 2.00 Cooke% % 8.6 Abs Cooke <0.87 k/uL 0.65 Eosin% % 3.0 Abs Eosin <0.46 k/uL 0.23 Baso% % 1.2 Abs Baso <0.11 k/uL 0.09 Immature Gran % % 0.9 IMMATURE GRANS (ABS) <0.10 k/uL 0.07 NRBC /100 WBC 0.0 Absolute nRBC <0.01 k/uL <0.01 DTYPE Auto Protein, Total 6.3 - 8.0 g/dL 8.1 (H) Albumin 3.9 - 4.9 g/dL 4.3 Calcium 8.5 - 10.2 mg/dL 9.6 Bilirubin, Total 0.2 - 1.3 mg/dL 0.5 Alkaline Phosphatase 34 - 123 U/L 104 AST 13 - 35 U/L 20 ALT 7 - 38 U/L 20 Glucose 74 - 99 mg/dL 88 BUN 7 - 21 mg/dL 16 Creatinine 0.58 - 0.96 mg/dL 0.81 Sodium 136 - 144 mmol/L 141 Potassium 3.7 - 5.1 mmol/L 4.2 Chloride 98 - 107 mmol/L 104 CO2 22 - 30 mmol/L 24 Anion Gap 8 - 15 mmol/L 13 eGFR >=60 mL/min/1.73m? 78 Total Cholesterol, Nonfasting <200 mg/dL 166 Triglycerides, Nonfasting <150 mg/dL 115 HDL Cholesterol, Nonfasting >39 mg/dL 62 LDL Cholesterol Calculated, Nonfasting <100 mg/dL 81 Non HDL Cholesterol, Nonfasting <130 mg/dL 104 VLDL Cholesterol, Nonfasting <30 mg/dL 23 Total Chol/HDL Ratio, Nonfasting <5.10 mg/dL 2.68 LDL/HDL Ratio, Nonfasting <2.54 mg/dL 1.31 RSV Vaccine(1 - Risk 60-74 years 1-dose series) Never done DTaP,Tdap,Td Vaccine(2 - Td or Tdap) due on 11/21/2018 Advance Directive Discussion due on 03/13/2024 Depression Screening due on 06/22/2024 Anxiety Screening due on 06/22/2024 Shingrix Vaccine(1 of 2) due on 12/24/2024 Covid-19 Vaccine( season) due on 12/24/2024 Mammogram Screening due on 02/04/2025 Diabetes Screening due on 04/04/2027 Lipid Screening due on 12/24/2028 Col (more content not included)... [facility] 07-18-2024 Discharge summary Note Date/Time July 18, 2024 3:[address] [place] [address] Physical Therapy [facility] [address] [place] [address] [address] [place] [address] / REHABILITATION SERVICES DISCHARGE SUMMARY MR#: [id number] Acct: [id number] Name: JAIMEE COOPER Rep #: [id number] : 1955 69 From: Ancelmo Rascon DPT, OCS, CSCS Referring Dr.: Dr. Rober Collins MD Status: REG RCR Insurance: MEDICARE PART A B ANTH Patient Information Patient Information: JAIMEE COOPER was seen in my office for initial evaluation on 04/11/24. The following Plan of Care was established for this patient: POC Established Initial Frequency: 3x /Week Initial Duration: 4-6 Weeks Anticipated Interventions Patient/Client Instruction: Educate patient on: Condition and Risk Factors For the Purpose of:: To decrease pain, To increase ROM, To improve nutrient delivery to tissue, To improve muscle performance and motor function, To increase tolerance to activity/condition/position and To improve gait and locomotor functions Therapeutic Exercise to Include: Strength training, Postural training, Flexibilty training, Gait and locomotor training, Passive ROM and Active ROM For the Purpose of:: To decrease pain, To increase ROM, To improve nutrient delivery to tissue, To improve muscle performance and motor function, To increasetolerance to activity/condition/position and To improve gait and locomotor functions Manual Therapy Techniques to Include: Scar massage, Mobilization, Passive ROM and Soft tissue mobilization For the Purpose of:: To decrease pain, To increase ROM, To improve nutrient delivery to tissue, To improve muscle performance and motor function, To increase tolerance to activity/condition/position, To improve ability of physical actionsfor home/community/work/leisure and To improve gait and locomotor functions Cryotherapy (ice pack, ice massage): Yes For the Purpose of:: To decrease pain and To decrease swelling/inflammation Last Seen Last Seen: This patient was last seen in our office 05/27/24. Pertinent comments regardingtheir Physical therapy will appear below: Pt seen 16 visits of POC and was progressing. Took a few weeks off to see doctor but never scheduled or returned to finish therapy. At this point, it has been over 6 weeks and I will discontinue from my care. At this point I will be discontinuing this patient from physical therapy. I would be happy to see this patient again in the future if found appropriate by the physician. Thank you! Ancelmo Rascon DPT, GUICHO, CSCS Balance/Gait/Functional tests Balance/Special Test Scores WOMAC Total Score: 31 WOMAC Percentage: 67.7100 <Electronically signed by Ancelmo Rascon DPT, GUICHO, CSCS> 07/18/24 1232 CC: Dr. Rober Collins MD; Dr. Jose Saldivar MD ~ EBG Signed [facility] Work Phone: [phone]) 927-914205-08-2025 Discharge summary [facility] Physical Therapy [facility] [address] [place] [address] / REHABILITATION SERVICES DISCHARGE SUMMARY MR#: [id number] Acct: [id number] Name: JAIMEE COOPER Rep #: [id number] : 1955 69 From: Ancelmo Rascon DPT, OCS, CSCS Referring Dr.: Dr. Rober Collins MD Status: REG RCR Insurance: MEDICARE PART A B ANTH Patient Information Patient Information: JAIMEE COOPER was seen in my office for initial evaluation on 04/11/24. The following Plan of Care was established for this patient: POC Established Initial Frequency: 3x /Week Initial Duration: 4-6 Weeks Anticipated Interventions Patient/Client Instruction: Educate patient on: Condition and Risk Factors For the Purpose of:: To decrease pain, To increase ROM, To improve nutrient delivery to tissue, To improve muscle performance and motor function, To increase tolerance to activity/condition/position and To improve gait and locomotor functions Therapeutic Exercise to Include: Strength training, Postural training, Flexibilty training, Gait and locomotor training, Passive ROM and Active ROM For the Purpose of:: To decrease pain, To increase ROM, To improve nutrient delivery to tissue, To improve muscle performance and motor function, To increasetolerance to activity/condition/position and To improve gait and locomotor functions Manual Therapy Techniques to Include: Scar massage, Mobilization, Passive ROM and Soft tissue mobilization For the Purpose of:: To decrease pain, To increase ROM, To improve nutrient delivery to tissue, To improve muscle performance and motor function, To increase tolerance to activity/condition/position,To improve ability of physical actionsfor home/community/work/leisure and To improve gait and locomotor functions Cryotherapy (ice pack, ice massage): Yes For the Purpose of:: To decrease pain and To decrease swelling/inflammation Last Seen Last Seen: This patient was last seen in our office 05/27/24. Pertinent comments regardingtheir Physical therapy will appear below: Pt seen 16 visits of POC and was progressing. Took a few weeks off to see doctor but never scheduled or returned to finish therapy. At this point, it has been over 6 weeks and I will discontinue frommy care. At this point I will be discontinuing this patient from physical therapy. I would be happy to see this patient again in the future if found appropriate by the physician. Thank you! Ancelmo Rascon, DPT, OCS, CSCS Balance/Gait/Functional tests Balance/Special Test Scores WOMAC Total Score: 31 WOMAC Percentage: 67.7100 07/18/24 1532 CC: Dr. Rober Collins MD; Dr. Jose Saldivar MD ~ EBG Signed [facility]04-14-2025 Telephone encounter Note* Telephone Encounter - Carmen Martinez LPN - 06/24/2024 2:08 PM EDT Patient telephoned and notified of results. Voices understanding. Carmen Martinez LPN [facility]04-14-2025 Miscellaneous Notes* Telephone Encounter - Carmen Martinez LPN - 06/24/2024 2:08 PM EDT Patient telephoned and notified of results. Voices understanding. Carmen Martinez LPN * Telephone Encounter - Carmen Martinez LPN - 06/24/2024 2:07 PM EDT ----- Message from Mili Saldivar MD sent at 06/24/2024 12:39 PM EDT ----- US negative for superficial or deep clot in right leg. No change in regimen. No further workup needed for elevated D dimer. [facility] Telephone encounter Note * Telephone Encounter - Carmen Martinez LPN - 06/24/2024 2:07 PM EDT ----- Message from Mili Saldivar MD sent at 06/24/2024 12:39 PM EDT ----- US negative for superficial or deep clot in right leg. No change in regimen. No further workup needed for elevated D dimer. [facility]04-14-2025 History of Present illness Narrative* Alia Lovett RDMS - 06/24/2024 11:30 AM EDT Radiology Service Progress Note PATIENT NAME: Jaimee Cooper DATE OF SERVICE: June 24, 2024 TIME: 1:27 PM PATIENT IDENTITY VERIFICATION COMPLETED USING TWO (2) IDENTIFIERS: Name and Date of confirmedby patient verbally. FALL SCREENING: Has the patient had 2 falls in the last year or 1 fall with injury or currently using an Ambulatory Assistive Device (Walker, Cane, Wheelchair, Crutches, etc.)? No PATIENT GENDER DATA: Assigned female at . status: : No status:NO. PATIENT RELEVANT IMPLANT DATA REVIEWED: Not Applicable PATIENT PRESENTS WITH AN IMPLANTABLE OR ATTACHED DRUM SANDER: No RADIOLOGY DEPARTMENT: Ultrasound PERIPHERAL IV DATA: Not applicable SIGNED BY: Alia Lovett RDMS RVT June 24, 2024 1:27 PM [facility] NoteHNO ID: [id number] Author: ALIA LOVETT RDMS Service: ? Author Type: Embedded Engineer Type: Progress Notes Filed: 06/24/2024 13:27 Note Text: Radiology Service Progress Note PATIENT NAME: Jaimee Cooper DATE OF SERVICE: June 24, 2024 TIME: 1:27 PM PATIENT IDENTITY VERIFICATION COMPLETED USING TWO (2) IDENTIFIERS: Name and Date of confirmed by patient verbally. FALL SCREENING: Has the patient had 2 falls in the last year or 1 fall with injury or currently using an Ambulatory Assistive Device (Walker, Cane, Wheelchair, Crutches, etc.)? No PATIENT GENDER DATA: Assigned female at . status: : No status: NO. PATIENT RELEVANT IMPLANT DATA REVIEWED: Not Applicable PATIENT PRESENTS WITH AN IMPLANTABLE OR ATTACHED DRUM SANDER: No RADIOLOGY DEPARTMENT: Ultrasound PERIPHERAL IV DATA: Not applicable SIGNED BY: Alia Lovett RDMS RVT June 24, 2024 1:27 [facility]04-14-2025 NoteHNO ID: [id number] Author: MILI SALDIVAR MD Service: ? Author Type: Physician Type: Progress Notes Filed: 06/24/2024 12:23 Note Text: Chief Complaint Patient presents with: Follow Up: 6 month- hasn't been taking atorvastatin due to surgeries ER F/U: Was sent to ER 06/21/24 by surgeon MIHIR aJimee Cooper is a 69 year old female who presents here today for Above Complaints. Patient sent to ER 3 days ago for elevated D dimer by general surgery. Had umbilical hernia repair on 06/12 and had knee surgery back in March. C/o pain in left lower lung in the ER. Workup with CTA chest negative for PE. Noted mosaic attenuation 2/2 small vessel/airway disease. Discharged home without change in regimen. Today, she states that the pain in her left lower chest/upper abdomen has resolved. She does have swelling around her right knee and upper calf which has been stable since she had surgery in March. Denies pain in her right calf, erythema, chest pain, SOB, palpitations, hemoptysis. Past medical history, appointments, medications, allergies reviewed. Previous Medical History PAST MEDICAL HISTORY Diagnosis Date Arthritis Diverticulosis of colon (without mention of hemorrhage) Dysplasia of cervix, unspecified GERD (gastroesophageal reflux disease) Kidney cysts 2017 fluid filled Obesity (BMI 35.0-39.9 without comorbidity) RUDY (obstructive sleep apnea) severe Osteoarthritis of lumbar spine Osteoarthritis, knee s/p partial knee replacement on left Seasonal allergies spring and fall Vitamin D insufficiency Previous Surgical History PAST SURGICAL HISTORY Procedure Laterality Date CAUTERY CERVIX CRYOCAUTERY INITIAL/REPEAT 06/16/1994 COLONOSCOPY FLX DX W/COLLJ SPEC WHEN PFRMD 05/31/2010 Colonoscopy COLONOSCOPY FLX DX W/COLLJ SPEC WHEN PFRMD 12/22/2020 ESOPHAGOGASTRODUODENOSCOPY TRANSORAL DIAGNOSTIC 12/22/2020 REPAIR EPIGASTRIC HERNIA,REDUC 06/12/2024 SKIN BIOPSY HX TONSILLECTOMY HX TONSILLECTOMY PRIMARY/SECONDARY TOTAL KNEE REPLACEMENT Left partial left done last Apr 2014 TOTAL KNEE REPLACEMENT Right 03/2024 Family History FAMILY HISTORY Problem Relation Age of Onset Osteoporosis Mother Arthritis, HTN, Macular Degeneration other (hip fracture) Mother X 2 Heart Father ASHD, [place] No Known Problems Sister Lung Cancer Brother No Known Problems Brother Breast Cancer Maternal Grandmother Malig Hyperthermia No Family History Patient Allergies ALLERGIES No Known Allergies Current Medications Current Outpatient Medications on File Prior to Visit Medication Sig CPAP Change bilevel setting to 16/12 cmH2O. Please fit with dreamwear under the nose FFM (current masks with significant leaks). Please provide us with download after 4 weeks of use at this pressure setting. Lifetime supply. fluticasone (FLONASE) 50 mcg/actuation nasal spray Use 2 Sprays in each nostril once daily. Rinse mouth after use. cholecalciferol (VITAMIN D3) 50 mcg (2,000 unit) tablet Take 1 tablet by mouth once daily. MULTIVITAMIN ORAL Take by mouth once daily. acetaminophen (TYLENOL) 500 mg tablet Take 500 mg by mouth every 8 hours as needed. atorvastatin (LIPITOR) 20 mg tablet Take 1 tablet by mouth daily at bedtime. For cholesterol. omeprazole (PRILOSEC) 20 mg capsule Take 1 capsule by mouth once daily. No current facility-administered medications on file prior to visit. Social History Social History Tobacco Use Smoking status: Never Smokeless tobacco: Never Vaping Use Vaping status: Never Used Substance Use Topics Alcohol use: Yes Comment: occasional- monthly Drug use: No Review of Symptoms REVIEW OF SYSTEMS GENERAL: No weight loss, malaise or fevers RESPIRATORY: Negative for cough, hemoptysis, wheezing, COPD, dyspnea or shortness of breath CARDIOVASCULAR: See HPI GI: No nausea, vomiting, or diarrhea SKIN: Negative for lesions, rash, and itching EXAM: BP 120/76 Pulse 78 Resp 16 Wt 100.6 kg (221 lb 12.8 oz) SpO2 96% BMI 36.91 kg/m? General Appearance: Well appearing, alert, in no acute distress, well-hydrated, well nourished.. Skin: Skin color, texture, turgor normal, no suspicious rashes or lesions. Lungs: Lungs clear to auscultation. No wheezing, rhonchi, rales.. Heart: RRR without murmur, gallop, or rubs. No ectopy. Abdomen: Normal abdominal exam, Abdomen soft, non-tender. Bowel sounds normal. No masses, organomegaly. Extremities: right leg 2 cm compared to left. No edema. Negative hohmans. No erythema. . Health Maintenance List RSV Vaccine(1 - Risk 60-74 years 1-dose series) Never done DTaP,Tdap,Td Vaccine(2 - Td or Tdap) due on 11/21/2018 Advance Directive Discussion due on 03/13/2024 Depression Screening due on 06/22/2024 Anxiety Screening due on 06/22/2024 Shingrix Vaccine(1 of 2) due on 12/24/2024 Covid-19 Vaccine() due on 12/24/2024 Mammogram Screening due on 02/04/2025 (more content not included)...[facility]04-14-2025 History of Present illness Narrative* Mili Saldivar MD - 06/24/2024 9:52 AM EDT Chief Complaint Patient presents with: Follow Up: 6 month- hasn't been taking atorvastatin due to surgeries ER F/U: Was sent to ER 06/21/24 by surgeon MIHIR Jaimee Cooper is a 69 year old female who presents here today for Above Complaints. Patient sent to ER 3 days ago for elevated D dimer by general surgery. Had umbilical hernia repair on 06/12 and had knee surgery back in March. C/o pain in left lower lung in the ER. Workup with CTA chest negative for PE. Noted mosaic attenuation 2/2 small vessel/airway disease. Discharged home without change in regimen. Today, she states that the pain in her left lower chest/upper abdomen has resolved. She does have swelling around her right knee and upper calf which has been stable since she had surgery in March.Denies pain in her right calf, erythema, chest pain, SOB, palpitations, hemoptysis. Past medical history, appointments, medications, allergies reviewed. Previous Medical History PAST MEDICAL HISTORY Diagnosis Date Arthritis Diverticulosis of colon (without mention of hemorrhage) Dysplasia of cervix, unspecified GERD (gastroesophageal reflux disease) Kidney cysts 2017 fluid filled Obesity (BMI 35.0-39.9 without comorbidity) RUDY (obstructive sleep apnea) severe Osteoarthritis of lumbar spine Osteoarthritis, knee s/p partial knee replacement on left Seasonal allergies spring and fall Vitamin D insufficiency Previous Surgical History PAST SURGICAL HISTORY Procedure Laterality Date CAUTERY CERVIX CRYOCAUTERY INITIAL/REPEAT 06/16/1994 COLONOSCOPY FLX DX W/COLLJ SPEC WHEN PFRMD 05/31/2010 Colonoscopy COLONOSCOPY FLX DX W/COLLJ SPEC WHEN PFRMD 12/22/2020 ESOPHAGOGASTRODUODENOSCOPY TRANSORAL DIAGNOSTIC 12/22/2020 REPAIR EPIGASTRIC HERNIA,REDUC 06/12/2024 SKIN BIOPSY HX TONSILLECTOMY HX TONSILLECTOMY PRIMARY/SECONDARY <AGE 12 TOTAL KNEE REPLACEMENT Left partial left done last Apr 2014 TOTAL KNEE REPLACEMENT Right 03/2024 Family History FAMILY HISTORY Problem Relation Age of Onset Osteoporosis Mother Arthritis, HTN, Macular Degeneration other (hip fracture) Mother X 2 Heart Father ASHD, [place] No Known Problems Sister Lung Cancer Brother No Known Problems Brother Breast Cancer Maternal Grandmother Malig Hyperthermia No Family History Patient Allergies ALLERGIES No Known Allergies Current Medications Current Outpatient Medications on File Prior to Visit Medication Sig CPAP Change bilevel setting to 16/12 cmH2O. Please fit with dreamwear under the nose FFM (current masks with significant leaks). Please provide us with download after 4 weeks of use at this pressure setting. Lifetime supply. fluticasone (FLONASE) 50 mcg/actuation nasal spray Use 2 Sprays in each nostril once daily. Rinse mouth after use. cholecalciferol (VITAMIN D3) 50 mcg (2,000 unit) tablet Take 1 tablet by mouth once daily. MULTIVITAMIN ORAL Take by mouth once daily. acetaminophen (TYLENOL) 500 mg tablet Take 500 mg by mouth every 8 hours as needed. atorvastatin (LIPITOR) 20 mg tablet Take 1 tablet by mouth daily at bedtime. For cholesterol. omeprazole (PRILOSEC) 20 mg capsule Take 1 capsule by mouth once daily. No current facility-administered medications on file prior to visit. Social History Social History Tobacco Use Smoking status: Never Smokeless tobacco: Never Vaping Use Vaping status: Never Used Substance Use Topics Alcohol use: Yes Comment: occasional- monthly Drug use: No Review of Symptoms REVIEW OF SYSTEMS GENERAL: No weight loss, malaise or fevers RESPIRATORY: Negative for cough, hemoptysis, wheezing, COPD, dyspnea or shortness of breath CARDIOVASCULAR: See HPI GI: No nausea, vomiting, or diarrhea SKIN: Negative for lesions, rash, and itching EXAM: BP 120/76 Pulse 78 Resp 16 Wt 100.6 kg (221 lb 12.8 oz) SpO2 96% BMI 36.91 kg/m General Appearance: Well appearing, alert, in no acute distress, well-hydrated, well nourished.. Skin: Skin color, texture, turgor normal, no suspicious rashes or lesions. Lungs: Lungs clear to auscultation. No wheezing, rhonchi, rales.. Heart: RRR without murmur, gallop, or rubs. No ectopy. Abdomen: Normal abdominal exam, Abdomen soft, non-tender. Bowel sounds normal. No masses, organomegaly. Extremities: right leg 2 cm compared to left. No edema. Negative hohmans. No erythema. . Health Maintenance List RSV Vaccine(1 - Risk 60-74 years 1-dose series) Never done DTaP,Tdap,Td Vaccine(2 - Td or Tdap) due on 11/21/2018 Advance Directive Discussion due on 03/13/2024 Depression Screening due on 06/22/2024 Anxiety Screening due on 06/22/2024 Shingrix Vaccine(1 of 2) due on 12/24/2024 Covid-19 Vaccine( season) due on 12/24/2024 Mammogram Screening due on 02/04/2025 Diabetes Screening due on 04/04/2027 Lipid Screening due on 12/24/2028 Colorectal Cancer Screening due on 12/22/2030 Bone Density Screening Completed Influenza Vaccine Completed Hepatitis C Screening Completed Pneumococcal Vaccine: 50+ Completed Data reviewed Latest Ref Rng 06/21/2024 d Dimer <500 ng/mL FEU 1,370 (H) D Dimer Age-related Cutoff ng/mL FEU 710 Legend: (H) High ASSESSMENT/PLAN: 1. Positive D dimer - ICD9: 790.92, ICD10: R79.89 (primary diagnosis) Likely 2/2 recent surgery. With right leg swelling compared to left, will obtain US to rule out DVTand call with results. Red flags for re-assessment reviewed with patient in detail. - US DVT LOWER RIGHT 2. Right leg swelling - ICD9: 729.81, ICD10: M79.89 Unchanged since knee replacement. See above. Discussed rest, ice, elevation, and compression stockings which she has at home. - US DVT LOWER RIGHT 3. Chest pain, unspecified type - ICD9: 786.50, ICD10: R07.9 Resolved. Negative for PE. Mili Saldivar MD [facility] Discharge summary [facility] Medical Records Department [address] [place] [address] Emergency Department Summary 06/21/24 MR#: [id number] Acct: [id number] Name: JAIMEE COOPER Rep #:[id number] : 1955 69 From: Blu Baeza MD PCP: Dr. Jose Saldivar MD Status :REG ER Location: ED HPI History of Present Illness Chief Complaint: Abn Labs Detail of Chief Complaint: Sent for elevated D-dimer. Informant: patient and spouse/S.O. Onset/Context/Timing Onset: - (Not applicable) Context: - (Fullness/discomfort left upper quadrant) Timing: Intermittent Quality: Mild shortness of breath Location: Left upper quadrant/left lower lung field Current Severity: Mild Maximum Severity: Moderate Worsened by: Nothing Relieved by: Nothing Associated Symptoms Associated Symptoms: No history of VTE. No leg pain or discoloration. Right lower extremity sw Narrative Narrative: Patient is a 69-year-old woman. She had knee surgery end of March. She had hernia repair by Dr. Dhaliwal 1 week ago. She was seen by nurse practitioner at [facility]. She had a D-dimer that was elevated even after correction forage. Level was 1316. Upper end of normal is 710. She complains of some discomfort in the left lower lung field/left upper quadrant. This started afterthe hernia surgery. She has had chronic swelling of her right lower extremity since the knee surgery end of March. She denies fever, chills night sweats. She denies chest pressure, tightness or heaviness. She denies skin rash or lesions. She denies trauma. Prior similar symptoms: No Recent Illness/Hospitalization: Yes [facility] Medical History Degenerative disk disease Non-smoker GERD (gastroesophageal reflux disease) Home Medications ?Medication ?Instructions ?Recorded ?Last Taken ?Type cholecalciferol (vitamin D3) 50 2,000 unit PO DAILY Unknown History mcg (2,000 unit) capsule (Vitamin D3) multivitamin (One Daily 1 ea PO DAILY 04/07/18 Unkno wn History Multivitamin tablet) omeprazole magnesium 20 mg 20 mg PO PRN PRN GERD 04/07 Unknown History tablet,delayed release (Prilosec OTC) atorvastatin 20 mg tablet 20 mg PO QDAY 02/22/24 Unkno wn History Allergy/AdvReac Type Severity Reaction Status Date / Time No Known Allergies Allergy Verified 06/21/24 15:37 Family History Father Heart disease Surgical History Status post left partial knee replacement Social History household members: spouse housing: house current occupational status: retired current occupation: Retired bookeeper pets and animals: No Smoking Status: Never smoker alcohol intake: current alcohol intake frequency: holidays/special occasions only substance use type: does not use what type of physical activity do you participate in: none seatbelt use: always do you feel safe at home: Yes ROS ROS ED Constitutional Constitutional ED: Denies chills, fever(s), subjective or sweats Eyes Eyes: Denies blurry vision or change in vision ENT ENT ED: Denies ear pain, rhinorrhea or sore throat Cardiovascular Cardiovascular: Denies chest pain, orthopnea, palpitations, paroxysmal nocturnaldyspnea or racing heartbeat Respiratory/Chest Respiratory/Chest: Reports dyspnea and dyspnea on exertion; Denies cough, orthopnea or paroxysmal nocturnal dyspnea Gastrointestinal Gastrointestinal: Reports abdominal pain; Denies constipation, diarrhea, melena,nausea or vomiting Genitourinary Genitourinary ED: Denies dysuria, hematuria or urinary frequency Musculoskeletal Musculoskeletal: Denies arthralgias or myalgias Integumentary Denies rash Neurologic Neurologic: Denies paresthesias or weakness Hematologic/Lymphatic Hematologic/Lymphatic: Reports systems reviewed and no addt'l complaints, exceptas documented EXAM Physical Exam Const Vital Signs: 06/21/24 15:36 06/21/24 15:36 06/21/24 16:24 Temperature 98.1 F Temperature Source Oral Pulse Rate 93 Respiratory Rate 16 Respiratory Effort Normal Non-Labored Normal Non-Labored Respiratory Depth Normal Respiratory Pattern Normal Normal Blood Pressure 169/87 H Blood Pressure Mean 114 Pulse Ox 99 Oxygen Delivery Method Room Air Room Air 06/21/24 16:36 06/21/24 17:00 Temperature Temperature Source Pulse Rate 88 88 Respiratory Rate 14 19 H Respiratory Effort Respiratory Depth Respiratory Pattern Blood Pressure 149/78 H 143/77 H Blood Pressure Mean 101 99 Pulse Ox 98 97 Oxygen Delivery Method Room Air Room Air Positive well nourished and well developed Constitutional Narrative: BMI is 36.8. Vital signs noted. Blood pressure slightly elevated. She is not tachycardic, tachypneic or hypoxic. General Appearance ED: well developed and NAD; Negative for cyanotic or diaphoretic HEENT Reports moist mucous membranes HEENT Narrative: Head is atraumatic normocephalic. Ears normal. Nares patent. Eyes PERRL and EOMs intact bilaterally General Eye ED: Negative for pale conjunctiva or scleral icterus Neck no lymphadenopathy, supple and no JVD Chest Wall inspection of chest normal and palpation of chest normal Resp normal respiratory effort and clear to auscultation bilaterally Cardio regular rate, regular rhythm, S1 normal heart sound, S2 normal heart sound and no murmurs GI non-tender, non-distended and no masses; Negative for hepatosplenomegaly GI Narrative: Incision superior to the umbilicus is healing without evidence infection. Auscultation: normoactive bowel sounds Palpation: soft Back/Spine no CVA tenderness Extremity Extremity Narrative: The right lower extremity is swollen compared to the left. There is no discoloration or leg vein distention. There is no painalong the distribution deep venous system nor are there any palpable cords. Neuro CN's II-XII intact bilaterally Sensorium / Orientation: alert Psych mental status grossly normal Skin Skin Narrative: Umbilical incision is healing without evidence infection. MDM MDM MDM Narrative Medical decision making narrative: Patient is at risk for VTE and has an elevated D-dimer and spite of correction for age. Will obtainCTA of the chest after obtaining BMP since she has not hadrecent blood work to assess her renal function. Her blood pressure is elevated. This could be elevated for multiple reasons. History & Record Review Additional record(s) reviewed:: Prior outpatient record (Note authored by nurse practitioner Aleida [facility] was reviewed through the patient's [facility] MyChart portal.) and Prior labs Lab Data Labs: Laboratory Results - last 24 hr 06/21/24 16:15 Sodium 141 Potassium 3.7 Chloride 107 Carbon Dioxide 21.4 Anion Gap 13 BUN 17 Creatinine 0.90 Estim Creat Clear Calc 67.23 Est GFR (MDRD) Non-Af 68 BUN/Creatinine Ratio 18.8 Glucose 104 H Calcium 9.0 Radiography Diagnostic Testing: Clinical Impression(s) from Imaging Studies Chest CTA 06/21/24 15:58 IMPRESSION: No evidence of acute pulmonary embolism. Mosaic attenuation, likely secondary to small vessel/small airways disease. Reading Location: [facility] was reviewed by me. There is no obvious pulm embolus. Patient is known to have a mosaic attenuation likely due to small vessel small airway disease. She has no infectious symptoms. The radiology report was reviewed. She was informed. Treatment and Re-Evaluation :: Patient and were informed of the CAT scan results. She was told she does not have a blood clot. Does not have evidence of pneumonia. Discharge Plan Triage Chief Complaint: Abn Labs Other Complaint: Shortness of Breath ED Provider: Blu Baeza Dx/Rx/DC Orders Clinical Impression: Dyspnea, Obstructive sleep apnea, Elevated d-dimer, Elevated blood-pressure reading without diagnosis of hypertension, Adult BMI 36.0-36.9 kg/sq m Instructions: ED Dyspnea, ED Hypertension, To Be Confirmed Prescriptions: No Action atorvastatin 20 mg tablet 20 mg PO QDAY multivitamin [One Daily Multivitamin] 1 EACH tablet 1 ea PO DAILY omeprazole magnesium [Prilosec OTC] 20 MG tablet,delayed release (DR/EC) 20 mg PO PRN PRN (Reason: GERD) cholecalciferol (vitamin D3) [Vitamin D3] 2,000 UNIT capsule 2,000 unit PO DAILY Primary Care Provider: Jose Saldivar Referrals: Jose Saldivar MD [Primary Care Provider] - Keep Louis appointment Print Language: Kiswahili Disposition Disposition: Home, Self Care What to do if you have Problems For any increased pain, shortness of breath, bleeding, nausea or vomiting, chestpain, or any unexpected problems, contact your Primary Care Provider. Call [facility] ([phone]) or report tothe closest Emergency Room. Call 911 if necessary. 06/21/24 1748 Cosigner Signature (if applicable): CC: Dr. Jose Saldivar MD ~ Signed [facility]04-11-2025 Radiology Diagnostic study note [facility] Imaging Services [address] [place] [address] CTA Chest W/WO Contrast MR#: [id number] Acct: [id number] Name: JAIMEE COOPER Rep #: [id number] : 1955 F 69 From: Carolyn Benítez MD PCP: Dr. Jose Saldivar MD Status: REG ER Study:CTA Chest W/WO Contrast Date of Exam: 06/21/24 Exam# [id number] Ordering Dr: Ana Baeza MD PROCEDURE: CTA CHEST W/WO CONTRAST 06/21/2024 REASON FOR EXAM: LLQ DISCOMFORT WITH BREATHING, ELEVATED D-DIMER, S TECHNIQUE: CTA axial imaging of the chest with intravenous contrast. Coronal and Sagittal reconstruction series were provided. 3D, 3D post processing, 3D reconstructions, Maximum intensity projection (MIPs) Volume rendering and Shaded surface rendering was provided. PATIENT PREPARATION: Per protocol CONTRAST: Omnipaque 350 VOLUME: 100 mL Gauge IV One or more dose reduction techniques were used (e.g., Automated exposure control, adjustment of the mA and/or kV according to patient size, use of iterative reconstruction technique). COMPARISON: None FINDINGS: Hardware: None Lymph nodes: No suspicious adenopathy. Heart: Mild biatrial enlargement. No pericardial effusion. No significant coronary artery calcifications. Thoracic Aorta: No thoracic aortic aneurysm or dissection. Pulmonary Vessels: No large central pulmonary emboli are identified. Contrast timing is suboptimal for evaluation of more distal branches. Lungs and Airways: Central airways are patent without endobronchial lesions. Upper lobe predominantmosaic attenuation, likely secondary [facility]04-11-2025 Discharge summary Author Blu Baeza [facility] Note Date/Time June 21, 2024 5:4 8pm [facility] Medical Records Department [address] [place] [address] Emergency Department Summary 06/21/24 MR#: [id number] Acct: [id number] Name: JAIMEE COOPER Rep #:[id number] : 1955 69 From: Blu Baeza MD PCP: Dr. Jose Saldivar MD Status :REG ER Location: ED HPI History of Present Illness Chief Complaint: Abn Labs Detail of Chief Complaint: Sent for elevated D-dimer. Informant: patient and spouse/S.O. Onset/Context/Timing Onset: - (Not applicable) Context: - (Fullness/discomfort left upper quadrant) Timing: Intermittent Quality: Mild shortness of breath Location: Left upper quadrant/left lower lung field Current Severity: Mild Maximum Severity: Moderate Worsened by: Nothing Relieved by: Nothing Associated Symptoms Associated Symptoms: No history of VTE. No leg pain or discoloration. Right lower extremity sw Narrative Narrative: Patient is a 69-year-old woman. She had knee surgery end of March. She had hernia repair by Dr. Dhaliwal 1 week ago. She was seen by nurse practitioner at [facility]. She had a D-dimer that was elevated even after correction forage. Level was 1316. Upper end of normal is 710. She complains of some discomfort in the left lower lung field/left upper quadrant. This started afterthe hernia surgery. She has had chronic swelling of her right lower extremity since the knee surgery end of March. She denies fever, chills night sweats. She denies chest pressure, tightness or heaviness. She denies skin rash or lesions. She denies trauma. Prior similar symptoms: No Recent Illness/Hospitalization: Yes [facility] Medical History Degenerative disk disease Non-smoker GERD (gastroesophageal reflux disease) Home Medications ?Medication ?Instructions ?Recorded ?Last Taken ?Type cholecalciferol (vitamin D3) 50 2,000 unit PO DAILY Unknown History mcg (2,000 unit) capsule (Vitamin D3) multivitamin (One Daily 1 ea PO DAILY 04/07/18 Unkno wn History Multivitamin tablet) omeprazole magnesium 20 mg 20 mg PO PRN PRN GERD 04/07 Unknown History tablet,delayed release (Prilosec OTC) atorvastatin 20 mg tablet 20 mg PO QDAY 02/22/24 Unkno wn History Allergy/AdvReac Type Severity Reaction Status Date / Time No Known Allergies Allergy Verified 06/21/24 15:37 Family History Father Heart disease Surgical History Status post left partial knee replacement Social History household members: spouse housing: house current occupational status: retired current occupation: Retired bookeeper pets and animals: No Smoking Status: Never smoker alcohol intake: current alcohol intake frequency: holidays/special occasions only substance use type: does not use what type of physical activity do you participate in: none seatbelt use: always do you feel safe at home: Yes ROS ROS ED Constitutional Constitutional ED: Denies chills, fever(s), subjective or sweats Eyes Eyes: Denies blurry vision or change in vision ENT ENT ED: Denies ear pain, rhinorrhea or sore throat Cardiovascular Cardiovascular: Denies chest pain, orthopnea, palpitations, paroxysmal nocturnaldyspnea or racing heartbeat Respiratory/Chest Respiratory/Chest: Reports dyspnea and dyspnea on exertion; Denies cough, orthopnea or paroxysmal nocturnal dyspnea Gastrointestinal Gastrointestinal: Reports abdominal pain; Denies constipation, diarrhea, melena,nausea or vomiting Genitourinary Genitourinary ED: Denies dysuria, hematuria or urinary frequency Musculoskeletal Musculoskeletal: Denies arthralgias or myalgias Integumentary Denies rash Neurologic Neurologic: Denies paresthesias or weakness Hematologic/Lymphatic Hematologic/Lymphatic: Reports systems reviewed and no addt'l complaints, exceptas documented EXAM Physical Exam Const Vital Signs: 06/21/24 15:36 06/21/24 15:36 06/21/24 16:24 Temperature 98.1 F Temperature Source Oral Pulse Rate 93 Respiratory Rate 16 Respiratory Effort Normal Non-Labored Normal Non-Labored Respiratory Depth Normal Respiratory Pattern Normal Normal Blood Pressure 169/87 H Blood Pressure Mean 114 Pulse Ox 99 Oxygen Delivery Method Room Air Room Air 06/21/24 16:36 06/21/24 17:00 Temperature Temperature Source Pulse Rate 88 88 Respiratory Rate 14 19 H Respiratory Effort Respiratory Depth Respiratory Pattern Blood Pressure 149/78 H 143/77 H Blood Pressure Mean 101 99 Pulse Ox 98 97 Oxygen Delivery Method Room Air Room Air Positive well nourished and well developed Constitutional Narrative: BMI is 36.8. Vital signs noted. Blood pressure slightly elevated. She is not tachycardic, tachypneic or hypoxic. General Appearance ED: well developed and NAD; Negative for cyanotic or diaphoretic HEENT Reports moist mucous membranes HEENT Narrative: Head is atraumatic normocephalic. Ears normal. Nares patent. Eyes PERRL and EOMs intact bilaterally General Eye ED: Negative for pale conjunctiva or scleral icterus Neck no lymphadenopathy, supple and no JVD Chest Wall inspection of chest normal and palpation of chest normal Resp normal respiratory effort and clear to auscultation bilaterally Cardio regular rate, regular rhythm, S1 normal heart sound, S2 normal heart sound and no murmurs GI non-tender, non-distended and no masses; Negative for hepatosplenomegaly GI Narrative: Incision superior to the umbilicus is healing without evidence infection. Auscultation: normoactive bowel sounds Palpation: soft Back/Spine no CVA tenderness Extremity Extremity Narrative: The right lower extremity is swollen compared to the left. There is no discoloration or leg vein distention. There is no painalong the distribution deep venous system nor are there any palpable cords. Neuro CN's II-XII intact bilaterally Sensorium / Orientation: alert Psych mental status grossly normal Skin Skin Narrative: Umbilical incision is healing without evidence infection. MDM MDM MDM Narrative Medical decision making narrative: Patient is at risk for VTE and has an elevated D-dimer and spite of correction for age. Will obtain CTA of the chest after obtaining BMP since she has not hadrecent blood work to assess her renal function. Her blood pressure is elevated. This could be elevated for multiple reasons. History & Record Review Additional record(s) reviewed:: Prior outpatient record (Note authored by nurse practitioner Aleida at [facility] was reviewed through the patient's [facility] portal.) and Prior labs Lab Data Labs: Laboratory Results - last 24 hr 06/21/24 16:15 Sodium 141 Potassium 3.7 Chloride 107 Carbon Dioxide 21.4 Anion Gap 13 BUN 17 Creatinine 0.90 Estim Creat Clear Calc 67.23 Est GFR (MDRD) Non-Af 68 BUN/Creatinine Ratio 18.8 Glucose 104 H Calcium 9.0 Radiography Diagnostic Testing: Clinical Impression(s) from Imaging Studies Chest CTA 06/21/24 15:58 IMPRESSION: No evidence of acute pulmonary embolism. Mosaic attenuation, likely secondary to small vessel/small airways disease. Reading Location: [facility] CT was reviewed by me. There is no obvious pulm embolus. Patient is known to have a mosaic attenuation likely due to small vessel small airway disease. She has no infectious symptoms. The radiology report was reviewed. She was informed. Treatment and Re-Evaluation :: Patient and were informed of the CAT scan results. She was told she does not have a blood clot. Does not have evidence of pneumonia. Discharge Plan Triage Chief Complaint: Abn Labs Other Complaint: Shortness of Breath ED Provider: Blu Baeza Dx/Rx/DC Orders Clinical Impression: Dyspnea, Obstructive sleep apnea, Elevated d-dimer, Elevated blood-pressure reading without diagnosis of hypertension, Adult BMI 36.0-36.9 kg/sq m Instructions: ED Dyspnea, ED Hypertension, To Be Confirmed Prescriptions: No Action atorvastatin 20 mg tablet 20 mg PO QDAY multivitamin [One Daily Multivitamin] 1 EACH tablet 1 ea PO DAILY omeprazole magnesium [Prilosec OTC] 20 MG tablet,delayed release (DR/EC) 20 mg PO PRN PRN (Reason: GERD) cholecalciferol (vitamin D3) [Vitamin D3] 2,000 UNIT capsule 2,000 unit PO DAILY Primary Care Provider: Jose Saldivar Referrals: Jose Saldivar MD [Primary Care Provider] - Keep [facility] appointment Print Language: Kiswahili Disposition Disposition: Home, Self Care What to do if you have Problems For any increased pain, shortness of breath, bleeding, nausea or vomiting, chestpain, or any unexpected problems, contact your Primary Care Provider. Call [facility] ([phone]) or report to the closest Emergency Room. Call 911 if necessary. 06/21/241747 <Electronically signed by Blu Baeza MD> Cosigner Signature (if applicable): CC: Dr. Jose Saldivar MD ~ Signed [facility] Work Phone: [phone]) 961-982604-11-2025 History of Present illness Narrative* Marichuy Deluna APRN.PATTERN REPAIR PERSON - 06/21/2024 8:30 AM EDT Images from the original note were not included. SUBJECTIVE: Jaimee Cooper presents for follow up of her umbilical hernia repair WITH mesh. On 06/12/2024 she underwent a hernia repair, tolerated the procedure well and was discharged home. Patient complaints: pain -midline above umbilicus and slightly to the left lower rib cage only with inspiration -had left knee replacement 9 weeks ago: denies any lower leg pain, redness, swelling or edema -she denies SOB, CP, dizziness, fever, chills, syncope or extreme fatigue She denies drainage, redness around wound, difficulty voiding, and constipation. OBJECTIVE: Temp 36.7 C (98.1 F) (Temporal) General Appearance: Well developed, No acute distress Respiratory: Lungs clear bilaterally. Respirations equal and unlabored Abdomen: Abdomen soft, non-distended. Incision: no drainage, no erythema, no swelling, mild ecchymosis, and no tenderness Extremities: no redness, increased swelling or edema of bilateral lower extremities Participation of a fellow, resident, medical student, or advanced practice provider student in performing the sensitive examination was discussed with the patient or authorized corporate sales representative. The patient or authorized corporate sales representative has agreed to proceed with the sensitive examination. IMPRESSION: Post op course: Normal PLAN: Post-op patient instructions were reviewed with the patient. I have explained to Ms. Cooper that she may return to normal activity with the following restrictions: No heavy lifting, pushing, or pulling greater than 20 lbs for 6 weeks post-operatively. I have encouraged her to contact me at any time with any questions or concerns that may arise. Since Jaimee had two surgeries within 9 weeks and she is complaining of pain near the left rib cage with inspiration I ordered a D.Dimer to r/oblood clot. If lab is positive with order a CTA. Pt aware and agreeable. Follow up: JONNY Deluna APRN.CNP documented [facility] NoteHNO ID: [id number] Author: MARICHUY DELUNA APRN.CNP Service: ? Author Type: Nurse Practitioner Type: Progress Notes Filed: 06/21/2024 09:30 Note Text: SUBJECTIVE: Jaimee Cooper presents for follow up of her umbilical hernia repair WITH mesh. On 06/12/2024 she underwent a hernia repair, tolerated the procedure well and was discharged home. Patient complaints: pain -midline above umbilicus and slightly to the left lower rib cage only with inspiration -had left knee replacement 9 weeks ago: denies any lower leg pain, redness, swelling or edema -she denies SOB, CP, dizziness, fever, chills, syncope or extreme fatigue She denies drainage, redness around wound, difficulty voiding, and constipation. OBJECTIVE: Temp 36.7 ?C (98.1 ?F) (Temporal) General Appearance: Well developed, No acute distress Respiratory: Lungs clear bilaterally. Respirations equal and unlabored Abdomen: Abdomen soft, non-distended. Incision: no drainage, no erythema, no swelling, mild ecchymosis, and no tenderness Extremities: no redness, increased swelling or edema of bilateral lower extremities Participation of a fellow, resident, medical student, or advanced practice provider student in performing the sensitive examination was discussed with the patient or authorized corporate sales representative. The patient or authorized corporate sales representative has agreed to proceed with the sensitive examination. IMPRESSION: Post op course: Normal PLAN: Post-op patient instructions were reviewed with the patient. I have explained to Ms. Cooper that she may return to normal activity with the following restrictions: No heavy lifting, pushing, or pulling greater than 20 lbs for 6 weeks post-operatively. I have encouraged her to contact me at any time with any questions or concerns that may arise. Since Jaimee had two surgeries within 9 weeks and she is complaining of pain near the left rib cage with inspiration I ordered a D.Dimer to r/o blood clot. If lab is positive with order a CTA. Pt aware and agreeable. Follow up: JONNY Deluna APRN.[facility]04-02-2025 NoteHNO ID: [id number] Author: MARINO FUNG APRN.CLASSIFICATION OFFICER Service: Anesthesiology Author Type: Nurse [employer] Weaver Type: Anesthesia Procedure Notes Filed: 06/12/2024 07:58 Note Text: ANESTHESIOLOGY PROCEDURE NOTE Airway General Information Procedure Start Time/Medication Administration: 06/12/2024 7:42 AM Procedure End Time: 06/12/2024 7:44 AM Patient location during procedure: OR Patient identity confirmed: arm band, care team primary care physician and patient Staffing Anesthesiologist: Vj Cardenas MD CLASSIFICATION OFFICER: Marino Fung APRN.CLASSIFICATION OFFICER Performed by: CLASSIFICATION OFFICER Indications and Patient Condition Indications for airway management: anesthesia Preoxygenated: yes anesthesia circuit Patient position: sniffing Method: asleep Difficult Mask: No Airway Accessory: oral airway (90 mm) Final Airway Details Final airway type: endotracheal airway Final Endotracheal Airway: ETT Cuffed: yes Successful intubation technique: video laryngoscopy Devices used: Garcia and intubating stylet Endotracheal tube insertion site: oral Blade size: #3 ETT size (mm): 7.0 Measured from: lips Measurement (cm): 21 Placement verified by: chest auscultation and capnometry Cormack-Lehane Classification: grade I - full view of glottis Number of attempts at approach: 2 Airway not difficult Comments Teeth and lips intact after atraumatic intubation. 1st attempt with DL with MAC 4 blade yielded a grade III view. 2nd attempt with Garcia yielded a grade I view. SIGNATURE: Marino Fung APRN.CLASSIFICATION OFFICER PATIENT NAME: Jaimee Cooper DATE: June 12, 2024 TIME: 7:56 AM CSN: [id number] ID: [id number] Author: HAJA DHALIWAL MD Service: ? Author Type: Physician Type: Progress Notes Filed: 06/12/2024 07:02 Note Text: HISTORY AND PHYSICAL Jaimee Cooper 1955 REFERRING PHYSICIAN: Mili Saldivar MD CHIEF COMPLAINT: Consult (hERNIA) HPI: Jaimee is a 69 year old female with a complaint of a bulge and discomfort in her umbilical region. The patient notes discomfort in this area with lifting. The symptoms have increased, over the past few months. The patient notes no symptoms of bowel obstruction and denies nausea or vomiting. The patient was seen by her primary care physician who felt the patient has a hernia. Jaimee was referred for evaluation and treatment. The patient is being seen by me today at the request of Dr. Mili Saldivar MD for my opinion and advice regarding Umbilical hernia without obstruction and without gangrene (primary encounter diagnosis). PAST MEDICAL HISTORY Diagnosis Date Arthritis Diverticulosis of colon (without mention of hemorrhage) Dysplasia of cervix, unspecified GERD (gastroesophageal reflux disease) Kidney cysts 2018 fluid filled Obesity (BMI 35.0-39.9 without comorbidity) RUDY (obstructive sleep apnea) severe Osteoarthritis of lumbar spine Osteoarthritis, knee s/p partial knee replacement on left Seasonal allergies spring and fall Vitamin D insufficiency PAST SURGICAL HISTORY Procedure Laterality Date CAUTERY CERVIX CRYOCAUTERY INITIAL/REPEAT 06/16/1994 COLONOSCOPY FLX DX W/COLLJ SPEC WHEN PFRMD 05/31/2010 Colonoscopy COLONOSCOPY FLX DX W/COLLJ SPEC WHEN PFRMD 12/22/2020 ESOPHAGOGASTRODUODENOSCOPY TRANSORAL DIAGNOSTIC 12/22/2020 SKIN BIOPSY HX TONSILLECTOMY HX TONSILLECTOMY PRIMARY/SECONDARY TOTAL KNEE REPLACEMENT Left partial left done last Apr 2014 TOTAL KNEE REPLACEMENT Right 03/2024 No current facility-administered medications for this visit. No current outpatient medications on file. Facility-Administered Medications Ordered in Other Visits Medication Dose Route Frequency lidocaine (PF) 10 mg/mL (1 %) 1-2 mg injection (XYLOCAINE) 0.1-0.2 mL INTRADERMAL PRN lactated ringers iv infusion 5-30 mL/hr INTRAVENOUS CONTINUOUS NaCl 0.9% iv flush bag 20 mL INTRAVENOUS PRN ceFAZolin iv piggyback 2 g in D5W (iso-osmotic) 100 mL (ANCEF) 2 g INTRAVENOUS Pre-Op Once lactated ringers iv infusion 30 mL/hr INTRAVENOUS CONTINUOUS ALLERGIES: Patient has no known allergies. PERSONAL HISTORY: Social History Tobacco Use Smoking status: Never Smokeless tobacco: Never Vaping Use Vaping status: Never Used Substance Use Topics Alcohol use: Yes Comment: occasional- monthly Drug use: No FAMILY HISTORY: FAMILY HISTORY Problem Relation Age of Onset Osteoporosis Mother Arthritis, HTN, Macular Degeneration other (hip fracture) Mother X 2 Heart Father ASHD, [place] No Known Problems Sister Lung Cancer Brother No Known Problems Brother Breast Cancer Maternal Grandmother Malig Hyperthermia No Family History REVIEW OF SYMPTOMS: The review of systems data was entered by the nurse and reviewed by me There are no exam notes on file for this visit. PHYSICAL EXAMINATION: General: The patient is 69 year old female, well nourished, well hydrated in no acute distress. The patient is oriented to time, place, and person. VITALS: Blood pressure 139/84, pulse 98, temperature 37.2 ?C (98.9 ?F), temperature source Temporal, weight 101.6 kg (224 lb). Body mass index is 37.28 kg/m?. HEENT: Normal cephalic, ataumatic, pupils are equally round, sclera are anicteric, mucous membranes are moist, oropharynx is clear. Neck has no masses, asymmetry or lymphadenopathy. Thyroid is unremarkable. Respiratory: Clear to auscultation and percussion. Normal respiratory excursion and pattern. Cardiac: Examination is regular rate and rhythm. Abdominal exam: Soft, nontender, with no palpable masses. No hepatosplenomegaly. A moderate reducible umbilical hernia, no right or left inguinal hernias are noted Rectal exam: exam deferred Extremities: no clubbing, cyanosis or edema. No adenopathy. Other: LABORATORY VALUES: As Noted RADIOLOGIC STUDIES: As Noted Assessment IMPRESSION: umbilical hernia PLAN: My plan is to perform a umbilical hernia repair with mesh. The planned surgical procedure was discussed extensively with the patient. The risks, benefits, anticipated outcomes and possible complications were mentioned. Jaimee undersands that all hernia repair surgery has a chance of recurrence and/or chronic post operative pain. My staff has also explained the procedure in understandable terms and the patient was given the option to take printed material concerning the planned procedure. The patient had the opportunity to ask questions concerning the planned procedure. The patient freely consents to the planned procedure. My findings have been communicated to Dr. Ledezma (more content not included)...[facility]04-02-2025 History of Present illness Narrative* Haja Dhaliwal MD - 06/12/2024 7:00 AM EDT HISTORY AND PHYSICAL Jaimee Cooper 1955 REFERRING PHYSICIAN: Mili Saldivar MD CHIEF COMPLAINT: Consult (hERNIA) HPI: Jaimee is a 69 year old female with a complaint of a bulge and discomfort in her umbilical region. The patient notes discomfort in this area with lifting. The symptoms have increased, over the past few months. The patient notes no symptoms of bowel obstruction and denies nausea or vomiting. The patient was seen by her primary care physician who felt the patient has a hernia. Jaimee was referred for evaluation and treatment. The patient is being seen by me today at the request of Dr. Mili Saldivar MD for my opinion and advice regarding Umbilical hernia without obstruction and without gangrene (primary encounter diagnosis). PAST MEDICAL HISTORY Diagnosis Date Arthritis Diverticulosis of colon (without mention of hemorrhage) Dysplasia of cervix, unspecified GERD (gastroesophageal reflux disease) Kidney cysts 2017 fluid filled Obesity (BMI 35.0-39.9 without comorbidity) RUDY (obstructive sleep apnea) severe Osteoarthritis of lumbar spine Osteoarthritis, knee s/p partial knee replacement on left Seasonal allergies spring and fall Vitamin D insufficiency PAST SURGICAL HISTORY Procedure Laterality Date CAUTERY CERVIX CRYOCAUTERY INITIAL/REPEAT 06/16/1994 COLONOSCOPY FLX DX W/COLLJ SPEC WHEN PFRMD 05/31/2010 Colonoscopy COLONOSCOPY FLX DX W/COLLJ SPEC WHEN PFRMD 12/22/2020 ESOPHAGOGASTRODUODENOSCOPY TRANSORAL DIAGNOSTIC 12/22/2020 SKIN BIOPSY HX TONSILLECTOMY HX TONSILLECTOMY PRIMARY/SECONDARY <AGE 12 TOTAL KNEE REPLACEMENT Left partial left done last Apr 2014 TOTAL KNEE REPLACEMENT Right 03/2024 No current facility-administered medications for this visit. No current outpatient medications on file. Facility-Administered Medications Ordered in Other Visits Medication Dose Route Frequency lidocaine (PF) 10 mg/mL (1 %) 1-2 mg injection (XYLOCAINE) 0.1-0.2 mL INTRADERMAL PRN lactated ringers iv infusion 5-30 mL/hr INTRAVENOUS CONTINUOUS NaCl 0.9% iv flush bag 20 mL INTRAVENOUS PRN ceFAZolin iv piggyback 2 g in D5W (iso-osmotic) 100 mL (ANCEF) 2 g INTRAVENOUS Pre-Op Once lactated ringers iv infusion 30 mL/hr INTRAVENOUS CONTINUOUS ALLERGIES: Patient has no known allergies. PERSONAL HISTORY: Social History Tobacco Use Smoking status: Never Smokeless tobacco: Never Vaping Use Vaping status: Never Used Substance Use Topics Alcohol use: Yes Comment: occasional- monthly Drug use: No FAMILY HISTORY: FAMILY HISTORY Problem Relation Age of Onset Osteoporosis Mother Arthritis, HTN, Macular Degeneration other (hip fracture) Mother X 2 Heart Father ASHD, [place] No Known Problems Sister Lung Cancer Brother No Known Problems Brother Breast Cancer Maternal Grandmother Malig Hyperthermia No Family History REVIEW OF SYMPTOMS: The review of systems data was entered by the nurse and reviewed by me There are no exam notes on file for this visit. PHYSICAL EXAMINATION: General: The patient is 69 year old female, well nourished, well hydrated in no acute distress. Thepatient is oriented to time, place, and person. VITALS: Blood pressure 139/84, pulse 98, temperature 37.2 C (98.9 F), temperature source Temporal, weight 101.6 kg (224 lb). Body mass index is 37.28 kg/m . HEENT: Normal cephalic, ataumatic, pupils are equally round, sclera are anicteric, mucous membranesare moist, oropharynx is clear. Neck has no masses, asymmetry or lymphadenopathy. Thyroid is unremarkable. Respiratory: Clear to auscultation and percussion. Normal respiratory excursion and pattern. Cardiac: Examination is regular rate and rhythm. Abdominal exam: Soft, nontender, with no palpable masses. No hepatosplenomegaly. A moderate reducible umbilical hernia, no right or left inguinal hernias are noted Rectal exam: exam deferred Extremities: no clubbing, cyanosis or edema. No adenopathy. Other: LABORATORY VALUES: As Noted RADIOLOGIC STUDIES: As Noted Assessment IMPRESSION: umbilical hernia PLAN: My plan is to perform a umbilical hernia repair with mesh. The planned surgical procedure wasdiscussed extensively with the patient. The risks, benefits, anticipated outcomes and possible complications were mentioned. Jaimee aldrichands that all hernia repair surgery has a chance of recurrenceand/or chronic post operative pain. My staff has also explained the procedure in understandable terms and the patient was given the option to take printed material concerning the planned procedure. The patient had the opportunity to ask questions concerning the planned procedure. The patient freelyconsents to the planned procedure. My findings have been communicated to Dr. Mili Saldivar MD via shared medical record. Thisnote will be forwarded to Dr. Mili Saldivar MD. Diagnoses: (K42.9) Umbilical hernia without obstruction and without gangrene (primary encounter diagnosis) Anticipated CPT Code: Initial anterior abdominal hernia repair: 29463 - 3-10 cm reducible Anticipated Anesthetic: General Patient weight: Blood pressure 139/84, pulse 98, temperature 37.2 C (98.9 F), temperature source Temporal, weight 101.6 kg (224 lb). BMI: Body mass index is 37.28 kg/m . Planned antibiotic: Ancef 2gm IVPB conference specialist to OR SCDs needed - Yes Return to Clinic: The patient is instructed to follow-up with me 1 week post operatively. Haja Dhaliwal III, MD documented [facility] Instructions* Patient Instructions* Dg Fajardo APRN.PATTERN REPAIR PERSON - 05/30/2024 2:21 PM EDT Images from the original note were not included. [facility] Pre-Anesthesia Consultation Clinic PATIENT PREOPERATIVE INSTRUCTIONS Haja Dhaliwal MD has scheduled you for your procedure at this surgery center: [facility]: [phone] -- [address] [address]. Please read below carefully for your personalized instructions. Dietary Restrictions: - No solid food after midnight. - You may have 12 ounces of clear liquids (water, clear juices such as apple juice or gatorade, carbonated beverages, clear tea, black coffee, jello) until 2 hours before scheduled arrival at facility. Medications: Unless instructed differently below, stay on all of your medications until your surgery. If you start any new medications after today's visit, please contact your surgeon. Pre-Surgery Med Instructions Medication Instructions celecoxib (CELEBREX) 200 mg capsule Stop 7 days before surgery acetaminophen (TYLENOL) 500 mg tablet IF needed CPAP fluticasone (FLONASE) 50 mcg/actuation nasal spray IF needed omeprazole (PRILOSEC) 20 mg capsule Take the day of surgery with a small sip of water cholecalciferol (VITAMIN D3) 50 mcg (2,000 unit) tablet Stop 7 days before surgery MULTIVITAMIN ORAL Stop 7 days before surgery If you start any new medications after today's visit, please contact the surgeon's office. If you are currently using a telz-gvd-qjgs injectable or oral medication for diabetes or weight loss such as Dulaglutide (Trulicity), Exenatide (Byetta, Bydureon), Liraglutide (Victoza, Saxenda), Semaglutide (Ozempic, Wegovy, Rybelsus), or Tirzepatide (Mounjaro), the medicine should be stopped at least 7 days before surgery. These medicines can cause food to remain in your stomach for a very longtime and increase the risks from surgery and anesthesia. Not stopping the medication for a long enough time may result in your surgery being rescheduled. Blood Thinning Medications: - Stop NSAIDS (Ibuprofen, Advil, Aleve, Motrin, Celebrex, Mobic, etc.) 7 days before surgery, as directed by your surgeon. - Stop Aspirin 7 days before surgery, as directed by your surgeon. - Stop ALL herbal and dietary supplements 7 days before surgery. - You may take Tylenol (Acetaminophen) or any of your pain medications that do not contain aspirin or NSAIDS as needed. Important Reminders: - Candy, mints, and tobacco products are NOT permitted the morning of surgery. - Hearing aids, dentures and glasses may be worn the morning of surgery. - NO jewelry, body piercings, makeup, hairpins or contacts are to be worn the day of surgery. If you develop symptoms such as a fever, cold, or flu, or have other changes to your health within TWO DAYS of scheduled surgery or the morning of surgery, please contact the surgery center above. Personal Belongings: -Please have photo ID and insurance cards. -If you do not have a copy of advance directives on file with us, please bring a copy with you on the day of surgery. - Leave ALL valuables and money at home or with family members. - Please bring high-quality footwear, such as sneakers, to the hospital for ambulating post-surgery. For Outpatient Procedures: - YOU MUST HAVE A RESPONSIBLE FURNITURE ASSEMBLER AND INSTALLER TAKE YOU HOME. A INSPECTOR AND HAND PACKAGER OR CURRICULUM SPECIALIST CANNOT BE MADE A RESPONSIBLE FURNITURE ASSEMBLER AND INSTALLER. - We recommend that a responsible person stays with you overnight to take care of you. - You cannot stay in a hotel alone after outpatient surgery. You will not be permitted to have yoursurgery, if you do not have someone to take care of you. Arrival Time for Surgery: - The Surgery Center or hospital where you are having surgery will call the afternoon before surgery (or Monday for Monday surgery) with a scheduled arrival time. - If you have not heard by 4 pm, please contact the surgery center above. Please be aware that emergency situations arise, which may delay or change your surgical time. If this happens, we will notify you as soon as possible and regret any inconvenience. If you already have an Advance Directive, please fax a copy to [phone] or email to for it to be added to your chart. If you do not have an Advance Directive, you can find the appropriate form and more information at [email or web address]. We recommend that youcomplete the Advance Directive form found on the website and bring it with you the day of your surgery. It can be witnessed and scanned into your chart that day. Dg Fajardo APRN.CNP documented in this encounter[facility] History and physical note * Dg Fajardo APRN.CNP - 05/30/2024 2:15 PM EDT Images from the original note were not included. 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 Assessment: hx Lumbar degenerative disc disease Assessment: controlled on rx Osteopenia Assessment: taking supplement Class 2 obesity with body mass index (BMI) of 36.0 to 36.9 in adult Assessment: Body mass index is 36.94 kg/m .\ History of total knee arthroplasty, right Assessment: hx History of arthroplasty of left knee Assessment: hx partial BCC (basal cell carcinoma of skin) Assessment: s/p excision ANESTHESIA FINDINGS: Intubation History: No history of difficult intubation Significant Anesthesia Considerations: none Airway History: No history of difficult airway Ward Activity Status Index: METS: Climb a flight of stairs or walk up a hill (5.50 METs) DASI Score: 5.5 Patient denies any chest pain or undue shortness of breath with the above physical activity. Clinical Frailty Scale: 3. Well, with treated comorbid disease STOP-Bang Score: Snores loudly Has been observed to stop breathing or choking/gasping during sleep BMI greater than 35 kg/m^2 Patient over 50 years old Has a large neck Denies feeling tired, fatigued, or sleepy during the daytime Denies having high blood pressure Non-male patient STOP-Bang Score: 5 [id number] Score: Age: 65-74 Sex: female CHF history: No Hypertension history: No Stroke/TIA/thromboembolism history: No Vascular disease history: No Diabetes history: No [id number] Score: 2 ARISCAT Score: Age: 51-80 Preoperative SpO2: >=96% Respiratory infection in the last month: No Preoperative anemia: No Surgical incision: upper abdominal Duration of surgery: <2 hrs Emergency procedure: No ARISCAT Score: 18 I - PHYSICAL EVALUATION AIRWAY Patient intubated: No. Tracheostomy tube not present Mallampati: III. TM distance: >3 FB. Neck ROM: full ROM without neurological symptoms. Mouth opening: adequate. Short neck: no. Thick neck: yes Fajardo present: no Lip Bite Test: I Microretrognathia/Micronagthia/Recessed Chin: No DENTAL Dental findings: teeth intact. Additional comments: +crowns/back. II - ANESTHESIA PLAN Anesthetic Plan: other Beta Leticia Monitoring Plan Post Procedure Analgesic Plan Prepared for Surgery: optimally prepared for surgery. CONSULTS: Patient does not require consults for optimization at this time Planned Anesthetic: other anesthesia choice The Following Tests/Procedures Have Been Initiated: No orders of the defined types were placed in this encounter. REASON FOR VISIT: Jaimee Cooper is a 69 year old female who is scheduled for Procedure(s): REPAIR HERNIA UMBILICAL REDUCIBLE LESS THAN 3cm (N/A) at the request of Dr. Haja Dhaliwal for consultation. My final recommendation will be communicated back to the requesting physician by way of shared medical record or letter. Subjective The patient has the following: COVID-19 Immunization Status Upcoming Covid-19 Vaccine () Postponed until 12/24/2024 12/25/2023 Postponed until 12/24/2024 by Mili Saldivar MD (Declined at this time) 12/22/2022 Postponed until 12/23/2023 by Mili Saldivar MD (Declined at this time) 12/20/2021 Postponed until 12/20/2022 by Mili Saldivar MD (Declined at this time) Only the first 3 history entries have been loaded, but more history exists. CHIEF COMPLAINT: Pre-op exam HPI: Jaimee Cooper is a 69 year old seen for PAC due to scheduled above surgery because of an umbilical hernia. REVIEW OF SYSTEMS: General: No weight loss, malaise or fevers. Neurological: No history of TIA's, stroke, HALFTONE OPERATOR tumor, impaired sensorium, hemiplegia, paraplegia orquadraplegia. No neurological symptoms or problems. Respiratory: Positive for: obstructive sleep apnea and CPAP/BiPAP compliant. Negative for: asthma, COPD, current cough, dyspnea, pneumonia within 6 weeks, tobacco use and URI < 2 weeks. Cardiovascular: Positive for: hyperlipidemia Negative for: abdominal aortic aneurysm, AICD/PPM, angina, anticoagulation therapy, arrhythmia, atrial fibrillation, CAD, chest pain, CHF, congenital heart defect, DVT/PE, hypertension, recent [place], murmur/valvular heart disease, PTCA, PVD, open heart surgery and valve surgery. GI: See HPI. Positive for: GERD (on rx) Negative for: abdominal pain, dysphagia, hepatitis, irritable bowel syndrome, inflammatory bowel disease, liver disease, nausea, pancreatitis, vomiting and ETOH >2 drinks/day. : No history of dysuria, frequency or incontinence, stones or chronic kidney disease. No difficulty urinating, nocturia > 1 time per night or hematuria. LOTTERY MANAGER: Negative for abnormal vaginal bleeding, abnormal vaginal discharge. Endocrine: No history of diabetes. Has not taken steroids within the past 30 days. No history of endocrinological symptoms or problems. Hematology: No history of bleeding or clotting disorder. Patient is not taking anti-coagulation or platelet medications. No history of hematological symptoms or problems. Oncology: BCC s/p excision Psych: No history of psychiatric symptoms or problems. Musculoskeletal: +hx right TKA +hx left partial TKA +osteopenia Skin: Negative for lesions, rash and itching. Implanted Devices: No implanted devices. PAST MEDICAL HISTORY Diagnosis Date Arthritis Diverticulosis of colon (without mention of hemorrhage) Dysplasia of cervix, unspecified GERD (gastroesophageal reflux disease) Kidney cysts 2018 fluid filled Obesity (BMI 35.0-39.9 without comorbidity) RUDY (obstructive sleep apnea) severe Osteoarthritis of lumbar spine Osteoarthritis, knee s/p partial knee replacement on left Seasonal allergies spring and fall Vitamin D insufficiency PAST SURGICAL HISTORY Procedure Laterality Date CAUTERY CERVIX CRYOCAUTERY INITIAL/REPEAT 06/16/1994 COLONOSCOPY FLX DX W/COLLJ SPEC WHEN PFRMD 05/31/2010 Colonoscopy COLONOSCOPY FLX DX W/COLLJ SPEC WHEN PFRMD 12/22/2020 ESOPHAGOGASTRODUODENOSCOPY TRANSORAL DIAGNOSTIC 12/22/2020 SKIN BIOPSY HX TONSILLECTOMY HX TONSILLECTOMY PRIMARY/SECONDARY TOTAL KNEE REPLACEMENT Left partial left done last Apr 2014 TOTAL KNEE REPLACEMENT Right 03/2024 FAMILY HISTORY Problem Relation Age of Onset Osteoporosis Mother Arthritis, HTN, Macular Degeneration other (hip fracture) Mother X 2 Heart Father ASHD, [place] No Known Problems Sister Lung Cancer Brother No Known Problems Brother Breast Cancer Maternal Grandmother Malig Hyperthermia No Family History Social History Tobacco Use Smoking status: Never Smokeless tobacco: Never Vaping Use Vaping status: Never Used Substance Use Topics Alcohol use: Yes Comment: occasional- monthly Drug use: No Prior to Admission medications as of 05/30/24 1421 Medication Sig Last Dose Taking celecoxib (CELEBREX) 200 mg capsule Take 200 mg by mouth once daily. Yes acetaminophen (TYLENOL) 500 mg tablet Take 500 mg by mouth every 8 hours as needed. Yes CPAP Change bilevel setting to 16/12 cmH2O. Please fit with dreamwear under the nose FFM (current masks with significant leaks). Please provide us with download after 4 weeks of use at this pressure setting. Lifetime supply. Yes fluticasone (FLONASE) 50 mcg/actuation nasal spray Use 2 Sprays in each nostril once daily. Rinse mouth after use. Yes omeprazole (PRILOSEC) 20 mg capsule Take 1 capsule by mouth once daily. Yes cholecalciferol (VITAMIN D3) 50 mcg (2,000 unit) tablet Take 1 tablet by mouth once daily. Yes MULTIVITAMIN ORAL Take by mouth. Yes atorvastatin (LIPITOR) 20 mg tablet Take 1 tablet by mouth daily at bedtime. For cholesterol. No medication comments found. ALLERGIES No Known Allergies Objective PHYSICAL EXAM: General: alert and oriented (x3) and healthy appearance. Pertinent negatives noted - not distressed. Skin: normal color, no rash or lesions. HEENT: EOM intact and pupils equal round. Pertinent negatives noted - no carotid bruit. Cardiovascular: regular rate and rhythm, normal S1 and S2, no rub, murmurs, or gallop. Respiratory: normal breath sounds, no wheezes or crackles. No chest wall deformity or tenderness. Abdomen: soft. Pertinent negatives noted - not tender. Extremities: no deformity, no edema or tenderness, no joint swelling or clubbing. Neurological: normal cognition and motor skills. Gait normal. No weakness or sensory deficit. PAIN ASSESSMENT: VITALS: BP 157/89 Pulse 84 Temp (Src) 98.4 (Temporal) Resp 14 Ht 5' 5 (1.65m) Wt 222 lb (100.7kg) SpO2 99% BMI 36.94 kg/(m^2). Diagnostic tests reviewed for today's visit: Lab Value Units Date High Low HB 14.2 g/dL 12/25/2023 15.5 11.5 HCT 44.8 % 12/25/2023 46.0 36.0 WBC 7.59 k/uL 12/25/2023 11.00 3.70 PLT 206 k/uL 12/25/2023 400 150 NA 141 mmol/L 12/25/2023 144 136 K 4.2 mmol/L 12/25/2023 5.1 3.7 GLUC 88 mg/dL 12/25/2023 99 74 BUN 16 mg/dL 12/25/2023 21 7 CREAT 0.81 mg/dL 12/25/2023 0.96 0.58 PTSEC No results within date range. INR No results within date range. APTT No results within date range. ALT 20 U/L 12/25/2023 38 7 AST 20 U/L 12/25/2023 35 13 TBILI 0.5 mg/dL 12/25/2023 1.3 0.2 TSH No results within date range. Lab Value Units Date High Low HCGQT No results within date range. UHCG No results within date range. HCG, BODY* No results within date range. Lab Value Units Date High Low ABORHD No results within date range. ABSCREEN No results within date range. No results found for: HBA1C No results found for this or any previous visit (from the past 8760 hours). No results found for this or any previous visit (from the past 46919 hours). Instructions Given to Patient: Instructions located in the after visit summary. Patient given verbal and written preop instructions and voices comprehension and compliance. SIGNATURE: Dg Fajardo APRN.CNP PATIENT NAME: Jaimee Cooper DATE: May 30, 2024 TIME: 2:15 PM PAGER/CONTACT #: [facility]03-20-2025 History and physical note* Dg Fajardo APRN.CNP - 05/30/2024 2:15 PM EDT Images from the original note were not included. 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 Assessment: hx Lumbar degenerative disc disease Assessment: controlled on rx Osteopenia Assessment: taking supplement Class 2 obesity with body mass index (BMI) of 36.0 to 36.9 in adult Assessment: Body mass index is 36.94 kg/m .\ History of total knee arthroplasty, right Assessment: hx History of arthroplasty of left knee Assessment: hx partial BCC (basal cell carcinoma of skin) Assessment: s/p excision ANESTHESIA FINDINGS: Intubation History: No history of difficult intubation Significant Anesthesia Considerations: none Airway History: No history of difficult airway Ward Activity Status Index: METS: Climb a flight of stairs or walk up a hill (5.50 METs) DASI Score: 5.5 Patient denies any chest pain or undue shortness of breath with the above physical activity. Clinical Frailty Scale: 3. Well, with treated comorbid disease STOP-Bang Score: Snores loudly Has been observed to stop breathing or choking/gasping during sleep BMI greater than 35 kg/m^2 Patient over 50 years old Has a large neck Denies feeling tired, fatigued, or sleepy during the daytime Denies having high blood pressure Non-male patient STOP-Bang Score: 5 [id number] Score: Age: 65-74 Sex: female CHF history: No Hypertension history: No Stroke/TIA/thromboembolism history: No Vascular disease history: No Diabetes history: No [id number] Score: 2 ARISCAT Score: Age: 51-80 Preoperative SpO2: >=96% Respiratory infection in the last month: No Preoperative anemia: No Surgical incision: upper abdominal Duration of surgery: <2 hrs Emergency procedure: No ARISCAT Score: 18 I - PHYSICAL EVALUATION AIRWAY Patient intubated: No. Tracheostomy tube not present Mallampati: III. TM distance: >3 FB. Neck ROM: full ROM without neurological symptoms. Mouth opening: adequate. Short neck: no. Thick neck: yes Fajardo present: no Lip Bite Test: I Microretrognathia/Micronagthia/Recessed Chin: No DENTAL Dental findings: teeth intact. Additional comments: +crowns/back. II - ANESTHESIA PLAN Anesthetic Plan: other Beta Leticia Monitoring Plan Post Procedure Analgesic Plan Prepared for Surgery: optimally prepared for surgery. CONSULTS: Patient does not require consults for optimization at this time Planned Anesthetic: other anesthesia choice The Following Tests/Procedures Have Been Initiated: No orders of the defined types were placed in this encounter. REASON FOR VISIT: Jaimee Cooper is a 69 year old female who is scheduled for Procedure(s): REPAIR HERNIA UMBILICAL REDUCIBLE LESS THAN 3cm (N/A) at the request of Dr. Haja Dhaliwal for consultation. My final recommendation will be communicated back to the requesting physician by way of shared medical record or letter. Subjective The patient has the following: COVID-19 Immunization Status Upcoming Covid-19 Vaccine () Postponed until 12/24/2024 12/25/2023 Postponed until 12/24/2024 by Mili Saldivar MD (Declined at this time) 12/22/2022 Postponed until 12/23/2023 by Mili Saldivar MD (Declined at this time) 12/20/2021 Postponed until 12/20/2022 by Mili Saldivar MD (Declined at this time) Only the first 3 history entries have been loaded, but more history exists. CHIEF COMPLAINT: Pre-op exam HPI: Jaimee Cooper is a 69 year old seen for PAC due to scheduled above surgery because of an umbilical hernia. REVIEW OF SYSTEMS: General: No weight loss, malaise or fevers. Neurological: No history of TIA's, stroke, HALFTONE OPERATOR tumor, impaired sensorium, hemiplegia, paraplegia orquadraplegia. No neurological symptoms or problems. Respiratory: Positive for: obstructive sleep apnea and CPAP/BiPAP compliant. Negative for: asthma, COPD, current cough, dyspnea, pneumonia within 6 weeks, tobacco use and URI < 2 weeks. Cardiovascular: Positive for: hyperlipidemia Negative for: abdominal aortic aneurysm, AICD/PPM, angina, anticoagulation therapy, arrhythmia, atrial fibrillation, CAD, chest pain, CHF, congenital heart defect, DVT/PE, hypertension, recent [place], murmur/valvular heart disease, PTCA, PVD, open heart surgery and valve surgery. GI: See HPI. Positive for: GERD (on rx) Negative for: abdominal pain, dysphagia, hepatitis, irritable bowel syndrome, inflammatory bowel disease, liver disease, nausea, pancreatitis, vomiting and ETOH >2 drinks/day. : No history of dysuria, frequency or incontinence, stones or chronic kidney disease. No difficulty urinating, nocturia > 1 time per night or hematuria. LOTTERY MANAGER: Negative for abnormal vaginal bleeding, abnormal vaginal discharge. Endocrine: No history of diabetes. Has not taken steroids within the past 30 days. No history of endocrinological symptoms or problems. Hematology: No history of bleeding or clotting disorder. Patient is not taking anti-coagulation or platelet medications. No history of hematological symptoms or problems. Oncology: BCC s/p excision Psych: No history of psychiatric symptoms or problems. Musculoskeletal: +hx right TKA +hx left partial TKA +osteopenia Skin: Negative for lesions, rash and itching. Implanted Devices: No implanted devices. PAST MEDICAL HISTORY Diagnosis Date Arthritis Diverticulosis of colon (without mention of hemorrhage) Dysplasia of cervix, unspecified GERD (gastroesophageal reflux disease) Kidney cysts 2018 fluid filled Obesity (BMI 35.0-39.9 without comorbidity) RUDY (obstructive sleep apnea) severe Osteoarthritis of lumbar spine Osteoarthritis, knee s/p partial knee replacement on left Seasonal allergies spring and fall Vitamin D insufficiency PAST SURGICAL HISTORY Procedure Laterality Date CAUTERY CERVIX CRYOCAUTERY INITIAL/REPEAT 06/16/1994 COLONOSCOPY FLX DX W/COLLJ SPEC WHEN PFRMD 05/31/2010 Colonoscopy COLONOSCOPY FLX DX W/COLLJ SPEC WHEN PFRMD 12/22/2020 ESOPHAGOGASTRODUODENOSCOPY TRANSORAL DIAGNOSTIC 12/22/2020 SKIN BIOPSY HX TONSILLECTOMY HX TONSILLECTOMY PRIMARY/SECONDARY <AGE 10 TOTAL KNEE REPLACEMENT Left partial left done last Apr 2014 TOTAL KNEE REPLACEMENT Right 03/2024 FAMILY HISTORY Problem Relation Age of Onset Osteoporosis Mother Arthritis, HTN, Macular Degeneration other (hip fracture) Mother X 2 Heart Father ASHD, [place] No Known Problems Sister Lung Cancer Brother No Known Problems Brother Breast Cancer Maternal Grandmother Malig Hyperthermia No Family History Social History Tobacco Use Smoking status: Never Smokeless tobacco: Never Vaping Use Vaping status: Never Used Substance Use Topics Alcohol use: Yes Comment: occasional- monthly Drug use: No Prior to Admission medications as of 05/30/24 1421 Medication Sig Last Dose Taking celecoxib (CELEBREX) 200 mg capsule Take 200 mg by mouth once daily. Yes acetaminophen (TYLENOL) 500 mg tablet Take 500 mg by mouth every 8 hours as needed. Yes CPAP Change bilevel setting to 16/12 cmH2O. Please fit with dreamwear under the nose FFM (current masks with significant leaks). Please provide us with download after 4 weeks of use at this pressure setting. Lifetime supply. Yes fluticasone (FLONASE) 50 mcg/actuation nasal spray Use 2 Sprays in each nostril once daily. Rinse mouth after use. Yes omeprazole (PRILOSEC) 20 mg capsule Take 1 capsule by mouth once daily. Yes cholecalciferol (VITAMIN D3) 50 mcg (2,000 unit) tablet Take 1 tablet by mouth once daily. Yes MULTIVITAMIN ORAL Take by mouth. Yes atorvastatin (LIPITOR) 20 mg tablet Take 1 tablet by mouth daily at bedtime. For cholesterol. No medication comments found. ALLERGIES No Known Allergies Objective PHYSICAL EXAM: General: alert and oriented (x3) and healthy appearance. Pertinent negatives noted - not distressed. Skin: normal color, no rash or lesions. HEENT: EOM intact and pupils equal round. Pertinent negatives noted - no carotid bruit. Cardiovascular: regular rate and rhythm, normal S1 and S2, no rub, murmurs, or gallop. Respiratory: normal breath sounds, no wheezes or crackles. No chest wall deformity or tenderness. Abdomen: soft. Pertinent negatives noted - not tender. Extremities: no deformity, no edema or tenderness, no joint swelling or clubbing. Neurological: normal cognition and motor skills. Gait normal. No weakness or sensory deficit. PAIN ASSESSMENT: VITALS: BP 157/89 Pulse 84 Temp (Src) 98.4 (Temporal) Resp 14 Ht 5' 5 (1.65m) Wt 222 lb (100.7kg) SpO2 99% BMI 36.94 kg/(m^2). Diagnostic tests reviewed for today's visit: Lab Value Units Date High Low HB 14.2 g/dL 12/25/2023 15.5 11.5 HCT 44.8 % 12/25/2023 46.0 36.0 WBC 7.59 k/uL 12/25/2023 11.00 3.70 PLT 206 k/uL 12/25/2023 400 150 NA 141 mmol/L 12/25/2023 144 136 K 4.2 mmol/L 12/25/2023 5.1 3.7 GLUC 88 mg/dL 12/25/2023 99 74 BUN 16 mg/dL 12/25/2023 21 7 CREAT 0.81 mg/dL 12/25/2023 0.96 0.58 PTSEC No results within date range. INR No results within date range. APTT No results within date range. ALT 20 U/L 12/25/2023 38 7 AST 20 U/L 12/25/2023 35 13 TBILI 0.5 mg/dL 12/25/2023 1.3 0.2 TSH No results within date range. Lab Value Units Date High Low HCGQT No results within date range. UHCG No results within date range. HCG, BODY* No results within date range. Lab Value Units Date High Low ABORHD No results within date range. ABSCREEN No results within date range. No results found for: HBA1C No results found for this or any previous visit (from the past 8760 hours). No results found for this or any previous visit (from the past 92203 hours). Instructions Given to Patient: Instructions located in the after visit summary. Patient given verbal and written preop instructions and voices comprehension and compliance. SIGNATURE: Dg Fajardo APRN.CNP PATIENT NAME: Jaimee Cooper DATE: May 30, 2024 TIME: 2:15 PM PAGER/CONTACT #: [facility] Telephone encounter Note * Telephone Encounter - Didier Hadley - 05/27/2024 4:45 PM EDT 06-11-2024 Hernia Patel [facility]03-17-2025 Miscellaneous Notes* Telephone Encounter - Didier Hadley - 05/27/2024 4:45 PM EDT 06-11-2024 Hernia Patel [facility] NoteHNO ID: [id number] Author: JULIANA ZELAYA APRN.CNP Service: ? Author Type: Nurse Practitioner Type: Progress Notes Filed: 05/07/2024 08:03 Note Text: Jaimee is a 69 year old who presents for an annual gynecologic exam with complaints, vulvar irritation. Postmenopausal: Yes since age early 50s HRT use: No. Sexually active: sometimes HPV vaccine: No Last pap smear: 09/2020 normal HPV: negative History of abnormal pap: Yes Colposcopy: Yes: 2011 Leep: No. Cone biopsy: Yes: cryo 2011 Last mammogram: 2023 normal History of abnormal mammogram: Yes OB History Gravida2 Para2 Term0 Preterm0 AB0 Living2 SAB0 IAB0 Ectopic0 Multiple0 Live Births0 Induction Coordination Power Engineer History LMP: Postmenopausal Age at Menarche: Age at First : Age at Menopause: Induction Coordination Power Engineer History Comments: Sexual Activity: Yes; Male Contraception: No contraception data on record PAST MEDICAL HISTORY Diagnosis Date Arthritis Diverticulosis of colon (without mention of hemorrhage) Dysplasia of cervix, unspecified GERD (gastroesophageal reflux disease) Kidney cysts 2018 fluid filled Obesity (BMI 35.0-39.9 without comorbidity) RUDY (obstructive sleep apnea) severe Osteoarthritis of lumbar spine Osteoarthritis, knee s/p partial knee replacement on left Seasonal allergies spring and fall Vitamin D insufficiency PAST SURGICAL HISTORY Procedure Laterality Date CAUTERY CERVIX CRYOCAUTERY INITIAL/REPEAT 06/16/1994 COLONOSCOPY FLX DX W/COLLJ SPEC WHEN PFRMD 05/31/2010 Colonoscopy COLONOSCOPY FLX DX W/COLLJ SPEC WHEN PFRMD 12/22/2020 ESOPHAGOGASTRODUODENOSCOPY TRANSORAL DIAGNOSTIC 12/22/2020 JOINT REPLACEMENT HX SKIN BIOPSY HX TONSILLECTOMY HX TONSILLECTOMY PRIMARY/SECONDARY TOTAL KNEE REPLACEMENT Left partial left done last Apr 2014 TOTAL KNEE REPLACEMENT Right 03/2024 FAMILY HISTORY Problem Relation Age of Onset Osteoporosis Mother Arthritis, HTN, Macular Degeneration other (hip fracture) Mother X 2 Heart Father ASHD, [place] No Known Problems Sister Lung Cancer Brother No Known Problems Brother Breast Cancer Maternal Grandmother SOCIAL HISTORY Social History Tobacco Use Smoking status: Never Smokeless tobacco: Never Vaping Use Vaping status: Never Used Substance Use Topics Alcohol use: Yes Comment: occasional- monthly Drug use: No REVIEW OF SYSTEMS Abdomen: No abdominal pain, nausea, vomiting, diarrhea, or constipation. No bloating, early satiety, indigestion, or increased flatulence. Bladder: No dysuria, gross hematuria, urinary frequency, urinary urgency, + incontinence Breast: No breast lumps, nipple d/c, overlying skin changes, redness or skin retraction Allergies and current medication updated:Yes SENSITIVE EXAM: The sensitive examination was discussed with the Patient or Patient's Authorized Well Service Pump Equipment Operator. As applicable, any other physician, advance practice provider, medical student, or other health professional student that will be observing or involved in the sensitive examination for educational or training purposes was discussed with the Patient or Authorized Well Service Pump Equipment Operator. The Patient or Authorized Well Service Pump Equipment Operator has agreed to proceed with the sensitive examination. (Sensitive examination includes inspection and/or palpation of the breasts, pelvis, prostate and anorectal regions). EXAM: BP 126/78 Ht 5' 5 (1.65m) Wt 221 lb (100.2kg) BMI 36.78 kg/(m2). GENERAL: pleasant, female in no apparent distress HEENT: Normocephalic, atraumatic, mucus membranes moist, and no lesions DERMATOLOGY: Normal, without lesions, non-icteric, and non-hirsute BREAST: soft, non-tender, symmetric, no dominant mass, normal nipple-areolar complex, no lymphadenopathy, and no nipple discharge CHEST: Normal inspiratory effort ABDOMEN: soft, non-tender, and no masses PELVIC: external genitalia normal, normal Bartholin's glands, urethra, [place]'s glands, no vulvar lesions, no cervical lesions, physiologic discharge present, normal appearing perineal body and perianal region BIMANUAL: uterus normal size, shape and consistency, no adnexal masses, and non-tender RECTOVAGINAL: deferred. NEURO: alert and oriented x3,exam grossly non-focal EXTREMITIES: normal ASSESSMENT/PLAN: 1) Health maintenance: Pap/HPV up to date. Mammogram ordered Mammogram up to date Nutrition, exercise and routine health maintenance exams reviewed. Calcium/Vitamin D supplementation information provided. Colon cancer screening: up to date with screening 2) Follow up one year or sooner as needed Juliana Zelaya APRN.[facility]02-25-2025 History of Present illness Narrative* Juliana Zelaya APRN.PATTERN REPAIR PERSON - 05/07/2024 7:16 AM EST Jaimee is a 69 year old who presents for an annual gynecologic exam with complaints, vulvar irritation. Postmenopausal: Yes since age early 50s HRT use: No. Sexually active: sometimes HPV vaccine: No Last pap smear: 09/2020 normal HPV: negative History of abnormal pap: Yes Colposcopy: Yes: 2011 Leep: No. Cone biopsy: Yes: cryo 2011 Last mammogram: 2023 normal History of abnormal mammogram: Yes OB History Gravida2 Para2 Term0 Preterm0 AB0 Living2 SAB0 IAB0 Ectopic0 Multiple0 Live Births0 Induction Coordination Power Engineer History LMP: Postmenopausal Age at Menarche: Age at First : Age at Menopause: Induction Coordination Power Engineer History Comments: Sexual Activity: Yes; Male Contraception: No contraception data on record PAST MEDICAL HISTORY Diagnosis Date Arthritis Diverticulosis of colon (without mention of hemorrhage) Dysplasia of cervix, unspecified GERD (gastroesophageal reflux disease) Kidney cysts 2018 fluid filled Obesity (BMI 35.0-39.9 without comorbidity) RUDY (obstructive sleep apnea) severe Osteoarthritis of lumbar spine Osteoarthritis, knee s/p partial knee replacement on left Seasonal allergies spring and fall Vitamin D insufficiency PAST SURGICAL HISTORY Procedure Laterality Date CAUTERY CERVIX CRYOCAUTERY INITIAL/REPEAT 06/16/1994 COLONOSCOPY FLX DX W/COLLJ SPEC WHEN PFRMD 05/31/2010 Colonoscopy COLONOSCOPY FLX DX W/COLLJ SPEC WHEN PFRMD 12/22/2020 ESOPHAGOGASTRODUODENOSCOPY TRANSORAL DIAGNOSTIC 12/22/2020 JOINT REPLACEMENT HX SKIN BIOPSY HX TONSILLECTOMY HX TONSILLECTOMY PRIMARY/SECONDARY <AGE 12 TOTAL KNEE REPLACEMENT Left partial left done last Apr 2014 TOTAL KNEE REPLACEMENT Right 03/2024 FAMILY HISTORY Problem Relation Age of Onset Osteoporosis Mother Arthritis, HTN, Macular Degeneration other (hip fracture) Mother X 2 Heart Father ASHD, [place] No Known Problems Sister Lung Cancer Brother No Known Problems Brother Breast Cancer Maternal Grandmother SOCIAL HISTORY Social History Tobacco Use Smoking status: Never Smokeless tobacco: Never Vaping Use Vaping status: Never Used Substance Use Topics Alcohol use: Yes Comment: occasional- monthly Drug use: No REVIEW OF SYSTEMS Abdomen: No abdominal pain, nausea, vomiting, diarrhea, or constipation. No bloating, early satiety, indigestion, or increased flatulence. Bladder: No dysuria, gross hematuria, urinary frequency, urinary urgency, + incontinence Breast: No breast lumps, nipple d/c, overlying skin changes, redness or skin retraction Allergies and current medication updated:Yes SENSITIVE EXAM: The sensitive examination was discussed with the Patient or Patient's Authorized Well Service Pump Equipment Operator. As applicable, any other physician, advance practice provider, medical student, or other health professional student that will be observing or involved in the sensitive examination for educational or training purposes was discussed with the Patient or Authorized Well Service Pump Equipment Operator. The Patient or Authorized Well Service Pump Equipment Operator has agreed to proceed with the sensitive examination. (Sensitive examination includes inspection and/or palpation of the breasts, pelvis, prostate and anorectal regions). EXAM: BP 126/78 Ht 5' 5 (1.65m) Wt 221 lb (100.2kg) BMI 36.78 kg/(m^2). GENERAL: pleasant, female in no apparent distress HEENT: Normocephalic, atraumatic, mucus membranes moist, and no lesions DERMATOLOGY: Normal, without lesions, non-icteric, and non-hirsute BREAST: soft, non-tender, symmetric, no dominant mass, normal nipple-areolar complex, no lymphadenopathy, and no nipple discharge CHEST: Normal inspiratory effort ABDOMEN: soft, non-tender, and no masses PELVIC: external genitalia normal, normal Bartholin's glands, urethra, [place]'s glands, no vulvar lesions, no cervical lesions, physiologic discharge present, normal appearing perineal body and perianal region BIMANUAL: uterus normal size, shape and consistency, no adnexal masses, and non-tender RECTOVAGINAL: deferred. NEURO: alert and oriented x3,exam grossly non-focal EXTREMITIES: normal ASSESSMENT/PLAN: 1) Health maintenance: Pap/HPV up to date. Mammogram ordered Mammogram up to date Nutrition, exercise and routine health maintenance exams reviewed. Calcium/Vitamin D supplementation information provided. Colon cancer screening: up to date with screening 2) Follow up one year or sooner as needed Juliana Zelaya APRN.[facility] documented in this encounter[facility] History of Present illness Narrative* Encounter Date Complaint History Of Prese nt Illness Preoperative medical risk stratification The patient, Jaimee Cooper, is a 69-year-old female who presents at the request of Dr.Adolph Dennis Magaña MD in anticipation of RTKA. Pt has tried conservative tx w/o adequate symptom relief and elects to have the above surgery. The surgeon has sent this patient to our office for a preoperative evaluation. This has included a discussion with the patient regarding their medical conditions and how they relate to the surgery. The patient has also been provided verbal and written instructions regarding perioperative management of their medications. Additional testing felt to be a necessary part of the PAT process including labs, imaging, or specialist consultation will be detailed below.A consult has been requested by the surgeon for evaluation and optimization of the patient's chronic medical conditions prior to surgery, including but not limited to, the following: -Hyperlipidemia, managed with prescribed cholesterol-lowering medications -GERD ; stable on prescribed gastrointestinal medications -RUDY ; currently using CPAP or BIPAP for treatment Right Knee Injection Jaimee carlton presents to the office today complaining of right knee pain and are requesting a Cortisone injection. They rate the pain a 4/10. Their last cortisone injection was on 04/12/2023 which lasted approximately 6 months. The previous injection provided significant relief. They reported no adverse reactions to the previous injection and would like to proceed with an injection at today's visit. Knee Knee [facility] Work Phone: [phone]) 953-333301-17-2025 Evaluation note* Type Assessment Date assessment Primary osteoarthritis of right knee [facility] Work Phone: 1(904) 623-491701-02-2025 NoteHNO ID: [id number] Author: ALIA URBINA APRN.SHANEL Service: ? Author Type: Nurse Practitioner Type: Progress Notes Filed: 03/14/2024 16:23 Note Text: This note was created using NoteWriter. Subjective Jaimee Cooper is a 68 year old female. 68 year old female with PMH hyperlipidemia, RUDY, GERD presents for illness Acute onset 4 days ago +head congestion +sinus pressure +sinus pain +nasal congestion +dental pain +ear pain + cough +chest congestion +chills Denies N/V/D Denies CP Denies dyspnea Has been using Nyquil and Dayquil Advil Cold and Sinus The history is provided by the patient. No advanced clinical specialist was used. URI She complains of chest tightness, cough and wheezing. There is no difficulty breathing, frequent throat clearing, hemoptysis, hoarse voice, shortness of breath or sputum production. This is a new problem. The current episode started in the past 7 days. The problem occurs constantly. The problem has been gradually worsening. The cough is non-productive. Associated symptoms include appetite change, ear congestion, ear pain, headaches, malaise/fatigue, myalgias, nasal congestion, rhinorrhea and sneezing. Pertinent negatives include no chest pain, dyspnea on exertion, fever, heartburn, orthopnea, PND, sore throat, sweats, trouble swallowing or weight loss. Her symptoms are aggravated by nothing. Her symptoms are alleviated by nothing. She reports no improvement on treatment. There are no known risk factors for lung disease. There is no history of asthma, bronchiectasis, bronchitis, COPD, emphysema or pneumonia. PAST MEDICAL HISTORY Diagnosis Date Arthritis Diverticulosis of colon (without mention of hemorrhage) Dysplasia of cervix, unspecified GERD (gastroesophageal reflux disease) Kidney cysts 2018 fluid filled Obesity (BMI 35.0-39.9 without comorbidity) RUDY (obstructive sleep apnea) severe Osteoarthritis of lumbar spine Osteoarthritis, knee s/p partial knee replacement on left Seasonal allergies spring and fall Vitamin D insufficiency PAST SURGICAL HISTORY Procedure Laterality Date CAUTERY CERVIX CRYOCAUTERY INITIAL/REPEAT 06/16/1994 COLONOSCOPY FLX DX W/COLLJ SPEC WHEN PFRMD 05/31/2010 Colonoscopy COLONOSCOPY FLX DX W/COLLJ SPEC WHEN PFRMD 12/22/2020 ESOPHAGOGASTRODUODENOSCOPY TRANSORAL DIAGNOSTIC 12/22/2020 JOINT REPLACEMENT HX SKIN BIOPSY HX TONSILLECTOMY HX TONSILLECTOMY PRIMARY/SECONDARY TOTAL KNEE REPLACEMENT partial left done last Apr 2014 ALLERGIES Indocin [Indomethacin Sodium] and Naproxen MEDICATIONS cyclobenzaprine (FLEXERIL) 10 mg tablet Take 1 tablet by mouth two times a day as needed for muscle spasm or pain. CPAP Change bilevel setting to 16/12 cmH2O. Please fit with dreamwear under the nose FFM (current masks with significant leaks). Please provide us with download after 4 weeks of use at this pressure setting. Lifetime supply. fluticasone (FLONASE) 50 mcg/actuation nasal spray Use 2 Sprays in each nostril once daily. Rinse mouth after use. atorvastatin (LIPITOR) 20 mg tablet Take 1 tablet by mouth daily at bedtime. For cholesterol. omeprazole (PRILOSEC) 20 mg capsule Take 1 capsule by mouth once daily. cholecalciferol (VITAMIN D3) 50 mcg (2,000 unit) tablet Take 1 tablet by mouth once daily. MULTIVITAMIN ORAL Take by mouth. amoxicillin-clavulanate potassium (AUGMENTIN) 875-125 mg per tablet Take 1 tablet by mouth two times a day for 7 days. FAMILY HISTORY Problem Relation Age of Onset Osteoporosis Mother Arthritis, HTN, Macular Degeneration other (hip fracture) Mother X 2 Heart Father ASHD, [place] Lung Cancer Brother Breast Cancer Maternal Grandmother Social History Tobacco Use Smoking status: Never Smokeless tobacco: Never Vaping Use Vaping status: Never Used Substance Use Topics Alcohol use: Yes Comment: occasional- monthly Drug use: No Review of Systems Constitutional: Positive for appetite change and malaise/fatigue. Negative for fever and weight loss. HENT: Positive for congestion, ear pain, rhinorrhea and sneezing. Negative for hoarse voice, sore throat and trouble swallowing. Respiratory: Positive for cough and wheezing. Negative for hemoptysis, sputum production and shortness of breath. Cardiovascular: Negative for chest pain, dyspnea on exertion and PND. Gastrointestinal: Negative for abdominal pain, diarrhea, heartburn, nausea and vomiting. Musculoskeletal: Positive for myalgias. Skin: Negative for color change, pallor, rash and wound. Allergic/Immunologic: Negative for environmental allergies, food allergies and immunocompromised state. Neurological: Positive for headaches. Negative for dizziness and facial asymmetry. Hematological: Negative for adenopathy. Does not bruise/bleed easily. Psychiatric/Behavioral: Negative for agitation and behavioral problems. Objective BP 130/90 Pulse 88 Temp 37.3 ?C (99.1 ?F) (more content not included)... [facility]01-[facility] History of Present illness Narrative* Alia Urbina APRN.PATTERN REPAIR PERSON - 03/14/2024 4:06 PM EST This note was created using Paystikriter. Subjective Jaimee Cooper is a 68 year old female. 68 year old female with PMH hyperlipidemia, RUDY, GERD presents for illness Acute onset 4 days ago +head congestion +sinus pressure +sinus pain +nasal congestion +dental pain +ear pain + cough +chest congestion +chills Denies N/V/D Denies CP Denies dyspnea Has been using Nyquil and Dayquil Advil Cold and Sinus The history is provided by the patient. No advanced clinical specialist was used. URI She complains of chest tightness, cough and wheezing. There is no difficulty breathing, frequent throat clearing, hemoptysis, hoarse voice, shortness of breath or sputum production. This is a new problem. The current episode started in the past 7 days. The problem occurs constantly. The problem hasbeen gradually worsening. The cough is non-productive. Associated symptoms include appetite change,ear congestion, ear pain, headaches, malaise/fatigue, myalgias, nasal congestion, rhinorrhea and sneezing. Pertinent negatives include no chest pain, dyspnea on exertion, fever, heartburn, orthopnea,PND, sore throat, sweats, trouble swallowing or weight loss. Her symptoms are aggravated by nothing. Her symptoms are alleviated by nothing. She reports no improvement on treatment. There are no known risk factors for lung disease. There is no history of asthma, bronchiectasis, bronchitis, COPD, emphysema or pneumonia. PAST MEDICAL HISTORY Diagnosis Date Arthritis Diverticulosis of colon (without mention of hemorrhage) Dysplasia of cervix, unspecified GERD (gastroesophageal reflux disease) Kidney cysts 2018 fluid filled Obesity (BMI 35.0-39.9 without comorbidity) RUDY (obstructive sleep apnea) severe Osteoarthritis of lumbar spine Osteoarthritis, knee s/p partial knee replacement on left Seasonal allergies spring and fall Vitamin D insufficiency PAST SURGICAL HISTORY Procedure Laterality Date CAUTERY CERVIX CRYOCAUTERY INITIAL/REPEAT 06/16/1994 COLONOSCOPY FLX DX W/COLLJ SPEC WHEN PFRMD 05/31/2010 Colonoscopy COLONOSCOPY FLX DX W/COLLJ SPEC WHEN PFRMD 12/22/2020 ESOPHAGOGASTRODUODENOSCOPY TRANSORAL DIAGNOSTIC 12/22/2020 JOINT REPLACEMENT HX SKIN BIOPSY HX TONSILLECTOMY HX TONSILLECTOMY PRIMARY/SECONDARY <AGE 10 TOTAL KNEE REPLACEMENT partial left done last Apr 2014 ALLERGIES Indocin [Indomethacin Sodium] and Naproxen MEDICATIONS cyclobenzaprine (FLEXERIL) 10 mg tablet Take 1 tablet by mouth two times a day as needed for musclespasm or pain. CPAP Change bilevel setting to 16/12 cmH2O. Please fit with dreamwear under the nose FFM (current masks with significant leaks). Please provide us with download after 4 weeks of use at this pressure setting. Lifetime supply. fluticasone (FLONASE) 50 mcg/actuation nasal spray Use 2 Sprays in each nostril once daily. Rinse mouth after use. atorvastatin (LIPITOR) 20 mg tablet Take 1 tablet by mouth daily at bedtime. For cholesterol. omeprazole (PRILOSEC) 20 mg capsule Take 1 capsule by mouth once daily. cholecalciferol (VITAMIN D3) 50 mcg (2,000 unit) tablet Take 1 tablet by mouth once daily. MULTIVITAMIN ORAL Take by mouth. amoxicillin-clavulanate potassium (AUGMENTIN) 875-125 mg per tablet Take 1 tablet by mouth two times a day for 7 days. FAMILY HISTORY Problem Relation Age of Onset Osteoporosis Mother Arthritis, HTN, Macular Degeneration other (hip fracture) Mother X 2 Heart Father ASHD, [place] Lung Cancer Brother Breast Cancer Maternal Grandmother Social History Tobacco Use Smoking status: Never Smokeless tobacco: Never Vaping Use Vaping status: Never Used Substance Use Topics Alcohol use: Yes Comment: occasional- monthly Drug use: No Review of Systems Constitutional: Positive for appetite change and malaise/fatigue. Negative for fever and weight loss. HENT: Positive for congestion, ear pain, rhinorrhea and sneezing. Negative for hoarse voice, sore throat and trouble swallowing. Respiratory: Positive for cough and wheezing. Negative for hemoptysis, sputum production and shortness of breath. Cardiovascular: Negative for chest pain, dyspnea on exertion and PND. Gastrointestinal: Negative for abdominal pain, diarrhea, heartburn, nausea and vomiting. Musculoskeletal: Positive for myalgias. Skin: Negative for color change, pallor, rash and wound. Allergic/Immunologic: Negative for environmental allergies, food allergies and immunocompromised state. Neurological: Positive for headaches. Negative for dizziness and facial asymmetry. Hematological: Negative for adenopathy. Does not bruise/bleed easily. Psychiatric/Behavioral: Negative for agitation and behavioral problems. Objective BP 130/90 Pulse 88 Temp 37.3 C (99.1 F) Resp 21 Wt 103.9 kg (229 lb 0.9 oz) SpO2 97% BMI 38.12 kg/m Physical Exam Vitals and nursing note reviewed. Constitutional: General: She is not in acute distress. Appearance: Normal appearance. She is normal weight. She is not ill-appearing, toxic-appearing or diaphoretic. HENT: Head: Normocephalic and atraumatic. Comments: +frontal sinus pressure +maxillary sinus pressure Right Ear: Ear canal and external ear normal. Left Ear: Ear canal and external ear normal. Ears: Comments: B/L TM erythematous Nose: Nose normal. No congestion or rhinorrhea. Mouth/Throat: Mouth: Mucous membranes are moist. Pharynx: No oropharyngeal exudate or posterior oropharyngeal erythema. Eyes: General: Right eye: No discharge. Left eye: No discharge. Extraocular Movements: Extraocular movements intact. Conjunctiva/sclera: Conjunctivae normal. Pupils: Pupils are equal, round, and reactive to light. Cardiovascular: Rate and Rhythm: Normal rate and regular rhythm. Pulses: Normal pulses. Heart sounds: Normal heart sounds. No murmur heard. No friction rub. Pulmonary: Effort: Pulmonary effort is normal. No respiratory distress. Breath sounds: Normal breath sounds. No stridor. No wheezing, rhonchi or rales. Comments: Harsh cough noted Chest: Chest wall: No tenderness. Abdominal: General: Abdomen is flat. There is no distension. Palpations: Abdomen is soft. There is no mass. Tenderness: There is no abdominal tenderness. There is no right CVA tenderness, left CVA tenderness, guarding or rebound. Hernia: No hernia is present. Musculoskeletal: General: No swelling, tenderness, deformity or signs of injury. Normal range of motion. Cervical back: Normal range of motion and neck supple. No rigidity. Right lower leg: No edema. Left lower leg: No edema. Lymphadenopathy: Cervical: Cervical adenopathy present. Skin: General: Skin is warm and dry. Capillary Refill: Capillary refill takes less than 2 seconds. Coloration: Skin is not jaundiced or pale. Findings: No bruising, erythema, lesion or rash. Neurological: General: No focal deficit present. Mental Status: She is alert and oriented to person, place, and time. Cranial Nerves: No cranial nerve deficit. Sensory: No sensory deficit. Motor: No weakness. Coordination: Coordination normal. Gait: Gait normal. Psychiatric: Mood and Affect: Mood normal. Behavior: Behavior normal. Thought Content: Thought content normal. Judgment: Judgment normal. Assessment and Plan ASSESSMENT/PLAN: 1. Acute otitis media, bilateral - ICD9: 382.9, ICD10: H66.93 (primary diagnosis) X 4 days - Will begin treatment with as per antibiotic as written, see orders - The patient should also be given OTC cough and cold meds as needed, warm salt water gargles, throat lozenges and/or OTC throat spray as needed, and nasal saline gtts and suction prn for the first 5-7 days of treatment. - Supportive care with plenty of fluids, rest, and analgesia prn. - Follow up in 3-5 days if symptoms persist or worsen. 2. Rhinosinusitis - ICD9: 473.9, ICD10: J32.9 - The patient should also be given OTC cough and cold meds as needed, warm salt water gargles, throat lozenges and/or OTC throat spray as needed, and nasal saline gtts and suction prn for the first 5-7 days of treatment. - Supportive care with plenty of fluids, rest, and analgesia prn. - Follow up in 3-5 days if symptoms persist or worsen. Alia Urbina APRN.PATTERN REPAIR PERSON documented in this encounterSelect [facility]12-16-[facility]24 NoteHNO ID: [id number] Author: NAVI KRISHNA, PT Service: ? Author Type: Physical Therapist Type: Progress Notes Filed: 02/26/2024 13:57 Note Text: Episode Visit Count: 1 Therapist That Will Accept/Oversee The Plan Of Care: Navi Krishna Start of Care Date: 02/26/24 Onset Date: 11/21/23 Plan of Care Certification Date: 01/23/20 Next Certification Due Date: 02/20/20 Patient Identified by Name and Date of : Yes REHABILITATION AND SPORTS THERAPY PHYSICAL THERAPY EVALUATION PLAN OF CARE: Assessment: Jaimee Cooper presents with chief complaint of neck pain that interferes with bending, heavy exertion, physical activities, working, sleeping . The patient presents with impairments in ADL's, overall function, posture, range of motion, strength, and symptom management. PROMIS? (Patient-Reported Outcomes Measurement Information System) scores were reviewed and identified as a rehabilitation concern. Prognosis for therapy is Excellent due to: current objective clinical presentation, good overall health status, positive past response to therapy, within-session changes, good support system/ coping skills . The patient will benefit from skilled therapy services to meet the goals established for this plan of care as noted below. Goals for Episode of Care: established 02/26/24 Independent in a Home Exercise Program. Patient will decrease pain rating by 2 points to meet minimal clinical important difference for numeric pain rating scale. Restore pain free cervical ROM to WNL to allow for decreased pain. Maintain proper sitting posture throughout the session to allow for decreased pain. Time Frame for Goals and Treatment : 04/08/24 Planned Interventions, Frequency, and Duration: Current Frequency: 1 visit Duration: 1 visit Total Number of Visits Planned: 1 Planned Treatment Interventions: Therapeutic exercise (91374), Neuromuscular re-education (83607), Manual therapy (90647), Therapeutic activities (81466), Self-shelter management (46593), Patient/Family/Caregiver Education, Body Mechanics Training PLAN FOR NEXT VISIT: OR vs DC Patient demonstrates good understanding of plan of care and treatment. The above goals and plan of care were discussed and agreed upon by patient/family. SUBJECTIVE: acute on chrinic neck pain for a few months now. Notes that the pain was mostly on the L side but is doing much better. Dr Thayer gave her some exercises and meloxicam really helped settle things down. Still tight, but not nearly as painful Functional Limitations: bending, heavy exertion, physical activities, working, sleeping Prior Level of Function: Independent without limitations Intake Information: Prescription present Pain: Pain Pain Level: 2 Pain Location: Neck - Left Description: Tightness Frequency: Continuous PROMIS Scales 02/26/2024 02/24/2024 02/19/2020 Higher is Better Phys Func - Score 43 (mild dysfunction) 47 (within normal limits) Phys Func - Percentile 24 38 Self-Eff Symptom - Score 41 (Average) 46 (Average) Self-Eff Symptom - Percentile 18 34 T-scores: mean of general population = 50. 5 points is clinically meaningfully difference Percentiles provide an indication of how the patient's score ranks in relation to the general population. Higher percentile rankings indicate better function/quality of life. 50th percentile is the average of the general population and indicates half of respondents had a worse score. OBJECTIVE MEASURES WITH LEVEL OF FUNCTION: Spine Observations R Cervical Spine Palpation Tenderness: Upper trapezius, Paraspinals L Cervical Spine Palpation Tenderness: Upper trapezius, Paraspinals Cervical Spine ROM Cervical ROM : Limitation AROM Cervical Flexion AROM: Normal Cervical Extension AROM: Minimal limitation Cervical Side-Bend Right AROM: Moderate limitation Cervical Side-Bend Left AROM: Moderate limitation Cervical Rotation Right AROM: Minimal limitation Cervical Rotation Left AROM: Moderate limitation Special Tests - Cervical Cervical Special Tests: Cervical Compression, Cervical Distraction, Quadrant, Spurling Cervical Compression: Negative Cervical Distraction: Negative Quadrant: Left Positive Spurling: Left Negative Education: Education Learning/educational needs: Plan of Care, Home exercise program, Changes in Plan of Care, Posture, Body Mechanics TREATMENT: PT Treatment Interventions: Therapeutic Exercise Evaluation Therapeutic Exercise: 1: *Upper trap stretch 3x30 sec 2: *Levator stretch 3x30 sec 3: *Scap retractions 3x10 4: *Cervical retractions 3x10 Skilled Intervention: Patient was educated in proper exercise technique and purpose for exercises. Skilled judgment was used in selection of appropriate interventions. Provided written instruction for home exercise program to facilitate proper performance and compliance. Correct performance of therapeutic exercises was facilit (more content not included)...[facility]12-16-2024 History of Present illness Narrative* Navi Krishna, PT - 02/26/2024 1:50 PM EST Images from the original note were not included. Episode Visit Count: 1 Therapist That Will Accept/Oversee The Plan Of Care: Navi Krishna Start of Care Date: 02/26/24 Onset Date: 11/21/23 Plan of Care Certification Date: 01/23/20 Next Certification Due Date: 02/20/20 Patient Identified by Name and Date of : Yes REHABILITATION AND SPORTS THERAPY PHYSICAL THERAPY EVALUATION PLAN OF CARE: Assessment: Jaimee Cooper presents with chief complaint of neck pain that interferes with bending, heavy exertion, physical activities, working, sleeping . The patient presents with impairments in ADL's, overall function, posture, range of motion, strength, and symptom management. PROMIS (Patient-Reported Outcomes Measurement Information System) scores were reviewed and identified as a rehabilitation concern. Prognosis for therapy is Excellent due to: current objective clinical presentation, good overall health status, positive past response to therapy, within-session changes, good support system/ coping skills . The patient will benefit from skilled therapy services to meet the goals e stablished for this plan of care as noted below. Goals for Episode of Care: established 02/26/24 Independent in a Home Exercise Program. Patient will decrease pain rating by 2 points to meet minimal clinical important difference for numeric pain rating scale. Restore pain free cervical ROM to WNL to allow for decreased pain. Maintain proper sitting posture throughout the session to allow for decreased pain. Time Frame for Goals and Treatment : 04/08/24 Planned Interventions, Frequency, and Duration: Current Frequency: 1 visit Duration: 1 visit Total Number of Visits Planned: 1 Planned Treatment Interventions: Therapeutic exercise (53178), Neuromuscular re- education (62650), Manual therapy (56594), Therapeutic activities (97208), Self- shelter management (12154), Patient/Family/Caregiver Education, Body Mechanics Training PLAN FOR NEXT VISIT: OR vs DC Patient demonstrates good understanding of plan of care and treatment. The above goals and plan of care were discussed and agreed upon by patient/family. SUBJECTIVE: acute on chrinic neck pain for a few months now. Notes that the pain was mostly on the L side but is doing much better. Dr Thayer gave her some exercises and meloxicam really helped settle things down. Still tight, but not nearly as painful Functional Limitations: bending, heavy exertion, physical activities, working, sleeping Prior Level of Function: Independent without limitations Intake Information: Prescription present Pain: Pain Pain Level: 2 Pain Location: Neck - Left Description: Tightness Frequency: Continuous PROMIS Scales 02/26/2024 02/24/2024 02/19/2020 Higher is Better Phys Func - Score 43 (mild dysfunction) 47 (within normal limits) Phys Func - Percentile 24 38 Self-Eff Symptom - Score 41 (Average) 46 (Average) Self-Eff Symptom - Percentile 18 34 T-scores: mean of general population = 50. 5 points is clinically meaningfully difference Percentiles provide an indication of how the patient's score ranks in relation to the general population. Higher percentile rankings indicate better function/quality of life. 50th percentile is the average of the general population and indicates half of respondents had a worse score. OBJECTIVE MEASURES WITH LEVEL OF FUNCTION: Spine Observations R Cervical Spine Palpation Tenderness: Upper trapezius, Paraspinals L Cervical Spine Palpation Tenderness: Upper trapezius, Paraspinals Cervical Spine ROM Cervical ROM : Limitation AROM Cervical Flexion AROM: Normal Cervical Extension AROM: Minimal limitation Cervical Side-Bend Right AROM: Moderate limitation Cervical Side-Bend Left AROM: Moderate limitation Cervical Rotation Right AROM: Minimal limitation Cervical Rotation Left AROM: Moderate limitation Special Tests - Cervical Cervical Special Tests: Cervical Compression, Cervical Distraction, Quadrant, Spurling Cervical Compression: Negative Cervical Distraction: Negative Quadrant: Left Positive Spurling: Left Negative Education: Education Learning/educational needs: Plan of Care, Home exercise program, Changes in Plan of Care, Posture, Body Mechanics TREATMENT: PT Treatment Interventions: Therapeutic Exercise Evaluation Therapeutic Exercise: 1: *Upper trap stretch 3x30 sec 2: *Levator stretch 3x30 sec 3: *Scap retractions 3x10 4: *Cervical retractions 3x10 Skilled Intervention: Patient was educated in proper exercise technique and purpose for exercises. Skilled judgment was used in selection of appropriate interventions. Provided written instruction for home exercise program to facilitate proper performance and compliance. Correct performance of therapeutic exercises was facilitated with verbal, visual, and tactile cuing. Billing * Evaluation Low Complexity: 1 Unit Therapeutic Exercise Treatment Minutes: 10 Skilled Treatment Time Minutes (timed and untimed codes): 35 Total Session Time (minutes): 35 Session Start Time : 09 Session Stop Time : 934 Navi Krishna PT * Navi Krishna PT - 02/26/2024 9:32 AM EST Program_ID:[id number] Access Code: [email or web address] URL: [email or web address] Date: 02-26-2024 Prepared By: Navi Krishna Program Notes Exercises - Seated Neck Sidebending Stretch - 3 x daily - 7 x weekly - 1 sets - 3 reps - Gentle Levator Scapulae Stretch - 3 x daily - 7 x weekly - 1 sets - 3 reps - Standing Scapular Retraction with External Rotation - 1 x daily - 7 x weekly - 3 sets - 10 reps - Seated Chin Tuck with Neck Elongation - 3 x daily - 7 x weekly - 1 sets - 10 reps [facility] Evaluation note* Diagnosis Onset Date Resolution Status Admit Date Obesity chronic February 22, 2024 1:32pm Obstructive sleep apnea chronic D ec2023 1:32pm [facility] Work Phone: 1(592) 618-100712-02-2024 Telephone encounter Note* Telephone Encounter - Nubia Chandler LPN - 02/12/2024 1:23 PM EST Phoned patient went over results, notes from Dr Saldivar with understanding. [facility] Miscellaneous Notes* Telephone Encounter - Nubia Chandler LPN - 02/12/2024 1:23 PM EST Phoned patient went over results, notes from Dr Saldivar with understanding. * Telephone Encounter - Nubia Chandler LPN - 02/12/2024 1:22 PM EST ----- Message from Mili Saldivar MD sent at 02/12/2024 12:55 PM EST ----- Neck xray shows moderate arthritis without fracture or dislocation. Continue treatment as discussedin office. documented in this encounter[facility] Telephone encounter Note * Telephone Encounter - Nubia Chandler LPN - 02/12/2024 1:22 PM EST ----- Message from Mili Saldivar MD sent at 02/12/2024 12:55 PM EST ----- Neck xray shows moderate arthritis without fracture or dislocation. Continue treatment as discussedin office. [facility]29[facility] History of Present illness Narrative* Belén Ledezma RT(Navya) - 02/09/2024 10:20 AM EST Radiology Service Progress Note PATIENT NAME: Jaimee Cooper DATE OF SERVICE: February 09, 2024 TIME: 10:15 AM PATIENT IDENTITY VERIFICATION COMPLETED USING TWO (2) IDENTIFIERS: Name and Date of confirmedby patient verbally. FALL SCREENING: Has the patient had 2 falls in the last year or 1 fall with injury or currently using an Ambulatory Assistive Device (Walker, Cane, Wheelchair, Crutches, etc.)? No PATIENT GENDER DATA: Female. status: : No status: NO. PATIENT RELEVANT IMPLANT DATA REVIEWED: Not Applicable PATIENT PRESENTS WITH AN IMPLANTABLE OR ATTACHED DRUM SANDER: No RADIOLOGY DEPARTMENT: General X-ray: Exam(s) Completed: Spine X-Ray(s): Cervical AP / LAT / OBL PERIPHERAL IV DATA: Not applicable SIGNED BY: RT Steven(R) February 09, 2024 10:15 AM documented in this encounterSelect [facility]-29-[facility]24 NoteHNO ID: [id number] Author: BELÉN LEDEZMA RT(Navya) Service: ? Author Type: Technologist Type: Progress Notes Filed: 02/09/2024 10:23 Note Text: Radiology Service Progress Note PATIENT NAME: Jaimee Cooper DATE OF SERVICE: February 09, 2024 TIME: 10:15 AM PATIENT IDENTITY VERIFICATION COMPLETED USING TWO (2) IDENTIFIERS: Name and Date of confirmed by patient verbally. FALL SCREENING: Has the patient had 2 falls in the last year or 1 fall with injury or currently using an Ambulatory Assistive Device (Walker, Cane, Wheelchair, Crutches, etc.)? No PATIENT GENDER DATA: Female. status: : No status: NO. PATIENT RELEVANT IMPLANT DATA REVIEWED: Not Applicable PATIENT PRESENTS WITH AN IMPLANTABLE OR ATTACHED DRUM SANDER: No RADIOLOGY DEPARTMENT: General X-ray: Exam(s) Completed: Spine X-Ray(s): Cervical AP / LAT / OBL PERIPHERAL IV DATA: Not applicable SIGNED BY: RT Steven(R) February 09, 2024 10:15 [facility]11-29-2024 NoteHNO ID: [id number] Author: MILI SALDIVAR MD Service: ? Author Type: Physician Type: Progress Notes Filed: 02/14/2024 14:53 Note Text: Chief Complaint Patient presents with: neck pain: X 6 weeks HPI Jaimee Cooper is a 68 year old female who presents here today for Above Complaints. Patient complaining of left sided neck pain starting about 2 months ago without fall or injury. Pain described as constant aching/sharp, currently 7/10, without radiation. Exacerbated with turning her head. Treating with Advil and tylenol along with ice/heat with some relief. Has had 2 massages without relief. Admits to possible swelling. Denies fever/chills, erythema, bruising, nausea, vomiting, severe headache. Past medical history, appointments, medications, allergies reviewed. Previous Medical History PAST MEDICAL HISTORY Diagnosis Date Arthritis Diverticulosis of colon (without mention of hemorrhage) Dysplasia of cervix, unspecified GERD (gastroesophageal reflux disease) Kidney cysts 2018 fluid filled Obesity (BMI 35.0-39.9 without comorbidity) RUDY (obstructive sleep apnea) severe Osteoarthritis of lumbar spine Osteoarthritis, knee s/p partial knee replacement on left Seasonal allergies spring and fall Vitamin D insufficiency Previous Surgical History PAST SURGICAL HISTORY Procedure Laterality Date CAUTERY CERVIX CRYOCAUTERY INITIAL/REPEAT 06/16/1994 COLONOSCOPY FLX DX W/COLLJ SPEC WHEN PFRMD 05/31/2010 Colonoscopy COLONOSCOPY FLX DX W/COLLJ SPEC WHEN PFRMD 12/22/2020 ESOPHAGOGASTRODUODENOSCOPY TRANSORAL DIAGNOSTIC 12/22/2020 JOINT REPLACEMENT HX SKIN BIOPSY HX TONSILLECTOMY HX TONSILLECTOMY PRIMARY/SECONDARY TOTAL KNEE REPLACEMENT partial left done last Apr 2014 Family History FAMILY HISTORY Problem Relation Age of Onset Osteoporosis Mother Arthritis, HTN, Macular Degeneration other (hip fracture) Mother X 2 Heart Father ASHD, [place] Lung Cancer Brother Breast Cancer Maternal Grandmother Patient Allergies ALLERGIES Allergen Reactions Indocin [Indomethac* Rash Naproxen Rash Current Medications Current Outpatient Medications on File Prior to Visit Medication Sig CPAP Change bilevel setting to 16/12 cmH2O. Please fit with dreamwear under the nose FFM (current masks with significant leaks). Please provide us with download after 4 weeks of use at this pressure setting. Lifetime supply. fluticasone (FLONASE) 50 mcg/actuation nasal spray Use 2 Sprays in each nostril once daily. Rinse mouth after use. atorvastatin (LIPITOR) 20 mg tablet Take 1 tablet by mouth daily at bedtime. For cholesterol. cholecalciferol (VITAMIN D3) 50 mcg (2,000 unit) tablet Take 1 tablet by mouth once daily. MULTIVITAMIN ORAL Take by mouth. omeprazole (PRILOSEC) 20 mg capsule Take 1 capsule by mouth once daily. No current facility-administered medications on file prior to visit. Social History Social History Tobacco Use Smoking status: Never Smokeless tobacco: Never Vaping Use Vaping status: Never Used Substance Use Topics Alcohol use: Yes Comment: occasional- monthly Drug use: No Review of Symptoms REVIEW OF SYSTEMS See HPI EXAM: BP 132/76 Pulse 76 Resp 16 SpO2 99% General Appearance: Well appearing, alert, in no acute distress, well-hydrated, well nourished.. Skin: Skin color, texture, turgor normal, no suspicious rashes or lesions. Musculoskeletal: TTP over left cervical paraspinal muscles out spinous process TTP. Normal ROM with pain on rotation. Neurologic: Negative findings: speech normal, mental status intact, cranial nerves 2-12 intact, muscle tone normal, muscle strength normal, sensation to light touch and pinprick normal, reflexes normal and symmetric. Health Maintenance List DTaP,Tdap,Td Vaccine(2 - Td or Tdap) due on 06/22/2024 Shingrix Vaccine(1 of 2) due on 12/24/2024 Covid-19 Vaccine( season) due on 12/24/2024 Depression Screening due on 06/22/2024 Anxiety Screening due on 06/22/2024 Mammogram Screening due on 02/04/2025 Diabetes Screening due on 12/24/2026 RSV Vaccine(1 - 1-dose 75+ series) due on 2028 Lipid Screening due on 12/24/2028 Colorectal Cancer Screening due on 12/22/2030 Bone Density Screening Completed Influenza Vaccine Completed Advance Directive Discussion Completed Hepatitis C Screening Completed Pneumococcal Vaccine: 65+ Completed ASSESSMENT/PLAN: 1. Chronic neck pain - ICD9: 723.1, 338.29, ICD10: M54.2, G89.29 (primary diagnosis) Suspect cervical strain with muscle spasm. Will treat with rest, ice/heat, home exercises, NSAID and flexeril. If not improving, f/u in 2-3 weeks with PT for further evaluation and treatment. Red flags for re-assessment reviewed with patient in detail. - CONSULT TO PHYSICAL THERAPY - MELOXICAM 15 MG TABLET - CYCLOBENZAPRINE 10 MG TABLET - XR CERV OTHER 4V AP/LAT/OBL 2. Strain of neck muscle, initial encou (more content not included)...[facility]11-29-2024 History of Present illness Narrative* Mili Saldivar MD - 02/09/2024 9:45 AM EST Chief Complaint Patient presents with: neck pain: X 6 weeks HPI Jaimee Cooper is a 68 year old female who presents here today for Above Complaints. Patient complaining of left sided neck pain starting about 2 months ago without fall or injury. Pain described as constant aching/sharp, currently 7/10, without radiation. Exacerbated with turning her head. Treating with Advil and tylenol along with ice/heat with some relief. Has had 2 massages without relief. Admits to possible swelling. Denies fever/chills, erythema, bruising, nausea, vomiting, severe headache. Past medical history, appointments, medications, allergies reviewed. Previous Medical History PAST MEDICAL HISTORY Diagnosis Date Arthritis Diverticulosis of colon (without mention of hemorrhage) Dysplasia of cervix, unspecified GERD (gastroesophageal reflux disease) Kidney cysts 2018 fluid filled Obesity (BMI 35.0-39.9 without comorbidity) RUDY (obstructive sleep apnea) severe Osteoarthritis of lumbar spine Osteoarthritis, knee s/p partial knee replacement on left Seasonal allergies spring and fall Vitamin D insufficiency Previous Surgical History PAST SURGICAL HISTORY Procedure Laterality Date CAUTERY CERVIX CRYOCAUTERY INITIAL/REPEAT 06/16/1994 COLONOSCOPY FLX DX W/COLLJ SPEC WHEN PFRMD 05/31/2010 Colonoscopy COLONOSCOPY FLX DX W/COLLJ SPEC WHEN PFRMD 12/22/2020 ESOPHAGOGASTRODUODENOSCOPY TRANSORAL DIAGNOSTIC 12/22/2020 JOINT REPLACEMENT HX SKIN BIOPSY HX TONSILLECTOMY HX TONSILLECTOMY PRIMARY/SECONDARY <AGE 12 TOTAL KNEE REPLACEMENT partial left done last Apr 2014 Family History FAMILY HISTORY Problem Relation Age of Onset Osteoporosis Mother Arthritis, HTN, Macular Degeneration other (hip fracture) Mother X 2 Heart Father ASHD, [place] Lung Cancer Brother Breast Cancer Maternal Grandmother Patient Allergies ALLERGIES Allergen Reactions Indocin [Indomethac* Rash Naproxen Rash Current Medications Current Outpatient Medications on File Prior to Visit Medication Sig CPAP Change bilevel setting to 16/12 cmH2O. Please fit with dreamwear under the nose FFM (current masks with significant leaks). Please provide us with download after 4 weeks of use at this pressure setting. Lifetime supply. fluticasone (FLONASE) 50 mcg/actuation nasal spray Use 2 Sprays in each nostril once daily. Rinse mouth after use. atorvastatin (LIPITOR) 20 mg tablet Take 1 tablet by mouth daily at bedtime. For cholesterol. cholecalciferol (VITAMIN D3) 50 mcg (2,000 unit) tablet Take 1 tablet by mouth once daily. MULTIVITAMIN ORAL Take by mouth. omeprazole (PRILOSEC) 20 mg capsule Take 1 capsule by mouth once daily. No current facility-administered medications on file prior to visit. Social History Social History Tobacco Use Smoking status: Never Smokeless tobacco: Never Vaping Use Vaping status: Never Used Substance Use Topics Alcohol use: Yes Comment: occasional- monthly Drug use: No Review of Symptoms REVIEW OF SYSTEMS See HPI EXAM: BP 132/76 Pulse 76 Resp 16 SpO2 99% General Appearance: Well appearing, alert, in no acute distress, well-hydrated, well nourished.. Skin: Skin color, texture, turgor normal, no suspicious rashes or lesions. Musculoskeletal: TTP over left cervical paraspinal muscles out spinous process TTP. Normal ROM withpain on rotation. Neurologic: Negative findings: speech normal, mental status intact, cranial nerves 2-12 intact, muscle tone normal, muscle strength normal, sensation to light touch and pinprick normal, reflexes normal and symmetric. Health Maintenance List DTaP,Tdap,Td Vaccine(2 - Td or Tdap) due on 06/22/2024 Shingrix Vaccine(1 of 2) due on 12/24/2024 Covid-19 Vaccine( season) due on 12/24/2024 Depression Screening due on 06/22/2024 Anxiety Screening due on 06/22/2024 Mammogram Screening due on 02/04/2025 Diabetes Screening due on 12/24/2026 RSV Vaccine(1 - 1-dose 75+ series) due on 2028 Lipid Screening due on 12/24/2028 Colorectal Cancer Screening due on 12/22/2030 Bone Density Screening Completed Influenza Vaccine Completed Advance Directive Discussion Completed Hepatitis C Screening Completed Pneumococcal Vaccine: 65+ Completed ASSESSMENT/PLAN: 1. Chronic neck pain - ICD9: 723.1, 338.29, ICD10: M54.2, G89.29 (primary diagnosis) Suspect cervical strain with muscle spasm. Will treat with rest, ice/heat, home exercises, NSAID and flexeril. If not improving, f/u in 2-3 weeks with PT for further evaluation and treatment. Red flags for re-assessment reviewed with patient in detail. - CONSULT TO PHYSICAL THERAPY - MELOXICAM 15 MG TABLET - CYCLOBENZAPRINE 10 MG TABLET - XR CERV OTHER 4V AP/LAT/OBL 2. Strain of neck muscle, initial encounter - ICD9: 847.0, ICD10: S16.1XXA - CONSULT TO PHYSICAL THERAPY - MELOXICAM 15 MG TABLET - CYCLOBENZAPRINE 10 MG TABLET - XR CERV OTHER 4V AP/LAT/OBL Mili Saldivar MD documented in this encounterSelect [facility] Telephone encounter Note * Telephone Encounter - Kristina Wade LPN - 02/07/2024 1:27 PM EST Attempted contacting patient phone rang several times and then the line went silent. Attempt later call back. Kristina Wade LPN [facility]-27-2024 Miscellaneous Notes* Telephone Encounter - Kristina Wade LPN - 02/07/2024 1:27 PM EST Attempted contacting patient phone rang several times and then the line went silent. Attempt later call back. Kristina Wade LPN * Telephone Encounter - Kristina Wade LPN - 02/07/2024 7:34 AM EST ----- Message from Mili Saldivar MD sent at 02/07/2024 7:07 AM EST ----- Screening mammogram is negative. Recommend recheck in 1 year. documented in this encounterSelect [facility]-27-2024 Telephone encounter Note * Telephone Encounter - Kristina Wade LPN - 02/07/2024 7:34 AM EST ----- Message from iMli Saldivar MD sent at 02/07/2024 7:07 AM EST ----- Screening mammogram is negative. Recommend recheck in 1 year. [facility] History of Present illness Narrative* Reyes Elias, Mammo Tech - 02/05/2024 10:10 AM EST Radiology Service Progress Note PATIENT NAME: Jaimee Cooper DATE OF SERVICE: February 05, 2024 TIME: 10:26 AM PATIENT IDENTITY VERIFICATION COMPLETED USING TWO (2) IDENTIFIERS: Name and Date of confirmedby patient verbally. FALL SCREENING: Has the patient had 2 falls in the last year or 1 fall with injury or currently using an Ambulatory Assistive Device (Walker, Cane, Wheelchair, Crutches, etc.)? No PATIENT GENDER DATA: Female. status: : No status: NO. PATIENT RELEVANT IMPLANT DATA REVIEWED: Not Applicable PATIENT PRESENTS WITH AN IMPLANTABLE OR ATTACHED DRUM SANDER: No RADIOLOGY DEPARTMENT: Mammography PERIPHERAL IV DATA: Not applicable SIGNED BY: Teofilo Gonzalez February 05, 2024 10:26 AM documented in this encounterSelect [facility]-25-2024 NoteHNO ID: [id number] Author: REYES ELIAS Mammo Tech Service: ? Author Type: [employer] Library Clerk Type: Progress Notes Filed: 02/05/2024 10:26 Note Text: Radiology Service Progress Note PATIENT NAME: Jaimee Cooper DATE OF SERVICE: February 05, 2024 TIME: 10:26 AM PATIENT IDENTITY VERIFICATION COMPLETED USING TWO (2) IDENTIFIERS: Name and Date of confirmed by patient verbally. FALL SCREENING: Has the patient had 2 falls in the last year or 1 fall with injury or currently using an Ambulatory Assistive Device (Walker, Cane, Wheelchair, Crutches, etc.)? No PATIENT GENDER DATA: Female. status: : No status: NO. PATIENT RELEVANT IMPLANT DATA REVIEWED: Not Applicable PATIENT PRESENTS WITH AN IMPLANTABLE OR ATTACHED DRUM SANDER: No RADIOLOGY DEPARTMENT: Mammography PERIPHERAL IV DATA: Not applicable SIGNED BY: Teofilo Gonzalez February 05, 2024 10:26 [facility]10-29-2024 Telephone encounter Note* Telephone Encounter - Neli Major MA - 01/09/2024 11:50 AM EDT See [employer] message. Neli Major MA [facility]-29-2024 Miscellaneous Notes* Telephone Encounter - Neli Major MA - 01/09/2024 11:50 AM EDT See [employer] message. Neli Major MA documented in this encounterSelect [facility]10-28-2024 Telephone encounter Note * Telephone Encounter - Alysha Chase LPN - 01/08/2024 5:24 PM EDT Gave PT results. [facility] Miscellaneous Notes* Telephone Encounter - Alysha Chase LPN - 01/08/2024 5:24 PM EDT Gave PT results. * Telephone Encounter - Alison Rosario MD - 01/08/2024 8:43 AM EDT FINAL DIAGNOSIS A. Skin, left neck, shave biopsy: - Reactive lymphoid hyperplasia, see comment. LANEB/CAROLE/bs 01/03/2024 Diagnosis Comment A. Histologic sections shows a vascular stratum corneum overlying an essentially unremarkable epidermis. Within the dermis, there is a dense perivascular, periadnexal, and interstitial lymphohistiocytic infiltrate. In order to further characterize the infiltrate, immunohistochemical stains were performed at the [facility] on block A1 with appropriate controls. CD3 and CD20 stains show balanced numbers of T cells and B cells. CD5 and BCL2 expression is restricted to T cells. CD10 and CD21 staining show no germinal centers. Cyclin D1 staining is not significantly elevated. A BCL6 stain is largely negative. A PU.1 stain shows numerous histiocytes. A Ki67 stain shows a normal proliferative index. Overall, these features are those of reactive lymphoid hyperplasia. Clinical correlation is recommended. Her immune system created this reaction though it is unclear to what (could have been a bug bite orother exposure). No additional treatment is needed and it should clear with removal. If she gets more she should let us know. Alison Rosario MD documented in this encounterSelect [facility]-28-2024 Telephone encounter Note * Telephone Encounter - Alison Rosario MD - 01/08/2024 8:43 AM EDT FINAL DIAGNOSIS A. Skin, left neck, shave biopsy: - Reactive lymphoid hyperplasia, see comment. SDB/CAROLE/bs 01/03/2024 Diagnosis Comment A. Histologic sections shows a vascular stratum corneum overlying an essentially unremarkable epidermis. Within the dermis, there is a dense perivascular, periadnexal, and interstitial lymphohistiocytic infiltrate. In order to further characterize the infiltrate, immunohistochemical stains were performed at the [facility] on block A1 with appropriate controls. CD3 and CD20 stains show balanced numbers of T cells and B cells. CD5 and BCL2 expression is restricted to T cells. CD10 and CD21 staining show no germinal centers. Cyclin D1 staining is not significantly elevated. A BCL6 stain is largely negative. A PU.1 stain shows numerous histiocytes. A Ki67 stain shows a normal proliferative index. Overall, these features are those of reactive lymphoid hyperplasia. Clinical correlation is recommended. Her immune system created this reaction though it is unclear to what (could have been a bug bite orother exposure). No additional treatment is needed and it should clear with removal. If she gets more she should let us know. Alison Rosario MD [facility] Work Phone: [phone] Telephone encounter Note* Telephone Encounter - Kristina Wade LPN - 01/04/2024 3:33 PM EDT Forwarded addended OV note and revised order to [facility]. Kristina Wade LPN [facility]24 Miscellaneous Notes* Telephone Encounter - Kristina Wade LPN - 01/04/2024 3:33 PM EDT Forwarded addended OV note and revised order to [facility]. Kristina Wade LPN * Telephone Encounter - Mili Saldivar MD - 01/04/2024 12:11 PM EDT Note addended. New order printed. Please fax. * Telephone Encounter - Kritsina Wade LPN - 01/03/2024 3:26 PM EDT Contacted [facility] as all information they requested was forwarded 12/26/23 after order was sent on 12/25/23. Spoke with Ruth who advised patient has the unit with ordered setting and set from script that was sent. Inquired if patient was requesting something else? She reviewed and found patient is c/o unit starts making a loud whining noise after running for about 5 minutes and needs new unit. [facility] needs 12/25/23 OV note addended to reflect the loud whining of unit and that the unit is 5 years old. The order needs to list same settings and order new Bi-Pap with order needs to stillbe dated 12/25/23. Contacted patient and updated her on above. Kristina Wade LPN * Telephone Encounter - Jacob Tinoco RN - 01/03/2024 11:55 AM EDT Patient reports [facility] never received the CPAP order. Asking pcp office to fax CPAP order to [facility]. documented in this encounterSelect [facility]24 Telephone encounter Note * Telephone Encounter - Mili Saldivar MD - 01/04/2024 12:11 PM EDT Note addended. New order printed. Please fax. [facility] Telephone encounter Note* Telephone Encounter - Kristina Wade LPN - 01/03/2024 3:26 PM EDT Contacted [facility] as all information they requested was forwarded 12/26/23 after order was sent on 12/25/23. Spoke with Ruth who advised patient has the unit with ordered setting and set from script that was sent. Inquired if patient was requesting something else? She reviewed and found patient is c/o unit starts making a loud whining noise after running for about 5 minutes and needs new unit. [facility] needs 12/25/23 OV note addended to reflect the loud whining of unit and that the unit is 5 years old. The order needs to list same settings and order new Bi-Pap with order needs to stillbe dated 12/25/23. Contacted patient and updated her on above. Kristina Wade LPN [facility]-2024 Telephone encounter Note* Telephone Encounter - Jacob Tinoco RN - 01/03/2024 11:55 AM EDT Patient reports [facility] never received the CPAP order. Asking pcp office to fax CPAP order to [facility]. [facility] Nurse Note* Alysha Chase LPN - 01/02/2024 2:35 PM EDT DERMATOLOGY AMBULATORY PATIENT EDUCATION TOPIC: Wound Care READINESS TO LEARN COGNITIVE ABILITY: A&Ox3 MOTIVATION TO LEARN: Eager and Interested FAMILY SUPPORT: None- unavailable/ disinterested INSTRUCTION PROVIDED TO: Patient PATIENT LEARNS BEST BY: Verbal instruction and Written instruction FACTORS AFFECTING LEARNING: None PHYSICAL LIMITATIONS AFFECTING LEARNING: None RESPONSE TO EDUCATION DIAGNOSIS: N/A PROCEDURE: Shave biopsy METHOD OF INSTRUCTION: Written instruction and Verbal instruction PATIENT / FAMILY RESPONSE: Patient verbalizes understanding. SUPPLEMENTAL MATERIAL: General wound care FOLLOW-UP PLAN: Pt instructed to call with any further questions or concerns. Contact information provided to patient. Alysha Chase LPN [facility]10-22-2024 Nurse Note* Alysha Chase LPN - 01/02/2024 2:35 PM EDT DERMATOLOGY AMBULATORY PATIENT EDUCATION TOPIC: Wound Care READINESS TO LEARN COGNITIVE ABILITY: A&Ox3 MOTIVATION TO LEARN: Eager and Interested FAMILY SUPPORT: None- unavailable/ disinterested INSTRUCTION PROVIDED TO: Patient PATIENT LEARNS BEST BY: Verbal instruction and Written instruction FACTORS AFFECTING LEARNING: None PHYSICAL LIMITATIONS AFFECTING LEARNING: None RESPONSE TO EDUCATION DIAGNOSIS: N/A PROCEDURE: Shave biopsy METHOD OF INSTRUCTION: Written instruction and Verbal instruction PATIENT / FAMILY RESPONSE: Patient verbalizes understanding. SUPPLEMENTAL MATERIAL: General wound care FOLLOW-UP PLAN: Pt instructed to call with any further questions or concerns. Contact information provided to patient. Alysha Chase LPN [facility] Instructions* Patient Instructions* Alysha Chase LPN - 01/02/2024 2:23 PM EDT Shave biopsy A shave biopsy was completed today in the office. Vaseline and a bandage(unless the biopsy took place in an area with hair, for example the scalp) have been applied. Wound care instructions are below. 1. Leave Vaseline and bandage in place for 24 hours. 2. After 24 hours, remove the bandage. 3. Wash site with soap (antimicrobial) and warm water. 4. Allow site to air dry. 5. Apply Vaseline and a clean bandage. 6. Continue the above process 2 times a day for the next 7 to 14 days (or until completely healed),starting tomorrow with the first bandage change. What to watch for: 1. Redness spreading away from the biopsy site(it is normal for redness to appear directly around the biopsy site edges). 2. Thick yellow/green drainage. Note: Clear yellow drainage on the bandage is expected. If any of the above symptoms occur, please call the office at [phone]. documented [facility] NoteHNO ID: [id number] Author: ALISON ROSARIO MD Service: ? Author Type: Physician Type: Progress Notes Filed: 01/02/2024 17:09 Note Text: NEW PATIENT PUNEET in Dermatology: Visit date not found Jaimee Cooper is a 68 year old female who presents today for Patient presents with: LESION, SKIN Current Treatment: Hydrocortisone 2.5% Past Treatment: As above History of nonmelanoma skin cancer: AK's History of Melanoma: no History of ATN: no Family history of skin cancer: Mom, sister and daughter Dermatology History: Specialty Problems None Allergies: Indocin [Indomethacin Sodium] and Naproxen Past Medical History: PAST MEDICAL HISTORY Diagnosis Date Arthritis Diverticulosis of colon (without mention of hemorrhage) Dysplasia of cervix, unspecified GERD (gastroesophageal reflux disease) Kidney cysts 2018 fluid filled Obesity (BMI 35.0-39.9 without comorbidity) RUDY (obstructive sleep apnea) severe Osteoarthritis of lumbar spine Osteoarthritis, knee s/p partial knee replacement on left Seasonal allergies spring and fall Vitamin D insufficiency MEDS: Current Outpatient Medications on File Prior to Visit Medication Sig fluticasone (FLONASE) 50 mcg/actuation nasal spray Use 2 Sprays in each nostril once daily. Rinse mouth after use. hydrocortisone 2.5 % cream Apply 1 application to affected area two times a day for 14 days. Location: left anterior neck CPAP Change bilevel setting to 16/12 cmH2O. Please fit with dreamwear under the nose FFM (current masks with significant leaks). Please provide us with download after 4 weeks of use at this pressure setting. Lifetime supply. atorvastatin (LIPITOR) 20 mg tablet Take 1 tablet by mouth daily at bedtime. For cholesterol. omeprazole (PRILOSEC) 20 mg capsule Take 1 capsule by mouth once daily. cholecalciferol (VITAMIN D3) 50 mcg (2,000 unit) tablet Take 1 tablet by mouth once daily. MULTIVITAMIN ORAL Take by mouth. No current facility-administered medications on file prior to visit. Review of systems Has trouble healing No Bleeds excessively No Has tendency to form hypertropic scars and keloids No Develops contact dermatitis to bandages and tapes No Develops contact dermatitis to antibiotic ointments No Enlarged lymph nodes No Is immunosuppressed No Has difficulty with systemic antibiotics No Has prosthetic joint replacement Yes: partial left knee replacement Has pacemaker / defibrillator No Takes aspirin / anticoagulant daily No Has valve disorders No Other problems elsewhere on skin No Alysha Chase LPN The above was entered by the nursing staff. I have reviewed the documentation and I concur. Alison Rosario MD HPI: Chief Complaint Bump to neck Location Neck Duration 6 weeks Timing constant Severity moderate Quality Raised are to neck, not draining. Itchy at times Modifying Factors: PT states her PCP gave her hydrocortisone cream but it was not effective at reliving the itching. No history of trauma or insect bite Physical Exam - Area(s) Examined: No images are attached to the encounter. The pt is alert and oriented, in NAD. Skin examination of Neck was significant for: Items identified on Diagram above 1 cm oval firm dome shaped erythematous pruritic papule left submental area Assessment / Plan: (D49.2) Neoplasm of unspecified behavior of bone, soft tissue, and skin (primary encounter diagnosis) Comment: urticated with anesthesia - may be mastocytoma, less likely lymphoma. Options, risks and benefits reviewed. Plan: SURGICAL PATHOLOGY Shave of lesion to establish and confirm diagnosis: Photo taken: Yes Risks, benefits, alternatives and personnel required for shave biopsy reviewed with patient. Patient and provider agree as to site(s) to be biopsied. Patient verbalizes understanding and wishes to proceed. Site(s) prepped with alcohol and anesthetized with 1% lidocaine with epinephrine. Shave of lesion(s) performed to the level of the dermis. 1 specimen(s) from see below sent for pathology to r/o see below. Hyfrecator used and bandaging applied. Written and verbal wound care instructions provided to patient, understanding verbalized. OK to call with results. EBL: scant SURGICAL PATHOLOGY Ordered at: 10/22/24 6303 Source of specimen(s): Skin, Shave Biopsy Left neck Clinical History: R/O Inflammatory nodule UNIVERSAL PROTOCOL / SAFETY CHECKLIST Procedure to be Performed: Shave biopsy Sign In: A Moment of CARE was completed. Personnel directly involved with the procedure wore the appropriate PPE (Personal Protective Equipment). Patient/Surrogate Stated/Verified: PATIENT VERIFIED(optional for EMERGENT procedures): Patient name, Date of , Relevant allergies, and The intended procedure Time Out Communication: Intended patient and procedure match the source documents. Consent documented and matches the intended procedure. (more content not included)...[facility]10-22-2024 History of Present illness Narrative* Alison Rosario MD - 01/02/2024 1:51 PM EDT NEW PATIENT PUNEET in Dermatology: Visit date not found Jaimee Cooper is a 68 year old female who presents today for Patient presents with: LESION, SKIN Current Treatment: Hydrocortisone 2.5% Past Treatment: As above History of nonmelanoma skin cancer: AK's History of Melanoma: no History of ATN: no Family history of skin cancer: Mom, sister and daughter Dermatology History: Specialty Problems None Allergies: Indocin [Indomethacin Sodium] and Naproxen Past Medical History: PAST MEDICAL HISTORY Diagnosis Date Arthritis Diverticulosis of colon (without mention of hemorrhage) Dysplasia of cervix, unspecified GERD (gastroesophageal reflux disease) Kidney cysts 2017 fluid filled Obesity (BMI 35.0-39.9 without comorbidity) RUDY (obstructive sleep apnea) severe Osteoarthritis of lumbar spine Osteoarthritis, knee s/p partial knee replacement on left Seasonal allergies spring and fall Vitamin D insufficiency MEDS: Current Outpatient Medications on File Prior to Visit Medication Sig fluticasone (FLONASE) 50 mcg/actuation nasal spray Use 2 Sprays in each nostril once daily. Rinse mouth after use. hydrocortisone 2.5 % cream Apply 1 application to affected area two times a day for 14 days. Location: left anterior neck CPAP Change bilevel setting to 16/12 cmH2O. Please fit with dreamwear under the nose FFM (current masks with significant leaks). Please provide us with download after 4 weeks of use at this pressure setting. Lifetime supply. atorvastatin (LIPITOR) 20 mg tablet Take 1 tablet by mouth daily at bedtime. For cholesterol. omeprazole (PRILOSEC) 20 mg capsule Take 1 capsule by mouth once daily. cholecalciferol (VITAMIN D3) 50 mcg (2,000 unit) tablet Take 1 tablet by mouth once daily. MULTIVITAMIN ORAL Take by mouth. No current facility-administered medications on file prior to visit. Review of systems Has trouble healing No Bleeds excessively No Has tendency to form hypertropic scars and keloids No Develops contact dermatitis to bandages and tapes No Develops contact dermatitis to antibiotic ointments No Enlarged lymph nodes No Is immunosuppressed No Has difficulty with systemic antibiotics No Has prosthetic joint replacement Yes: partial left knee replacement Has pacemaker / defibrillator No Takes aspirin / anticoagulant daily No Has valve disorders No Other problems elsewhere on skin No Alysha Chase LPN The above was entered by the nursing staff. I have reviewed the documentation and I concur. Alison Rosario MD HPI: Chief Complaint Bump to neck Location Neck Duration 6 weeks Timing constant Severity moderate Quality Raised are to neck, not draining. Itchy at times Modifying Factors: PT states her PCP gave her hydrocortisone cream but it was not effective at reliving the itching. No history of trauma or insect bite Physical Exam - Area(s) Examined: No images are attached to the encounter. The pt is alert and oriented, in NAD. Skin examination of Neck was significant for: Items identified on Diagram above 1 cm oval firm dome shaped erythematous pruritic papule left submental area Assessment / Plan: (D49.2) Neoplasm of unspecified behavior of bone, soft tissue, and skin (primary encounter diagnosis) Comment: urticated with anesthesia - may be mastocytoma, less likely lymphoma. Options, risks and benefits reviewed. Plan: SURGICAL PATHOLOGY Shave of lesion to establish and confirm diagnosis: Photo taken: Yes Risks, benefits, alternatives and personnel required for shave biopsy reviewed with patient. Patient and provider agree as to site(s) to be biopsied. Patient verbalizes understanding and wishes to proceed. Site(s) prepped with alcohol and anesthetized with 1% lidocaine with epinephrine. Shave of lesion(s) performed to the level of the dermis. 1 specimen(s) from see below sent for pathology to r/o see below. Hyfrecator used and bandaging applied. Written and verbal wound care instructions provided to patient, understanding verbalized. OK to call with results. EBL: scant SURGICAL PATHOLOGY Ordered at: 10/22/24 1433 Source of specimen(s): Skin, Shave Biopsy Left neck Clinical History: R/O Inflammatory nodule UNIVERSAL PROTOCOL / SAFETY CHECKLIST Procedure to be Performed: Shave biopsy Sign In: A Moment of CARE was completed. Personnel directly involved with the procedure wore the appropriate PPE (Personal Protective Equipment). Patient/Surrogate Stated/Verified: PATIENT VERIFIED(optional for EMERGENT procedures): Patient name, Date of , Relevant allergies, and The intended procedure Time Out Communication: Intended patient and procedure match the source documents. Consent documented and matches the intended procedure. Sign Out: SIGN OUT (optional for EMERGENT procedures): All specimen containers correctly labeled. Alysha Chase LPN By signing my name below, IAlysha LPN, attest that this documentation has been prepared under the direction and in the presence of Alison Rosario MD. Electronically Signed: Alysha Chase LPN, Scribe. January 02, 2024 1:51 PM. Edith Del Angel APRN.PATTERN REPAIR PERSON (training) IAlison MD, personally performed the services described in this documentation. All medical record entries made by the scribe were at my direction and in my presence. I have reviewed the chartand discharge instructions (if applicable) and agree that the record reflects my personal performance and is accurate and complete. Electronically Signed: Alison Rosario MD January 02, 2024 1:51 PM. documented [facility] Telephone encounter Note * Telephone Encounter - Kristina Wade LPN - 12/26/2023 1:04 PM EDT Phoned patient and updated her with results. She voiced understanding. Kristina Wade LPN [facility]10-15-2024 Miscellaneous Notes* Telephone Encounter - Kristina Wade LPN - 12/26/2023 1:04 PM EDT Phoned patient and updated her with results. She voiced understanding. Kristina Wade LPN * Telephone Encounter - Kristina Wade LPN - 12/26/2023 1:03 PM EDT ----- Message from Mili Saldivar MD sent at 12/26/2023 7:05 AM EDT ----- Normal labs. No change to regimen. documented in this encounter[facility] Telephone encounter Note * Telephone Encounter - Kristina Wade LPN - 12/26/2023 1:03 PM EDT ----- Message from Mili Saldivar MD sent at 12/26/2023 7:05 AM EDT ----- Normal labs. No change to regimen. [facility]-14-2024 NoteHNO ID: [id number] Author: MILI SALDIVAR MD Service: ? Author Type: Physician Type: Progress Notes Filed: 01/04/2024 12:10 Note Text: Chief Complaint Patient presents with: Follow Up: 6 month- Order for CPAP to DME [facility] Problem: Area under chin HPI Jaimee Cooper is a 68 year old female who presents here today for Above Complaints. Patient would like lump on left anterior neck checked today. Started about 4 weeks ago. Admits to itching without pain or burning. No change in size. Not treating with anything regularly OTC. Denies fever/chills, drainage, similar lesions on other parts of her body. RUDY: Patient states that she has been compliant with her CPAP/Bipap in the last 5-6 months since she got her new mask and switched to [facility]. Using nasal pillows. Using for 7-8 hours per night. States that she does feel more rested with use. Does not snore with use. Machine is 5 years old and makes whining noise at night. GERD: Heartburn well controlled on PPI. If she skips 3 days, symptoms return. Compliant with statin on a daily basis without side effects. Needs refill on flonase for environmental allergies. Worse with mowing and dust. Past medical history, appointments, medications, allergies reviewed. Previous Medical History PAST MEDICAL HISTORY Diagnosis Date Arthritis Diverticulosis of colon (without mention of hemorrhage) Dysplasia of cervix, unspecified GERD (gastroesophageal reflux disease) Kidney cysts 2017 fluid filled Obesity (BMI 35.0-39.9 without comorbidity) RUDY (obstructive sleep apnea) severe Osteoarthritis of lumbar spine Osteoarthritis, knee s/p partial knee replacement on left Seasonal allergies spring and fall Vitamin D insufficiency Previous Surgical History PAST SURGICAL HISTORY Procedure Laterality Date CAUTERY CERVIX CRYOCAUTERY INITIAL/REPEAT 06/16/1994 COLONOSCOPY FLX DX W/COLLJ SPEC WHEN PFRMD 05/31/2010 Colonoscopy COLONOSCOPY FLX DX W/COLLJ SPEC WHEN PFRMD 12/22/2020 ESOPHAGOGASTRODUODENOSCOPY TRANSORAL DIAGNOSTIC 12/22/2020 JOINT REPLACEMENT HX SKIN BIOPSY HX TONSILLECTOMY HX TONSILLECTOMY PRIMARY/SECONDARY TOTAL KNEE REPLACEMENT partial left done last Apr 2014 Family History FAMILY HISTORY Problem Relation Age of Onset Osteoporosis Mother Arthritis, HTN, Macular Degeneration other (hip fracture) Mother X 2 Heart Father [facility], [place] Lung Cancer Brother Breast Cancer Maternal Grandmother Patient Allergies ALLERGIES Allergen Reactions Indocin [Indomethac* Rash Naproxen Rash Current Medications Current Outpatient Medications on File Prior to Visit Medication Sig atorvastatin (LIPITOR) 20 mg tablet Take 1 tablet by mouth daily at bedtime. For cholesterol. fluticasone (FLONASE) 50 mcg/actuation nasal spray Use 2 Sprays in each nostril once daily. Rinse mouth after use. cholecalciferol (VITAMIN D3) 50 mcg (2,000 unit) tablet Take 1 tablet by mouth once daily. CPAP Change bilevel setting to 16/12 cmH2O. Please fit with dreamwear under the nose FFM (current masks with significant leaks). Please provide us with download after 4 weeks of use at this pressure setting. Lifetime supply. MULTIVITAMIN ORAL Take by mouth. omeprazole (PRILOSEC) 20 mg capsule Take 1 capsule by mouth once daily. No current facility-administered medications on file prior to visit. Social History Social History Tobacco Use Smoking status: Never Smokeless tobacco: Never Vaping Use Vaping status: Never Used Substance Use Topics Alcohol use: Yes Comment: occasional- monthly Drug use: No Review of Symptoms REVIEW OF SYSTEMS GENERAL: No weight loss, malaise or fevers RESPIRATORY: Negative for cough, hemoptysis, wheezing, COPD, dyspnea or shortness of breath CARDIOVASCULAR: Negative for chest pain, leg swelling, hypertension, CHF or palpitations GI: No nausea, vomiting, or diarrhea SKIN: See HPI EXAM: BP 122/70 Pulse 72 Resp 16 Wt 101.1 kg (222 lb 12.8 oz) SpO2 99% BMI 37.08 kg/m? General Appearance: Well appearing, alert, in no acute distress, well-hydrated, well nourished.. Skin: 0.9 x 0.7 cm raised red lump on left anterior neck. Superficial without abscess or cellulitis. Non tender. No fluctuance or . Lungs: Lungs clear to auscultation. No wheezing, rhonchi, rales.. Heart: RRR without murmur, gallop, or rubs. No ectopy. Abdomen: Normal abdominal exam, Abdomen soft, non-tender. Bowel sounds normal. No masses, organomegaly. Extremities: No deformities, edema, skin discoloration, clubbing or cyanosis. Good capillary refill. . Health Maintenance List Shingrix Vaccine(1 of 2) Never done Influenza Vaccine(1) due on 11/12/2023 Covid-19 Vaccine(2023- season) due on 11/12/2023 Mammogram Screening due on 01/17/2024 DTaP,Tdap,Td Vaccine(2 - Td or Tdap) due on 06/22/2024 Depression Screening due on 06/22/2024 Anxiety Screening due on 06/22/2024 (more content not included)...[facility]10-14-2024 History of Present illness Narrative* Mili Saldivar MD - 12/25/2023 10:28 AM EDT Chief Complaint Patient presents with: Follow Up: 6 month- Order for CPAP to DME [facility] Problem: Area under chin HPI Jaimee Cooper is a 68 year old female who presents here today for Above Complaints. Patient would like lump on left anterior neck checked today. Started about 4 weeks ago. Admits to itching without pain or burning. No change in size. Not treating with anything regularly OTC. Denies fever/chills, drainage, similar lesions on other parts of her body. RUDY: Patient states that she has been compliant with her CPAP/Bipap in the last 5-6 months since she got her new mask and switched to [facility]. Using nasal pillows. Using for 7-8 hours per night. States that she does feel more rested with use. Does not snore with use. GERD: Heartburn well controlled on PPI. If she skips 3 days, symptoms return. Compliant with statin on a daily basis without side effects. Needs refill on flonase for environmental allergies. Worse with mowing and dust. Past medical history, appointments, medications, allergies reviewed. Previous Medical History PAST MEDICAL HISTORY Diagnosis Date Arthritis Diverticulosis of colon (without mention of hemorrhage) Dysplasia of cervix, unspecified GERD (gastroesophageal reflux disease) Kidney cysts 2017 fluid filled Obesity (BMI 35.0-39.9 without comorbidity) RUDY (obstructive sleep apnea) severe Osteoarthritis of lumbar spine Osteoarthritis, knee s/p partial knee replacement on left Seasonal allergies spring and fall Vitamin D insufficiency Previous Surgical History PAST SURGICAL HISTORY Procedure Laterality Date CAUTERY CERVIX CRYOCAUTERY INITIAL/REPEAT 06/16/1994 COLONOSCOPY FLX DX W/COLLJ SPEC WHEN PFRMD 05/31/2010 Colonoscopy COLONOSCOPY FLX DX W/COLLJ SPEC WHEN PFRMD 12/22/2020 ESOPHAGOGASTRODUODENOSCOPY TRANSORAL DIAGNOSTIC 12/22/2020 JOINT REPLACEMENT HX SKIN BIOPSY HX TONSILLECTOMY HX TONSILLECTOMY PRIMARY/SECONDARY <AGE 12 TOTAL KNEE REPLACEMENT partial left done last Apr 2014 Family History FAMILY HISTORY Problem Relation Age of Onset Osteoporosis Mother Arthritis, HTN, Macular Degeneration other (hip fracture) Mother X 2 Heart Father [facility], [place] Lung Cancer Brother Breast Cancer Maternal Grandmother Patient Allergies ALLERGIES Allergen Reactions Indocin [Indomethac* Rash Naproxen Rash Current Medications Current Outpatient Medications on File Prior to Visit Medication Sig atorvastatin (LIPITOR) 20 mg tablet Take 1 tablet by mouth daily at bedtime. For cholesterol. fluticasone (FLONASE) 50 mcg/actuation nasal spray Use 2 Sprays in each nostril once daily. Rinse mouth after use. cholecalciferol (VITAMIN D3) 50 mcg (2,000 unit) tablet Take 1 tablet by mouth once daily. CPAP Change bilevel setting to 16/12 cmH2O. Please fit with dreamwear under the nose FFM (current masks with significant leaks). Please provide us with download after 4 weeks of use at this pressure setting. Lifetime supply. MULTIVITAMIN ORAL Take by mouth. omeprazole (PRILOSEC) 20 mg capsule Take 1 capsule by mouth once daily. No current facility-administered medications on file prior to visit. Social History Social History Tobacco Use Smoking status: Never Smokeless tobacco: Never Vaping Use Vaping status: Never Used Substance Use Topics Alcohol use: Yes Comment: occasional- monthly Drug use: No Review of Symptoms REVIEW OF SYSTEMS GENERAL: No weight loss, malaise or fevers RESPIRATORY: Negative for cough, hemoptysis, wheezing, COPD, dyspnea or shortness of breath CARDIOVASCULAR: Negative for chest pain, leg swelling, hypertension, CHF or palpitations GI: No nausea, vomiting, or diarrhea SKIN: See HPI EXAM: BP 122/70 Pulse 72 Resp 16 Wt 101.1 kg (222 lb 12.8 oz) SpO2 99% BMI 37.08 kg/m General Appearance: Well appearing, alert, in no acute distress, well-hydrated, well nourished.. Skin: 0.9 x 0.7 cm raised red lump on left anterior neck. Superficial without abscess or cellulitis. Non tender. No fluctuance or . Lungs: Lungs clear to auscultation. No wheezing, rhonchi, rales.. Heart: RRR without murmur, gallop, or rubs. No ectopy. Abdomen: Normal abdominal exam, Abdomen soft, non-tender. Bowel sounds normal. No masses, organomegaly. Extremities: No deformities, edema, skin discoloration, clubbing or cyanosis. Good capillary refill. . Health Maintenance List Shingrix Vaccine(1 of 2) Never done Influenza Vaccine(1) due on 11/12/2023 Covid-19 Vaccine( - season) due on 11/12/2023 Mammogram Screening due on 01/17/2024 DTaP,Tdap,Td Vaccine(2 - Td or Tdap) due on 06/22/2024 Depression Screening due on 06/22/2024 Anxiety Screening due on 06/22/2024 Diabetes Screening due on 07/09/2026 RSV Vaccine(1 - 1-dose 75+ series) due on 2028 Lipid Screening due on 06/21/2028 Colorectal Cancer Screening due on 12/22/2030 Bone Density Screening Completed Advance Directive Discussion Completed Hepatitis C Screening Completed Pneumococcal Vaccine: 65+ Completed Data reviewed Latest Ref Rng 07/10/2023 WBC 3.70 - 11.00 k/uL 12.28 (H) RBC 3.90 - 5.20 m/uL 4.42 Hemoglobin 11.5 - 15.5 g/dL 12.9 Hematocrit 36.0 - 46.0 % 39.6 MCV 80.0 - 100.0 fL 89.6 MCH 26.0 - 34.0 pg 29.2 MCHC 30.5 - 36.0 g/dL 32.6 RDW-CV 11.5 - 15.0 % 13.4 Platelet Count 150 - 400 k/uL 269 MPV 9.0 - 12.7 fL 11.2 Neut% % 73.5 Abs Neut (ANC) 1.45 - 7.50 k/uL 9.02 (H) Lymph% % 16.4 Abs Lymph 1.00 - 4.00 k/uL 2.01 Cooke% % 6.9 Abs Cooke <0.87 k/uL 0.85 Eosin% % 1.2 Abs Eosin <0.46 k/uL 0.15 Baso% % 0.8 Abs Baso <0.11 k/uL 0.10 Immature Gran % % 1.2 IMMATURE GRANS (ABS) <0.10 k/uL 0.15 (H) NRBC /100 WBC 0.0 Absolute nRBC <0.01 k/uL <0.01 DTYPE Auto Protein, Total 6.3 - 8.0 g/dL 7.5 Albumin 3.9 - 4.9 g/dL 3.8 (L) Calcium 8.5 - 10.2 mg/dL 9.6 Bilirubin, Total 0.2 - 1.3 mg/dL 0.3 Alkaline Phosphatase 34 - 123 U/L 104 AST 13 - 35 U/L 22 ALT 7 - 38 U/L 31 Glucose 74 - 99 mg/dL 86 BUN 7 - 21 mg/dL 17 Creatinine 0.58 - 0.96 mg/dL 0.95 Sodium 136 - 144 mmol/L 141 Potassium 3.7 - 5.1 mmol/L 4.2 Chloride 97 - 105 mmol/L 104 CO2 22 - 30 mmol/L 27 Anion Gap 9 - 18 mmol/L 10 eGFR >=60 mL/min/1.73m 65 Legend: (H) High (L) Low ASSESSMENT/PLAN: 1. Lump on neck - ICD9: 784.2, ICD10: R22.1 (primary diagnosis) Will start steroid cream BID for itchy lesion on left anterior neck and refer to dermatology in case this is not improving. Does not appear to be cellulitis or abscess today. Red flags for re-assessment reviewed with patient in detail. - HYDROCORTISONE 2.5 % TOPICAL CREAM - CONSULT TO DERMATOLOGY 2. RUDY (obstructive sleep apnea) - ICD9: 327.23, ICD10: G47.33 Patient with RUDY who is compliant with her CPAP on a nightly basis. Will continue to benefit from nightly use. - CPAP - CPAP 3. Other hyperlipidemia - ICD9: 272.4, ICD10: E78.49 Recheck lipid panel. Continue current regimen. 4. Gastroesophageal reflux disease, unspecified whether esophagitis present - ICD9: 530.81, ICD10: K21.9 - Continue treatment with Prilosec 20 mg QD 5. Class 2 obesity with body mass index (BMI) of 37.0 to 37.9 in adult, unspecified obesity type, unspecified whether serious comorbidity present - ICD9: 278.00, V85.37, ICD10: E66.812, Z68.37 Weight increasing - Behavioral intervention - COMPLETE BLOOD COUNT AND DIFFERENTIAL - COMPREHENSIVE METABOLIC PANEL - LIPID PANEL, NONFASTING 6. Encounter for screening mammogram for breast cancer - ICD9: V76.12, ICD10: Z12.31 - KEVIN SCREENING 7. Encounter for immunization - ICD9: V03.89, ICD10: Z23 - INFLUENZA VACCINE, PRSV FREE, AGE 65+ YR, HIGH DOSE, TRIVALENT (FLUZONE HIGH-DOSE) Mili Saldivar MD documented [facility] encounter[facility] Telephone encounter Note * Telephone Encounter - Alize Jordan RN - 11/02/2023 3:07 PM EDT Patient notified that Pulmonary referral was faxed as requested. Alize Jordan RN [facility]22-[facility]24 Miscellaneous Notes* Telephone Encounter - Alize Jordan RN - 11/02/2023 3:07 PM EDT Patient notified that Pulmonary referral was faxed as requested. Alize Jordan RN * Telephone Encounter - Mili Saldivar MD - 11/02/2023 10:55 AM EDT Referral placed as requested. Let me know if she needs anything else. * Telephone Encounter - Alize Jordan RN - 11/02/2023 8:39 AM EDT Patient states current CPAP is not working correctly and she has been in contact with [facility]. They have given her a loaner CPAP machine but need script to provide new machine to her. Current script on file and demographic page faxed to [facility] and pt aware. Patient requesting Pulmonary referral to see provider Kiera Quiroz at [facility]. Please call patient with update on this request, . Alize Jordan RN documented in this encounterSelect [facility]24 Telephone encounter Note * Telephone Encounter - Mili Saldivar MD - 11/02/2023 10:55 AM EDT Referral placed as requested. Let me know if she needs anything else. [facility] Telephone encounter Note* Telephone Encounter - Alize Jordan RN - 11/02/2023 8:39 AM EDT Patient states current CPAP is not working correctly and she has been in contact with [facility]. They have given her a loaner CPAP machine but need script to provide new machine to her. Current script on file and demographic page faxed to [facility] and pt aware. Patient requesting Pulmonary referral to see provider Kiera Quiroz at [facility]. Please call patient with update on this request, . Alize Jordan RN [facility]08-14-2024 Telephone encounter Note* Telephone Encounter - Haven Sutton LPN - 10/25/2023 2:39 PM EDT [facility]-07/10/23 Labs-07/10/[id number] Haven Sutton LPN [facility]-14-2024 Miscellaneous Notes* Telephone Encounter - Haven Sutton LPN - 10/25/2023 2:39 PM EDT [facility]-07/10/23 Labs-07/10/[id number]-70-84-24 Haven Sutton LPN documented in this encounterSelect [facility]-20[facility] Evaluation note* Type Assessment Date assessment [employer] Work Phone: 1(620) 252-805107-24-2024 History of Present illness Narrative* Encounter Date Complaint History Of Prese nt Illness Right Knee Injection Jaimee carlton presents to the office today complaining of right knee pain and are requesting a Cortisone injection. They rate the pain a 4/10. Their last cortisone injection was on 04/12/2023 which lasted approximately 6 months. The previous injection provided significant relief. They reported no adverse reactions to the previous injection and would like to proceed with an injection at today's visit. [facility] Work Phone: 1(287) 558-493605-02-2024 Telephone encounter Note* Telephone Encounter - Karena Childress MA - 07/13/2023 9:35 AM EDT [employer] message sent to pt notifying her of results and recommendations below from Provider. If questions to contact the office. Active on [employer] today. Karena Childress MA [facility]-02-2024 Miscellaneous Notes* Telephone Encounter - Karena Childress MA - 07/13/2023 9:35 AM EDT [employer] message sent to pt notifying her of results and recommendations below from Provider. If questions to contact the office. Active on [employer] today. Karena Childress MA * Telephone Encounter - Yudith Barraza APRN.CNP - 07/13/2023 7:42 AM EDT Culture results shows infection with E. Coli which is susceptible to the Cipro. Complete entire course and follow-up if symptoms do not resolve. Yudith Barraza APRN.CNP documented in this encounterSelect [facility]-2024 Telephone encounter Note * Telephone Encounter - Yudith Barraza APRN.CNP - 07/13/2023 7:42 AM EDT Culture results shows infection with E. Coli which is susceptible to the Cipro. Complete entire course and follow-up if symptoms do not resolve. Yudith Barraza APRN.CNP [facility] Work Phone: 1(939) 939-965404-30-2024 Telephone encounter Note* Telephone Encounter - Kristina Wade LPN - 07/11/2023 10:15 AM EDT Phoned patient and reviewed message with her.Patient reports she just picked up the prescription and voiced understanding regarding provider's message. [facility]30-[facility] Miscellaneous Notes* Telephone Encounter - Kristina Wade LPN - 07/11/2023 10:15 AM EDT Phoned patient and reviewed message with her.Patient reports she just picked up the prescription and voiced understanding regarding provider's message. * Telephone Encounter - Mili Saldivar MD - 07/11/2023 9:27 AM EDT UA and CBC are consistent with persistent UTI despite treatment with omnicef. Will call in new rx for Cipro 500 mg BID x 7 days. Awaiting urine culture results. Push PO fluids. Call with new or worsening symptoms of UTI while on abx regimen. documented in this encounterSelect [facility]04-30-2024 Telephone encounter Note * Telephone Encounter - Mili Saldivar MD - 07/11/2023 9:27 AM EDT UA and CBC are consistent with persistent UTI despite treatment with omnicef. Will call in new rx for Cipro 500 mg BID x 7 days. Awaiting urine culture results. Push PO fluids. Call with new or worsening symptoms of UTI while on abx regimen. [facility]-26-[facility] History of Present illness Narrative* Mili Saldivar MD - 07/07/2023 8:34 AM EDT Chief Complaint Patient presents with: ER F/U HPI Jaimee Cooper is a 68 year old female who presents here today for Above Complaints. Patient evaluated at [facility] ED on 06/29 with complaint of nausea, vomiting, shaking chills and myalgiaswhich started about 24 hours prior to evaluation. Sister sick with similar symptoms which resolved in 1-2 days. Temp of 102.3 in the ER. COVID, flu, and RSV negative. UA positive for UTI with nitrites, WBC and RBCs. Urine culture sent. CBC with normal WBC with elevated neutrophils. CMP showed hypokalemia at 3.4 which was replaced. Given dose of IV rocephin in the ER and discharged with cefdinir 300 mg BID x 7 days. Recommended f/u with our office in 1 week. Since discharge, patient has been taking abx as prescribed without side effects. Symptoms of fever/chills, nausea, vomiting and myalgias have resolved. Still has 1 day left of abx. Never had urinary symptoms. Urine culture growing e coli which was sensitive to cephalosporins. Past medical history, appointments, medications, allergies reviewed. Previous Medical History PAST MEDICAL HISTORY Diagnosis Date Arthritis Diverticulosis of colon (without mention of hemorrhage) Dysplasia of cervix, unspecified GERD (gastroesophageal reflux disease) Kidney cysts 2018 fluid filled Obesity (BMI 35.0-39.9 without comorbidity) RUDY (obstructive sleep apnea) severe Osteoarthritis of lumbar spine Osteoarthritis, knee s/p partial knee replacement on left Seasonal allergies spring and fall Vitamin D insufficiency Previous Surgical History PAST SURGICAL HISTORY Procedure Laterality Date CAUTERY CERVIX CRYOCAUTERY INITIAL/REPEAT 06/16/1994 COLONOSCOPY FLX DX W/COLLJ SPEC WHEN PFRMD 05/31/2010 Colonoscopy COLONOSCOPY FLX DX W/COLLJ SPEC WHEN PFRMD 12/22/2020 ESOPHAGOGASTRODUODENOSCOPY TRANSORAL DIAGNOSTIC 12/22/2020 JOINT REPLACEMENT HX SKIN BIOPSY HX TONSILLECTOMY HX TONSILLECTOMY PRIMARY/SECONDARY <AGE 12 TOTAL KNEE REPLACEMENT partial left done last Apr 2014 Family History FAMILY HISTORY Problem Relation Age of Onset Osteoporosis Mother Arthritis, HTN, Macular Degeneration other (hip fracture) Mother X 2 Heart Father ASHD, [place] Lung Cancer Brother Breast Cancer Maternal Grandmother Patient Allergies ALLERGIES Allergen Reactions Indocin [Indomethac* Rash Naproxen Rash Current Medications Current Outpatient Medications on File Prior to Visit Medication Sig cefdinir (OMNICEF) 300 mg capsule Take 300 mg by mouth two times a day. omeprazole (PRILOSEC) 20 mg capsule Take 1 capsule by mouth once daily. atorvastatin (LIPITOR) 20 mg tablet Take 1 tablet by mouth daily at bedtime. For cholesterol. fluticasone (FLONASE) 50 mcg/actuation nasal spray Use 2 Sprays in each nostril once daily. Rinse mouth after use. cholecalciferol (VITAMIN D3) 50 mcg (2,000 unit) tablet Take 1 tablet by mouth once daily. MULTIVITAMIN ORAL Take by mouth. CPAP Change bilevel setting to 16/12 cmH2O. Please fit with dreamwear under the nose FFM (current masks with significant leaks). Please provide us with download after 4 weeks of use at this pressure setting. Lifetime supply. (Patient not taking: Reported on 06/04/2021) No current facility-administered medications on file prior to visit. Social History Social History Tobacco Use Smoking status: Never Smokeless tobacco: Never Vaping Use Vaping Use: Never used Substance Use Topics Alcohol use: Yes Comment: occasional- monthly Drug use: No Review of Symptoms REVIEW OF SYSTEMS GENERAL: No weight loss, malaise or fevers RESPIRATORY: Negative for cough, hemoptysis, wheezing, COPD, dyspnea or shortness of breath CARDIOVASCULAR: Negative for chest pain, leg swelling, hypertension, CHF or palpitations GI: No nausea, vomiting, or diarrhea : No history of dysuria, frequency or incontinence SKIN: Negative for lesions, rash, and itching EXAM: BP 120/66 Pulse 74 Temp 36.7 C (98.1 F) Resp 16 Wt 96.6 kg (213 lb) SpO2 97% BMI 35.45 kg/m General Appearance: Well appearing, alert, in no acute distress, well-hydrated, well nourished.. Skin: Skin color, texture, turgor normal, no suspicious rashes or lesions. Lungs: Lungs clear to auscultation. No wheezing, rhonchi, rales.. Heart: RRR without murmur, gallop, or rubs. No ectopy. Abdomen: Normal abdominal exam, Abdomen soft, non-tender. Bowel sounds normal. No masses, organomegaly, Negative CVA tenderness. Health Maintenance List Shingrix Vaccine(1 of 2) due on 12/23/2023 Covid-19 Vaccine(4 - 2022- season) due on 12/23/2023 DTaP,Tdap,Td Vaccine(2 - Td or Tdap) due on 06/22/2024 RSV Vaccine(1 - 1-dose 60+ series) due on 06/22/2024 Mammogram Screening due on 01/17/2024 Diabetes Screening due on 06/21/2026 Lipid Screening due on 06/21/2028 Colorectal Cancer Screening due on 12/22/2030 Bone Density Screening Completed Influenza Vaccine Completed Advance Directive Discussion Completed Behavioral Health Screening Completed Hepatitis C Screening Completed Pneumococcal Vaccine: 65+ Completed ASSESSMENT/PLAN: 1. Acute cystitis without hematuria - ICD9: 595.0, ICD10: N30.00 (primary diagnosis) Symptoms resolved. Finish omnicef and push PO fluids. Recheck labs and UA next week after completing course of abx. - COMPLETE BLOOD COUNT AND DIFFERENTIAL - COMPREHENSIVE METABOLIC PANEL - URINALYSIS WITH MICROSCOPIC, REFLEX CULTURE 2. Hypokalemia - ICD9: 276.8, ICD10: E87.6 Recheck CMP next week. Mili Saldivar MD documented in this encounterSelect [facility]04-[facility]-2024 Telephone encounter Note * Telephone Encounter - Carmen Martinez LPN - 07/04/2023 3:52 PM EDT Scheduled with Dr. Saldivar 07/06. Carmen Martinez LPN [facility]-23-2024 Miscellaneous Notes* Telephone Encounter - Carmen Martinez LPN - 07/04/2023 3:52 PM EDT Scheduled with Dr. Saldivar 07/06. Carmen Martinez LPN * Telephone Encounter - Carmen Martinez LPN - 07/04/2023 3:43 PM EDT Patient seen at [facility] ER on 06/30/23. PCP recommends follow up in 2-3 days. Message left for patient to call office back. Carmen Martinez LPN documented in this encounterSelect [facility]04-23-2024 Telephone encounter Note * Telephone Encounter - Carmen Martinez LPN - 07/04/2023 3:43 PM EDT Patient seen at [facility] ER on 06/30/23. PCP recommends follow up in 2-3 days. Message left for patient to call office back. Carmen Martinez LPN [facility]-12-2024 History of Present illness Narrative* Mili Saldivar MD - 06/23/2023 10:35 AM EDT Chief Complaint Patient presents with: Follow Up: 40 min check up HPI Jaimee Cooper is a 68 year old female who presents here today for Above Complaints. Patient states that she is type O and has had false positive readings for hepatitis B in the past. States that she had testing done about [address] Foley and was told it was false positive. Tried to donate again in March and Hep B core antibody was reactive with negative HepBsAg and HBV discriminatory ANTONINA was nonreactive. BP elevated on initial check today. States that she has been eating higher salt diet in the last week. Checking at home with normal readings with occasional systolic in 130-140's. RUDY: Patient has not been using her CPAP on a nightly basis because she needed a new mask. Has not seen sleep medicine yet. States that she does feel more rested with use. Does not snore with use. Nasal pillows working well. Prior to problems with the mask, she was using her machine 7-8 hours everysingle night for more than a year. No trouble with seasonal allergies yet this spring. GERD: Heartburn well controlled on PPI. If she skips 3 days, symptoms return. Patient notes that she is following up with ortho in [place] at [facility]. Had injection into her right knee 2 months ago which has helped with her arthritis. Patient has DPOA and living will. FULL CODE. Past medical history, appointments, medications, allergies reviewed. Previous Medical History PAST MEDICAL HISTORY Diagnosis Date Arthritis Diverticulosis of colon (without mention of hemorrhage) Dysplasia of cervix, unspecified GERD (gastroesophageal reflux disease) Kidney cysts 2017 fluid filled Obesity (BMI 35.0-39.9 without comorbidity) RUDY (obstructive sleep apnea) severe Osteoarthritis of lumbar spine Osteoarthritis, knee s/p partial knee replacement on left Seasonal allergies spring and fall Vitamin D insufficiency Previous Surgical History PAST SURGICAL HISTORY Procedure Laterality Date CAUTERY CERVIX CRYOCAUTERY INITIAL/REPEAT 06/16/1994 COLONOSCOPY FLX DX W/COLLJ SPEC WHEN PFRMD 05/31/2010 Colonoscopy COLONOSCOPY FLX DX W/COLLJ SPEC WHEN PFRMD 12/22/2020 ESOPHAGOGASTRODUODENOSCOPY TRANSORAL DIAGNOSTIC 12/22/2020 JOINT REPLACEMENT HX SKIN BIOPSY HX TONSILLECTOMY HX TONSILLECTOMY PRIMARY/SECONDARY <AGE 12 TOTAL KNEE REPLACEMENT partial left done last Apr 2014 Family History FAMILY HISTORY Problem Relation Age of Onset Osteoporosis Mother Arthritis, HTN, Macular Degeneration other (hip fracture) Mother X 2 Heart Father ASHD, [place] Lung Cancer Brother Breast Cancer Maternal Grandmother Patient Allergies ALLERGIES Allergen Reactions Indocin [Indomethac* Rash Naproxen Rash Current Medications Current Outpatient Medications on File Prior to Visit Medication Sig atorvastatin (LIPITOR) 20 mg tablet Take 1 tablet by mouth daily at bedtime. For cholesterol. fluticasone (FLONASE) 50 mcg/actuation nasal spray Use 2 Sprays in each nostril once daily. Rinse mouth after use. cholecalciferol (VITAMIN D3) 50 mcg (2,000 unit) tablet Take 1 tablet by mouth once daily. MULTIVITAMIN ORAL Take by mouth. omeprazole (PRILOSEC) 20 mg capsule Take 1 capsule by mouth once daily. CPAP Change bilevel setting to 16/12 cmH2O. Please fit with dreamwear under the nose FFM (current masks with significant leaks). Please provide us with download after 4 weeks of use at this pressure setting. Lifetime supply. (Patient not taking: Reported on 06/04/2021) No current facility-administered medications on file prior to visit. Social History Social History Tobacco Use Smoking status: Never Smokeless tobacco: Never Vaping Use Vaping Use: Never used Substance Use Topics Alcohol use: Yes Comment: occasional- monthly Drug use: No Review of Symptoms REVIEW OF SYSTEMS GENERAL: No weight loss, malaise or fevers HEENT: Negative for frequent or significant headaches, No changes in hearing or vision, no nose bleeds or other nasal problems NECK: Negative for lumps, goiter, pain and significant neck swelling RESPIRATORY: Negative for cough, hemoptysis, wheezing, COPD, dyspnea or shortness of breath CARDIOVASCULAR: Negative for chest pain, leg swelling, hypertension, CHF or palpitations GI: No nausea, vomiting, or diarrhea : No history of dysuria, frequency or incontinence MUSCULOSKELETAL: Negative for joint pain or swelling, back pain or muscle pain SKIN: Negative for lesions, rash, and itching PSYCH: Negative for sleep disturbance, mood disorder and recent psychosocial stressors HEMATOLOGY/LYMPHOLOGY: Negative for prolonged bleeding, bruising easily or swollen nodes ENDOCRINE: Negative for cold or heat intolerance, polyuria, polydipsia and goiter NEURO: No history of headaches, syncope, paralysis, seizures or tremors EXAM: BP 128/78 Pulse 70 Resp 16 Wt 96.7 kg (213 lb 3.2 oz) SpO2 97% BMI 35.48 kg/m General Appearance: Well appearing, alert, in no acute distress, well-hydrated, well nourished.. Skin: Skin color, texture, turgor normal, no suspicious rashes or lesions. Head: Normocephalic, no masses, lesions, tenderness or abnormalities. Eyes: Anicteric sclera. Pupils are equally round and reactive to light. Extraocular movements are intact. . Ears: External ears normal, canals clear. Nose/Sinuses: Nares normal, septum midline, mucosa normal, no drainage or sinus tenderness. Oropharynx: Lips, mucosa, and tongue normal, teeth and gums normal, oropharynx normal. Neck: Supple, no adenopathy; thyroid symmetric, normal size, no bruits. Lungs: Lungs clear to auscultation. No wheezing, rhonchi, rales.. Heart: RRR without murmur, gallop, or rubs. No ectopy. Abdomen: Normal abdominal exam, Abdomen soft, non-tender. Bowel sounds normal. No masses, organomegaly. Extremities: No deformities, edema, skin discoloration, clubbing or cyanosis. Good capillary refill. . Peripheral Pulses: Normal. Lymph Nodes: No cervical lymphadenopathy and No supraclavicular lymphadenopathy. Health Maintenance List RSV Vaccine(1 - 1-dose 60+ series) Never done DTaP,Tdap,Td Vaccine(2 - Td or Tdap) due on 11/21/2018 Advance Directive Discussion Never done Behavioral Health Screening Never done Shingrix Vaccine(1 of 2) due on 12/23/2023 Covid-19 Vaccine(2022- season) due on 12/23/2023 Mammogram Screening due on 01/17/2024 Diabetes Screening due on 06/21/2026 Lipid Screening due on 06/21/2028 Colorectal Cancer Screening due on 12/22/2030 Bone Density Screening Completed Influenza Vaccine Completed Hepatitis C Screening Completed Pneumococcal Vaccine: 65+ Completed Data reviewed Latest Ref Rng 12/28/2022 06/22/2023 WBC 3.70 - 11.00 k/uL 5.75 RBC 3.90 - 5.20 m/uL 4.61 Hemoglobin 11.5 - 15.5 g/dL 13.5 Hematocrit 36.0 - 46.0 % 41.8 MCV 80.0 - 100.0 fL 90.7 MCH 26.0 - 34.0 pg 29.3 MCHC 30.5 - 36.0 g/dL 32.3 RDW-CV 11.5 - 15.0 % 13.7 Platelet Count 150 - 400 k/uL 200 MPV 9.0 - 12.7 fL 11.9 Neut% % 59.0 Abs Neut (ANC) 1.45 - 7.50 k/uL 3.39 Lymph% % 27.5 Abs Lymph 1.00 - 4.00 k/uL 1.58 Cooke% % 8.5 Abs Cooke <0.87 k/uL 0.49 Eosin% % 3.1 Abs Eosin <0.46 k/uL 0.18 Baso% % 1.2 Abs Baso <0.11 k/uL 0.07 Immature Gran % % 0.7 IMMATURE GRANS (ABS) <0.10 k/uL 0.04 NRBC /100 WBC 0.0 Absolute nRBC <0.01 k/uL <0.01 DTYPE Auto Protein, Total 6.3 - 8.0 g/dL 7.5 7.4 Albumin 3.9 - 4.9 g/dL 4.1 3.9 Calcium 8.5 - 10.2 mg/dL 9.3 9.3 Bilirubin, Total 0.2 - 1.3 mg/dL 0.3 0.4 Alkaline Phosphatase 34 - 123 U/L 87 107 AST 13 - 35 U/L 20 24 ALT 7 - 38 U/L 20 18 Glucose 74 - 99 mg/dL 91 90 BUN 7 - 21 mg/dL 18 13 Creatinine 0.58 - 0.96 mg/dL 0.84 0.83 Sodium 136 - 144 mmol/L 142 144 Potassium 3.7 - 5.1 mmol/L 4.2 4.3 Chloride 97 - 105 mmol/L 105 107 (H) CO2 22 - 30 mmol/L 25 25 Anion Gap 9 - 18 mmol/L 12 12 eGFR >=60 mL/min/1.73m 75 76 Cholesterol, Total <200 mg/dL 194 Triglyceride <150 mg/dL 120 HDL Cholesterol >39 mg/dL 54 Non HDL Cholesterol <130 mg/dL 140 (H) Fasting Time hrs 12 VLDL Cholesterol <30 mg/dL 24 TC:HDL Ratio <5.10 3.59 LDL Cholesterol <100 mg/dL 116 (H) LDL:HDL Ratio <2.54 2.15 Total Cholesterol, Nonfasting <200 mg/dL 151 Triglycerides, Nonfasting <150 mg/dL 137 HDL Cholesterol, Nonfasting >39 mg/dL 58 LDL Cholesterol, Nonfasting <100 mg/dL 66 Non HDL Cholesterol, Nonfasting <130 mg/dL 93 VLDL Cholesterol, Nonfasting <30 mg/dL 27 Total Chol/HDL Ratio, Nonfasting <5.10 mg/dL 2.60 LDL/HDL Ratio, Nonfasting <2.54 mg/dL 1.14 Vitamin D 25 Hydroxy 31.0 - 80.0 ng/mL 34.5 ASSESSMENT/PLAN: 1. Hepatitis B core antibody positive - ICD9: 795.79, ICD10: R76.8 (primary diagnosis) Suspect false positive. Obtain repeat labs to confirm. Patient denies high risk behavior or blood contact. - HEPATITIS B SURFACE ANTIBODY - HEPATITIS B SURFACE ANTIGEN - HEPATITIS B CORE ANTIBODY IGM 2. Gastroesophageal reflux disease, unspecified whether esophagitis present - ICD9: 530.81, ICD10: K21.9 - Discussed lifestyle modifications including losing weight, limiting caffeine, and no meals three hours before sleep - Continue treatment with Prilosec 20 mg QD - OMEPRAZOLE 20 MG CAPSULE,DELAYED RELEASE 3. RUDY (obstructive sleep apnea) - ICD9: 327.23, ICD10: G47.33 Controlled when able to use her machine. Given rx for supplies. Will take to [facility] for supplies. - CPAP DEVICE, WITH HUMIDIFIER 4. Difficulty with CPAP use - ICD9: V49.89, ICD10: Z78.9 See above. 5. Class 2 obesity with body mass index (BMI) of 35.0 to 35.9 in adult, unspecified obesity type, unspecified whether serious comorbidity present - ICD9: 278.00, V85.35, ICD10: E66.9, Z68.35 Weight decreasing - Behavioral intervention 6. Other hyperlipidemia - ICD9: 272.4, ICD10: E78.49 Improved on statin. Continue current regimen. 7. Seasonal allergic rhinitis, unspecified trigger - ICD9: 477.9, ICD10: J30.2 Asymptomatic at this time. May use OTC antihistamines and flonase PRN. I spent a total of 40 minutes on the date of the service which included preparing to see the patient, [id number] patient care, completing clinical documentation, obtaining and/or reviewing separately obtained history, performing a medically appropriate examination, counseling and educating the pat ient/family/caregiver, and ordering medications, tests, or procedures. Mili Saldivar MD documented in this encounterSelect [facility] Evaluation note* Type Assessment Date assessment Primary oste[facility] of right [facility] Work Phone: 1(306) 228-955311-19-2023 History of Present illness Narrative* Ruth Abbott, MARÍA.PATTERN REPAIR PERSON - 01/29/2023 2:02 PM EST This note was created using NoteWriter. Subjective Jaimee Cooper is a 67 year old female for cough and chest congestion x3 days. Patient denies fever, chills, body aches and headaches. Objective BP 138/78 Pulse 79 Temp 37.1 C (98.7 F) Resp 16 Wt 101.2 kg (223 lb) SpO2 98% BMI 37.11kg/m Physical Exam PHYSICAL EXAMINATION: General appearance: Well appearing, alert, in no acute distress, well-hydrated, well nourished. Ears: External ears normal, canals clear Nose/Sinuses: Nares normal, septum midline, mucosa normal, no drainage or sinus tenderness Oropharynx: Lips, mucosa, and tongue normal, teeth and gums normal, oropharynx normal Lungs: Lungs clear to auscultation. No wheezing, rhonchi, rales. Heart: RRR without murmur, gallop, or rubs. No ectopy Assessment and Plan ASSESSMENT/PLAN: 1. Viral URI - ICD9: 465.9, ICD10: J06.9 - Discussed viral etiology and rationale for treatment. - Symptomatic treatment with prn analgesia - Supportive care with fluids and rest - The patient may also use OTC decongestants prn and OTC cough and cold meds as needed. - Follow up in 3-5 days if symptoms persist or sooner if worsening of symptoms - COVID & INFLUENZA A/B & RSV NAAT, ROUTINE - Patient agreeable to covid/flu/rsv testing Ruth Abbott APRN.PATTERN REPAIR PERSON documented [facility] Miscellaneous Notes* Telephone Encounter - Jaycee Croft LPN - 01/17/2023 3:54 PM EST Mychart message sent. * Telephone Encounter - Jaycee Croft LPN - 01/17/2023 3:52 PM EST ----- Message from Mili Saldivar MD sent at 01/17/2023 3:04 PM EST ----- Negative mammogram. Repeat in 1 year. documented in this encounterSelect [facility]23 Miscellaneous Notes* Letter - Coordinator, Mammography - 01/17/2023 2:55 PM EST January 18, 2023 PID: [id number] Jaimee Cooper [id number] [place] [id number] Dear Ms. Cooper, We are pleased to inform you that the results of your recent breast imaging exam on 01/16/2023 are normal. Early detection of cancer is very important. We also understand recommendations regarding breast cancer screening are controversial. Please discuss with your primary care provider which strategy is best for you and whether a mammogram is right for you. Your imaging studies and report will be kept on file at [facility] as part of your permanent medical record and are available for your continuing care. Thank you for allowing us to help in meeting your health care needs. Sincerely, Dr. Obrien Interpreting Radiologist [facility] (Normal over 40) documented in this encounterSelect [facility]11-06-2023 History of Present illness Narrative* Malgorzata Walters Mammo Tech - 01/16/2023 8:30 AM EST Radiology Service Progress Note PATIENT NAME: Jaimee Cooper DATE OF SERVICE: January 16, 2023 TIME: 8:22 AM PATIENT IDENTITY VERIFICATION COMPLETED USING TWO (2) IDENTIFIERS: Name and Date of confirmedby patient verbally. FALL SCREENING: Has the patient had 2 falls in the last year or 1 fall with injury or currently using an Ambulatory Assistive Device (Walker, Cane, Wheelchair, Crutches, etc.)? No PATIENT GENDER DATA: Female. status: : No status: NO. PATIENT RELEVANT IMPLANT DATA REVIEWED: Not Applicable RADIOLOGY DEPARTMENT: Mammography PERIPHERAL IV DATA: Not applicable SIGNED BY: Teofilo Allen January 16, 2023 8:22 AM documented in this encounterSelect [facility]10-19-2023 Miscellaneous Notes* Telephone Encounter - Mari Hylton RN - 12/29/2022 1:43 PM EDT Called and left a detailed voicemail notifying patient of providers message. Hospital phone number was left in case patient had any questions. Mari Hylton, RN * Telephone Encounter - Mili Saldivar MD - 12/29/2022 1:29 PM EDT Repeat labs ordered to be rechecked in 3 months. * Telephone Encounter - Kristina Wade LPN - 12/29/2022 12:05 PM EDT Phoned patient and reviewed results and recommendations with her. Patient agreeable with starting medication and requests medication be sent to [facility]. She reports they are open today. Please call and advise patient of what medication is being ordered and once Rx is sent. * Telephone Encounter - Kristina Wade LPN - 12/29/2022 11:59 AM EDT ----- Message from Mili Saldivar MD sent at 12/29/2022 9:23 AM EDT ----- Normal labs. Based on age and risk factors, patient is moderate risk for heart attack or stroke in the next 10 years. Recommend moderate intensity statin daily and recheck labs in 3 months. Most common side effect: muscle aches. If agreeable, will send rx to requested pharmacy. The 10-year ASCVD risk score (Conor SAMUELS, et al., 2019) is: 9.2% Values used to calculate the score: Age: 67 years Sex: Female Is Non- : No Diabetic: No Tobacco smoker: No Systolic Blood Pressure: 134 mmHg Is BP treated: No HDL Cholesterol: 54 mg/dL Total Cholesterol: 194 mg/dL documented in this encounterSelect [facility]10-12-2023 History of Present illness Narrative* Mili Saldivar MD - 12/22/2022 2:29 PM EDT Chief Complaint Patient presents with: Follow Up: 6 month HPI Jaimee Cooper is a 67 year old female who presents here today for Above Complaints.. RUDY: Using CPAP for the last month on a nightly basis. Has not seen sleep medicine yet. States thatshe does feel more rested with use. Does not snore with use. Nasal pillows working well. No trouble with seasonal allergies yet this fall. GERD: Heartburn well controlled on PPI. If she skips 3 days, symptoms return. Does not need refill today. Past medical history, appointments, medications, allergies reviewed. Previous Medical History PAST MEDICAL HISTORY Diagnosis Date Arthritis Diverticulosis of colon (without mention of hemorrhage) Dysplasia of cervix, unspecified GERD (gastroesophageal reflux disease) Kidney cysts 2017 fluid filled Obesity (BMI 35.0-39.9 without comorbidity) RUDY (obstructive sleep apnea) severe Osteoarthritis of lumbar spine Osteoarthritis, knee s/p partial knee replacement on left Seasonal allergies spring and fall Vitamin D insufficiency Previous Surgical History PAST SURGICAL HISTORY Procedure Laterality Date CAUTERY CERVIX CRYOCAUTERY INITIAL/REPEAT 06/16/1994 COLONOSCOPY FLX DX W/COLLJ SPEC WHEN PFRMD 05/31/2010 Colonoscopy COLONOSCOPY FLX DX W/COLLJ SPEC WHEN PFRMD 12/22/2020 ESOPHAGOGASTRODUODENOSCOPY TRANSORAL DIAGNOSTIC 12/22/2020 JOINT REPLACEMENT HX SKIN BIOPSY HX TONSILLECTOMY HX TONSILLECTOMY PRIMARY/SECONDARY <AGE 12 TOTAL KNEE REPLACEMENT partial left done last Apr 2014 Family History FAMILY HISTORY Problem Relation Age of Onset Osteoporosis Mother Arthritis, HTN, Macular Degeneration other (hip fracture) Mother X 2 Heart Father ASHD, [place] Lung Cancer Brother Breast Cancer Maternal Grandmother Patient Allergies ALLERGIES Allergen Reactions Indocin [Indomethac* Rash Naproxen Rash Current Medications Current Outpatient Medications on File Prior to Visit Medication Sig cholecalciferol (VITAMIN D3) 50 mcg (2,000 unit) tablet Take 1 tablet by mouth once daily. CPAP Change bilevel setting to 16/12 cmH2O. Please fit with dreamwear under the nose FFM (current masks with significant leaks). Please provide us with download after 4 weeks of use at this pressure setting. Lifetime supply. (Patient not taking: No sig reported) fluticasone (FLONASE) 50 mcg/actuation nasal spray Use 2 Sprays in each nostril once daily. Rinse mouth after use. MULTIVITAMIN ORAL Take by mouth. omeprazole (PRILOSEC) 20 mg capsule Take 1 capsule by mouth once daily. No current facility-administered medications on file prior to visit. Social History Social History Tobacco Use Smoking status: Never Smokeless tobacco: Never Vaping Use Vaping Use: Never used Substance Use Topics Alcohol use: Yes Alcohol/week: 1.7 standard drinks of alcohol Comment: occasional- monthly Drug use: No Review of Symptoms REVIEW OF SYSTEMS GENERAL: No weight loss, malaise or fevers RESPIRATORY: Negative for cough, hemoptysis, wheezing, COPD, dyspnea or shortness of breath CARDIOVASCULAR: Negative for chest pain, leg swelling, hypertension, CHF or palpitations GI: No nausea, vomiting, or diarrhea SKIN: Negative for lesions, rash, and itching EXAM: BP 134/84 Pulse 82 Resp 16 Wt 101.5 kg (223 lb 12.8 oz) SpO2 95% BMI 37.24 kg/m General Appearance: Well appearing, alert, in no acute distress, well-hydrated, well nourished.. Skin: Skin color, texture, turgor normal, no suspicious rashes or lesions. Lungs: Lungs clear to auscultation. No wheezing, rhonchi, rales.. Heart: RRR without murmur, gallop, or rubs. No ectopy. Abdomen: Normal abdominal exam, Abdomen soft, non-tender. Bowel sounds normal. No masses, organomegaly. Extremities: No deformities, edema, skin discoloration, clubbing or cyanosis. Good capillary refill. Health Maintenance List Shingrix Vaccine(1 of 2) Never done DTaP,Tdap,Td Vaccine(2 - Td or Tdap) due on 11/21/2018 Advance Directive Discussion Never done Influenza Vaccine(1) due on 11/11/2022 Covid-19 Vaccine( - 2022- season) due on 11/11/2022 Mammogram Screening due on 01/13/2023 Diabetes Screening due on 12/17/2024 Lipid Screening due on 12/17/2026 Colorectal Cancer Screening due on 12/22/2030 Bone Density Screening Completed Depression Assessment Completed Hepatitis C Screening Completed Pneumococcal Vaccine: 65+ Completed Data reviewed Component Latest Ref Rng & Units 12/17/2021 Protein, Total 6.3 - 8.0 g/dL 7.4 Albumin 3.9 - 4.9 g/dL 4.5 Calcium 8.5 - 10.2 mg/dL 9.2 Bilirubin, Total 0.2 - 1.3 mg/dL 0.4 Alkaline Phosphatase 34 - 123 U/L 98 AST 13 - 35 U/L 20 ALT 7 - 38 U/L 17 Glucose 74 - 99 mg/dL 91 BUN 7 - 21 mg/dL 15 Creatinine 0.58 - 0.96 mg/dL 0.94 Sodium 136 - 144 mmol/L 142 Potassium 3.7 - 5.1 mmol/L 4.3 Chloride 97 - 105 mmol/L 107 (H) CO2 22 - 30 mmol/L 24 Anion Gap 9 - 18 mmol/L 11 eGFR >=60 mL/min/1.73m 66 WBC 3.70 - 11.00 k/uL 5.68 RBC 3.90 - 5.20 m/uL 5.10 Hemoglobin 11.5 - 15.5 g/dL 14.4 Hematocrit 36.0 - 46.0 % 45.9 MCV 80.0 - 100.0 fL 90.0 MCH 26.0 - 34.0 pg 28.2 MCHC 30.5 - 36.0 g/dL 31.4 RDW-CV 11.5 - 15.0 % 13.6 Platelet Count 150 - 400 k/uL 220 MPV 9.0 - 12.7 fL 11.5 Absolute nRBC <0.01 k/uL <0.01 Total Cholesterol, Nonfasting <200 mg/dL 204 (H) Triglycerides, Nonfasting <150 mg/dL 127 HDL Cholesterol, Nonfasting >39 mg/dL 53 LDL Cholesterol, Nonfasting <100 mg/dL 126 (H) Non HDL Cholesterol, Nonfasting <130 mg/dL 151 (H) VLDL Cholesterol, Nonfasting <30 mg/dL 25 Total Chol/HDL Ratio, Nonfasting <5.10 mg/dL 3.85 LDL/HDL Ratio, Nonfasting <2.54 mg/dL 2.38 Vitamin D 25 Hydroxy 31.0 - 80.0 ng/mL 33.6 ASSESSMENT/PLAN: 1. RUDY (obstructive sleep apnea) - ICD9: 327.23, ICD10: G47.33 (primary diagnosis) Symptoms improved with CPAP. Continue nightly use. Work on weight loss as discussed. F/u with sleepmedicine. 2. Difficulty with CPAP use - ICD9: V49.89, ICD10: Z78.9 3. Gastroesophageal reflux disease, unspecified whether esophagitis present - ICD9: 530.81, ICD10: K21.9 - Continue treatment with Prilosec 20 mg QD 4. Other hyperlipidemia - ICD9: 272.4, ICD10: E78.49 recheck - CBC + DIFF - COMP METABOLIC PANEL - LIPID PANEL, NONFASTING - LIPID PANEL BASIC 5. Allergic rhinitis, unspecified seasonality, unspecified trigger - ICD9: 477.9, ICD10: J30.9 OTC antihistamines PRN. 6. Obesity, Class II, BMI 35-39.9 - ICD9: 278.00, ICD10: E66.9 Discussed healthy diet and exercise to promote weight loss. 7. Screening mammogram, encounter for - ICD9: V76.12, ICD10: Z12.31 - Set up for mammogram, yearly mammogram recommended - [facility] SCREENING 8. Vitamin D insufficiency - ICD9: 268.9, ICD10: E55.9 - VITAMIN D 25 HYDROXY Mili Saldivar MD documented in this encounterSelect [facility]04-[facility]-2023 History of Present illness Narrative* Mili Saldivar MD - 06/21/2022 11:37 AM EDT Chief Complaint Patient presents with: Follow Up: 6 month HPI Jaimee Cooper is a 67 year old female who presents here today for Above Complaints.. Previous HPI: Patient has been in good health without hospitalizations or ER visits. No falls. Patient had appointment with Dr. Brown on 12/16 for pain over right upper jaw and was started on Cefdinir for possible dental infection. Has CT scan scheduled. Talked with her about obstruction in right nostril which may be effecting her ability to use CPAP. GERD: Omeprazole 20 mg daily for heartburn symptoms. States that if she stops her PPI, symptoms return by the 3rd day. RUDY: States she has not been using PAP machine on a regular basis. Machine is noisy and masks leak.Has tried different masks without any working for her. Evaluated by sleep medicine in 2019 and theylowered her pressure and she was supposed to return in 3 months. Referred to sleep medicine in May and she states appointment was rescheduled. Taking flonase PRN for allergy symptoms in spring and fall along with OTC antihistamines. Patient states that she is still not using her CPAP. Had a follow up with Dr. Brown and they told her she had deviated septum and recommended surgery which she is considering. Records not available today. Discussed risks of uncontrolled RUDY and she is willing to go back to sleep medicine for follow up and adjustment. No change in allergy or GERD symptoms. PHQ-2 / Depression screen He in the past two weeks denies having felt down, depressed, hopeless or with little interest or pleasure in doing things. Past medical history, appointments, medications, allergies reviewed. Previous Medical History PAST MEDICAL HISTORY Diagnosis Date Arthritis Diverticulosis of colon (without mention of hemorrhage) Dysplasia of cervix, unspecified GERD (gastroesophageal reflux disease) Kidney cysts 2017 fluid filled Obesity (BMI 35.0-39.9 without comorbidity) RUDY (obstructive sleep apnea) severe Osteoarthritis of lumbar spine Osteoarthritis, knee s/p partial knee replacement on left Seasonal allergies spring and fall Vitamin D insufficiency Previous Surgical History PAST SURGICAL HISTORY Procedure Laterality Date CAUTERY CERVIX CRYOCAUTERY INITIAL/REPEAT 06/16/1994 COLONOSCOPY FLX DX W/COLLJ SPEC WHEN PFRMD 05/31/2010 Colonoscopy COLONOSCOPY FLX DX W/COLLJ SPEC WHEN PFRMD 12/22/2020 ESOPHAGOGASTRODUODENOSCOPY TRANSORAL DIAGNOSTIC 12/22/2020 JOINT REPLACEMENT HX SKIN BIOPSY HX TONSILLECTOMY HX TONSILLECTOMY PRIMARY/SECONDARY <AGE 12 TOTAL KNEE REPLACEMENT partial left done last Apr 2014 Family History FAMILY HISTORY Problem Relation Age of Onset Osteoporosis Mother Arthritis, HTN, Macular Degeneration other (hip fracture) Mother X 2 Heart Father ASHD, [place] Lung Cancer Brother Breast Cancer Maternal Grandmother Patient Allergies ALLERGIES Allergen Reactions Indocin [Indomethac* Rash Naproxen Rash Current Medications Current Outpatient Medications on File Prior to Visit Medication Sig fluticasone (FLONASE) 50 mcg/actuation nasal spray Use 2 Sprays in each nostril once daily. Rinse mouth after use. cholecalciferol (VITAMIN D3) 50 mcg (2,000 unit) tablet Take 1 tablet by mouth once daily. MULTIVITAMIN ORAL Take by mouth. omeprazole (PRILOSEC) 20 mg capsule Take 1 capsule by mouth once daily. CPAP Change bilevel setting to 16/12 cmH2O. Please fit with dreamwear under the nose FFM (current masks with significant leaks). Please provide us with download after 4 weeks of use at this pressure setting. Lifetime supply. (Patient not taking: No sig reported) No current facility-administered medications on file prior to visit. Social History Social History Tobacco Use Smoking status: Never Smokeless tobacco: Never Vaping Use Vaping Use: Never used Substance Use Topics Alcohol use: Yes Alcohol/week: 1.7 standard drinks Comment: occasional- monthly Drug use: No Review of Symptoms REVIEW OF SYSTEMS GENERAL: No weight loss, malaise or fevers RESPIRATORY: Negative for cough, hemoptysis, wheezing, COPD, dyspnea or shortness of breath CARDIOVASCULAR: Negative for chest pain, leg swelling, hypertension, CHF or palpitations GI: No nausea, vomiting, or diarrhea SKIN: Negative for lesions, rash, and itching EXAM: BP 116/78 Pulse 75 Resp 16 Wt 101.6 kg (224 lb) SpO2 96% BMI 37.28 kg/m General Appearance: Well appearing, alert, in no acute distress, well-hydrated, well nourished.. Skin: Skin color, texture, turgor normal, no suspicious rashes or lesions. Lungs: Lungs clear to auscultation. No wheezing, rhonchi, rales.. Heart: RRR without murmur, gallop, or rubs. No ectopy. Abdomen: Normal abdominal exam, Abdomen soft, non-tender. Bowel sounds normal. No masses, organomegaly. Extremities: No deformities, edema, skin discoloration, clubbing or cyanosis. Good capillary refill. . Health Maintenance List SHINGRIX VACCINE(1 of 2) Never done ADVANCE DIRECTIVE DISCUSSION Never done DEPRESSION ASSESSMENT Never done DTAP,TDAP,TD(2 - Td or Tdap) due on 12/20/2022 COVID-19 VACCINE(4 - Booster for Moderna series) due on 12/20/2022 MAMMOGRAM due on 01/13/2023 DIABETES SCREEN due on 12/17/2024 LIPID SCREEN due on 12/17/2026 COLORECTAL CANCER SCREENING due on 12/22/2030 BONE DENSITY Completed INFLUENZA Completed HEPATITIS C SCREENING Completed PNEUMOCOCCAL: 65+ Completed Data reviewed Component Latest Ref Rng & Units 12/17/2021 Protein, Total 6.3 - 8.0 g/dL 7.4 Albumin 3.9 - 4.9 g/dL 4.5 Calcium 8.5 - 10.2 mg/dL 9.2 Bilirubin, Total 0.2 - 1.3 mg/dL 0.4 Alkaline Phosphatase 34 - 123 U/L 98 AST 13 - 35 U/L 20 ALT 7 - 38 U/L 17 Glucose 74 - 99 mg/dL 91 BUN 7 - 21 mg/dL 15 Creatinine 0.58 - 0.96 mg/dL 0.94 Sodium 136 - 144 mmol/L 142 Potassium 3.7 - 5.1 mmol/L 4.3 Chloride 97 - 105 mmol/L 107 (H) CO2 22 - 30 mmol/L 24 Anion Gap 9 - 18 mmol/L 11 eGFR >=60 mL/min/1.73m 66 WBC 3.70 - 11.00 k/uL 5.68 RBC 3.90 - 5.20 m/uL 5.10 Hemoglobin 11.5 - 15.5 g/dL 14.4 Hematocrit 36.0 - 46.0 % 45.9 MCV 80.0 - 100.0 fL 90.0 MCH 26.0 - 34.0 pg 28.2 MCHC 30.5 - 36.0 g/dL 31.4 RDW-CV 11.5 - 15.0 % 13.6 Platelet Count 150 - 400 k/uL 220 MPV 9.0 - 12.7 fL 11.5 Absolute nRBC <0.01 k/uL <0.01 Total Cholesterol, Nonfasting <200 mg/dL 204 (H) Triglycerides, Nonfasting <150 mg/dL 127 HDL Cholesterol, Nonfasting >39 mg/dL 53 LDL Cholesterol, Nonfasting <100 mg/dL 126 (H) Non HDL Cholesterol, Nonfasting <130 mg/dL 151 (H) VLDL Cholesterol, Nonfasting <30 mg/dL 25 Total Chol/HDL Ratio, Nonfasting <5.10 mg/dL 3.85 LDL/HDL Ratio, Nonfasting <2.54 mg/dL 2.38 Vitamin D 25 Hydroxy 31.0 - 80.0 ng/mL 33.6 The 10-year ASCVD risk score (Conor SAMUELS, et al., 2019) is: 7.2% Values used to calculate the score: Age: 67 years Sex: Female Is Non- : No Diabetic: No Tobacco smoker: No Systolic Blood Pressure: 116 mmHg Is BP treated: No HDL Cholesterol: 53 mg/dL Total Cholesterol: 204 mg/dL ASSESSMENT/PLAN: 1. RUDY (obstructive sleep apnea) - ICD9: 327.23, ICD10: G47.33 (primary diagnosis) Non compliant with CPAP due to difficulties with mask comfort and leaking. Will refer back to sleepmedicine for further adjustment. - CONSULT TO SLEEP MEDICINE - ADULT 2. Difficulty with CPAP use - ICD9: V49.89, ICD10: Z78.9 3. Gastroesophageal reflux disease, unspecified whether esophagitis present - ICD9: 530.81, ICD10: K21.9 - Continue treatment with Prilosec 20 mg QD - OMEPRAZOLE 20 MG CAPSULE,DELAYED RELEASE 4. Class 2 obesity with body mass index (BMI) of 36.0 to 36.9 in adult, unspecified obesity type, unspecified whether serious comorbidity present - ICD9: 278.00, V85.36, ICD10: E66.9, Z68.36 Weight increasing - Behavioral intervention 5. Other hyperlipidemia - ICD9: 272.4, ICD10: E78.49 Suboptimal control. Borderline risk. Work on low cholesterol diet and exercise. Recheck in 6 months. 6. Allergic rhinitis, unspecified seasonality, unspecified trigger - ICD9: 477.9, ICD10: J30.9 Controlled on flonase PRN. Mili Saldivar MD documented in this encounterSelect [facility]12-[facility]22 History of Present illness Narrative* Delon Cardenas APRN.PATTERN REPAIR PERSON - 03/03/2022 9:29 AM EST Subjective HPI HPI Jaimee Cooper is a 66 year old female who presents today for CC of congestion/sinus pain, ear pain, runny nose. This started 3 days ago. Has tried otc medication for relief. Symptoms are worsened by nothing. Risk factors hx of recent OM. .Patient presents with: Ear Pain: Left ear pain, BLAS and runny nose x 3 days-face hurts PAST MEDICAL HISTORY Diagnosis Date Arthritis Diverticulosis of colon (without mention of hemorrhage) Dysplasia of cervix, unspecified GERD (gastroesophageal reflux disease) Kidney cysts 2017 fluid filled Obesity (BMI 35.0-39.9 without comorbidity) RUDY (obstructive sleep apnea) severe Osteoarthritis of lumbar spine Osteoarthritis, knee s/p partial knee replacement on left Seasonal allergies spring and fall Vitamin D insufficiency PAST SURGICAL HISTORY Procedure Laterality Date CAUTERY CERVIX CRYOCAUTERY INITIAL/REPEAT 06/16/1994 COLONOSCOPY FLX DX W/COLLJ SPEC WHEN PFRMD 05/31/2010 Colonoscopy COLONOSCOPY FLX DX W/COLLJ SPEC WHEN PFRMD 12/22/2020 ESOPHAGOGASTRODUODENOSCOPY TRANSORAL DIAGNOSTIC 12/22/2020 JOINT REPLACEMENT HX SKIN BIOPSY HX TONSILLECTOMY HX TONSILLECTOMY PRIMARY/SECONDARY <AGE 12 TOTAL KNEE REPLACEMENT partial left done last Apr 2014 ALLERGIES Indocin [Indomethacin Sodium] and Naproxen MEDICATIONS fluticasone (FLONASE) 50 mcg/actuation nasal spray Use 2 Sprays in each nostril once daily. Rinse mouth after use. omeprazole (PRILOSEC) 20 mg capsule Take 1 capsule by mouth once daily. cholecalciferol (VITAMIN D3) 50 mcg (2,000 unit) tablet Take 1 tablet by mouth once daily. MULTIVITAMIN ORAL Take by mouth. CPAP Change bilevel setting to 16/12 cmH2O. Please fit with dreamwear under the nose FFM (current masks with significant leaks). Please provide us with download after 4 weeks of use at this pressure setting. Lifetime supply. (Patient not taking: Reported on 06/04/2021 ) FAMILY HISTORY Problem Relation Age of Onset Osteoporosis Mother Arthritis, HTN, Macular Degeneration other (hip fracture) Mother X 2 Heart Father ASHD, [place] Lung Cancer Brother Breast Cancer Maternal Grandmother Social History Tobacco Use Smoking status: Never Smokeless tobacco: Never Vaping Use Vaping Use: Never used Substance Use Topics Alcohol use: Yes Alcohol/week: 1.7 standard drinks Comment: occasional- monthly Drug use: No Review of Systems Constitutional: Negative for fever. HENT: Positive for congestion, ear pain and sinus pain. Negative for ear discharge, nosebleeds and sore throat. Respiratory: Positive for cough. Negative for shortness of breath and wheezing. Musculoskeletal: Negative for neck pain. Skin: Negative for itching and rash. Objective Blood pressure 122/82, pulse 85, temperature 36.7 C (98.1 F), temperature source Tympanic, resp. rate 18, weight 101.4 kg (223 lb 9.6 oz), SpO2 97 %. Physical Exam Constitutional: General: She is not in acute distress. Appearance: She is not toxic-appearing or diaphoretic. HENT: Head: Normocephalic and atraumatic. Salivary Glands: Right salivary gland is tender. Left salivary gland is tender. Right Ear: Hearing, tympanic membrane, ear canal and external ear normal. Left Ear: Hearing, tympanic membrane, ear canal and external ear normal. Nose: Nose normal. Mouth/Throat: Pharynx: Uvula midline. No pharyngeal swelling, oropharyngeal exudate, posterior oropharyngeal erythema or uvula swelling. Eyes: General: Lids are normal. No scleral icterus. Right eye: No discharge. Left eye: No discharge. Conjunctiva/sclera: Conjunctivae normal. Pupils: Pupils are equal, round, and reactive to light. Neck: Trachea: Trachea normal. Cardiovascular: Rate and Rhythm: Normal rate and regular rhythm. Heart sounds: Normal heart sounds. Pulmonary: Effort: Pulmonary effort is normal. Breath sounds: Normal breath sounds. Musculoskeletal: Cervical back: Normal range of motion and neck supple. Lymphadenopathy: Cervical: No cervical adenopathy. Right cervical: No superficial cervical adenopathy. Left cervical: No superficial cervical adenopathy. Skin: Findings: No rash. Neurological: Mental Status: She is alert and oriented to person, place, and time. ASSESSMENT/PLAN: 1. Sinus pressure - ICD9: 478.19, ICD10: J34.89 (primary diagnosis) Viral vs allergic today, start steroids, if no better in 3-5days fill/take atb - Supportive care with plenty of fluids, rest, and analgesia prn. - Follow up in 7-10 days if symptoms persist or worsen. - AMOXICILLIN 875 MG-POTASSIUM CLAVULANATE 125 MG TABLET 2. ETD (Eustachian tube dysfunction), left - ICD9: 381.81, ICD10: H69.82 -use medication as prescribed -follow up if symptoms persist, worsen, change Delon Cardenas APRN.SHANEL documented in this encounter[facility] Miscellaneous Notes* Telephone Encounter - Carmen Martinez LPN - 02/07/2022 4:21 PM EST Patient notified of results below. Carmen Martinez LPN * Telephone Encounter - Yudith Barraza APRN.CNP - 02/07/2022 4:14 PM EST Please call patient and let her know her ultrasound an oval cyst consistent with a simple cyst and is benign. Return to annual mammogram screening. Yudith Barraza APRN.CNP documented in this encounterSelect [facility]11-28-2022 History of Present illness Narrative* Kathryn Arredondo RT(R) - 02/07/2022 3:15 PM EST Radiology Service Progress Note PATIENT NAME: Jaimee Cooper DATE OF SERVICE: February 07, 2022 TIME: 3:25 PM PATIENT IDENTITY VERIFICATION COMPLETED USING TWO (2) IDENTIFIERS: Name and Date of confirmedby patient verbally. FALL SCREENING: Has the patient had 2 falls in the last year or 1 fall with injury or currently using an Ambulatory Assistive Device (Walker, Cane, Wheelchair, Crutches, etc.)? No PATIENT GENDER DATA: Female. status: : No status: NO. PATIENT RELEVANT IMPLANT DATA REVIEWED: Yes RADIOLOGY DEPARTMENT: Mammography PERIPHERAL IV DATA: Not applicable SIGNED BY: RT Chapis(R) February 07, 2022 3:25 PM documented in this encounterSelect [facility]11-04-2022 Miscellaneous Notes* Telephone Encounter - Carmen Martinez LPN - 01/14/2022 2:56 PM EDT Patient telephoned and made aware of results and new orders. Voices understanding. Calling in to have these scheduled. Carmen Martinez LPN * Telephone Encounter - Mili Saldivar MD - 01/14/2022 12:38 PM EDT Screening mammogram incomplete. Needs additional imaging to further characterize asymmetry in left breast. Diagnostic mammogram and US ordered. Please assist patient with scheduling. documented in this encounterSelect [facility]11-04-2022 Miscellaneous Notes* Letter - Mammography Coordinator - 01/14/2022 10:58 AM EDT January 14, 2022 PID: [id number] Jaimee Cooper [address] [place] [address] Dear Ms. Cooper, Your recent breast imaging exam on 01/13/2022 showed a possible finding that requires additional imaging studies for a complete evaluation. Most such findings are probably benign (not cancer). If you have a healthcare provider who ordered/prescribed your screening mammogram: Please call [phone] or [phone]: [phone] to schedule an appointment for your additional imaging (if youhave not already done so). If you DO NOT have a healthcare provider (ie you did not have an order/prescription for your screening mammogram): Please call to schedule an appointment for your additional imaging (if you have not already done so). You must have an order/prescription from your physician when calling to schedule your appointment. If your order/prescription is not electronic, you must bring the hard copy with you on the day of your exam to avoid delays. Your imaging studies and reports are kept on file at [facility] as part of your permanent medical record, and are available for your continuing care. Thank you for allowing us to help in meeting your health care needs. Sincerely, Dr. Daugherty Interpreting Radiologist [facility] (Additional imaging) documented in this encounterSelect [facility]10-10-2022 History of Present illness Narrative* Mili Saldivar MD - 12/20/2021 3:23 PM EDT Chief Complaint Patient presents with: 6 Month Exam HPI Jaimee Cooper is a 66 year old female who presents here today for 6 month follow up. Patient has been in good health without hospitalizations or ER visits. No falls. Patient had appointment with Dr. Brown on 12/16 for pain over right upper jaw and was started on Cefdinir for possible dental infection. Has CT scan scheduled. Talked with her about obstruction in right nostril which may be effecting her ability to use CPAP. GERD: Omeprazole 20 mg daily for heartburn symptoms. States that if she stops her PPI, symptoms return by the 3rd day. RUDY: States she has not been using PAP machine on a regular basis. Machine is noisy and masks leak.Has tried different masks without any working for her. Evaluated by sleep medicine in 2019 and theylowered her pressure and she was supposed to return in 3 months. Referred to sleep medicine in May and she states appointment was rescheduled. Taking flonase PRN for allergy symptoms in spring and fall along with OTC antihistamines. Past medical history, appointments, medications, allergies reviewed. Previous Medical History PAST MEDICAL HISTORY Diagnosis Date Arthritis Diverticulosis of colon (without mention of hemorrhage) Dysplasia of cervix, unspecified GERD (gastroesophageal reflux disease) Kidney cysts 2017 fluid filled Obesity (BMI 35.0-39.9 without comorbidity) RUDY (obstructive sleep apnea) severe Osteoarthritis of lumbar spine Osteoarthritis, knee s/p partial knee replacement on left Seasonal allergies spring and fall Vitamin D insufficiency Previous Surgical History PAST SURGICAL HISTORY Procedure Laterality Date CAUTERY CERVIX CRYOCAUTERY INITIAL/REPEAT 06/16/1994 COLONOSCOPY FLX DX W/COLLJ SPEC WHEN PFRMD 05/31/2010 Colonoscopy COLONOSCOPY FLX DX W/COLLJ SPEC WHEN PFRMD 12/22/2020 ESOPHAGOGASTRODUODENOSCOPY TRANSORAL DIAGNOSTIC 12/22/2020 JOINT REPLACEMENT HX SKIN BIOPSY HX TONSILLECTOMY HX TONSILLECTOMY PRIMARY/SECONDARY <AGE 12 TOTAL KNEE REPLACEMENT partial left done last Apr 2014 Family History FAMILY HISTORY Problem Relation Age of Onset Osteoporosis Mother Arthritis, HTN, Macular Degeneration other (hip fracture) Mother X 2 Heart Father ASHD, [place] Lung Cancer Brother Breast Cancer Maternal Grandmother Patient Allergies ALLERGIES Allergen Reactions Indocin [Indomethac* Rash Naproxen Rash Current Medications Current Outpatient Medications on File Prior to Visit Medication Sig omeprazole (PRILOSEC) 20 mg capsule Take 1 capsule by mouth once daily. cholecalciferol (VITAMIN D3) 50 mcg (2,000 unit) tablet Take 1 tablet by mouth once daily. fluticasone (FLONASE) 50 mcg/actuation nasal spray Use 2 Sprays in each nostril once daily. Rinse mouth after use. MULTIVITAMIN ORAL Take by mouth. CPAP Change bilevel setting to 16/12 cmH2O. Please fit with dreamwear under the nose FFM (current masks with significant leaks). Please provide us with download after 4 weeks of use at this pressure setting. Lifetime supply. (Patient not taking: Reported on 06/04/2021 ) No current facility-administered medications on file prior to visit. Social History Social History Tobacco Use Smoking status: Never Smokeless tobacco: Never Vaping Use Vaping Use: Never used Substance Use Topics Alcohol use: Yes Alcohol/week: 1.7 standard drinks Comment: occasional- monthly Drug use: No Review of Symptoms REVIEW OF SYSTEMS GENERAL: No weight loss, malaise or fevers RESPIRATORY: Negative for cough, hemoptysis, wheezing, COPD, dyspnea or shortness of breath CARDIOVASCULAR: Negative for chest pain, leg swelling, hypertension, CHF or palpitations GI: No nausea, vomiting, or diarrhea SKIN: Negative for lesions, rash, and itching EXAM: BP 144/82 Pulse 78 Resp 16 Wt 101.7 kg (224 lb 3.2 oz) SpO2 99% BMI 37.31 kg/m General Appearance: Well appearing, alert, in no acute distress, well-hydrated, well nourished.. Skin: Skin color, texture, turgor normal, no suspicious rashes or lesions. Lungs: Lungs clear to auscultation. No wheezing, rhonchi, rales.. Heart: RRR without murmur, gallop, or rubs. No ectopy. Abdomen: Normal abdominal exam, Abdomen soft, non-tender. Bowel sounds normal. No masses, organomegaly. Extremities: No deformities, edema, skin discoloration, clubbing or cyanosis. Good capillary refill. . Health Maintenance List SHINGRIX VACCINE(1 of 2) Never done DTAP,TDAP,TD(2 - Td or Tdap) due on 11/21/2018 ADVANCE DIRECTIVE DISCUSSION Never done DEPRESSION ASSESSMENT Never done COVID-19 VACCINE(4 - Booster for Moderna series) due on 03/18/2021 INFLUENZA(1) due on 11/11/2021 MAMMOGRAM due on 12/28/2021 DIABETES SCREEN due on 12/17/2024 LIPID SCREEN due on 12/17/2026 COLORECTAL CANCER SCREENING due on 12/22/2030 BONE DENSITY Completed HEPATITIS C SCREENING Completed PNEUMOCOCCAL: 65+ Completed Data reviewed Component Latest Ref Rng & Units 12/17/2021 Protein, Total 6.3 - 8.0 g/dL 7.4 Albumin 3.9 - 4.9 g/dL 4.5 Calcium 8.5 - 10.2 mg/dL 9.2 Bilirubin, Total 0.2 - 1.3 mg/dL 0.4 Alkaline Phosphatase 34 - 123 U/L 98 AST 13 - 35 U/L 20 ALT 7 - 38 U/L 17 Glucose 74 - 99 mg/dL 91 BUN 7 - 21 mg/dL 15 Creatinine 0.58 - 0.96 mg/dL 0.94 Sodium 136 - 144 mmol/L 142 Potassium 3.7 - 5.1 mmol/L 4.3 Chloride 97 - 105 mmol/L 107 (H) CO2 22 - 30 mmol/L 24 Anion Gap 9 - 18 mmol/L 11 eGFR >=60 mL/min/1.73m 66 WBC 3.70 - 11.00 k/uL 5.68 RBC 3.90 - 5.20 m/uL 5.10 Hemoglobin 11.5 - 15.5 g/dL 14.4 Hematocrit 36.0 - 46.0 % 45.9 MCV 80.0 - 100.0 fL 90.0 MCH 26.0 - 34.0 pg 28.2 MCHC 30.5 - 36.0 g/dL 31.4 RDW-CV 11.5 - 15.0 % 13.6 Platelet Count 150 - 400 k/uL 220 MPV 9.0 - 12.7 fL 11.5 Absolute nRBC <0.01 k/uL <0.01 Total Cholesterol, Nonfasting <200 mg/dL 204 (H) Triglycerides, Nonfasting <150 mg/dL 127 HDL Cholesterol, Nonfasting >39 mg/dL 53 LDL Cholesterol, Nonfasting <100 mg/dL 126 (H) Non HDL Cholesterol, Nonfasting <130 mg/dL 151 (H) VLDL Cholesterol, Nonfasting <30 mg/dL 25 Total Chol/HDL Ratio, Nonfasting <5.10 mg/dL 3.85 LDL/HDL Ratio, Nonfasting <2.54 mg/dL 2.38 Vitamin D 25 Hydroxy 31.0 - 80.0 ng/mL 33.6 The 10-year ASCVD risk score (Conor SAMUELS, et al., 2019) is: 9.7% Values used to calculate the score: Age: 66 years Sex: Female Is Non- : No Diabetic: No Tobacco smoker: No Systolic Blood Pressure: 144 mmHg Is BP treated: No HDL Cholesterol: 53 mg/dL Total Cholesterol: 204 mg/dL ASSESSMENT/PLAN: 1. RUDY (obstructive sleep apnea) - ICD9: 327.23, ICD10: G47.33 (primary diagnosis) Patient unable to tolerate CPAP. Follow up with imaging through ENT and sleep medicine for CPAP/ mask adjustment. Continue to work on healthy diet, exercise, and weight loss. 2. Gastroesophageal reflux disease, unspecified whether esophagitis present - ICD9: 530.81, ICD10: K21.9 - Discussed lifestyle modifications including losing weight, limiting caffeine, and no meals three hours before sleep - Continue treatment with Prilosec 20 mg QD - OMEPRAZOLE 20 MG CAPSULE,DELAYED RELEASE 3. Difficulty with CPAP use - ICD9: V49.89, ICD10: Z78.9 4. Vitamin D insufficiency - ICD9: 268.9, ICD10: E55.9 Continue daily supplement. - CHOLECALCIFEROL (VITAMIN D3) 50 MCG (2,000 UNIT) TABLET. 5. Obesity, Class II, BMI 35-39.9 - ICD9: 278.00, ICD10: E66.9 Weight increasing - Behavioral intervention 6. Screening mammogram, encounter for - ICD9: V76.12, ICD10: Z12.31 - Set up for mammogram, yearly mammogram recommended - [facility] SCREENING 7. Need for influenza vaccination - ICD9: V04.81, ICD10: Z23 - INFLUENZA SEASONAL QUADRIVALENT HIGH DOSE AGE 65+ documented in this encounterSelect [facility]03-25-2022 History of Present illness Narrative* Mili Saldivar MD - 06/04/2021 9:12 AM EDT Chief Complaint Patient presents with: F/U 6 months: wanting to get RX for omeprazole instead of getting OTC HPI Jaimee Cooper is a 66 year old female who presents here today for Above Complaints. Patient has been in good health without hospitalizations or ER visits. No falls. GERD: requesting refill on Omeprazole 20 mg daily for heartburn symptoms. States that if she RUDY: States she has not been using PAP machine on a regular basis. Machine is noisy and masks leak.Has tried different masks without any working for her. Evaluated by sleep medicine in 2019 and theylowered her pressure and she was supposed to return in 3 months. Taking flonase PRN for allergy symptoms in spring and fall along with OTC antihistamines. PHQ-2 / Depression screen He in the past two weeks denies having felt down, depressed, hopeless or with little interest or pleasure in doing things. Brother did pass away 2 weeks ago, so is grieving. Past medical history, appointments, medications, allergies reviewed. Previous Medical History PAST MEDICAL HISTORY Diagnosis Date Arthritis Diverticulosis of colon (without mention of hemorrhage) Dysplasia of cervix, unspecified GERD (gastroesophageal reflux disease) Kidney cysts 2017 fluid filled Obesity (BMI 35.0-39.9 without comorbidity) RUDY (obstructive sleep apnea) severe Osteoarthritis of lumbar spine Osteoarthritis, knee s/p partial knee replacement on left Seasonal allergies spring and fall Vitamin D insufficiency Previous Surgical History PAST SURGICAL HISTORY Procedure Laterality Date CAUTERY CERVIX CRYOCAUTERY INITIAL/REPEAT 06/16/1994 COLONOSCOPY FLX DX W/COLLJ SPEC WHEN PFRMD 05/31/2010 Colonoscopy COLONOSCOPY FLX DX W/COLLJ SPEC WHEN PFRMD 12/22/2020 ESOPHAGOGASTRODUODENOSCOPY TRANSORAL DIAGNOSTIC 12/22/2020 JOINT REPLACEMENT HX SKIN BIOPSY HX TONSILLECTOMY HX TONSILLECTOMY PRIMARY/SECONDARY <AGE 12 TOTAL KNEE REPLACEMENT partial left done last Apr 2014 Family History FAMILY HISTORY Problem Relation Age of Onset Osteoporosis Mother Arthritis, HTN, Macular Degeneration other (hip fracture) Mother X 2 Heart Father ASHD, [place] Breast Cancer Maternal Grandmother Patient Allergies ALLERGIES Allergen Reactions Indocin [Indomethac* Rash Naproxen Rash Current Medications Current Outpatient Medications on File Prior to Visit Medication Sig omeprazole (PRILOSEC) 40 mg capsule Take 1 capsule by mouth once daily. cholecalciferol (VITAMIN D3) 50 mcg (2,000 unit) tablet Take 1 tablet by mouth once daily. fluticasone (FLONASE) 50 mcg/actuation nasal spray Use 2 Sprays in each nostril once daily. Rinse mouth after use. MULTIVITAMIN ORAL Take by mouth. aspirin, enteric coated (ASPIRIN, ENTERIC COATED) 81 mg EC tablet Take 1 tablet by mouth once daily. CPAP Change bilevel setting to 16/12 cmH2O. Please fit with dreamwear under the nose FFM (current masks with significant leaks). Please provide us with download after 4 weeks of use at this pressure setting. Lifetime supply. (Patient not taking: Reported on 06/04/2021 ) No current facility-administered medications on file prior to visit. Social History Social History Tobacco Use Smoking status: Never Smoker Smokeless tobacco: Never Used Vaping Use Vaping Use: Never used Substance Use Topics Alcohol use: Yes Alcohol/week: 1.7 standard drinks Comment: occasional- monthly Drug use: No Review of Symptoms REVIEW OF SYSTEMS GENERAL: No weight loss, malaise or fevers RESPIRATORY: Negative for cough, hemoptysis, wheezing, COPD, dyspnea or shortness of breath CARDIOVASCULAR: Negative for chest pain, leg swelling, hypertension, CHF or palpitations GI: No nausea, vomiting, or diarrhea SKIN: Negative for lesions, rash, and itching EXAM: BP 128/70 Pulse 83 Resp 16 Wt 100.1 kg (220 lb 9.6 oz) SpO2 98% BMI 36.71 kg/m General Appearance: Well appearing, alert, in no acute distress, well-hydrated, well nourished. andObese. Skin: Skin color, texture, turgor normal, no suspicious rashes or lesions. Lungs: Lungs clear to auscultation. No wheezing, rhonchi, rales.. Heart: RRR without murmur, gallop, or rubs. No ectopy. Abdomen: Normal abdominal exam, Abdomen soft, non-tender. Bowel sounds normal. No masses, organomegaly. Extremities: No deformities, edema, skin discoloration, clubbing or cyanosis. Good capillary refill. . Health Maintenance List SHINGRIX VACCINE(1 of 2) Never done DEPRESSION SCREENING due on 02/15/2021 ADVANCE DIRECTIVE DISCUSSION Never done DTAP,TDAP,TD(2 - Td or Tdap) due on 12/04/2021 MAMMOGRAM due on 12/28/2021 DIABETES SCREEN due on 12/04/2023 LIPID SCREEN due on 12/03/2025 COLORECTAL CANCER SCREENING due on 12/22/2030 BONE DENSITY Completed INFLUENZA Completed HEPATITIS C SCREENING Completed PNEUMOVAX AGE 65 AND OVER WITH 5YR LOOKBACK Completed COVID-19 VACCINE Completed MENINGOCOCCAL CONJUGATE Aged Out Data reviewed Component Latest Ref Rng & Units 12/03/2020 WBC 3.70 - 11.00 k/uL 6.67 RBC 3.90 - 5.20 m/uL 4.52 Hemoglobin 11.5 - 15.5 g/dL 13.2 Hematocrit 36.0 - 46.0 % 42.1 MCV 80.0 - 100.0 fL 93.1 MCH 26.0 - 34.0 pG 29.2 MCHC 30.5 - 36.0 g/dL 31.4 RDW-CV 11.5 - 15.0 % 13.7 Platelet Count 150 - 400 k/uL 210 MPV 9.0 - 12.7 fL 11.5 Neut% % 54.3 Abs Neut (ANC) 1.45 - 7.50 k/uL 3.62 Lymph% % 32.1 Abs Lymph 1.00 - 4.00 k/uL 2.14 Cooke% % 9.3 Abs Cooke <0.87 k/uL 0.62 Eosin% % 3.3 Abs Eosin <0.46 k/uL 0.22 Baso% % 1.0 Abs Baso <0.11 k/uL 0.07 Nucleated Reds 0 /100 WBC 0.0 Absolute nRBC <0.01 k/uL <0.01 Diff Type Auto Diff Protein, Total 6.3 - 8.0 g/dL 7.4 Albumin 3.9 - 4.9 g/dL 4.0 Calcium 8.5 - 10.2 mg/dL 9.4 Bilirubin, Total 0.2 - 1.3 mg/dL 0.2 Alkaline Phosphatase 34 - 123 U/L 82 AST 13 - 35 U/L 18 Glucose 74 - 99 mg/dL 87 BUN 7 - 21 mg/dL 13 Creatinine 0.58 - 0.96 mg/dL 0.77 Sodium 136 - 144 mmol/L 142 Potassium 3.7 - 5.1 mmol/L 3.9 Chloride 97 - 105 mmol/L 105 CO2 22 - 30 mmol/L 27 Anion Gap 9 - 18 mmol/L 10 ALT 7 - 38 U/L 17 eGFR- >60 eGFR-All Other Races . >60 Cholesterol, Total <200 mg/dL 194 Triglyceride <150 mg/dL 104 HDL Cholesterol >39 mg/dL 54 LDL Cholesterol <100 mg/dL 119 (H) Non HDL Cholesterol <130 mg/dL 140 (H) Fasting Time hrs 12 VLDL Cholesterol <30 mg/dL 21 TC:HDL Ratio <5.10 3.59 LDL:HDL Ratio <2.54 2.20 Vitamin D 25 Hydroxy 31.0 - 80.0 ng/mL 36.9 ASSESSMENT/PLAN: 1. RUDY (obstructive sleep apnea) - ICD9: 327.23, ICD10: G47.33 (primary diagnosis) Patient to follow back up with sleep medicine for further adjustment of her PAP or discuss alternatives like Inspire. Discussed weight loss, side sleeping, risks of non compliance with PAP. - CONSULT TO SLEEP MEDICINE - ADULT 2. Difficulty with CPAP use - ICD9: V49.89, ICD10: Z78.9 3. Gastroesophageal reflux disease, unspecified whether esophagitis present - ICD9: 530.81, ICD10: K21.9 - Discussed lifestyle modifications including losing weight, limiting caffeine, no meals three hours before sleep and head of bed elevation - Continue treatment with Prilosec 20 mg QD 4. Class 2 obesity with body mass index (BMI) of 36.0 to 36.9 in adult, unspecified obesity type, unspecified whether serious comorbidity present - ICD9: 278.00, V85.36, ICD10: E66.9, Z68.36 Weight increasing - Behavioral intervention 5. Other hyperlipidemia - ICD9: 272.4, ICD10: E78.49 Recheck labs in 6 months. 6. Vitamin D insufficiency - ICD9: 268.9, ICD10: E55.9 Continue supplement. Recheck in 6 months. Mili Saldivar MD documented in this encounterSelect [facility] History of Past illness Narrative* Problem Noted Date Resolved Date Plantar fasciitis 12/03/2012 08/28/2013 Epidermal cyst of face 12/03/2012 7 Edema 12/03/2012 03/24/2015 OA (osteoarthritis) of knee 05/03/201003/13 Vitamin D deficiency 04/22/2010 03/01/2017 Last Assessment & Plan: She has not been taking her vitamin D for at least 6 months. Anterior cervical lymphadenopathy 09/08/2009 08/28/2013 Overview: Rt neck Primary localized osteoarthrosis, lower leg 04/1303/31/2016 Last Assessment & Plan: Ongoing bilateral knee pain- plans to f/u with ortho to see what else can be done for her discomfort. She had seen Dr. Ellsworth last year, surgical candidate, however pt hoping to put off longer. Benign paroxysmal positional vertigo 10/28/2005 11/21/2008 documented as of this encounter (statuses as of 06/04/2021) [facility] History of Past illness Narrative* Problem Noted Date Resolved Date Plantar fasciitis 12/03/2012 08/28/2013 Epidermal cyst of face 12/03/2012 7 Edema 12/03/2012 03/24/2015 OA (osteoarthritis) of knee 05/03/201003/13 Vitamin D deficiency 04/22/2010 03/01/2017 Last Assessment & Plan: She has not been taking her vitamin D for at least 6 months. Anterior cervical lymphadenopathy 09/08/2009 08/28/2013 Overview: Rt neck Primary localized osteoarthrosis, lower leg 04/1303/31/2016 Last Assessment & Plan: Ongoing bilateral knee pain- plans to f/u with ortho to see what else can be done for her discomfort. She had seen Dr. Ellsworth last year, surgical candidate, however pt hoping to put off longer. Benign paroxysmal positional vertigo 10/28/2005 11/21/2008 documented as of this encounter (statuses as of 12/20/2021) [facility] History of Past illness Narrative* Problem Noted Date Resolved Date Plantar fasciitis 12/03/2012 08/28/2013 Epidermal cyst of face 12/03/2012 7 Edema 12/03/2012 03/24/2015 OA (osteoarthritis) of knee 05/03/201003/13 Vitamin D deficiency 04/22/2010 03/01/2017 Last Assessment & Plan: She has not been taking her vitamin D for at least 6 months. Anterior cervical lymphadenopathy 09/08/2009 08/28/2013 Overview: Rt neck Primary localized osteoarthrosis, lower leg 04/1303/31/2016 Last Assessment & Plan: Ongoing bilateral knee pain- plans to f/u with ortho to see what else can be done for her discomfort. She had seen Dr. Ellsworth last year, surgical candidate, however pt hoping to put off longer. Benign paroxysmal positional vertigo 10/28/2005 11/21/2008 documented as of this encounter (statuses as of 01/14/2022) [facility] History of Past illness Narrative* Problem Noted Date Resolved Date Plantar fasciitis 12/03/2012 08/28/2013 Epidermal cyst of face 12/03/2012 7 Edema 12/03/2012 03/24/2015 OA (osteoarthritis) of knee 05/03/201003/13 Vitamin D deficiency 04/22/2010 03/01/2017 Last Assessment & Plan: She has not been taking her vitamin D for at least 6 months. Anterior cervical lymphadenopathy 09/08/2009 08/28/2013 Overview: Rt neck Primary localized osteoarthrosis, lower leg 04/1303/31/2016 Last Assessment & Plan: Ongoing bilateral knee pain- plans to f/u with ortho to see what else can be done for her discomfort. She had seen Dr. Ellsworth last year, surgical candidate, however pt hoping to put off longer. Benign paroxysmal positional vertigo 10/28/2005 11/21/2008 documented as of this encounter (statuses as of 01/14/2022) [facility] History of Past illness Narrative* Problem Noted Date Resolved Date Plantar fasciitis 12/03/2012 08/28/2013 Epidermal cyst of face 12/03/2012 7 Edema 12/03/2012 03/24/2015 OA (osteoarthritis) of knee 05/03/201003/13 Vitamin D deficiency 04/22/2010 03/01/2017 Last Assessment & Plan: She has not been taking her vitamin D for at least 6 months. Anterior cervical lymphadenopathy 09/08/2009 08/28/2013 Overview: Rt neck Primary localized osteoarthrosis, lower leg 04/1303/31/2016 Last Assessment & Plan: Ongoing bilateral knee pain- plans to f/u with ortho to see what else can be done for her discomfort. She had seen Dr. Ellsworth last year, surgical candidate, however pt hoping to put off longer. Benign paroxysmal positional vertigo 10/28/2005 11/21/2008 documented as of this encounter (statuses as of 01/18/2022) [facility] History of Past illness Narrative* Problem Noted Date Resolved Date Plantar fasciitis 12/03/2012 08/28/2013 Epidermal cyst of face 12/03/2012 7 Edema 12/03/2012 03/24/2015 OA (osteoarthritis) of knee 05/03/201003/13 Vitamin D deficiency 04/22/2010 03/01/2017 Last Assessment & Plan: She has not been taking her vitamin D for at least 6 months. Anterior cervical lymphadenopathy 09/08/2009 08/28/2013 Overview: Rt neck Primary localized osteoarthrosis, lower leg 04/1303/31/2016 Last Assessment & Plan: Ongoing bilateral knee pain- plans to f/u with ortho to see what else can be done for her discomfort. She had seen Dr. Ellsworth last year, surgical candidate, however pt hoping to put off longer. Benign paroxysmal positional vertigo 10/28/2005 11/21/2008 documented as of this encounter (statuses as of 02/08/2022) [facility] History of Past illness Narrative* Problem Noted Date Resolved Date Plantar fasciitis 12/03/2012 08/28/2013 Epidermal cyst of face 12/03/2012 7 Edema 12/03/2012 03/24/2015 OA (osteoarthritis) of knee 05/03/201003/13 Vitamin D deficiency 04/22/2010 03/01/2017 Last Assessment & Plan: She has not been taking her vitamin D for at least 6 months. Anterior cervical lymphadenopathy 09/08/2009 08/28/2013 Overview: Rt neck Primary localized osteoarthrosis, lower leg 04/1303/31/2016 Last Assessment & Plan: Ongoing bilateral knee pain- plans to f/u with ortho to see what else can be done for her discomfort. She had seen Dr. Ellswroth last year, surgical candidate, however pt hoping to put off longer. Benign paroxysmal positional vertigo 10/28/2005 11/21/2008 documented as of this encounter (statuses as of 03/04/2022) [facility] History of Past illness Narrative* Problem Noted Date Resolved Date Plantar fasciitis 12/03/2012 08/28/2013 Epidermal cyst of face 12/03/2012 7 Edema 12/03/2012 03/24/2015 OA (osteoarthritis) of knee 05/03/201003/13 Vitamin D deficiency 04/22/2010 03/01/2017 Last Assessment & Plan: She has not been taking her vitamin D for at least 6 months. Anterior cervical lymphadenopathy 09/08/2009 08/28/2013 Overview: Rt neck Primary localized osteoarthrosis, lower leg 04/1303/31/2016 Last Assessment & Plan: Ongoing bilateral knee pain- plans to f/u with ortho to see what else can be done for her discomfort. She had seen Dr. Ellsworth last year, surgical candidate, however pt hoping to put off longer. Benign paroxysmal positional vertigo 10/28/2005 11/21/2008 documented as of this encounter (statuses as of 06/22/2022) [facility] History of Past illness Narrative* Problem Noted Date Resolved Date Plantar fasciitis 12/03/2012 08/28/2013 Epidermal cyst of face 12/03/2012 7 Edema 12/03/2012 03/24/2015 OA (osteoarthritis) of knee 05/03/201003/13 Vitamin D deficiency 04/22/2010 03/01/2017 Last Assessment & Plan: She has not been taking her vitamin D for at least 6 months. Anterior cervical lymphadenopathy 09/08/2009 08/28/2013 Overview: Rt neck Primary localized osteoarthrosis, lower leg 04/1303/31/2016 Last Assessment & Plan: Ongoing bilateral knee pain- plans to f/u with ortho to see what else can be done for her discomfort. She had seen Dr. Ellsworth last year, surgical candidate, however pt hoping to put off longer. Benign paroxysmal positional vertigo 10/28/2005 11/21/2008 documented as of this encounter (statuses as of 07/20/2022) [facility] History of Past illness Narrative* Problem Noted Date Diagnosed Date Resolved Date Plantar fasciitis 12/03/2012 08/28/2013 Epidermal cyst of face 12/03/201203/31 Edema 12/03/2012 03/24/2015 OA (osteoarthritis) of knee 05/03/2010 03/31/2016 Vitamin D deficiency 04/22/2010 017 Last Assessment & Plan: She has not been taking her vitamin D for at least 6 months. Anterior cervical lymphadenopathy 09/08/2009 08/28/2013 Overview: Rt neck Primary localized osteoarthrosis, lower leg 04/28/2009 03/31/2016 Last Assessment & Plan: Ongoing bilateral knee pain- plans to f/u with ortho to see what else can be done for her discomfort. She had seen Dr. Ellsworth last year, surgical candidate, however pt hoping to put off longer. Benign paroxysmal positional vertigo 10/28/2005 11/21/2008 documented as of this encounter (statuses as of 12/27/2022) [facility] History of Past illness Narrative* Problem Noted Date Diagnosed Date Resolved Date Plantar fasciitis 12/03/2012 08/28/2013 Epidermal cyst of face 12/03/201203/31 Edema 12/03/2012 03/24/2015 OA (osteoarthritis) of knee 05/03/2010 03/31/2016 Vitamin D deficiency 04/22/2010 017 Last Assessment & Plan: She has not been taking her vitamin D for at least 6 months. Anterior cervical lymphadenopathy 09/08/2009 08/28/2013 Overview: Rt neck Primary localized osteoarthrosis, lower leg 04/28/2009 03/31/2016 Last Assessment & Plan: Ongoing bilateral knee pain- plans to f/u with ortho to see what else can be done for her discomfort. She had seen Dr. Ellsworth last year, surgical candidate, however pt hoping to put off longer. Benign paroxysmal positional vertigo 10/28/2005 11/21/2008 documented as of this encounter (statuses as of 12/29/2022) [facility] History of Past illness Narrative* Problem Noted Date Diagnosed Date Resolved Date Plantar fasciitis 12/03/2012 08/28/2013 Epidermal cyst of face 12/03/201203/31 Edema 12/03/2012 03/24/2015 OA (osteoarthritis) of knee 05/03/2010 03/31/2016 Vitamin D deficiency 04/22/2010 017 Last Assessment & Plan: She has not been taking her vitamin D for at least 6 months. Anterior cervical lymphadenopathy 09/08/2009 08/28/2013 Overview: Rt neck Primary localized osteoarthrosis, lower leg 04/28/2009 03/31/2016 Last Assessment & Plan: Ongoing bilateral knee pain- plans to f/u with ortho to see what else can be done for her discomfort. She had seen Dr. Ellsworth last year, surgical candidate, however pt hoping to put off longer. Benign paroxysmal positional vertigo 10/28/2005 11/21/2008 documented as of this encounter (statuses as of 01/15/2023) [facility] History of Past illness Narrative* Problem Noted Date Diagnosed Date Resolved Date Plantar fasciitis 12/03/2012 08/28/2013 Epidermal cyst of face 12/03/201203/31 Edema 12/03/2012 03/24/2015 OA (osteoarthritis) of knee 05/03/2010 03/31/2016 Vitamin D deficiency 04/22/2010 017 Last Assessment & Plan: She has not been taking her vitamin D for at least 6 months. Anterior cervical lymphadenopathy 09/08/2009 08/28/2013 Overview: Rt neck Primary localized osteoarthrosis, lower leg 04/28/2009 03/31/2016 Last Assessment & Plan: Ongoing bilateral knee pain- plans to f/u with ortho to see what else can be done for her discomfort. She had seen Dr. Ellsworth last year, surgical candidate, however pt hoping to put off longer. Benign paroxysmal positional vertigo 10/28/2005 11/21/2008 documented as of this encounter (statuses as of 01/15/2023) [facility] History of Past illness Narrative* Problem Noted Date Diagnosed Date Resolved Date Plantar fasciitis 12/03/2012 08/28/2013 Epidermal cyst of face 12/03/201203/31 Edema 12/03/2012 03/24/2015 OA (osteoarthritis) of knee 05/03/2010 03/31/2016 Vitamin D deficiency 04/22/2010 017 Last Assessment & Plan: She has not been taking her vitamin D for at least 6 months. Anterior cervical lymphadenopathy 09/08/2009 08/28/2013 Overview: Rt neck Primary localized osteoarthrosis, lower leg 04/28/2009 03/31/2016 Last Assessment & Plan: Ongoing bilateral knee pain- plans to f/u with ortho to see what else can be done for her discomfort. She had seen Dr. Ellsworth last year, surgical candidate, however pt hoping to put off longer. Benign paroxysmal positional vertigo 10/28/2005 11/21/2008 documented as of this encounter (statuses as of 01/18/2023) [facility] History of Past illness Narrative* Problem Noted Date Diagnosed Date Resolved Date Plantar fasciitis 12/03/2012 08/28/2013 Epidermal cyst of face 12/03/201203/31 Edema 12/03/2012 03/24/2015 OA (osteoarthritis) of knee 05/03/2010 03/31/2016 Vitamin D deficiency 04/22/2010 017 Last Assessment & Plan: She has not been taking her vitamin D for at least 6 months. Anterior cervical lymphadenopathy 09/08/2009 08/28/2013 Overview: Rt neck Primary localized osteoarthrosis, lower leg 04/28/2009 03/31/2016 Last Assessment & Plan: Ongoing bilateral knee pain- plans to f/u with ortho to see what else can be done for her discomfort. She had seen Dr. Ellsworth last year, surgical candidate, however pt hoping to put off longer. Benign paroxysmal positional vertigo 10/28/2005 11/21/2008 documented as of this encounter (statuses as of 01/18/2023) [facility] History of Past illness Narrative* Problem Noted Date Diagnosed Date Resolved Date Plantar fasciitis 12/03/2012 08/28/2013 Epidermal cyst of face 12/03/201203/31 Edema 12/03/2012 03/24/2015 OA (osteoarthritis) of knee 05/03/2010 03/31/2016 Vitamin D deficiency 04/22/2010 017 Last Assessment & Plan: She has not been taking her vitamin D for at least 6 months. Anterior cervical lymphadenopathy 09/08/2009 08/28/2013 Overview: Rt neck Primary localized osteoarthrosis, lower leg 04/28/2009 03/31/2016 Last Assessment & Plan: Ongoing bilateral knee pain- plans to f/u with ortho to see what else can be done for her discomfort. She had seen Dr. Ellsworth last year, surgical candidate, however pt hoping to put off longer. Benign paroxysmal positional vertigo 10/28/2005 11/21/2008 documented as of this encounter (statuses as of 01/19/2023) [facility] History of Past illness Narrative* Problem Noted Date Diagnosed Date Resolved Date Plantar fasciitis 12/03/2012 08/28/2013 Epidermal cyst of face 12/03/201203/31 Edema 12/03/2012 03/24/2015 OA (osteoarthritis) of knee 05/03/2010 03/31/2016 Vitamin D deficiency 04/22/2010 017 Last Assessment & Plan: She has not been taking her vitamin D for at least 6 months. Anterior cervical lymphadenopathy 09/08/2009 08/28/2013 Overview: Rt neck Primary localized osteoarthrosis, lower leg 04/28/2009 03/31/2016 Last Assessment & Plan: Ongoing bilateral knee pain- plans to f/u with ortho to see what else can be done for her discomfort. She had seen Dr. Ellsworth last year, surgical candidate, however pt hoping to put off longer. Benign paroxysmal positional vertigo 10/28/2005 11/21/2008 documented as of this encounter (statuses as of 01/29/2023) [facility] History of Past illness Narrative* Problem Noted Date Diagnosed Date Resolved Date Plantar fasciitis 12/03/2012 08/28/2013 Epidermal cyst of face 12/03/201203/31 Edema 12/03/2012 03/24/2015 OA (osteoarthritis) of knee 05/03/2010 03/31/2016 Vitamin D deficiency 04/22/2010 017 Last Assessment & Plan: She has not been taking her vitamin D for at least 6 months. Anterior cervical lymphadenopathy 09/08/2009 08/28/2013 Overview: Rt neck Primary localized osteoarthrosis, lower leg 04/28/2009 03/31/2016 Last Assessment & Plan: Ongoing bilateral knee pain- plans to f/u with ortho to see what else can be done for her discomfort. She had seen Dr. Ellsworth last year, surgical candidate, however pt hoping to put off longer. Benign paroxysmal positional vertigo 10/28/2005 11/21/2008 documented as of this encounter (statuses as of 06/23/2023) [facility] Clinical Note Date No Information [facility] Work Phone: Discharge summary* Clinical Note Date No Information [facility] Work Phone: Evaluation note* Diagnosis RUDY (obstructive sleep apnea)- Primary Obstructive sleep apnea (adult) (pediatric) Difficulty with CPAP use Gastroesophageal reflux disease, unspecified whether esophagitis present Class 2 obesity with body mass index (BMI) of 36.0 to 36.9 in adult, unspecified obesity type, unspecified whether serious comorbidity present Other hyperlipidemia Vitamin D insufficiency Unspecified vitamin D deficiency [facility]* Diagnosis RUDY (obstructive sleep apnea)- Primary Obstructive sleep apnea (adult) (pediatric) Gastroesophageal reflux disease, unspecified whether esophagitis present Difficulty with CPAP use Vitamin D insufficiency Unspecified vitamin D deficiency Obesity, Class II, BMI 35-39.9 Obesity, unspecified Screening mammogram, encounter for Need for influenza vaccination Need for prophylactic vaccination and inoculation against influenza [facility] Diagnosis Abnormal mammogram- Primary Abnormal mammogram, unspecified [facility]* Diagnosis Sinus pressure- Primary Other diseases of nasal cavity and sinuses ETD (Eustachian tube dysfunction), left [facility] this [facility]* Diagnosis RUDY (obstructive sleep apnea)- Primary Obstructive sleep apnea (adult) (pediatric) Difficulty with CPAP use Gastroesophageal reflux disease, unspecified whether esophagitis present Class 2 obesity with body mass index (BMI) of 36.0 to 36.9 in adult, unspecified obesity type, unspecified whether serious comorbidity present Other hyperlipidemia Allergic rhinitis, unspecified seasonality, unspecified trigger [facility] Diagnosis RUDY (obstructive sleep apnea)- Primary Obstructive sleep apnea (adult) (pediatric) Difficulty with CPAP use Gastroesophageal reflux disease, unspecified whether esophagitis present Other hyperlipidemia Allergic rhinitis, unspecified seasonality, unspecified trigger Obesity, Class II, BMI 35-39.9 Obesity, unspecified Screening mammogram, encounter for Vitamin D insufficiency Unspecified vitamin D deficiency [facility]* Diagnosis Other hyperlipidemia- Primary [facility]* Diagnosis Screening mammogram, encounter for documented in this encounter [facility] note* Diagnosis Abnormal mammogram Abnormal mammogram, unspecified [facility]* Diagnosis Screening mammogram, encounter for [facility]* Diagnosis Viral URI- Primary Acute upper respiratory infections of unspecified site documented in this encounter [facility] note* Diagnosis Hepatitis B core antibody positive- Primary Other and unspecified nonspecific immunological findings Gastroesophageal reflux disease, unspecified whether esophagitis present RUDY (obstructive sleep apnea) Obstructive sleep apnea (adult) (pediatric) Difficulty with CPAP use Class 2 obesity with body mass index (BMI) of 35.0 to 35.9 in adult, unspecified obesity type, unspecified whether serious comorbidity present Other hyperlipidemia Seasonal allergic rhinitis, unspecified trigger documented in this encounter [facility] noteNo assessment information availableWFort [facility] Work Phone: Evaluation note* Diagnosis Acute cystitis without hematuria- Primary Acute cystitis Hypokalemia Hypopotassemia documented in this encounter [facility] note* Diagnosis Other hyperlipidemia documented in this encounter [facility] note* Diagnosis Routine medical exam- Primary Routine general medical examination at a health care facility Vitamin D deficiency Unspecified vitamin D deficiency Hyperlipidemia Other and unspecified hyperlipidemia Primary localized osteoarthrosis, lower leg Obese Obesity, unspecified Anterior cervical lymphadenopathy Enlargement of lymph nodes Annual physical exam- Primary Routine general medical examination at a health care facility Incontinence of urine in female Unspecified urinary incontinence Encounter for screening mammogram for malignant neoplasm of breast Other screening mammogram Hyperlipidemia, unspecified hyperlipidemia type Vitamin D deficiency Unspecified vitamin D deficiency Osteopenia Disorder of bone and cartilage, unspecified Allergic rhinitis, unspecified allergic rhinitis trigger, unspecified rhinitis seasonality RUDY (obstructive sleep apnea)- Primary Obstructive sleep apnea (adult) (pediatric) documented [facility] this [facility]* Diagnosis Routine medical exam- Primary Routine general medical examination at a health care facility Vitamin D deficiency Unspecified vitamin D deficiency Hyperlipidemia Other and unspecified hyperlipidemia Primary localized osteoarthrosis, lower leg Obese Obesity, unspecified Anterior cervical lymphadenopathy Enlargement of lymph nodes Annual physical exam- Primary Routine general medical examination at a health care facility Incontinence of urine in female Unspecified urinary incontinence Encounter for screening mammogram for malignant neoplasm of breast Other screening mammogram Hyperlipidemia, unspecified hyperlipidemia type Vitamin D deficiency Unspecified vitamin D deficiency Osteopenia Disorder of bone and cartilage, unspecified Allergic rhinitis, unspecified allergic rhinitis trigger, unspecified rhinitis seasonality Lump on neck- Primary Swelling, mass, or lump in head and neck RUDY (obstructive sleep apnea) Obstructive sleep apnea (adult) (pediatric) Other hyperlipidemia Gastroesophageal reflux disease, unspecified whether esophagitis present Class 2 obesity with body mass index (BMI) of 37.0 to 37.9 in adult, unspecified obesity type, unspecified whether serious comorbidity present Encounter for screening mammogram for breast cancer Encounter for immunization Need for other specified prophylactic vaccination against single bacterial disease [facility] Diagnosis Routine medical exam- Primary Routine general medical examination at a health care facility Vitamin D deficiency Unspecified vitamin D deficiency Hyperlipidemia Other and unspecified hyperlipidemia Primary localized osteoarthrosis, lower leg Obese Obesity, unspecified Anterior cervical lymphadenopathy Enlargement of lymph nodes Annual physical exam- Primary Routine general medical examination at a health care facility Incontinence of urine in female Unspecified urinary incontinence Encounter for screening mammogram for malignant neoplasm of breast Other screening mammogram Hyperlipidemia, unspecified hyperlipidemia type Vitamin D deficiency Unspecified vitamin D deficiency Osteopenia Disorder of bone and cartilage, unspecified Allergic rhinitis, unspecified allergic rhinitis trigger, unspecified rhinitis seasonality Neoplasm of unspecified behavior of bone, soft tissue, and skin- Primary [facility]* Diagnosis Routine medical exam- Primary Routine general medical examination at a health care facility Vitamin D deficiency Unspecified vitamin D deficiency Hyperlipidemia Other and unspecified hyperlipidemia Primary localized osteoarthrosis, lower leg Obese Obesity, unspecified Anterior cervical lymphadenopathy Enlargement of lymph nodes Annual physical exam- Primary Routine general medical examination at a health care facility Incontinence of urine in female Unspecified urinary incontinence Encounter for screening mammogram for malignant neoplasm of breast Other screening mammogram Hyperlipidemia, unspecified hyperlipidemia type Vitamin D deficiency Unspecified vitamin D deficiency Osteopenia Disorder of bone and cartilage, unspecified Allergic rhinitis, unspecified allergic rhinitis trigger, unspecified rhinitis seasonality RUDY (obstructive sleep apnea) Obstructive sleep apnea (adult) (pediatric) documented in this encounter [facility] note* Diagnosis Routine medical exam- Primary Routine general medical examination at a [facility] Vitamin D deficiency Unspecified vitamin D deficiency Hyperlipidemia Other and unspecified hyperlipidemia Primary localized osteoarthrosis, lower leg Obese Obesity, unspecified Anterior cervical lymphadenopathy Enlargement of lymph nodes Annual physical exam- Primary Routine general medical examination at a health care facility Incontinence of urine in female Unspecified urinary incontinence Encounter for screening mammogram for malignant neoplasm of breast Other screening mammogram Hyperlipidemia, unspecified hyperlipidemia type Vitamin D deficiency Unspecified vitamin D deficiency Osteopenia Disorder of bone and cartilage, unspecified Allergic rhinitis, unspecified allergic rhinitis trigger, unspecified rhinitis seasonality Encounter for screening mammogram for breast cancer documented in this encounter [facility] note* Diagnosis Routine medical exam- Primary Routine general medical examination at a [facility] care [facility] Vitamin D deficiency Unspecified vitamin D deficiency Hyperlipidemia Other and unspecified hyperlipidemia Primary localized osteoarthrosis, lower leg Obese Obesity, unspecified Anterior cervical lymphadenopathy Enlargement of lymph nodes Annual physical exam- Primary Routine general medical examination at a [facility] care facility Incontinence of urine in female Unspecified urinary incontinence Encounter for screening mammogram for malignant neoplasm of breast Other screening mammogram Hyperlipidemia, unspecified hyperlipidemia type Vitamin D deficiency Unspecified vitamin D deficiency Osteopenia Disorder of bone and cartilage, unspecified Allergic rhinitis, unspecified allergic rhinitis trigger, unspecified rhinitis seasonality Chronic neck pain Cervicalgia Strain of neck muscle, initial encounter documented in this encounter [facility] note* Diagnosis Routine medical exam- Primary Routine general medical examination at a health care facility Vitamin D deficiency Unspecified vitamin D deficiency Hyperlipidemia Other and unspecified hyperlipidemia Primary localized osteoarthrosis, lower leg Obese Obesity, unspecified Anterior cervical lymphadenopathy Enlargement of lymph nodes Annual physical exam- Primary Routine general medical examination at a [facility] care facility Incontinence of urine in female Unspecified urinary incontinence Encounter for screening mammogram for malignant neoplasm of breast Other screening mammogram Hyperlipidemia, unspecified hyperlipidemia type Vitamin D deficiency Unspecified vitamin D deficiency Osteopenia Disorder of bone and cartilage, unspecified Allergic rhinitis, unspecified allergic rhinitis trigger, unspecified rhinitis seasonality Chronic neck pain- Primary Cervicalgia Strain of neck muscle, initial encounter Chronic neck pain Cervicalgia Strain of neck muscle, initial encounter documented in this encounter [facility] note* Diagnosis Routine medical exam- Primary Routine general medical examination at a health care facility Vitamin D deficiency Unspecified vitamin D deficiency Hyperlipidemia Other and unspecified hyperlipidemia Primary localized osteoarthrosis, lower leg Obese Obesity, unspecified Anterior cervical lymphadenopathy Enlargement of lymph nodes Annual physical exam- Primary Routine general medical examination at a health care facility Incontinence of urine in female Unspecified urinary incontinence Encounter for screening mammogram for malignant neoplasm of breast Other screening mammogram Hyperlipidemia, unspecified hyperlipidemia type Vitamin D deficiency Unspecified vitamin D deficiency Osteopenia Disorder of bone and cartilage, unspecified Allergic rhinitis, unspecified allergic rhinitis trigger, unspecified rhinitis seasonality Chronic neck pain- Primary Cervicalgia Strain of neck muscle, initial encounter documented in this encounter [facility] note* Diagnosis Routine medical exam- Primary Routine general medical examination at a [facility] care facility Vitamin D deficiency Unspecified vitamin D deficiency Hyperlipidemia Other and unspecified hyperlipidemia Primary localized osteoarthrosis, lower leg Obese Obesity, unspecified Anterior cervical lymphadenopathy Enlargement of lymph nodes Annual physical exam- Primary Routine general medical examination at a [facility] care facility Incontinence of urine in female Unspecified urinary incontinence Encounter for screening mammogram for malignant neoplasm of breast Other screening mammogram Hyperlipidemia, unspecified hyperlipidemia type Vitamin D deficiency Unspecified vitamin D deficiency Osteopenia Disorder of bone and cartilage, unspecified Allergic rhinitis, unspecified allergic rhinitis trigger, unspecified rhinitis seasonality Acute otitis media, bilateral- Primary Unspecified otitis media Rhinosinusitis Unspecified sinusitis (chronic) documented in this encounter [facility] note* Type Assessment Date No Information [facility] Work Phone: Evaluation note* Diagnosis Routine medical exam- Primary Routine general medical examination at a health care facility Vitamin D deficiency Unspecified vitamin D deficiency Hyperlipidemia Other and unspecified hyperlipidemia Primary localized osteoarthrosis, lower leg Obese Obesity, unspecified Anterior cervical lymphadenopathy Enlargement of lymph nodes Annual physical exam- Primary Routine general medical examination at a health care facility Incontinence of urine in female Unspecified urinary incontinence Encounter for screening mammogram for malignant neoplasm of breast Other screening mammogram Hyperlipidemia, unspecified hyperlipidemia type Vitamin D deficiency Unspecified vitamin D deficiency Osteopenia Disorder of bone and cartilage, unspecified Allergic rhinitis, unspecified allergic rhinitis trigger, unspecified rhinitis seasonality Encounter for gynecological examination (general) (routine) without abnormal findings- Primary Encounter for screening mammogram for breast cancer Urinary incontinence, unspecified type [facility] this [facility]* Diagnosis Routine medical exam- Primary Routine general medical examination at a health care facility Vitamin D deficiency Unspecified vitamin D deficiency Hyperlipidemia Other and unspecified hyperlipidemia Primary localized osteoarthrosis, lower leg Obese Obesity, unspecified Anterior cervical lymphadenopathy Enlargement of lymph nodes Annual physical exam- Primary Routine general medical examination at a [facility] care facility Incontinence of urine in female Unspecified urinary incontinence Encounter for screening mammogram for malignant neoplasm of breast Other screening mammogram Hyperlipidemia, unspecified hyperlipidemia type Vitamin D deficiency Unspecified vitamin D deficiency Osteopenia Disorder of bone and cartilage, unspecified Allergic rhinitis, unspecified allergic rhinitis trigger, unspecified rhinitis seasonality Pre-operative examination- Primary Preoperative examination, unspecified RUDY (obstructive sleep apnea) Obstructive sleep apnea (adult) (pediatric) Other hyperlipidemia Chronic neck pain Cervicalgia Gastroesophageal reflux disease, unspecified whether esophagitis present Incontinence of urine in female Unspecified urinary incontinence Degeneration of intervertebral disc of lumbar region, unspecified whether pain present Osteopenia, unspecified location History of total knee arthroplasty, right History of arthroplasty of left knee Basal cell carcinoma (BCC), unspecified site Umbilical hernia without obstruction and without gangrene * Assessment & Plan Note - Dg Fajardo APRN.CNP - 06/04/2024 5:24 AM EDT Associated Problem(s): BCC (basal cell carcinoma of skin) Assessment: s/p excision * Assessment & Plan Note - Dg Fajardo APRN.CNP - 06/04/2024 5:22 AM EDT Associated Problem(s): History of arthroplasty of left knee Assessment: hx partial * Assessment & Plan Note - Dg Fajardo APRN.CNP - 06/04/2024 5:21 AM EDT Associated Problem(s): History of total knee arthroplasty, right Assessment: hx * Assessment & Plan Note - Dg Fajardo APRN.CNP - 06/04/2024 5:20 AM EDT Associated Problem(s): Class 2 obesity with body mass index (BMI) of 36.0 to 36.9 in adult Assessment: Body mass index is 36.94 kg/m .\ * Assessment & Plan Note - Dg Fajardo APRN.CNP - 06/04/2024 5:20 AM EDT Associated Problem(s): Osteopenia Assessment: taking supplement * Assessment & Plan Note - Dg Fajardo APRN.CNP - 06/04/2024 5:19 AM EDT Associated Problem(s): Lumbar degenerative disc disease Assessment: controlled on rx * Assessment & Plan Note - Dg Fajardo APRN.CNP - 06/04/2024 5:19 AM EDT Associated Problem(s): Incontinence of urine in female Assessment: hx * Assessment & Plan Note - Dg Fajardo APRN.CNP - 06/04/2024 5:18 AM EDT Associated Problem(s): GERD (gastroesophageal reflux disease) Assessment: controlled on rx * Assessment & Plan Note - Dg Fajardo APRN.CNP - 06/04/2024 5:18 AM EDT Associated Problem(s): Chronic neck pain Assessment: controlled on rx * Assessment & Plan Note - Dg Fajardo APRN.CNP - 06/04/2024 5:18 AM EDT Associated Problem(s): Hyperlipidemia Assessment: c/w statin * Assessment & Plan Note - Dg Fajardo APRN.CNP - 06/04/2024 5:18 AM EDT Associated Problem(s): RUDY (obstructive sleep apnea) Assessment: c/w CPAP, severe documented in this encounter [facility] note* Diagnosis Routine medical exam- Primary Routine general medical examination at a health care facility Vitamin D deficiency Unspecified vitamin D deficiency Hyperlipidemia Other and unspecified hyperlipidemia Primary localized osteoarthrosis, lower leg Obese Obesity, unspecified Anterior cervical lymphadenopathy Enlargement of lymph nodes Annual physical exam- Primary Routine general medical examination at a health care facility Incontinence of urine in female Unspecified urinary incontinence Encounter for screening mammogram for malignant neoplasm of breast Other screening mammogram Hyperlipidemia, unspecified hyperlipidemia type Vitamin D deficiency Unspecified vitamin D deficiency Osteopenia Disorder of bone and cartilage, unspecified Allergic rhinitis, unspecified allergic rhinitis trigger, unspecified rhinitis seasonality Umbilical hernia without obstruction and without gangrene- Primary Pre-operative examination- Primary Preoperative examination, unspecified RUDY (obstructive sleep apnea) Obstructive sleep apnea (adult) (pediatric) Other hyperlipidemia Chronic neck pain Cervicalgia Gastroesophageal reflux disease, unspecified whether esophagitis present Incontinence of urine in female Unspecified urinary incontinence Degeneration of intervertebral disc of lumbar region, unspecified whether pain present Osteopenia, unspecified location History of total knee arthroplasty, right History of arthroplasty of left knee Basal cell carcinoma (BCC), unspecified site documented in this encounter [facility] note* Diagnosis Routine medical exam- Primary Routine general medical examination at a health care facility Vitamin D deficiency Unspecified vitamin D deficiency Hyperlipidemia Other and unspecified hyperlipidemia Primary localized osteoarthrosis, lower leg Obese Obesity, unspecified Anterior cervical lymphadenopathy Enlargement of lymph nodes Annual physical exam- Primary Routine general medical examination at a [facility] care facility Incontinence of urine in female Unspecified urinary incontinence Encounter for screening mammogram for malignant neoplasm of breast Other screening mammogram Hyperlipidemia, unspecified hyperlipidemia type Vitamin D deficiency Unspecified vitamin D deficiency Osteopenia Disorder of bone and cartilage, unspecified Allergic rhinitis, unspecified allergic rhinitis trigger, unspecified rhinitis seasonality Pre-operative examination- Primary Preoperative examination, unspecified RUDY (obstructive sleep apnea) Obstructive sleep apnea (adult) (pediatric) Other hyperlipidemia Chronic neck pain Cervicalgia Gastroesophageal reflux disease, unspecified whether esophagitis present Incontinence of urine in female Unspecified urinary incontinence Degeneration of intervertebral disc of lumbar region, unspecified whether pain present Osteopenia, unspecified location History of total knee arthroplasty, right History of arthroplasty of left knee Basal cell carcinoma (BCC), unspecified site Chest pain on respiration- Primary Painful respiration [facility]* Diagnosis Routine medical exam- Primary Routine general medical examination at a [facility] Vitamin D deficiency Unspecified vitamin D deficiency Hyperlipidemia Other and unspecified hyperlipidemia Primary localized osteoarthrosis, lower leg Obese Obesity, unspecified Anterior cervical lymphadenopathy Enlargement of lymph nodes Annual physical exam- Primary Routine general medical examination at a [facility] Incontinence of urine in female Unspecified urinary incontinence Encounter for screening mammogram for malignant neoplasm of breast Other screening mammogram Hyperlipidemia, unspecified hyperlipidemia type Vitamin D deficiency Unspecified vitamin D deficiency Osteopenia Disorder of bone and cartilage, unspecified Allergic rhinitis, unspecified allergic rhinitis trigger, unspecified rhinitis seasonality Pre-operative examination- Primary Preoperative examination, unspecified RUDY (obstructive sleep apnea) Obstructive sleep apnea (adult) (pediatric) Other hyperlipidemia Chronic neck pain Cervicalgia Gastroesophageal reflux disease, unspecified whether esophagitis present Incontinence of urine in female Unspecified urinary incontinence Degeneration of intervertebral disc of lumbar region, unspecified whether pain present Osteopenia, unspecified location History of total knee arthroplasty, right History of arthroplasty of left knee Basal cell carcinoma (BCC), unspecified site Positive D dimer- Primary Abnormal coagulation profile Right leg swelling Swelling of limb Chest pain, unspecified type Positive D dimer Abnormal coagulation profile Right leg swelling Swelling of limb documented in this encounter [facility]* Diagnosis Routine medical exam- Primary Routine general medical examination at a [facility] Vitamin D deficiency Unspecified vitamin D deficiency Hyperlipidemia Other and unspecified hyperlipidemia Primary localized osteoarthrosis, lower leg Obese Obesity, unspecified Anterior cervical lymphadenopathy Enlargement of lymph nodes Annual physical exam- Primary Routine general medical examination at a health care facility Incontinence of urine in female Unspecified urinary incontinence Encounter for screening mammogram for malignant neoplasm of breast Other screening mammogram Hyperlipidemia, unspecified hyperlipidemia type Vitamin D deficiency Unspecified vitamin D deficiency Osteopenia Disorder of bone and cartilage, unspecified Allergic rhinitis, unspecified allergic rhinitis trigger, unspecified rhinitis seasonality Pre-operative examination- Primary Preoperative examination, unspecified RUDY (obstructive sleep apnea) Obstructive sleep apnea (adult) (pediatric) Other hyperlipidemia Chronic neck pain Cervicalgia Gastroesophageal reflux disease, unspecified whether esophagitis present Incontinence of urine in female Unspecified urinary incontinence Degeneration of intervertebral disc of lumbar region, unspecified whether pain present Osteopenia, unspecified location History of total knee arthroplasty, right History of arthroplasty of left knee Basal cell carcinoma (BCC), unspecified site Positive D dimer Abnormal coagulation profile Right leg swelling Swelling of limb documented in this encounter [facility] note* Diagnosis Routine medical exam- Primary Routine general medical examination at a health care facility Vitamin D deficiency Unspecified vitamin D deficiency Hyperlipidemia Other and unspecified hyperlipidemia Primary localized osteoarthrosis, lower leg Obese Obesity, unspecified Anterior cervical lymphadenopathy Enlargement of lymph nodes Annual physical exam- Primary Routine general medical examination at a health care facility Incontinence of urine in female Unspecified urinary incontinence Encounter for screening mammogram for malignant neoplasm of breast Other screening mammogram Hyperlipidemia, unspecified hyperlipidemia type Vitamin D deficiency Unspecified vitamin D deficiency Osteopenia Disorder of bone and cartilage, unspecified Allergic rhinitis, unspecified allergic rhinitis trigger, unspecified rhinitis seasonality Pre-operative examination- Primary Preoperative examination, unspecified RUDY (obstructive sleep apnea) Obstructive sleep apnea (adult) (pediatric) Other hyperlipidemia Chronic neck pain Cervicalgia Gastroesophageal reflux disease, unspecified whether esophagitis present Incontinence of urine in female Unspecified urinary incontinence Degeneration of intervertebral disc of lumbar region, unspecified whether pain present Osteopenia, unspecified location History of total knee arthroplasty, right History of arthroplasty of left knee Basal cell carcinoma (BCC), unspecified site Other hyperlipidemia- Primary RUDY (obstructive sleep apnea) Obstructive sleep apnea (adult) (pediatric) Gastroesophageal reflux disease, unspecified whether esophagitis present Class 2 obesity with body mass index (BMI) of 37.0 to 37.9 in adult, unspecified obesity type, unspecified whether serious comorbidity present documented in this encounter [facility] note* Diagnosis Onset Date Resolution Status Admit Date Cough acute August 28 9:58am Obesity chronic August 28 9:58am Obstructive sleep apnea chronic J 2024 9:58am [facility] Work Phone: History and physical note* Clinical Note Date No Information [facility] [place] Work Phone: Hospital Discharge instructions Additional Instructions COVID, flu, RSV negative. Urine with infection. Normal white count. Normal kidney function. Potassium 3.4. Urine culture pending. Status post IV Rocephin in the ED. Take antibiotic as prescribed. Follow-up with your doctor. Continue Motrin or Tylenol as needed fever and muscle aches. If your symptoms worsen, return to the ED for reevaluation.[facility] Work Phone: Instructions* Date Instruction Additional Infor mation No Information [facility] [place] Work Phone: Progress note* Clinical Note Date No Information [facility] Work Phone: Reason for referral (narrative)* Diagnostic Procedure Only (Routine) - Pending Review Specialty Diagnoses / Procedures Referred By Lobo bain Referred To Contact [facility] Diagnoses Screening mammogram, encounter for Procedures KEVIN SCREENING SCREENING MAMMOGRAPHY BI 2-VIEW BREAST INC CAD Mili Saldivar MD [address] [place] [address] [place] [address] Referral ID Status Reason Start Date Expiration Date Visits Requested Visits Authorized [id number] Pending Review Auto-Generat ed Referral 2 01/19/2023 1 1 [facility] for referral (narrative)* Diagnostic Procedure Only (Routine) - Authorized Specialty Diagnoses / Procedures Referred By Lobo bain Referred To Contact [facility] Diagnoses Abnormal mammogram Procedures US BREAST LTD LT US BREAST UNI REAL TIME WITH IMAGE LIMITED Mili Saldivar MD [address] [place] [address] [facility] [address] [place] [address] Referral ID Status Reason Start Date Expiration Date Visits Requested Visits Authorized [id number] Authorized Auto-Generat ed Referral 01/14/2022 02/13/2023 1 1 * Diagnostic Procedure Only (Routine) - Authorized Specialty Diagnoses / Procedures Referred By Gaganac t Referred To Contact [facility] Diagnoses Abnormal mammogram Procedures KEVIN DIAGNOSTIC LT DIAGNOSTIC MAMMOGRAPHY COMPUTER-AIDED DETCJ UNI Mili Saldivar MD [address] [place] [address] [facility] [address] [place] [address] Referral ID Status Reason Start Date Expiration Date Visits Requested Visits Authorized [id number] Authorized Auto-Generat ed Referral 01/14/2022 02/13/2023 1 1 [facility] for referral (narrative)* Diagnostic Procedure Only (Routine) - Pending Review Specialty Diagnoses / Procedures Referred By Lobo t Referred To Contact [facility] Diagnoses Screening mammogram, encounter for Procedures KEVIN SCREENING SCREENING MAMMOGRAPHY BI 2-VIEW BREAST INC Mili Garcia MD [address] [place] [address] [facility] [address] [place] [address] Referral ID Status Reason Start Date Expiration Date Visits Requested Visits Authorized [id number] Pending Review Auto-Generat ed Referral 01/21/2024 1 1 [facility] for referral (narrative)* Diagnostic Procedure Only (Routine) - Closed Specialty Diagnoses / Procedures Referred By Contac t Referred To Contact [facility] Diagnoses Screening mammogram, encounter for Procedures KEVIN SCREENING SCREENING MAMMOGRAPHY BI 2-VIEW BREAST INC Mili Garcia MD [address] [place] [address] [facility] [address] [place] [address] Referral ID Status Reason Start Date Expiration Date V isits Requested Visits Authorized [id number] Closed Auto-Generate d Referral 12/20/2021 01/19/2023 1 1 [facility] for referral (narrative)* Diagnostic Procedure Only (Routine) - Closed Specialty Diagnoses / Procedures Referred By Contac t Referred To Contact [facility] Diagnoses Abnormal mammogram Procedures US BREAST LTD LT US BREAST UNI REAL TIME WITH IMAGE LIMITED Mili Saldivar MD [address] [place] [address] [facility] [address] [place] [address] Referral ID Status Reason Start Date Expiration Date V isits Requested Visits Authorized [id number] Closed Auto-Generate d Referral 01/14/2022 02/13/2023 1 1 [facility] for referral (narrative)* Diagnostic Procedure Only (Routine) - Closed Specialty Diagnoses / Procedures Referred By Contac t Referred To Contact [facility] Diagnoses Chronic neck pain Strain of neck muscle, initial encounter Procedures XR CERV OTHER 4V AP/LAT/OBL RADEX SPINE CERVICAL 4 OR 5 VIEWS Mili Saldivar MD [address] [place] [address] [place] [address] Referral ID Status Reason Start Date Expiration Date V isits Requested Visits Authorized [id number] Closed Auto-Generate d Referral 02/09/2024 03/10/2025 1 1 * Medication Prior Authorization - Closed Specialty Diagnoses / Procedures Referred By Contac t Referred To Contact Diagnoses Chronic neck pain Strain of neck muscle, initial encounter Mili Saldivar MD [address] [place] [address] Referral ID Status Reason Start Date Expiration Date Visits Re quested Visits Authorized [id number] Closed 1 1 * Physical Therapy (Routine) - Authorized Specialty Diagnoses / Procedures Referred By Lobo t Referred To Contact [facility] Diagnoses Chronic neck pain Strain of neck muscle, initial encounter Procedures CONSULT TO PHYSICAL THERAPY PHYSICAL THERAPY EVALUATION HIGH COMPLEX 45 MINS Mili Saldivar MD [address] [place] [address] [facility] [address] [place] [address] Referral ID Status Reason Start Date Expiration Date Visits Requested Visits Authorized [id number] Authorized PCP Requested Referral Auto-Generate d Referral 02/08/2025 99 99 [facility] Reason For Referral No Information [facility] [place] Work Phone: Reason for referral (narrative)No reason for referral information [facility]: Reason for visit Narrative* Diagnostic Procedure Only (Routine) - Closed Specialty Diagnoses / Procedures Referred By Lobo t Referred To Contact [facility] Diagnoses Screening mammogram, encounter for Procedures KEVIN SCREENING SCREENING MAMMOGRAPHY BI 2-VIEW BREAST INC Mili Garcia MD [address] [place] [address] [facility] [address] [place] [address] Referral ID Status Reason Start Date Expiration Date V isits Requested Visits Authorized [id number] Closed Auto-Generate d Referral 12/20/2021 01/19/2023 1 1 [facility] N[facility]* Diagnostic Procedure Only (Routine) - Closed Specialty Diagnoses / Procedures Referred By Lobo t Referred To Contact [facility] Diagnoses Screening mammogram, encounter for Procedures KEVIN SCREENING SCREENING MAMMOGRAPHY BI 2-VIEW BREAST INC Mili Garcia MD [address] [place] [address] [facility] [address] [place] [address] Referral ID Status Reason Start Date Expiration Date V isits Requested Visits Authorized [id number] Closed Auto-Generate d Referral 12/22/2022 01/21/2024 1 1 [facility] for visit Narrative* Diagnostic Procedure Only (Routine) - Closed Specialty Diagnoses / Procedures Referred By Lobo bain Referred To Contact [facility] Diagnoses Encounter for screening mammogram for breast cancer Procedures KEVIN SCREENING SCREENING MAMMOGRAPHY BI 2-VIEW BREAST INC CAD Mili Saldivar MD [address] [place] [address] [facility] [address] [place] [address] Referral ID Status Reason Start Date Expiration Date V isits Requested Visits Authorized [id number] Closed Auto-Generate d Referral 12/25/2023 01/23/2025 1 1 [facility] for visit Narrative* Diagnostic Procedure Only (Routine) - Closed Specialty Diagnoses / Procedures Referred By Lobo bain Referred To Contact XR IMAGING Diagnoses Chronic neck pain Strain of neck muscle, initial encounter Procedures XR CERV OTHER 4V AP/LAT/OBL RADEX SPINE CERVICAL 4 OR 5 VIEWS Mili Saldivar MD [address] [place] [address] [place] [address] Referral ID Status Reason Start Date Expiration Date V isits Requested Visits Authorized [id number] Closed Auto-Generate d Referral 02/09/2024 03/10/2025 1 1 [facility] Summary Purpose Family History No Family History Records Found Family Member Type Diagnosis Age At Onset No Information Family Member Type Diagnosis Age At Onset Brother Problem (finding) Cancer Father Problem (finding) Family history of Heart disease Relationship Condition Age at Onset Recorded Date/T brett father Cardiac disease Unknown Advance Directives No Advanced Directives Records FoundDocuments on File Type Date Recorded 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 Yes June 30, 2023 11:15pm Living Will No June 21, 2024 3:36pm Do you have a Healthcare Power of Web Content & Social Media Manager? No June 21, 2024 3:36pm Advance Directive Response Recorded Date/ Time Living Will No June 21, 2024 3:36pm Do you have a Healthcare Power of Web Content & Social Media Manager? No June 21, 2024 3:36pm Reason for Referral Specialty Diagnoses / Procedures Referred By Contac t Referred To Contact Diagnoses RUDY (obstructive sleep apnea) Procedures CONSULT TO SLEEP MEDICINE - ADULT OFFICE/OUTPATIENT [facility] 60-74 MINUTES Mili Saldivar MD [address] [place] [address] Referral ID Status Reason Start Date Expiration Date Visits Requested Visits Authorized [id number] Authorized PCP Requested Referral 06/04/2021 06/04/2022 1 1 Referral ID Status Reason Start Date Expiration Date Visits Requested Visits Authorized [id number] Authorized PCP Requested Referral 06/21/2022 06/21/2023 1 1 Specialty Diagnoses / Procedures Referred By Contac t Referred To Contact Pulmonary and Critical Care Medicine Diagnoses RUDY (obstructive sleep apnea) Procedures CONSULT TO PULM/CRITICAL CARE OFFICE/OUTPATIENT [facility] 60 MINUTES Mili Saldivar MD [address] [place] [id number] Referral ID Status Reason Start Date Expiration Date Visits Requested Visits Authorized [id number] Authorized PCP Requested Referral 11/02/2023 11/01/2024 1 1 Specialty Diagnoses / Procedures Referred By Contac t Referred To Contact Dermatology Diagnoses Lump on neck Procedures CONSULT TO DERMATOLOGY Mili Saldivar MD [address] [place] [id number] Referral ID Status Reason Start Date Expiration Date Visits Requested Visits Authorized [id number] Ref Not Required PCP Requested Referral 12/24/2024 1 1 Specialty Diagnoses / Procedures Referred By Contac t Referred To Contact [facility] Diagnoses Encounter for screening mammogram for breast cancer Procedures KEVIN SCREENING SCREENING MAMMOGRAPHY BI 2-VIEW BREAST INC Mili Garcia MD [address] [place] [address] [facility] [address] [place] [address] Referral ID Status Reason Start Date Expiration Date Visits Requested Visits Authorized [id number] New Request Auto-Generat ed Referral 01/23/2025 1 1 Health Concerns Infection Onset Date Last Indicated Resolved Time COVID-19 Rule-Out 01/29/2023 01/29/2023 Chief Complaint and Reason for Visit Chief Complaint SHAKING,N/V Chief Complaint Admit Date RUDY February 22, 2024 1:32pm R TKA. DR TO FAX May 27, 2024 12: 00pm ELEVATED D-DIMER June 21, 2024 3:3 5pm Reason for Visit Admit Date Obesity February 22, 2024 1:32pm Obstructive sleep apnea February 21 1:32pm Chief Complaint Admit Date R TKA. DR TO FAX May 27, 2024 12: 00pm ELEVATED D-DIMER June 21, 2024 3:3 5pm Chief Complaint Admit Date R TKA. DR TO FAX May 27, 2024 12: 00pm ELEVATED D-DIMER June 21, 2024 3:3 5pm 6 M FU August 28, 2024 9:58 am Reason for Visit Admit Date Cough August 28, 2024 9:58 am Obesity August 28, 2024 9:58 am Obstructive sleep apnea August 28, 2024 9:58am Additional Source Comments INFORMATION SOURCE (unrecogn ized section and content) DATE CREATED AUTHOR 03/12/2019 [facility] DATE CREATED AUTHOR AUTHOR'S ORGANIZ ATION 04/05/2024 [facility] DATE CREATED AUTHOR AUTHOR'S ORGANIZ ATION 04/06/2024 [facility] DATE CREATED AUTHOR AUTHOR'S ORGANIZ ATION 04/12/2024 [facility] DATE CREATED AUTHOR AUTHOR'S ORGANIZ ATION 05/23/2024 [facility] DATE CREATED AUTHOR AUTHOR'S ORGANIZ ATION 06/15/2024 [facility] DATE CREATED AUTHOR AUTHOR'S ORGANIZ ATION 07/24/2024 [facility] DATE CREATED AUTHOR AUTHOR'S ORGANIZ ATION 08/31/2024 [facility] Source Comments (unrecognize d section and content) In the event this informatio n is protected by the Federal Confidentiality of Alcohol and Drug Abuse Patient Records regulations: The Federal rules restrict any use of the information to criminally investigate or prosecute any alcohol or drug abuse patient.[facility] the event this information is protected by the Federal Confidentiality of Alcohol and Drug Abuse Patient Records regulations: The Federal rules restrict any use of the information to criminally investigate or prosecute any alcohol or drug abuse patient.[facility] the event this information is protected by the Federal Confidentiality of Alcohol and Drug Abuse Patient Records regulations: The Federal rules restrict any use of the information to criminally investigate or prosecute any alcohol or drug abuse patient.[facility] the event this information is protected by the Federal Confidentiality of Alcohol and Drug Abuse Patient Records regulations: The Federal rules restrict any use of the information to criminally investigate or prosecute any alcohol or drug abuse patient.[facility] the event this information is protected by the Federal Confidentiality of Alcohol and Drug Abuse Patient Records regulations: The Federal rules restrict any use of the information to criminally investigate or prosecute any alcohol or drug abuse patient.[facility] the event this information is protected by the Federal Confidentiality of Alcohol and Drug Abuse Patient Records regulations: The Federal rules restrict any use of the information to criminally investigate or prosecute any alcohol or drug abuse patient.[facility] the event this information is protected by the Federal Confidentiality of Alcohol and Drug Abuse Patient Records regulations: The Federal rules restrict any use of the information to criminally investigate or prosecute any alcohol or drug abuse patient.[facility] the event this information is protected by the Federal Confidentiality of Alcohol and Drug Abuse Patient Records regulations: The Federal rules restrict any use of the information to criminally investigate or prosecute any alcohol or drug abuse patient.[facility] the event this information is protected by the Federal Confidentiality of Alcohol and Drug Abuse Patient Records regulations: The Federal rules restrict any use of the information to criminally investigate or prosecute any alcohol or drug abuse patient.[facility] the event this information is protected by the Federal Confidentiality of Alcohol and Drug Abuse Patient Records regulations: The Federal rules restrict any use of the information to criminally investigate or prosecute any alcohol or drug abuse patient.[facility] the event this information is protected by the Federal Confidentiality of Alcohol and Drug Abuse Patient Records regulations: The Federal rules restrict any use of the information to criminally investigate or prosecute any alcohol or drug abuse patient.[facility] the event this information is protected by the Federal Confidentiality of Alcohol and Drug Abuse Patient Records regulations: The Federal rules restrict any use of the information to criminally investigate or prosecute any alcohol or drug abuse patient.[facility] the event this information is protected by the Federal Confidentiality of Alcohol and Drug Abuse Patient Records regulations: The Federal rules restrict any use of the information to criminally investigate or prosecute any alcohol or drug abuse patient.[facility] the event this information is protected by the Federal Confidentiality of Alcohol and Drug Abuse Patient Records regulations: The Federal rules restrict any use of the information to criminally investigate or prosecute any alcohol or drug abuse patient.[facility] the event this information is protected by the Federal Confidentiality of Alcohol and Drug Abuse Patient Records regulations: The Federal rules restrict any use of the information to criminally investigate or prosecute any alcohol or drug abuse patient.[facility] the event this information is protected by the Federal Confidentiality of Alcohol and Drug Abuse Patient Records regulations: The Federal rules restrict any use of the information to criminally investigate or prosecute any alcohol or drug abuse patient.[facility] the event this information is protected by the Federal Confidentiality of Alcohol and Drug Abuse Patient Records regulations: The Federal rules restrict any use of the information to criminally investigate or prosecute any alcohol or drug abuse patient.[facility] the event this information is protected by the Federal Confidentiality of Alcohol and Drug Abuse Patient Records regulations: The Federal rules restrict any use of the information to criminally investigate or prosecute any alcohol or drug abuse patient.[facility] the event this information is protected by the Federal Confidentiality of Alcohol and Drug Abuse Patient Records regulations: The Federal rules restrict any use of the information to criminally investigate or prosecute any alcohol or drug abuse patient.[facility] the event this information is protected by the Federal Confidentiality of Alcohol and Drug Abuse Patient Records regulations: The Federal rules restrict any use of the information to criminally investigate or prosecute any alcohol or drug abuse patient.[facility] the event this information is protected by the Federal Confidentiality of Alcohol and Drug Abuse Patient Records regulations: The Federal rules restrict any use of the information to criminally investigate or prosecute any alcohol or drug abuse patient.[facility] the event this information is protected by the Federal Confidentiality of Alcohol and Drug Abuse Patient Records regulations: The Federal rules restrict any use of the information to criminally investigate or prosecute any alcohol or drug abuse patient.[facility] the event this information is protected by the Federal Confidentiality of Alcohol and Drug Abuse Patient Records regulations: The Federal rules restrict any use of the information to criminally investigate or prosecute any alcohol or drug abuse patient.[facility] the event this information is protected by the Federal Confidentiality of Alcohol and Drug Abuse Patient Records regulations: The Federal rules restrict any use of the information to criminally investigate or prosecute any alcohol or drug abuse patient.[facility] the event this information is protected by the Federal Confidentiality of Alcohol and Drug Abuse Patient Records regulations: The Federal rules restrict any use of the information to criminally investigate or prosecute any alcohol or drug abuse patient.[facility] the event this information is protected by the Federal Confidentiality of Alcohol and Drug Abuse Patient Records regulations: The Federal rules restrict any use of the information to criminally investigate or prosecute any alcohol or drug abuse patient.[facility] the event this information is protected by the Federal Confidentiality of Alcohol and Drug Abuse Patient Records regulations: The Federal rules restrict any use of the information to criminally investigate or prosecute any alcohol or drug abuse patient.[facility] the event this information is protected by the Federal Confidentiality of Alcohol and Drug Abuse Patient Records regulations: The Federal rules restrict any use of the information to criminally investigate or prosecute any alcohol or drug abuse patient.[facility] the event this information is protected by the Federal Confidentiality of Alcohol and Drug Abuse Patient Records regulations: The Federal rules restrict any use of the information to criminally investigate or prosecute any alcohol or drug abuse patient.[facility] the event this information is protected by the Federal Confidentiality of Alcohol and Drug Abuse Patient Records regulations: The Federal rules restrict any use of the information to criminally investigate or prosecute any alcohol or drug abuse patient.[facility] the event this information is protected by the Federal Confidentiality of Alcohol and Drug Abuse Patient Records regulations: The Federal rules restrict any use of the information to criminally investigate or prosecute any alcohol or drug abuse patient.[facility] the event this information is protected by the Federal Confidentiality of Alcohol and Drug Abuse Patient Records regulations: The Federal rules restrict any use of the information to criminally investigate or prosecute any alcohol or drug abuse patient.[facility] the event this information is protected by the Federal Confidentiality of Alcohol and Drug Abuse Patient Records regulations: The Federal rules restrict any use of the information to criminally investigate or prosecute any alcohol or drug abuse patient.[facility] the event this information is protected by the Federal Confidentiality of Alcohol and Drug Abuse Patient Records regulations: The Federal rules restrict any use of the information to criminally investigate or prosecute any alcohol or drug abuse patient.[facility] the event this information is protected by the Federal Confidentiality of Alcohol and Drug Abuse Patient Records regulations: The Federal rules restrict any use of the information to criminally investigate or prosecute any alcohol or drug abuse patient.[facility] the event this information is protected by the Federal Confidentiality of Alcohol and Drug Abuse Patient Records regulations: The Federal rules restrict any use of the information to criminally investigate or prosecute any alcohol or drug abuse patient.[facility] the event this information is protected by the Federal Confidentiality of Alcohol and Drug Abuse Patient Records regulations: The Federal rules restrict any use of the information to criminally investigate or prosecute any alcohol or drug abuse patient.[facility] the event this information is protected by the Federal Confidentiality of Alcohol and Drug Abuse Patient Records regulations: The Federal rules restrict any use of the information to criminally investigate or prosecute any alcohol or drug abuse patient.[facility]In the event this information is protected by the Federal Confidentiality of Alcohol and Drug Abuse Patient Records regulations: The Federal rules restrict any use of the information to criminally investigate or prosecute any alcohol or drug abuse patient.[facility]In the event this information is protected by the Federal Confidentiality of Alcohol and Drug Abuse Patient Records regulations: The Federal rules restrict any use of the information to criminally investigate or prosecute any alcohol or drug abuse patient.[facility]In the event this information is protected by the Federal Confidentiality of Alcohol and Drug Abuse Patient Records regulations: The Federal rules restrict any use of the information to criminally investigate or prosecute any alcohol or drug abuse patient.[facility]In the event this information is protected by the Federal Confidentiality of Alcohol and Drug Abuse Patient Records regulations: The Federal rules restrict any use of the information to criminally investigate or prosecute any alcohol or drug abuse patient.[facility] the event this information is protected by the Federal Confidentiality of Alcohol and Drug Abuse Patient Records regulations: The Federal rules restrict any use of the information to criminally investigate or prosecute any alcohol or drug abuse patient.[facility]In the event this information is protected by the Federal Confidentiality of Alcohol and Drug Abuse Patient Records regulations: The Federal rules restrict any use of the information to criminally investigate or prosecute any alcohol or drug abuse patient.[facility]In the event this information is protected by the Federal Confidentiality of Alcohol and Drug Abuse Patient Records regulations: The Federal rules restrict any use of the information to criminally investigate or prosecute any alcohol or drug abuse patient.[facility]In the event this information is protected by the Federal Confidentiality of Alcohol and Drug Abuse Patient Records regulations: The Federal rules restrict any use of the information to criminally investigate or prosecute any alcohol or drug abuse patient.[facility]In the event this information is protected by the Federal Confidentiality of Alcohol and Drug Abuse Patient Records regulations: The Federal rules restrict any use of the information to criminally investigate or prosecute any alcohol or drug abuse patient.[facility]In the event this information is protected by the Federal Confidentiality of Alcohol and Drug Abuse Patient Records regulations: The Federal rules restrict any use of the information to criminally investigate or prosecute any alcohol or drug abuse patient.[facility] Reason for Visit (unrecogniz ed section and content) Reason Comments F/U 6 months wanting to get RX fo r omeprazole instead of getting OTC Reason Onset Date Comments 6 Month Exam Immunizations 12/20/2021 Flu vaccination Reason Comments Results Reason Comments Mammogram Result Call Back Reason Comments Results Reason Comments Ear Pain Left ear pain, BLAS an d runny nose x 3 days-face hurts Reason Comments Follow Up 6 month Reason Comments Radiology Mammogram Specialty Diagnoses / Procedures Referred By Contac t Referred To Contact [facility] Diagnoses Abnormal mammogram Procedures KEVIN DIAGNOSTIC LT DIAGNOSTIC MAMMOGRAPHY COMPUTER-AIDED DETCJ UNI Mili Saldivar MD [address] [place] [address] [facility] [address] [place] [address] Referral ID Status Reason Start Date Expiration Date V isits Requested Visits Authorized [id number] Closed Auto-Generate d Referral 01/14/2022 02/13/2023 1 1 Reason Comments Cough With chest congestio n x 3 days Reason Comments Follow Up 40 min check up Reason Comments Appointment ER follow up Reason Comments ER F/U Reason Onset Date Comments Refill Request 10/25/2023 Reason Comments Referral Request Fax Request Reason Comments Follow Up 6 month- Order for C PAP to DME [facility] Problem Area under chin Reason Comments LESION, SKIN Reason Comments CPAP DME Reason Comments neck pain X 6 weeks Reason Comments PT Eval Specialty Diagnoses / Procedures Referred By Lobo t Referred To Contact [facility] Diagnoses Chronic neck pain Strain of neck muscle, initial encounter Procedures CONSULT TO PHYSICAL THERAPY PHYSICAL THERAPY EVALUATION HIGH COMPLEX 45 MINS Mili Saldivar MD [address] [place] [address] [facility] [place] [address] [place] [address] Referral ID Status Reason Start Date Expiration Date Visits Requested Visits Authorized [id number] Authorized PCP Requested Referral Auto-Generate d Referral 4 02/08/2025 99 99 Reason Comments Head Congestion ARELIS ears feel clogge d, cough, chest congestion x 3 days Reason Comments Well Woman Reason Comments Consult surgery on 06/12/24 at [place] Reason Comments Consult hERNIA Reason Comments Follow Up Reason Comments Follow Up 6 month- hasn't been taking atorvastatin due to surgeries ER F/U Was sent to ER 06/21 by surgeon Reason Comments Radiology US Specialty Diagnoses / Procedures Referred By Lobo bain Referred To Contact [facility] Diagnoses Positive D dimer Right leg swelling Procedures US DVT LOWER RIGHT DUP-SCAN XTR VEINS UNILATERAL/LIMITED STUDY Mili Saldivar MD [address] [place] [address] Phone: tel: fax: [place] [phone] Referral ID Status Reason Start Date Expiration Date V isits Requested Visits Authorized [id number] Closed Auto-Generate d Referral 06/24/2024 07/24/2025 1 1 Reason Comments 06-11-2024 Hern[facility] [place] Care Teams (unrecognized sec tion and content) Test Engine Operator Relationship Specialty Start Date End Date Mili Saldivar MD [address], [place] [id number] PCP - General Family Practice 03/01/17 Test Engine Operator Relationship Specialty Start Date End Date Mili Saldivar MD [address] [facility] [place] [address] PCP - General Family Medicine 03/01/17 Test Engine Operator Relationship Specialty Start Date End Date Mili Saldivar MD [address] [facility] [place] [address] PCP - General Family Medicine 03/01/17 Test Engine Operator Relationship Specialty Start Date End Date Mili Saldivar MD [address] [facility] [place] [address] PCP - General Family Medicine 03/01/17 Test Engine Operator Relationship Specialty Start Date End Date Mili Saldivar MD [address] [facility] [place] [address] PCP - General Family Medicine 03/01/17 Test Engine Operator Relationship Specialty Start Date End Date Mili Saldivar MD [address] [facility] [place] [address] PCP - General Family Medicine 03/01/17 Test Engine Operator Relationship Specialty Start Date End Date Mili Saldivar MD [address] [facility] [place] [address] PCP - General Family Medicine 03/01/17 Test Engine Operator Relationship Specialty Start Date End Date Mili Saldivar MD [address] [facility] [place] [address] PCP - General Family Medicine 03/01/17 Test Engine Operator Relationship Specialty Start Date End Date Mili Saldivar MD [address] [facility] [place] [address] PCP - General Family Medicine 03/01/17 Test Engine Operator Relationship Specialty Start Date End Date Mili Saldivar MD [address] [facility] [place] [address] PCP - General Family Medicine 03/01/17 Test Engine Operator Relationship Specialty Start Date End Date Mili Saldivar MD [address] [facility] [place] [address] PCP - General Family Medicine 03/01/17 Test Engine Operator Relationship Specialty Start Date End Date Mili Saldivar MD [address] [facility] [place] [address] PCP - General Family Medicine 03/01/17 Test Engine Operator Relationship Specialty Start Date End Date Mili Saldivar MD [address] [facility] [place] [address] PCP - General Family Medicine 03/01/17 Test Engine Operator Relationship Specialty Start Date End Date Mili Saldivar MD [address] [facility] [place] [address] PCP - General Family Medicine 03/01/17 Test Engine Operator Relationship Specialty Start Date End Date Mili Saldivar MD [address] [facility] [place] [address] PCP - General Family Medicine 03/01/17 Test Engine Operator Relationship Specialty Start Date End Date Mili Saldivar MD [address] [facility] [place] [address] PCP - General Family Medicine 03/01/17 Test Engine Operator Relationship Specialty Start Date End Date Mili Saldivar MD [address] [facility] [place] [address] PCP - General Family Medicine 03/01/17 Team Status: Active Member Role Status Dates Dr. Jose Saldivar MD Family Provider Active Dr. Jose Saldivar MD Primary Care Provider Acti ve Team Status: Inactive Member Role Status Dates Dr. Jose Saldivar MD Primary Care Provider Acti ve Dr. Daren Mcknight DO Emergency Provider Active Test Engine Operator Relationship Specialty Start Date End Date Mili Saldivar MD [address] [facility] [place] [address] PCP - General Family Medicine 03/01/17 Test Engine Operator Relationship Specialty Start Date End Date Mili Saldivar MD [address] [facility] [place] [address] PCP - General Family Medicine 03/01/17 Test Engine Operator Relationship Specialty Start Date End Date Mili Saldivar MD [address] [facility] [place] [address] PCP - General Family Medicine 03/01/17 Test Engine Operator Relationship Specialty Start Date End Date Mili Saldivar MD [address] [facility] [place] [address] PCP - General Family Medicine 03/01/17 Test Engine Operator Relationship Specialty Start Date End Date Mili Saldivar MD [address] [facility] [place] [address] PCP - General Family Medicine 03/01/17 Test Engine Operator Relationship Specialty Start Date End Date Mili Saldivar MD [address] [facility] [place] [address] PCP - General Family Medicine 03/01/17 Test Engine Operator Relationship Specialty Start Date End Date Mili Saldivar MD [address] [facility] [place] [address] PCP - General Family Medicine 03/01/17 Test Engine Operator Relationship Specialty Start Date End Date Mili Saldivar MD [address] [place] [address] PCP - General Family Medicine 03/01/17 Test Engine Operator Relationship Specialty Start Date End Date Mili Saldivar MD [address] [place] [address] PCP - General Family Medicine 03/01/17 Test Engine Operator Relationship Specialty Start Date End Date Mili Saldivra MD [address] [facility] [place] [address] PCP - General Family Medicine 03/01/17 PodlogarYudith, MARÍA.PATTERN REPAIR PERSON [address] [facility] [place] [address] Jet Man Family Medicine 02/17/24 Name Effective Dates (start - stop) Status Members No Information Test Engine Operator Relationship Specialty Start Date End Date Mili Saldivar MD [address] [facility] [place] [address] PCP - General Family Medicine 03/01/17 PodlogarYudith, FROZEN FOOD DEPARTMENT MANAGER.PATTERN REPAIR PERSON [address] [facility] [place] [address] Jet Man Family Medicine 02/17/24 Test Engine Operator Relationship Specialty Start Date End Date Mili Saldivar MD [address] [facility] [place] [address] PCP - General Family Medicine 03/01/17 Podlogar, Yudith, FROZEN FOOD DEPARTMENT MANAGER.PATTERN REPAIR PERSON [address] [facility] [place] [address] [facility] Family Medicine 02/17/24 Test Engine Operator Relationship Specialty Start Date End Date Mili Saldivar MD [address] [facility] [place] [address] PCP - General Family Medicine 03/01/17 PodlogarYudith, FROZEN FOOD DEPARTMENT MANAGER.PATTERN REPAIR PERSON [address] [facility] [place] [address] Jet Man Family Medicine 02/17/24 Test Engine Operator Relationship Specialty Start Date End Date Mili Saldivar MD [address] [facility] [place] [address] PCP - General Family Medicine 03/01/17 PodlogarYudith, FROZEN FOOD DEPARTMENT MANAGER.PATTERN REPAIR PERSON [address] [facility] [place] [address] Jet Man Family Medicine 02/17/24 Test Engine Operator Relationship Specialty Start Date End Date Mili Saldivar MD [address] [facility] [place] [address] PCP - General Family Medicine 03/01/17 PodlogarYudith, FROZEN FOOD DEPARTMENT MANAGER.PATTERN REPAIR PERSON [address] [facility] [place] [address] Jet Man Family Medicine 02/17/24 Ruth Abbott FROZEN FOOD DEPARTMENT MANAGER.PATTERN REPAIR PERSON [address] [place] [address] Jet Man Family Medicine 05/24/24 06/02/24 Test Engine Operator Relationship Specialty Start Date End Date Mili Saldivar MD [address] [facility], [place] [address] PCP - General Family Medicine 03/01/17 PodlogarYudith APRN.PATTERN REPAIR PERSON [address] [facility] [place] [address] [facility]24 Ruth Abbott APRN.PATTERN REPAIR PERSON [address] [facility], [place] [id number] [facility] Medicine 05/24/24 06/02/24 Test Engine Operator Relationship Specialty Start Date End Date Mili Saldivar MD [address] [facility], [place] [address] PCP - General Family Medicine 03/01/17 PodlogarYudith, FROZEN FOOD DEPARTMENT MANAGER.PATTERN REPAIR PERSON [address] [facility] [place] [address] [facility] 02/17/24 Ruth Abbott, FROZEN FOOD DEPARTMENT MANAGER.PATTERN REPAIR PERSON [address] [facility], [place] [id number] [facility] 06/03/24 Team Status: Active Member Role Status Dates Dr. Jose Saldivar MD Primary Care Provider Acti ve Team Status: Inactive Member Role Status Dates Dr. Jose Saldivar MD Primary Care Provider Acti ve Start: February 22, 2024 End: February 22, 2024 Dr. Jose Saldivar MD Referring Provider Active Start: February 22, 2024 End: February 22, 2024 Kiera Quiroz SENIOR CATERING SALES MANAGER, SENIOR CATERING SALES MANAGER-C Attending Provider Active Start: February 22, 2024 End: February 22, 2024 Team Status: Active Member Role Status Dates Dr. Jose Saldivar MD Primary Care Provider Acti ve Start: May 27, 2024 Dr. Rober Collins MD Attending Provider Active Start: May 27, 2024 Dr. Rober oCllins MD Referring Provider Active Start: May 27, 2024 Team Status: Inactive Member Role Status Dates Dr. Jose Saldivar MD Primary Care Provider Acti ve Start: June 21, 2024 End: June 21, 2024 Dr. Blu Baeza MD Emergency Provider Active Sta rt: June 21, 2024 End: June 21, 2024 Test Engine Operator Relationship Specialty Start Date End Date Mili Saldivar MD [address] [facility] [place] [address] PCP - General Family Medicine 03/01/17 PodlogarYudith APRN.PATTERN REPAIR PERSON [address] [place] [address] [facility] Man Family Medicine 02/17/24 Ruth Abbott APRN.PATTERN REPAIR PERSON [address] [place] [address] [facility] 06/03/24 Test Engine Operator Relationship Specialty Start Date End Date Mili Saldivar MD [address] [place] [address] PCP - General Family Medicine 03/01/17 PodlogarYudith APRN.PATTERN REPAIR PERSON [address] [facility] [place] [address] [facility] Family Medicine 02/17/24 Ruth Abbott APRN.PATTERN REPAIR PERSON [address] [place] [address] [facility] Family Medicine 06/03/24 Test Engine Operator Relationship Specialty Start Date End Date Mili Saldivar MD [address] [place] [address] PCP - General Family Medicine 03/01/17 PodlogYudith warren APRN.PATTERN REPAIR PERSON [address] [place] [address] [facility] Family Medicine 02/17/24 Ruth Abbott FROZEN FOOD DEPARTMENT MANAGER.PATTERN REPAIR PERSON [address] [place] [address] [facility] Test Engine Operator Relationship Specialty Start Date End Date Mili Saldivar MD [address] [place] [address] PCP - General Family Medicine 03/01/17 PodlogarYudith, FROZEN FOOD DEPARTMENT MANAGER.PATTERN REPAIR PERSON [address] [place] [address] [facility] Family Medicine 02/17/24 Ruth Abbott FROZEN FOOD DEPARTMENT MANAGER.PATTERN REPAIR PERSON [address] [place] [address] [facility] Medicine 05/24/24 06/02/24 Ruth Abbott, FROZEN FOOD DEPARTMENT MANAGER.PATTERN REPAIR PERSON [address] [place] [address] [facility] 06/03/24 Team Status: Inactive Member Role Status Dates Dr. Jose Saldivar MD Primary Care Provider Acti ve Start: May 27, 2024 End: May 27, 2024 Dr. Rober Collins MD Attending Provider Active Start: May 27, 2024 End: May 27, 2024 Dr. Rober Collins MD Referring Provider Active Start: May 27, 2024 End: May 27, 2024 Team Status: Inactive Member Role Status Dates Dr. Jose Saldivar MD Primary Care Provider Acti ve Start: June 21, 2024 End: June 21, 2024 Dr. Blu Baeza MD Attending Provider Active Sta rt: June 21, 2024 End: June 21, 2024 Dr. Blu Baeza MD Emergency Provider Active Sta rt: June 21, 2024 End: June 21, 2024 Test Engine Operator Relationship Specialty Start Date End Date Mili Saldivar MD [address] [place], [place] [id number] PCP - General Family Medicine 03/01/17 Yudith Barraza APRN.PATTERN REPAIR PERSON [address] [place], [place] [address] [facility] 02/17/24 Ruth Abbott APRN.PATTERN REPAIR PERSON [address] [place], [place] [address] [facility] 07/28/24 Team Status: Inactive Member Role Status Dates Dr. Jose Saldivar MD Primary Care Provider Acti ve Start: August 28, 2024 End: August 28, 2024 Dr. Jose Saldivar MD Referring Provider Active Start: August 28, 2024 End: August 28, 2024 DAVID Roberts Attending Provider Active Start: August 28, 2024 End: August 28, 2024 Goals (unrecognized section and content) Health Concern Goal Type Priority Status No Information FOR RECORDS PERTAINING TO PATIENTS WHO ARE OR HAVE BEEN ENROLLED IN A CHEMICAL DEPENDENCY/SUBSTANCEABUSE PROGRAM, SOME INFORMATION MAY BE OMITTED. This clinical summary was aggregated from multiple sources. Caution should be exercised in using it in the provision of clinical care. This summary normalizes information from multiple sources, and as a consequence, information in this document may materially change the coding, format and clinical context of patient data. In addition, data may be omitted in some cases. CLINICAL DECISIONS SHOULD BE BASED ON THE PRIMARY CLINICAL RECORDS. [facility] provides no warranty or guarantee of the accuracy or completeness of information in this document.
== END | disposition home or self-care (01) ==
LOC: PSN 06:34
PROVIDERS: PCP Family Medicine; Referring Provider Nurse Practitioner Family; Visit Provider Nurse Practitioner Family
DX: R05.9 Cough, unspecified (principal)
CPT/HCPCS: 94060; 94726; 94729